=== PATIENT | male | born 1930 | race Caucasian/White ===

== ENCOUNTER 2016-11-03 19:56 | Inpatient (IN) | payer OTHER ==
[2016-11-03 20:11] VITALS: BMI 22.8
[2016-11-03 21:11] LABS: BASOPHIL 1.1 % (0-2.0); EOSINOPHIL 0.1 % (0-4.5); MCH 28.8 pg (25.7-33.7); MCHC 32.1 g/dl (32.0-35.9); MEAN CELL VOLUME 89.6 fl (80-96); MEAN PLT VOLUME 8.8 fl (7.5-11.1); NEUTROPHILS 90.8 % (42.8-82.8); PLATELET COUNT 119 K/MM3 (134-434); RDW 16.6 % (11.9-15.9); WHITE BLOOD COUNT 9.1 K/mm3 (4.0-10.0)
[2016-11-03 21:12] LABS: VENOUS BLOOD GAS HCO3 24.5 meq/L (19-25); VENOUS PH 7.38 (7.32-7.42)
--- NOTE | 2016-11-03 21:14 | PDOC ---
History of Present Illness - General History Source: Patient Exam Limitations: No Limitations - History of Present Illness Initial Comments: 11/03/16 21:18 The patient is a 86 year old male presenting with his , with a significant past medical history of CKD, CHF, AFIB s/p pacemaker, BPH, thoracic aneurysm, anemia, hypertension, high cholesterol, CAD with stent 2, status post CABG, who presents to the emergency department with generalized weakness and mild confusion for the last couple of days. The states that the patient had a otto placed for roughly a week, which was removed 3 days ago. He had urinary incontinence 2 days ago and his weakness and confusion began, prompting to come to the ED for further evaluation. The otto was placed due to his lazy bladder . The patient denies chest pain, shortness of breath, headache and dizziness. Denies fever, chills, nausea, vomit, diarrhea and constipation. Denies dysuria, frequency, urgency and hematuria. Allergies: mirtazapine Past surgical history: stents, CABG, Pacemaker, Watchman device placement, bilateral knee arthroscopy Social history: No alcohol, tobacco or drug use reported <Olu Lobato - Last Filed: 11/03/16 21:18> - General History Source: Patient, Spouse Exam Limitations: No Limitations <Tra Martinez - Last Filed: 11/03/16 23:26> - General Chief Complaint: Weakness Stated Complaint: PCP SENT/WEAKNESS Time Seen by Provider: 11/03/16 20:43 Past History <Olu Lobato - Last Filed: 11/03/16 21:18> - Past Medical History Anemia: Yes Cardiac Disorders: Yes (A FIB,ASCAD S/P CABG STENT/ DEFIBRILLATOR) CVA: No CHF: Yes Dementia: No Diabetes: No GI Disorders: Yes (Internal Hemorrhoids,) Disorders: Yes (BPH, renal disease) HTN: Yes Hypercholesterolemia: Yes Liver Disease: No Suicide Attempt (Hx): No Seizures: No Thyroid Disease: No - Surgical History Abdominal Surgery: Yes Appendectomy: No Cardiac Surgery: Yes (PACEMAKER,CABG/STENT- DEFIBULATOR) Cholecystectomy: No Lung Surgery: No Neurologic Surgery: No Orthopedic Surgery: Yes (BILAT KNEE ARTHROSCOPY) - Immunization History Immunization Up to Date: Yes - Psycho/Social/Smoking Cessation Hx Anxiety: No Suicidal Ideation: No Smoking History: Former smoker Have you smoked in the past 12 months: No If you are a former smoker, when did you quit?: 2001 Information on smoking cessation initiated: No Hx Alcohol Use: Yes Drug/Substance Use Hx: No Substance Use Type: Alcohol Hx Substance Use Treatment: No <Tra Martinez - Last Filed: 11/03/16 23:26> - Past Medical History Allergies/Adverse Reactions: Allergies Allergy/AdvReac Type Severity Reaction Status Date / Time mirtazapine [From Remeron] AdvReac Verified 11/03/16 20:04 Home Medications: Ambulatory Orders Cholecalciferol (Vitamin D3) [Vitamin D3] 2,000 unit PO DAILY 02/12/15 Rosuvastatin Calcium [Crestor] 10 mg PO HS 02/12/15 Aspirin [ASA -] 81 mg PO DAILY 08/26/15 Pantoprazole Sodium [Protonix] 40 mg PO ASDIR 08/26/15 Tamsulosin HCl [Flomax -] 0.4 mg PO DAILY 08/26/15 Furosemide [Lasix -] 40 mg PO DAILY 09/11/15 Carvedilol [Coreg -] 3.125 mg PO BID #60 tablet 09/24/15 Fluticasone Prop 0.05% Nasal [Flonase -] 2 spray NS DAILY #1 spray 09/24/15 Folic Acid/Mv,Fe,Other Min [Strovite Forte (Nf)] 1 tab PO DAILY 11/03/16 Review of Systems - Review of Systems Able to Perform ROS?: Yes Comments:: 11/03/16 21:19 GENERAL/CONSTITUTIONAL: (+) Generalized weakness. No fever or chills. HEAD, EYES, EARS, NOSE AND THROAT: No change in vision. No ear pain or discharge. No sore throat. CARDIOVASCULAR: No chest pain or shortness of breath RESPIRATORY: No cough, wheezing, or hemoptysis. GASTROINTESTINAL: No nausea, vomiting, diarrhea or constipation. GENITOURINARY: No dysuria, frequency, or change in urination. MUSCULOSKELETAL: No joint or muscle swelling or pain. No neck or back pain. SKIN: No rash NEUROLOGIC: No headache, vertigo, loss of consciousness, or change in strength/ sensation. ENDOCRINE: No increased thirst. No abnormal weight change HEMATOLOGIC/LYMPHATIC: No anemia, easy bleeding, or history of blood clots. ALLERGIC/IMMUNOLOGIC: No hives or skin allergy. <Olu Lobato Dian - Last Filed: 11/03/16 21:18> *Physical Exam - Vital Signs Last Vital Signs Temp Pulse Resp BP Pulse Ox 100 F H 70 20 107/60 95 11/03/16 21:11 11/03/16 20:08 11/03/16 20:08 11/03/16 20:08 11/03/16 20:08 - Physical Exam Comments: 11/03/16 21:19 GENERAL: Awake, alert, and fully oriented, in no acute distress HEAD: No signs of trauma, normocephalic, atraumatic EYES: PERRLA, EOMI, sclera anicteric, conjunctiva clear ENT: Auricles normal inspection, hearing grossly normal, nares patent, oropharynx clear without exudates. Moist mucosa NECK: Normal ROM, supple, no lymphadenopathy, JVD, or masses LUNGS: No distress, speaks full sentences, clear to auscultation bilaterally HEART: (+) Right sided pacemaker. Regular rate and rhythm, normal S1 and S2, no murmurs, rubs or gallops, peripheral pulses normal and equal bilaterally. ABDOMEN: Soft, nontender, normoactive bowel sounds. No guarding, no rebound. No masses EXTREMITIES: (+) 1+ pitting edema. Normal range of motion. No clubbing or cyanosis. NEUROLOGICAL: Cranial nerves II through XII grossly intact. Normal speech, no focal sensorimotor deficits SKIN: Warm, Dry, normal turgor, no rashes or lesions noted. <AggiereaOlu - Last Filed: 11/03/16 21:18> - Vital Signs Last Vital Signs Temp Pulse Resp BP Pulse Ox 97.9 F 70 20 107/60 95 11/03/16 20:08 11/03/16 20:08 11/03/16 20:08 11/03/16 20:08 11/03/16 20:08 <Tra Martinez - Last Filed: 11/03/16 23:26> Heart Score/ECG Review #1 11/03/16 23:26 Ventricular paced 70 <Tra Martinez - Last Filed: 11/03/16 23:26> ED Treatment Course - LABORATORY CBC & Chemistry Diagram: 11/03/16 21:00 11/03/16 21:00 - ADDITIONAL ORDERS Additional order review: Laboratory Results 11/03/16 21:10 VBG pH 7.38 POC VBG pCO2 42.9 POC VBG pO2 20.9 L Mixed VBG HCO3 24.5 <CheryleOlukimmie Biggs - Last Filed: 11/03/16 21:18> - LABORATORY CBC & Chemistry Diagram: 11/03/16 21:00 11/03/16 21:00 - RADIOLOGY Radiology Studies Ordered: Category Date Time Status CHEST X-RAY PORTABLE* [RAD] Stat Radiology 11/03/16 20:57 Ordered <Melanie Martinezel - Last Filed: 11/03/16 23:26> Medical Decision Making - Medical Decision Making 11/03/16 21:13 A portion of this note was documented by scribe services under my direction. I have reviewed the details of the note, within reason, and agree with the documentation with the following case summary and management plan written by me. Patient treated in the ED. Nursing notes are reviewed and incorporated into the medical decision-making. Vital signs reviewed. Peripheral IV access obtained by the nurse, laboratory studies are drawn and sent, reviewed and interpreted by myself. Vital Signs Temp Pulse Resp BP Pulse Ox 100 F H 70 20 107/60 95 11/03/16 21:11 11/03/16 20:08 11/03/16 20:08 11/03/16 20:08 11/03/16 20:08 86-year-old male with past medical history of atrial fibrillation, hypertension , BPH, urinary incontinence, congestive heart failure, coronary disease with stents and a 4 vessel CABG, pacemaker presents with rule out infection. The patient had an indwelling Otto catheter for several weeks for urinary incontinence that was removed 2 days ago. Yesterday, started developing tactile temperatures and intermittent confusions and some loose stools. Patient contacted her doctor who advised the patient to go to the ER. I suspect that the patient is likely having infection. We'll rule out urinary tract infection. Adult sepsis protocol initiated. Labs and antibiotics as needed. 11/03/16 22:56 CBC, BMP 11/03/16 21:00 11/03/16 21:00 CMP Sodium 131 mmol/L (136-145) L 11/03/16 21:00 Potassium 5.2 mmol/L (3.5-5.1) H D 11/03/16 21:00 Chloride 94 mmol/L (98-107) L 11/03/16 21:00 Carbon Dioxide 25 mmol/L (21-32) 11/03/16 21:00 Anion Gap 12 (8-16) 11/03/16 21:00 BUN 73 mg/dL (7-18) H D 11/03/16 21:00 Creatinine 3.1 mg/dL (0.7-1.3) H D 11/03/16 21:00 Creat Clearance w eGFR 19.25 (>60) 11/03/16 21:00 Random Glucose 108 mg/dL (74-106) H 11/03/16 21:00 Lactic Acid 2.3 mmol/L (0.4-2.0) H* 11/03/16 21:00 Calcium 8.8 mg/dL (8.5-10.1) 11/03/16 21:00 Total Bilirubin 1.3 mg/dL (0.2-1.0) H D 11/03/16 21:00 AST 40 U/L (15-37) H D 11/03/16 21:00 ALT 27 U/L (12-78) 11/03/16 21:00 Alkaline Phosphatase 124 U/L (45-117) H 11/03/16 21:00 Creatine Kinase 524 IU/L (39-308) H D 11/03/16 21:10 Creatine Kinase Index 0.6 % (0.0-5.0) 11/03/16 21:10 CK-MB (CK-2) 3.345 ng/ml (0.5-3.6) 11/03/16 21:10 CK-MB (CK-2) Rel Index Cancelled 11/03/16 21:10 Troponin I 0.18 ng/ml (0.00-0.05) H D 11/03/16 21:10 Total Protein 6.6 g/dl (6.4-8.2) 11/03/16 21:00 Albumin 3.2 g/dl (3.4-5.0) L 11/03/16 21:00 Urine Test Results Urine Color Yellow 11/03/16 21:10 Urine Appearance Turbid 11/03/16 21:10 Urine pH 5.0 (5.0-8.0) 11/03/16 21:10 Urine Protein 2+ (NEGATIVE) H 11/03/16 21:10 Urine Glucose (UA) Negative (NEGATIVE) 11/03/16 21:10 Urine Ketones Negative (NEGATIVE) 11/03/16 21:10 Urine Blood 2+ (NEGATIVE) H 11/03/16 21:10 Urine Nitrite Negative (NEGATIVE) 11/03/16 21:10 Urine Bilirubin Negative (NEGATIVE) 11/03/16 21:10 Ur Leukocyte Esterase 2+ (NEGATIVE) H 11/03/16 21:10 Blood work demonstrates an elevated lactic acid and acute on chronic renal insufficiency as well as an elevated troponin which is likely demand ischemia. Patient is urine is infected and likely source of patient's symptoms. Zosyn was ordered for coverage. Patient will be admitted to the hospital. Case discussed with Dr. Mercedes who accepts the patient and on telemetry for admission Case discussed in detail with admitting physician including history, physical exam and ancillary studies. Admitting physician has assumed care for the patient, will follow all pending diagnostics and will complete the evaluation and treatment. <Tra Martinez - Last Filed: 11/03/16 23:26> *DC/Admit/Observation/Transfer - Attestations Scribe Attestion: 11/03/16 21:20 Documentation prepared by Olu Lobato, acting as medical office professional instructor for Tra Martinez MD <Olu Lobato - Last Filed: 11/03/16 21:18> - Discharge Dispostion Admit: Yes <Tra Martinez - Last Filed: 11/03/16 23:26> Diagnosis at time of Disposition: UTI (urinary tract infection) Qualifiers: Urinary tract infection type: site unspecified Hematuria presence: without hematuria Qualified Code(s): N39.0 - Urinary tract infection, site not specified - Referrals Referrals: Ga Hoang MD [Primary Care Provider] -
[2016-11-03 21:36] LABS: INR 1.71 (0.82-1.09)
[2016-11-03 21:37] LABS: ALBUMIN 3.2 g/dl (3.4-5.0); ALK PHOS 124 U/L (45-117); ANION GAP 12 (8-16); BILIRUBIN,TOTAL 1.3 mg/dL (0.2-1.0); CALCIUM 8.8 mg/dL (8.5-10.1); CO2 25 mmol/L (21-32); CREATININE 3.1 mg/dL (0.7-1.3); GLUCOSE,RANDOM 108 mg/dL (74-106); SGOT/AST 40 U/L (15-37); SGPT/ALT 27 U/L (12-78); TOT PROT 6.6 g/dl (6.4-8.2)
[2016-11-03 21:38] LABS: ACTIVATED PTT 30.3 SECONDS (26.9-34.4)
[2016-11-03 21:38] LABS: TROPONIN I 0.18 ng/ml (0.00-0.05)
[2016-11-03 22:01] LABS: URINE APPEARANCE TURBID; URINE BILIRUBIN NEGATIVE (NEGATIVE); URINE COLOR YELLOW; URINE GLUCOSE (UA) NEGATIVE (NEGATIVE); URINE KETONE NEGATIVE (NEGATIVE); URINE NITRITE NEGATIVE (NEGATIVE); URINE UROBILINOGEN 2.0 E.U/dl E.U./dl (0.2-1.0)
[2016-11-03 22:10] LABS: URINE BLOOD 2+ (NEGATIVE); URINE LEUK ESTERASE 2+ (NEGATIVE); URINE PROTEIN 2+ (NEGATIVE)
[2016-11-03] MEDS ORDERED: PIPERACILLIN/TAZOB 3.375 GM/50 ML PRE-DOCKED IVPB ONE (22:15)
[2016-11-03] MEDS ORDERED: PIPERACILLIN/TAZOB 3.375 GM 50 ML IVPB ONE (22:21)
[2016-11-03] MEDS ORDERED: ACETAMINOPHEN 1000 MG/100 ML VIAL (NON FORMULARY) IVPB ONE (22:23)
[2016-11-03] MEDS ORDERED: ACETAMINOPHEN INJECTION 100 ML IVPB ONE (22:38)
[2016-11-03 22:46] LABS: URINE HYALINE CAST 67 /lpf; URINE RBC 17 /hpf (0-3); URINE WBC 2891 /hpf (3-5); YEAST FEW
[2016-11-04 06:49] LABS: BASOPHIL 0.1 % (0-2.0); EOSINOPHIL 0.6 % (0-4.5); MCH 29.3 pg (25.7-33.7); MCHC 32.5 g/dl (32.0-35.9); MEAN CELL VOLUME 90.2 fl (80-96); MEAN PLT VOLUME 8.5 fl (7.5-11.1); NEUTROPHILS 93.2 % (42.8-82.8); PLATELET COUNT 100 K/MM3 (134-434); RDW 16.9 % (11.9-15.9); WHITE BLOOD COUNT 7.4 K/mm3 (4.0-10.0)
[2016-11-04 07:42] LABS: ALBUMIN 2.7 g/dl (3.4-5.0); ANION GAP 10 (8-16); CALCIUM 8.2 mg/dL (8.5-10.1); CO2 27 mmol/L (21-32); GLUCOSE,RANDOM 93 mg/dL (74-106); SGOT/AST 32 U/L (15-37); SGPT/ALT 24 U/L (12-78)
[2016-11-04 07:47] LABS: ALK PHOS 107 U/L (45-117); BILIRUBIN,TOTAL 1.2 mg/dL (0.2-1.0); CREATININE 3.2 mg/dL (0.7-1.3); TOT PROT 5.7 g/dl (6.4-8.2); TROPONIN I 0.13 ng/ml (0.00-0.05)
[2016-11-04] MEDS ORDERED: TAMSULOSIN HCL 0.4 MG CAP.ER.24H (FP) PO SCH (08:30)
--- NOTE | 2016-11-04 09:55 | HP ---
Admitting History and Physical - Primary Care Physician PCP: Ga Hoang - Admission Chief Complaint: weakness History of Present Illness: ER HISTORY - History of Present Illness Initial Comments: 11/03/16 21:18 The patient is a 86 year old male presenting with his , with a significant past medical history of CKD, CHF, AFIB s/p pacemaker, BPH, thoracic aneurysm, anemia, hypertension, high cholesterol, CAD with stent 2, status post CABG, who presents to the emergency department with generalized weakness and mild confusion for the last couple of days. The states that the patient had a otto placed for roughly a week, which was removed 3 days ago. He had urinary incontinence 2 days ago and his weakness and confusion began, prompting to come to the ED for further evaluation. The otto was placed due to his lazy bladder . The patient denies chest pain, shortness of breath, headache and dizziness. Denies fever, chills, nausea, vomit, diarrhea and constipation. Denies dysuria, frequency, urgency and hematuria. Allergies: mirtazapine Past surgical history: stents, CABG, Pacemaker, Watchman device placement, bilateral knee arthroscopy Social history: No alcohol, tobacco or drug use reported Pt examined by me in ER Pt known by me from the office. Was sent by Dr Hoang for generalized weakness and worsening renal function. Pt does admit to difficulty urinating. Confused and forgetful-- unlike his usual self. Denies fever or chills. Has body aches and feels weak. No chest pain No dizziness Unable to give a meaningful history. not at bedside. History Source: Patient, Family Member, Medical Record Limitations to Obtaining History: Poor Historian - Past Medical History Cardiovascular: Yes: AFIB (s/p watchman device), CAD (status post CABG in 2003) , CHF (status post AICD), HTN, Hyperlipdemia Gastrointestinal: Yes: Diverticulosis, GI Bleed Renal/: Yes: Renal Inusuff Musculoskeletal: Yes: Chronic low back pain - Past Surgical History Past Surgical History: Yes: AICD, CABG - Smoking History Smoking history: Former smoker Have you smoked in the past 12 months: No If you are a former smoker, when did you quit?: 2001 - Alcohol/Substance Use Hx Alcohol Use: Yes - Social History ADL: Independent History of Recent Travel: No Home Medications - Allergies Allergies/Adverse Reactions: Allergies Allergy/AdvReac Type Severity Reaction Status Date / Time mirtazapine [From Remeron] AdvReac Verified 11/03/16 20:04 - Home Medications Home Medications: Ambulatory Orders Cholecalciferol (Vitamin D3) [Vitamin D3] 2,000 unit PO DAILY 02/12/15 Rosuvastatin Calcium [Crestor] 10 mg PO HS 02/12/15 Aspirin [ASA -] 81 mg PO DAILY 08/26/15 Pantoprazole Sodium [Protonix] 40 mg PO ASDIR 08/26/15 Tamsulosin HCl [Flomax -] 0.4 mg PO DAILY 08/26/15 Furosemide [Lasix -] 40 mg PO DAILY 09/11/15 Carvedilol [Coreg -] 3.125 mg PO BID #60 tablet 09/24/15 Fluticasone Prop 0.05% Nasal [Flonase -] 2 spray NS DAILY #1 spray 09/24/15 Folic Acid/Mv,Fe,Other Min [Strovite Forte (Nf)] 1 tab PO DAILY 11/03/16 Review of Systems - Review of Systems Constitutional: reports: Weakness. denies: Chills, Fever, Loss of Appetite Cardiovascular: reports: Edema. denies: Chest Pain, Shortness of Breath Gastrointestinal: denies: Abdominal Pain, Diarrhea Genitourinary: reports: Incontinence. denies: Burning, Discharge, Dysuria, Flank Pain, Frequency Physical Examination Vital Signs: Vital Signs Temperature 100 F H 11/03/16 21:11 Pulse Rate 78 11/04/16 07:50 Respiratory Rate 18 11/04/16 07:50 Blood Pressure 126/74 11/04/16 07:50 O2 Sat by Pulse Oximetry (%) 97 11/04/16 07:50 Constitutional: Yes: No Distress, Calm Cardiovascular: Yes: Pulse Irregular, Murmur Respiratory: Yes: CTA Bilaterally Gastrointestinal: Yes: Normal Bowel Sounds, Soft. No: Abdomen, Obese, Distention, Tenderness Edema: Yes Edema: LLE: 2+, RLE: 2+ Neurological: Yes: Alert, Confusion Labs: CBC, BMP 11/04/16 06:26 11/04/16 06:26 Imaging - Results Chest X-ray: Image Reviewed (no infiltrate) EKG: Image Reviewed (paced) Problem List - Problems (1) UTI (urinary tract infection) Code(s): N39.0 - URINARY TRACT INFECTION, SITE NOT SPECIFIED Qualifiers: Urinary tract infection type: site unspecified Hematuria presence: without hematuria Qualified Code(s): N39.0 - Urinary tract infection, site not specified (2) VALDEMAR (acute kidney injury) Code(s): N17.9 - ACUTE KIDNEY FAILURE, UNSPECIFIED (3) Atrial fibrillation Code(s): I48.91 - UNSPECIFIED ATRIAL FIBRILLATION (4) Gram-negative bacteremia Code(s): R78.81 - BACTEREMIA (5) Altered mental status Code(s): R41.82 - ALTERED MENTAL STATUS, UNSPECIFIED Assessment/Plan PLAN IV antibiotics Blood cultures prelim positive gram negative check kidneys and urinary bladder sono denies NSAID use cardiac enzymes slightly elevated but trending down-- likely due to sepsis check Echo ID eval for bacteremia Renal eval for acute on chronic kidney failure Cardiology eval for elevated cardiac enzymes DVT prophylaxis-- SCD Lasix on hold due to kidney injury Time spent evaluating pt, speaking with staff, documentation -- 35 min
[2016-11-04] MEDS ORDERED: FLUTICASONE PROP 0.05% 16 GM NASAL SPRAY NS SCH (10:00)
[2016-11-04] MEDS ORDERED: PANTOPRAZOLE 40 MG TABLET (FP) PO SCH (10:00)
[2016-11-04] MEDS ORDERED: ASPIRIN 81 MG CHEWABLE TABLETS PO SCH (10:00)
[2016-11-04] MEDS ORDERED: CEFTRIAXONE 50 ML IVPB SCH (10:00)
[2016-11-04] MEDS ORDERED: CARVEDILOL 3.125 MG TABLET (FP) PO SCH (10:00)
--- NOTE | 2016-11-04 11:54 | CON.CARD ---
Cardiology Consult (text) - Consultation Consultation Note: cc: weakness, lethargy hpi: 86 m hx CAD s/p CABG (09/2006: CHANDLER to LAD, SVG to HL, SVG to OM2, SVG to PDA) and pci (last cath/PCI 10/2012: patent CHANDLER to LAD, SVG to OM2, SVG to Ramus, occluded SVG to RPDA. Had ZENIA PCI to [place] Diag, unsuccessful attempt of [place] RCA PLATE WASHER), MV ring (28 mm Tyler) for severe MR, ischemic CMPathy s /p biv-ICD ([employer]), HTN, HPL, Aflutter ablation 06/2008 (caused inappropriate ICD shocks), afib s/p watchman device 06/2015 ([facility]), GIB (possible internal hemroids), ckd (cr 2.5-3), anemia here with weakness/lethargy. Had been doing well until recently when had urinary retention requiring outpt otto. Otto was removed few days ago and he started to become weak and lethargic over past few days. No cp, sob, palps, dizzy, loc, pnd, orthopnea. LE edema mild. Sees me for cardiology. pmh: per hpi psh: per hpi; neck fusion surgery, spine injections, rotator cuff repair, knee arthroscopy social: no tob fam: no premature cad ros: per hpi; no rash, cough, nasal congestion, JARRETT, vision changes, muscle pains , nvd meds: Home Medications Medication Instructions Recorded Cholecalciferol (Vitamin D3) 2,000 unit PO DAILY 02/12/15 [Vitamin D3] Rosuvastatin Calcium [Crestor] 10 mg PO HS 02/12/15 Aspirin [ASA -] 81 mg PO DAILY 08/26/15 Pantoprazole Sodium [Protonix] 40 mg PO ASDIR 08/26/15 Tamsulosin HCl [Flomax -] 0.4 mg PO DAILY 08/26/15 Furosemide [Lasix -] 40 mg PO DAILY 09/11/15 Carvedilol [Coreg -] 3.125 mg PO BID #60 tablet 09/24/15 Fluticasone Prop 0.05% Nasal 2 spray NS DAILY #1 spray 09/24/15 [Flonase -] Folic Acid/Mv,Fe,Other Min 1 tab PO DAILY 11/03/16 [Strovite Forte (Nf)] pe: Vital Signs Period Temp Pulse Resp BP Sys/Dennison Pulse Ox Last 24 Hr 97.9 F-100 F 70-78 16-20 90-126/40-74 95-100 nad, no jvd rrr s1s2 no mrg cta bl nl eff lethargic but arousable and appropriate no le e/c/c abd mild tender, nd pos bs no jaundice diaphoresis pos dp pt Laboratory Last Values WBC 7.4 K/mm3 (4.0-10.0) 11/04/16 06:26 RBC 3.85 M/mm3 (4.00-5.60) L 11/04/16 06:26 Hgb 11.3 GM/dL (11.7-16.9) L 11/04/16 06:26 Hct 34.8 % (35.4-49) L 11/04/16 06:26 MCV 90.2 fl (80-96) 11/04/16 06:26 MCHC 32.5 g/dl (32.0-35.9) 11/04/16 06:26 RDW 16.9 % (11.9-15.9) H 11/04/16 06:26 Plt Count 100 K/MM3 (134-434) L 11/04/16 06:26 MPV 8.5 fl (7.5-11.1) 11/04/16 06:26 Neutrophils % 93.2 % (42.8-82.8) H 11/04/16 06:26 Lymphocytes % 2.5 % (8-40) L 11/04/16 06:26 Monocytes % 3.6 % (3.8-10.2) L 11/04/16 06:26 Eosinophils % 0.6 % (0-4.5) D 11/04/16 06:26 Basophils % 0.1 % (0-2.0) 11/04/16 06:26 INR 1.71 (0.82-1.09) H 11/03/16 21:00 PTT (Actin FS) 30.3 SECONDS (26.9-34.4) 11/03/16 21:00 VBG pH 7.38 (7.32-7.42) 11/03/16 21:10 POC VBG pCO2 42.9 mmHg (38-52) 11/03/16 21:10 POC VBG pO2 20.9 mmHg (28-48) L 11/03/16 21:10 Mixed VBG HCO3 24.5 meq/L (19-25) 11/03/16 21:10 Sodium 133 mmol/L (136-145) L 11/04/16 06:26 Potassium 5.0 mmol/L (3.5-5.1) 11/04/16 06:26 Chloride 96 mmol/L (98-107) L 11/04/16 06:26 Carbon Dioxide 27 mmol/L (21-32) 11/04/16 06:26 Anion Gap 10 (8-16) 11/04/16 06:26 BUN 78 mg/dL (7-18) H 11/04/16 06:26 Creatinine 3.2 mg/dL (0.7-1.3) H 11/04/16 06:26 Creat Clearance w eGFR 18.55 (>60) 11/04/16 06:26 Random Glucose 93 mg/dL (74-106) 11/04/16 06:26 Lactic Acid 1.4 mmol/L (0.4-2.0) 11/04/16 06:20 Calcium 8.2 mg/dL (8.5-10.1) L 11/04/16 06:26 Total Bilirubin 1.2 mg/dL (0.2-1.0) H 11/04/16 06:26 AST 32 U/L (15-37) 11/04/16 06:26 ALT 24 U/L (12-78) 11/04/16 06:26 Alkaline Phosphatase 107 U/L (45-117) 11/04/16 06:26 Creatine Kinase 382 IU/L (39-308) H D 11/04/16 06:26 Creatine Kinase Index 0.8 % (0.0-5.0) 11/04/16 06:26 CK-MB (CK-2) 3.006 ng/ml (0.5-3.6) 11/04/16 06:26 CK-MB (CK-2) Rel Index Cancelled 11/03/16 21:10 Troponin I 0.13 ng/ml (0.00-0.05) H 11/04/16 06:26 Total Protein 5.7 g/dl (6.4-8.2) L 11/04/16 06:26 Albumin 2.7 g/dl (3.4-5.0) L 11/04/16 06:26 Urine Color Yellow 11/03/16 21:10 Urine Appearance Turbid 11/03/16 21:10 Urine pH 5.0 (5.0-8.0) 11/03/16 21:10 Ur Specific [place] 1.015 (1.005-1.025) 11/03/16 21:10 Urine Protein 2+ (NEGATIVE) H 11/03/16 21:10 Urine Glucose (UA) Negative (NEGATIVE) 11/03/16 21:10 Urine Ketones Negative (NEGATIVE) 11/03/16 21:10 Urine Blood 2+ (NEGATIVE) H 11/03/16 21:10 Urine Nitrite Negative (NEGATIVE) 11/03/16 21:10 Urine Bilirubin Negative (NEGATIVE) 11/03/16 21:10 Urine Urobilinogen 2.0 e.u/dl E.U./dl (0.2-1.0) 11/03/16 21:10 Ur Leukocyte Esterase 2+ (NEGATIVE) H 11/03/16 21:10 Urine RBC 17 /hpf (0-3) 11/03/16 21:10 Urine WBC 2891 /hpf (3-5) 11/03/16 21:10 Hyaline Casts 67 /lpf 11/03/16 21:10 Urine Yeast Few 11/03/16 21:10 Blood Type A POSITIVE 11/03/16 21:00 Antibody Screen Negative 11/03/16 21:00 cxr: no chf tele: vpaced Adeno stress MPI 06/2012 : moderate anterior and inferior ischemia, severely reduced LVF-->cath Carotid Doppler 07/2012: no sig stenosis PVR 05/2012: normal elana 04/2016: lve, mod-sev dec lvef, global hk, rve, mod dec rv fcn, mild ar, mv repair with mild mr, sev tr 2/2 icd lead, watchman device in place with nl fcn echo 08/2015: mod-sev dec lvef (global hk), mild lve, mild rve, nl rvf, mild aida , mv ring, sev tr, rvsp 30-40, mod ar echo 12/2014: mod lve, sev decreased lvef (global hypo), nl rv size, s/p MV ring with trace mr, sev tr, mod-sev ar, rvsp 30-40 Echo 05/2013: severely dil LV, severely reduced LVF, normal RVF, mod biatrial dilation, mod AI, s/p mitral annuloplasty ring, mild to mod TR, RVSP 50-60 Echo 05/2012: mod dil LV, severely reduced LVF, normal RVF, mod dil LA, mod AI, s/p mitral annuloplasty ring, mild TR, RVSP 35-40 ecg 11/04/16: afib, vpaced a/p: 86 m hx CAD s/p CABG (09/2006: CHANDLER to LAD, SVG to HL, SVG to OM2, SVG to PDA) and pci (last cath/PCI 10/2012: patent CHANDLER to LAD, SVG to OM2, SVG to Ramus, occluded SVG to RPDA. Had ZENIA PCI to [place] Diag, unsuccessful attempt of [place] RCA PLATE WASHER), MV ring (28 mm Tyler) for severe MR, ischemic CMPathy s /p biv-ICD ([employer]), HTN, HPL, Aflutter ablation 06/2008 (caused inappropriate ICD shocks), afib s/p watchman device 06/2015 ([facility]), GIB (possible internal hemroids), ckd (cr 2.5-3), anemia here with weakness/lethargy. weakness, lethargy: -likely 2/2 infection (?uti), valdemar -abx per pmd/ID -holding home lasix pos trops: -borderline trop elevation with flat trend and nl ckmb, not consistent with acs Cad s/p cabg, pci: -Stable, no angina. -no signs acs -cont asa, bb, statin Severe MR s/p ring: -Stable, no sig MR on recent ELANA ischemic CMPathy, severe systolic chf: -mild le edema, no pulm edema -VALDEMAR presently so would hold home lasix 40 qd for now and monitor cr trend -cont coreg. not on omar 2/2 ckd -Nitrates and hydral have been held in past due to low bp tendencies. s/p biv-ICD ([employer]): Stable. Has routine home monitoring and office checks at [facility] [place] with EP dr tabares. Had multiple episodes of NSVT therefore maintained on amiodarone. Outpt f/u with EP. htn: -cont coreg, can hold if develops low bp from sepsis hld: -cont statin Prior Aflutter: s/p successful ablation in 2008. AFib: -Rate controlled on bb, amio -Had Watchman device 06/2015 at [facility], nl fcn on recent ELANA -cont asa 81 valdemar, ckd: -cr above baseline, possibly from UTI, urinary retention -hold home lasix -renal consulted hx of anemia: -he had INOCENCIO closure device (watchman device) and then finished the requisite 6 weeks of coumadin w/o bleeding issues and stable hgb throughout -then he began the next phase post watchman device that involved 6 weeks of DAPT with asa and plavix. 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
--- NOTE | 2016-11-04 11:57 | EKG ---
Test Reason : Blood Pressure : / mmHG Vent. Rate : 070 BPM Atrial Rate : 079 BPM P-R Int : 000 ms QRS Dur : 184 ms QT Int : 482 ms P-R-T Axes : 000 246 076 degrees QTc Int : 520 ms POOR DATA QUALITY, INTERPRETATION MAY BE ADVERSELY AFFECTED Ventricular-paced rhythm Biventricular pacemaker detected ABNORMAL ECG WHEN COMPARED WITH ECG OF 11-SEP-2015 16:33, NO SIGNIFICANT CHANGE WAS FOUND Confirmed by ERNST DURANT MD ([id number]) on 11/04/2016 11:57:07 AM Referred By: Confirmed By:ERNST DURANT MD
[2016-11-04] MEDS ORDERED: MEROPENEM 500 MG VIAL (RESTRICTED TO ID) IVPB SCH (15:45)
--- NOTE | 2016-11-04 15:50 | PN ---
Progress Note (short form) - Note Progress Note: ID Consult dictated Gram Negative bacteremia/ sepsis secondary to UTI Possible early septic shock Lactic acidosis Neurogenic bladder Azotemia Thrombocytopenia secondary to sepsis Pending c/s, empiric meropenem, adjusted for azotemia Renal sonogram Urology evaluation
--- NOTE | 2016-11-04 16:36 | CONS ---
DATE OF CONSULTATION: DATE OF DICTATION: 11/04/2016 The patient is an 86-year-old male evaluated for gram-negative sepsis. History was obtained from the chart as well as from the patient, although he is somewhat confused. He reports experiencing generalized weakness for the past several days. He had recently had a Garcia catheter put in by a urologist for neurogenic bladder, and it was removed approximately 3 days ago. Over the past several days he has had worsening weakness with difficulty voiding and altered mentation. He was advised by his physician to come to the emergency room after he was noted to have worsening renal function. In the emergency room, the patient had a low-grade fever. Urinalysis showed many white cells. Blood cultures are now positive for gram-negative rods. The patient denies any difficulty voiding at the present time. He denies any urinary retention or incontinence. He denies any suprapubic or flank pain. The Garcia catheter is out. He has had some subjective fever. He has not been recently hospitalized. He denies recent antibiotic therapy. PAST MEDICAL HISTORY: Positive for atrial fibrillation, congestive heart failure, coronary artery disease status post coronary artery stent, chronic kidney disease, BPH, thoracic aortic aneurysm, hypertension, hyperlipidemia, history of perirectal abscess. PAST SURGICAL HISTORY: Status post permanent pacemaker, coronary artery bypass graft, history of Watchman device insertion, and bilateral total knee replacements. ALLERGIES: MIRTAZAPINE. MEDICATIONS: Vitamin D, Crestor, aspirin, Protonix, Flomax, Lasix, Coreg. SOCIAL HISTORY: Former smoker. Lives at home with his . SYSTEMS REVIEW: Neurologic: Positive for altered mental status. Cardiac: Negative chest pain or palpitations. Respiratory: Negative cough or sputum production. Gastrointestinal: Negative vomiting or diarrhea. Genitourinary: As per HPI. LABORATORY DATA: White count 7.4, neutrophils 93, lymphocytes 2, monocytes 3, hematocrit 34.8, platelet count 100. BUN 78, creatinine 3.2. Urine analysis: 2891 white cells. Blood cultures: Gram-negative rods. Chest x-ray shows increased markings at the bases bilaterally. PHYSICAL EXAMINATION: General: He is awake. He appeared mildly confused although he is able to answer questions appropriately. Vital Signs: Temperature 98.2. T-max 100. Blood pressure 100/54. Pulse 73, regular. Respirations 18 per minute. Eyes: Sclerae anicteric. Heart Sounds: Irregular, S1, S2. Lungs: Few crepitations at the bases bilaterally. Chest: There is a pacemaker present in the left chest. Abdomen: Soft. No tenderness elicited. No mass, rebound or rigidity. Extremities: 1+ edema. IMPRESSION: 1. Gram-negative bacteremia/sepsis secondary to urinary tract infection. 2. Possible early septic shock. 3. Neurogenic bladder. 4. Azotemia. 5. Thrombocytopenia secondary to sepsis. Pending identification of blood isolate, empiric antibiotic coverage with meropenem adjusted for renal insufficiency. Will give 250 mg IV piggyback every 8 hours, obtain renal sonogram. Urology evaluation. Further recommendations pending culture results. Will follow. Thank you for the kind referral. SANDRA FRIEDMAN M.D. RUPINDER/[id number]
[2016-11-04] MEDS: MEROPENEM 250 MG in DEXTROSE 5%-WATER - 100 ML IVPB SCH (18:34)
--- NOTE | 2016-11-04 21:30 | CONSULT ---
Consult Consult Specialty:: Nephrology Reason for Consultation:: VALDEMAR on CKD - History of Present Illness Chief Complaint: generalized weakness and confusion History of Present Illness: Pt is an 86 year old male with pmhx of CKD (baseline education rep about 2.3), CHF, a-fib , BPH, thoracic aneurysm, HTN, CAD, CABGand hyperlipidemia who presents to the ER with several days of weakness and altered mental status. He had an indwelling otto that removed about one week ago. He was found to have elevated creatinine and I was called to evaluate him. He denies shortness of breath, fever or chills. He is incontinent. He denies nsaid use. - History Source History Provided By: Patient, Medical Record - Past Medical History Cardio/Vascular: Yes: AFIB (s/p watchman device), CAD (status post CABG in 2003) , CHF (status post AICD), HTN, Hyperlipdemia Gastrointestinal: Yes: Diverticulosis, GI Bleed Renal/: Yes: Renal Inusuff Musculoskeletal: Yes: Chronic low back pain - Past Surgical History Past Surgical History: Yes: AICD, CABG - Alcohol/Substance Use Hx Alcohol Use: Yes - Smoking History Smoking history: Former smoker Have you smoked in the past 12 months: No If you are a former smoker, when did you quit?: 2001 - Social History Usual Living Arrangement: With Spouse ADL: Independent History of Recent Travel: No Home Medications - Allergies Allergies/Adverse Reactions: Allergies Allergy/AdvReac Type Severity Reaction Status Date / Time mirtazapine [From Remeron] AdvReac Verified 11/03/16 20:04 - Home Medications Home Medications: Ambulatory Orders Cholecalciferol (Vitamin D3) [Vitamin D3] 2,000 unit PO DAILY 02/12/15 Rosuvastatin Calcium [Crestor] 10 mg PO HS 02/12/15 Aspirin [ASA -] 81 mg PO DAILY 08/26/15 Pantoprazole Sodium [Protonix] 40 mg PO ASDIR 08/26/15 Tamsulosin HCl [Flomax -] 0.4 mg PO DAILY 08/26/15 Furosemide [Lasix -] 40 mg PO DAILY 09/11/15 Carvedilol [Coreg -] 3.125 mg PO BID #60 tablet 09/24/15 Fluticasone Prop 0.05% Nasal [Flonase -] 2 spray NS DAILY #1 spray 09/24/15 Folic Acid/Mv,Fe,Other Min [Strovite Forte (Nf)] 1 tab PO DAILY 11/03/16 Family Disease History - Family Disease History Family History: Denies Review of Systems - Review of Systems Constitutional: reports: Malaise, Weakness HENT: reports: No Symptoms Neck: reports: No Symptoms Cardiovascular: reports: No Symptoms Respiratory: reports: No Symptoms Gastrointestinal: reports: No Symptoms Genitourinary: reports: Incontinence. denies: Burning, Flank Pain Musculoskeletal: reports: No Symptoms Neurological: reports: Confusion Endocrine: reports: No Symptoms Hematology/Lymphatic: reports: No Symptoms Psychiatric: reports: No Symptoms Physical Exam Vital Signs: Vital Signs Temperature 97.7 F 11/04/16 18:05 Pulse Rate 72 11/04/16 18:05 Respiratory Rate 20 11/04/16 18:05 Blood Pressure 98/50 11/04/16 18:05 O2 Sat by Pulse Oximetry (%) 98 11/04/16 18:05 Constitutional: Yes: Calm Eyes: Yes: Conjunctiva Clear HENT: Yes: Atraumatic Neck: Yes: Supple Cardiovascular: Yes: Pulse Irregular, S1, S2 Respiratory: Yes: CTA Bilaterally Gastrointestinal: Yes: Normal Bowel Sounds, Soft Renal/: Yes: Incontinence Musculoskeletal: Yes: WNL Edema: No Neurological: Yes: Confusion Labs: CBC, BMP 11/04/16 06:26 11/04/16 06:26 Laboratory Tests 09/11/15 09/12/15 09/14/15 12:23 05:20 05:10 Creatinine 3.8 H D 3.3 H 2.5 H 09/15/15 09/16/15 09/17/15 05:35 05:40 05:40 Creatinine 2.4 H 2.3 H 2.2 H 09/18/15 09/19/15 09/21/15 05:40 05:35 06:00 Creatinine 1.9 H 1.7 H 1.9 H 09/24/15 09/21/16 11/03/16 05:35 12:13 21:00 Creatinine 2.0 H 2.3 H 3.1 H D 11/04/16 06:26 Creatinine 3.2 H Imaging - Results Chest X-ray: Report Reviewed Ultrasound: Report Reviewed Problem List - Problems (1) Altered mental status Code(s): R41.82 - ALTERED MENTAL STATUS, UNSPECIFIED (2) CAD (coronary artery disease) Code(s): I25.10 - ATHSCL HEART DISEASE OF [place] CORONARY ARTERY W/O ANG PCTRS Qualifiers: Coronary Disease-Associated Artery/Lesion type: coronary artery bypass graft (3) CHF (congestive heart failure) Code(s): I50.9 - HEART FAILURE, UNSPECIFIED Qualifiers: Congestive heart failure type: systolic Congestive heart failure chronicity: chronic Qualified Code(s): I50.22 - Chronic systolic (congestive ) heart failure (4) Gram-negative bacteremia Code(s): R78.81 - BACTEREMIA (5) Renal insufficiency Code(s): N28.9 - DISORDER OF KIDNEY AND URETER, UNSPECIFIED (6) UTI (urinary tract infection) Code(s): N39.0 - URINARY TRACT INFECTION, SITE NOT SPECIFIED Qualifiers: Urinary tract infection type: site unspecified Hematuria presence: without hematuria Qualified Code(s): N39.0 - Urinary tract infection, site not specified (7) VALDEMAR (acute kidney injury) Code(s): N17.9 - ACUTE KIDNEY FAILURE, UNSPECIFIED (8) Ascites Code(s): R18.8 - OTHER ASCITES Assessment/Plan Current Medications Generic Name Dose Route Start Last Admin Trade Name Freq PRN Reason Stop Dose Admin Amiodarone HCl 200 mg 11/05/16 10:00 Cordarone - PO DAILY JANENE Aspirin 81 mg 11/05/16 10:00 Asa - PO DAILY JANENE Carvedilol 3.125 mg 11/04/16 22:00 Coreg - PO BID JANENE Fluticasone Propionate 2 spray 11/05/16 10:00 Flonase - NS DAILY JANENE Meropenem 250 mg/ Dextrose 100 mls @ 200 mls/hr 11/04/16 16:15 11/04/16 18:34 IVPB 200 mls/hr Q8H-IV JANENE Administration Pantoprazole Sodium 40 mg 11/05/16 10:00 Protonix - PO DAILY JANENE Rosuvastatin Calcium 10 mg 11/04/16 22:00 Crestor - PO HS JANENE Tamsulosin HCl 0.4 mg 11/05/16 08:30 Flomax - PO DAILY@0830 JANENE Impression 1. VALDEMAR 2. hx of ckd with baseline education rep about 2.3 3. sepsis 4. UTI 5. CAD with hx CABG 6. anemia 7. hx of GI bleed 8. a-fib 9. hyperlipidemia 10. renal cyst Plan - blood cultures are positive for gram neg bacilli - hold diuretics for now - monitor urine output - agree with abx - check urine lytes and creatinine - follow urine cultures and blood cultures - will follow Dr Francois
[2016-11-04] MEDS: ROSUVASTATIN CA 10 MG TABLET (FP) PO SCH (21:46)
[2016-11-04] MEDS: CARVEDILOL 3.125 MG TABLET (FP) PO SCH (21:46)
[2016-11-04] MEDS ORDERED: ROSUVASTATIN CA 10 MG TABLET (FP) PO SCH (22:00)
[2016-11-05 00:07] LABS: URINE APPEARANCE TURBID; URINE BILIRUBIN NEGATIVE (NEGATIVE); URINE COLOR DKYELLOW; URINE GLUCOSE (UA) NEGATIVE (NEGATIVE); URINE KETONE NEGATIVE (NEGATIVE); URINE NITRITE NEGATIVE (NEGATIVE); URINE UROBILINOGEN NEGATIVE E.U./dl (0.2-1.0)
[2016-11-05 00:09] LABS: URINE BLOOD 3+ (NEGATIVE); URINE LEUK ESTERASE 3+ (NEGATIVE); URINE PROTEIN 2+ (NEGATIVE)
[2016-11-05 00:12] LABS: URINE BACTERIA MODERATE /hpf (NONE SEEN); URINE HYALINE CAST 6 /lpf; URINE MUCUS RARE; URINE RBC 27 /hpf (0-3); URINE WBC 1107 /hpf (3-5)
[2016-11-05 00:20] LABS: SODIUM,RANDOM URINE 12 MMOL/L
[2016-11-05 00:21] LABS: CHLORIDE,RANDOM URINE < 10 MMOL/L
[2016-11-05] MEDS: ACETAMINOPHEN 325 MG TABLET (FP) PO PRN (00:53)
[2016-11-05] MEDS: MEROPENEM 250 MG in DEXTROSE 5%-WATER - 100 ML IVPB SCH ×3 (01:32→17:34)
[2016-11-05] MEDS: TAMSULOSIN HCL 0.4 MG CAP.ER.24H (FP) PO SCH (08:52)
--- NOTE | 2016-11-05 08:58 | PN ---
Progress Note (short form) - Note Progress Note: SUBJECTIVE: Patient seen and examined. Chart reviewed. Looks weak but no distress. Patient reports he feels better since he came in. Denies chest pain or shortness of breath. Denies abdominal pain. Positive blood cultures. OBJECTIVE: Vital Signs 11/05/16 05:54 Temperature 98.5 F Pulse Rate 72 Respiratory 20 Rate Blood Pressure 95/44 Intake & Output 11/04/16 11/05/16 11/05/16 23:59 07:59 15:59 Intake Total 460 220 Output Total 100 180 Balance 360 40 Weight 68.492 kg Intake: IVPB 100 100 Oral 360 120 Output: Urine 100 180 Void 100 180 Other: Voiding Method Urinal Weight Measurement Method Standing Scale Active Medications Acetaminophen (Tylenol -) 650 mg PO Q6H PRN PRN Reason: FEVER OR PAIN Last Admin: 11/05/16 00:53 Dose: 650 mg Amiodarone HCl (Cordarone -) 200 mg PO DAILY [facility] Last Admin: 11/05/16 09:49 Dose: 200 mg Aspirin (Asa -) 81 mg PO DAILY [facility] Last Admin: 11/05/16 09:49 Dose: 81 mg Carvedilol (Coreg -) 3.125 mg PO BID [facility] Last Admin: 11/05/16 09:49 Dose: 3.125 mg Fluticasone Propionate (Flonase -) 2 spray NS DAILY [facility] Last Admin: 11/05/16 09:53 Dose: 2 spray Meropenem 250 mg/ Dextrose 100 mls @ 200 mls/hr IVPB Q8H-IV [facility] Last Admin: 11/05/16 01:32 Dose: 200 mls/hr Pantoprazole Sodium (Protonix -) 40 mg PO DAILY [facility] Last Admin: 11/05/16 09:49 Dose: 40 mg Rosuvastatin Calcium (Crestor -) 10 mg PO HS [facility] Last Admin: 11/04/16 21:46 Dose: 10 mg Tamsulosin HCl (Flomax -) 0.4 mg PO DAILY@0830 [facility] Last Admin: 11/05/16 08:52 Dose: 0.4 mg CBC, BMP 11/04/16 06:26 11/05/16 06:00 Laboratory Results - last 24 hr 11/04/16 11/04/16 11/04/16 23:55 23:55 23:55 Sodium Potassium Chloride Carbon Dioxide Anion Gap BUN Creatinine Creat Clearance w eGFR Random Glucose Calcium Total Bilirubin AST ALT Alkaline Phosphatase Total Protein Albumin Urine Color Dkyellow Urine Appearance Turbid Urine pH 5.0 Urine Protein 2+ H Urine Glucose (UA) Negative Urine Ketones Negative Urine Blood 3+ H Urine Nitrite Negative Urine Bilirubin Negative Urine Urobilinogen Negative Ur Leukocyte Esterase 3+ H Urine RBC 27 Urine WBC 1107 Urine Bacteria Moderate Hyaline Casts 6 Urine Mucus Rare Ur Random Sodium 12 Ur Random Potassium 30.3 Ur Random Chloride < 10 Urine Creatinine 65.2 11/05/16 06:00 Sodium 131 L Potassium 4.4 Chloride 95 L Carbon Dioxide 21 D Anion Gap 15 BUN 87 H Creatinine 3.3 H Creat Clearance w eGFR 17.91 Random Glucose 96 Calcium 7.9 L Total Bilirubin 0.8 D AST 28 ALT 24 Alkaline Phosphatase 113 Total Protein 5.6 L Albumin 2.7 L Urine Color Urine Appearance Urine pH Urine Protein Urine Glucose (UA) Urine Ketones Urine Blood Urine Nitrite Urine Bilirubin Urine Urobilinogen Ur Leukocyte Esterase Urine RBC Urine WBC Urine Bacteria Hyaline Casts Urine Mucus Ur Random Sodium Ur Random Potassium Ur Random Chloride Urine Creatinine Microbiology 11/03/16 21:04 Blood Culture - Preliminary Blood - Peripheral Venous Non Lactose Fermenting Gnb 11/03/16 21:00 Blood Culture - Preliminary Blood - Peripheral Venous Non Lactose Fermenting Gnb PHYSICAL EXAMINATION: Constitutional: Yes: No Distress, Calm Cardiovascular: Yes: Pulse Irregular, Murmur Respiratory: Yes: CTA Bilaterally Gastrointestinal: Yes: Normal Bowel Sounds, Soft. No: Abdomen, Obese, Distention, Tenderness Edema: Yes Edema: LLE: 2+, RLE: 2+ Neurological: Yes: Alert. Awake. Problem List - Problems (1) UTI (urinary tract infection) Code(s): N39.0 - URINARY TRACT INFECTION, SITE NOT SPECIFIED Qualifiers: Urinary tract infection type: site unspecified Hematuria presence: without hematuria Qualified Code(s): N39.0 - Urinary tract infection, site not specified (2) VALDEMAR (acute kidney injury) Code(s): N17.9 - ACUTE KIDNEY FAILURE, UNSPECIFIED (3) Atrial fibrillation Code(s): I48.91 - UNSPECIFIED ATRIAL FIBRILLATION (4) Gram-negative bacteremia Code(s): R78.81 - BACTEREMIA (5) Altered mental status Code(s): R41.82 - ALTERED MENTAL STATUS, UNSPECIFIED ASSESSMENT & PLAN: - Feels better. - Continue antibiotics. - Physical Therapy. - ID and Cardiology on case. - Medications reviewed. - Patient was off Amiodarone since September. ? Restarted - Discussed with Dr. Henok Oglesby. - Will discontinue Amiodarone and monitor. - Will follow. Documentation prepared by Patricia Matias, acting as a dental assistant medical assistant for Ga Hoang MD
[2016-11-05 09:05] LABS: ALBUMIN 2.7 g/dl (3.4-5.0); ALK PHOS 113 U/L (45-117); ANION GAP 15 (8-16); BILIRUBIN,TOTAL 0.8 mg/dL (0.2-1.0); CALCIUM 7.9 mg/dL (8.5-10.1); CO2 21 mmol/L (21-32); CREATININE 3.3 mg/dL (0.7-1.3); GLUCOSE,RANDOM 96 mg/dL (74-106); SGOT/AST 28 U/L (15-37); SGPT/ALT 24 U/L (12-78); TOT PROT 5.6 g/dl (6.4-8.2)
[2016-11-05] MEDS ORDERED: PT OWN MED DRAWER 7, Y5N ONE (09:38)
[2016-11-05] MEDS: ASPIRIN 81 MG CHEWABLE TABLETS PO SCH (09:49)
[2016-11-05] MEDS: CARVEDILOL 3.125 MG TABLET (FP) PO SCH ×2 (09:49→21:20)
[2016-11-05] MEDS: PANTOPRAZOLE 40 MG TABLET (FP) PO SCH (09:49)
[2016-11-05] MEDS: FLUTICASONE PROP 0.05% 16 GM NASAL SPRAY NS SCH (09:53)
[2016-11-05] MEDS ORDERED: AMIODARONE HCL 200 MG TABLET (FP) PO SCH ×2 (10:00)
--- NOTE | 2016-11-05 11:33 | PN ---
Progress Note (short form) - Note Progress Note: s: no cp sob palps dizzy o: Vital Signs Period Temp Pulse Resp BP Sys/Dennison Pulse Ox Last 24 Hr 97.7 F-98.5 F 72-73 18-20 95-114/44-57 98-100 nad, no jvd rrr s1s2 no mrg cta bl nl eff aaox3 no le e/c/c no jaundice diaphoresis Current Medications Generic Name Dose Route Start Last Admin Trade Name Freq PRN Reason Stop Dose Admin Acetaminophen 650 mg 11/04/16 23:55 11/05/16 00:53 Tylenol - PO 650 mg Q6H PRN Administration FEVER OR PAIN Aspirin 81 mg 11/05/16 10:00 11/05/16 09:49 Asa - PO 81 mg DAILY JANENE Administration Carvedilol 3.125 mg 11/04/16 22:00 11/05/16 09:49 Coreg - PO 3.125 mg BID JANENE Administration Fluticasone Propionate 2 spray 11/05/16 10:00 11/05/16 09:53 Flonase - NS 2 spray DAILY JANENE Administration Meropenem 250 mg/ Dextrose 100 mls @ 200 mls/hr 11/04/16 16:15 11/05/16 11:20 IVPB 200 mls/hr Q8H-IV JANENE Administration Pantoprazole Sodium 40 mg 11/05/16 10:00 11/05/16 09:49 Protonix - PO 40 mg DAILY JANENE Administration Rosuvastatin Calcium 10 mg 11/04/16 22:00 11/04/16 21:46 Crestor - PO 10 mg HS JANENE Administration Tamsulosin HCl 0.4 mg 11/05/16 08:30 11/05/16 08:52 Flomax - PO 0.4 mg DAILY@0830 JANENE Administration CBC, BMP 11/04/16 06:26 11/05/16 06:00 cxr: no chf Adeno stress MPI 06/2012 : moderate anterior and inferior ischemia, severely reduced LVF-->cath Carotid Doppler 07/2012: no sig stenosis PVR 05/2012: normal kermit 04/2016: lve, mod-sev dec lvef, global hk, rve, mod dec rv fcn, mild ar, mv repair with mild mr, sev tr 2/2 icd lead, watchman device in place with nl fcn echo 08/2015: mod-sev dec lvef (global hk), mild lve, mild rve, nl rvf, mild aida , mv ring, sev tr, rvsp 30-40, mod ar echo 12/2014: mod lve, sev decreased lvef (global hypo), nl rv size, s/p MV ring with trace mr, sev tr, mod-sev ar, rvsp 30-40 Echo 05/2013: severely dil LV, severely reduced LVF, normal RVF, mod biatrial dilation, mod AI, s/p mitral annuloplasty ring, mild to mod TR, RVSP 50-60 Echo 05/2012: mod dil LV, severely reduced LVF, normal RVF, mod dil LA, mod AI, s/p mitral annuloplasty ring, mild TR, RVSP 35-40 ecg 11/04/16: afib, vpaced a/p: 86 m hx CAD s/p CABG (09/2006: CHANDLER to LAD, SVG to HL, SVG to OM2, SVG to PDA) and pci (last cath/PCI 10/2012: patent CHANDLER to LAD, SVG to OM2, SVG to Ramus, occluded SVG to RPDA. 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 weakness, lethargy, uti/sepsis: -likely 2/2 uti, sepsis, +bld cxs -abx per ID -holding home lasix pos trops: -borderline trop elevation with flat trend and nl ckmb, not consistent with acs Cad s/p cabg, pci: -Stable, no angina. -no signs acs -cont asa, bb, statin Severe MR s/p ring: -Stable, no sig MR on recent KERMIT ischemic CMPathy, severe systolic chf: -mild le edema, no pulm edema -VALDEMAR presently so would hold home lasix 40 qd for now and monitor cr trend -cont coreg. not on omar 2/2 ckd -Nitrates and hydral have been held in past due to low bp tendencies. s/p biv-ICD ([employer]): Stable. Has routine home monitoring and office checks at [place] with EP dr tabares. Had multiple episodes of NSVT therefore maintained on amiodarone. Outpt f/u with EP. htn: -cont coreg, can hold if develops low bp from sepsis hld: -cont statin Prior Aflutter: s/p successful ablation in 2008. AFib: -Rate controlled on bb -was previously on amio but stopped recently by EP -Had Watchman device 06/2015 at [facility], nl fcn on recent KERMIT -cont asa 81 valdemar, ckd: -cr above baseline, likely from UTI, sepsis -hold home lasix -renal following hx of anemia: -he had INOCENCIO closure device (watchman device) and then finished the requisite 6 weeks of coumadin w/o bleeding issues and stable hgb throughout -then he began the next phase post watchman device that involved 6 weeks of DAPT with asa and plavix. -Shortly after starting this dapt he noticed bright red blood in bm's and came here 08/2015 with severe anemia in 6s -transferred to [facility] and had repeat egd/foc showing diverticulosis but no active bleeding, then eventually had capsule study w/o source -considered to be possible internal hemroids as cause -he was cleared to start asa 81 only, plavix stopped -currently no repeat gib and hgb stable, cont home asa 81 ascending aorta aneurysm (5.3 cm, 06/2014): -cont with Bp control, bb, statin -recently had ct chest showing stable size and followed up with CTS at [facility] recently who rec'd continued monitoring for now -He would be prohibitively high risk for open aorta surgery given his chf, cad, afib, ckd.
--- NOTE | 2016-11-05 12:19 | PN ---
Progress Note, Physician History of Present Illness: Pt seen and examined at bedside. He is awake and alert. He looks more comfortable than he was yesterday. - Current Medication List Current Medications: Active Medications Acetaminophen (Tylenol -) 650 mg PO Q6H PRN PRN Reason: FEVER OR PAIN Last Admin: 11/05/16 00:53 Dose: 650 mg Aspirin (Asa -) 81 mg PO DAILY [facility] Last Admin: 11/05/16 09:49 Dose: 81 mg Carvedilol (Coreg -) 3.125 mg PO BID [facility] Last Admin: 11/05/16 09:49 Dose: 3.125 mg Fluticasone Propionate (Flonase -) 2 spray NS DAILY [facility] Last Admin: 11/05/16 09:53 Dose: 2 spray Meropenem 250 mg/ Dextrose 100 mls @ 200 mls/hr IVPB Q8H-IV [facility] Last Admin: 11/05/16 11:20 Dose: 200 mls/hr Pantoprazole Sodium (Protonix -) 40 mg PO DAILY [facility] Last Admin: 11/05/16 09:49 Dose: 40 mg Rosuvastatin Calcium (Crestor -) 10 mg PO HS [facility] Last Admin: 11/04/16 21:46 Dose: 10 mg Tamsulosin HCl (Flomax -) 0.4 mg PO DAILY@0830 [facility] Last Admin: 11/05/16 08:52 Dose: 0.4 mg - Objective Vital Signs: Vital Signs Temperature 98.5 F 11/05/16 05:54 Pulse Rate 72 11/05/16 05:54 Respiratory Rate 20 11/05/16 05:54 Blood Pressure 95/44 11/05/16 05:54 O2 Sat by Pulse Oximetry (%) 98 11/04/16 21:00 Constitutional: Yes: Calm Eyes: Yes: Conjunctiva Clear HENT: Yes: Atraumatic Neck: Yes: Supple Cardiovascular: Yes: S1, S2 Respiratory: Yes: CTA Bilaterally Gastrointestinal: Yes: WNL Genitourinary: Yes: WNL Musculoskeletal: Yes: WNL Edema: No Neurological: Yes: Oriented Psychiatric: Yes: Oriented Labs: CBC, BMP 11/04/16 06:26 11/05/16 06:00 INR, PTT INR 1.71 (0.82-1.09) H 11/03/16 21:00 Problem List - Problems (1) Altered mental status Code(s): R41.82 - ALTERED MENTAL STATUS, UNSPECIFIED (2) CAD (coronary artery disease) Code(s): I25.10 - ATHSCL HEART DISEASE OF [place] CORONARY ARTERY W/O ANG PCTRS Qualifiers: Coronary Disease-Associated Artery/Lesion type: coronary artery bypass graft (3) CHF (congestive heart failure) Code(s): I50.9 - HEART FAILURE, UNSPECIFIED Qualifiers: Congestive heart failure type: systolic Congestive heart failure chronicity: chronic Qualified Code(s): I50.22 - Chronic systolic (congestive ) heart failure (4) Gram-negative bacteremia Code(s): R78.81 - BACTEREMIA (5) Renal insufficiency Code(s): N28.9 - DISORDER OF KIDNEY AND URETER, UNSPECIFIED (6) UTI (urinary tract infection) Code(s): N39.0 - URINARY TRACT INFECTION, SITE NOT SPECIFIED Qualifiers: Urinary tract infection type: site unspecified Hematuria presence: without hematuria Qualified Code(s): N39.0 - Urinary tract infection, site not specified (7) VALDEMAR (acute kidney injury) Code(s): N17.9 - ACUTE KIDNEY FAILURE, UNSPECIFIED (8) Ascites Code(s): R18.8 - OTHER ASCITES Assessment/Plan Current Medications Generic Name Dose Route Start Last Admin Trade Name Freq PRN Reason Stop Dose Admin Acetaminophen 650 mg 11/04/16 23:55 11/05/16 00:53 Tylenol - PO 650 mg Q6H PRN Administration FEVER OR PAIN Aspirin 81 mg 11/05/16 10:00 11/05/16 09:49 Asa - PO 81 mg DAILY JANENE Administration Carvedilol 3.125 mg 11/04/16 22:00 11/05/16 09:49 Coreg - PO 3.125 mg BID JANENE Administration Fluticasone Propionate 2 spray 11/05/16 10:00 11/05/16 09:53 Flonase - NS 2 spray DAILY JANENE Administration Meropenem 250 mg/ Dextrose 100 mls @ 200 mls/hr 11/04/16 16:15 11/05/16 11:20 IVPB 200 mls/hr Q8H-IV JANENE Administration Pantoprazole Sodium 40 mg 11/05/16 10:00 11/05/16 09:49 Protonix - PO 40 mg DAILY JANENE Administration Rosuvastatin Calcium 10 mg 11/04/16 22:00 11/04/16 21:46 Crestor - PO 10 mg HS JANENE Administration Tamsulosin HCl 0.4 mg 11/05/16 08:30 11/05/16 08:52 Flomax - PO 0.4 mg DAILY@0830 JANENE Administration Impression 1. VALDEMAR 2. 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 sepsis 4. UTI 5. CAD with hx CABG 6. anemia 7. hx of GI bleed 8. a-fib 9. hyperlipidemia 10. renal cyst Plan - cont with abx - renal function is worsening - diuretics on hold, will likely restart in am - will hold off fluids - check urine lytes and creatinine - follow urine cultures and blood cultures - will follow Dr Francois
--- NOTE | 2016-11-05 14:37 | PN ---
Progress Note, Physician History of Present Illness: Awake but lethargic Slightly confused Afebrile Remains hypotensive Blood, urine c/s NLF WBC WNL Platelets remain low - Current Medication List Current Medications: Active Medications Acetaminophen (Tylenol -) 650 mg PO Q6H PRN PRN Reason: FEVER OR PAIN Last Admin: 11/05/16 00:53 Dose: 650 mg Aspirin (Asa -) 81 mg PO DAILY [facility] Last Admin: 11/05/16 09:49 Dose: 81 mg Carvedilol (Coreg -) 3.125 mg PO BID [facility] Last Admin: 11/05/16 09:49 Dose: 3.125 mg Fluticasone Propionate (Flonase -) 2 spray NS DAILY [facility] Last Admin: 11/05/16 09:53 Dose: 2 spray Meropenem 250 mg/ Dextrose 100 mls @ 200 mls/hr IVPB Q8H-IV [facility] Last Admin: 11/05/16 11:20 Dose: 200 mls/hr Pantoprazole Sodium (Protonix -) 40 mg PO DAILY [facility] Last Admin: 11/05/16 09:49 Dose: 40 mg Rosuvastatin Calcium (Crestor -) 10 mg PO HS [facility] Last Admin: 11/04/16 21:46 Dose: 10 mg Tamsulosin HCl (Flomax -) 0.4 mg PO DAILY@0830 [facility] Last Admin: 11/05/16 08:52 Dose: 0.4 mg - Objective Vital Signs: Vital Signs Temperature 98.0 F 11/05/16 10:00 Pulse Rate 71 11/05/16 10:00 Respiratory Rate 18 11/05/16 10:00 Blood Pressure 88/54 11/05/16 10:00 O2 Sat by Pulse Oximetry (%) 94 L 11/05/16 09:00 Constitutional: Yes: No Distress Eyes: Yes: Conjunctiva Clear Cardiovascular: Yes: Regular Rate and Rhythm, Murmur, S1, S2 Respiratory: Yes: Diminished Gastrointestinal: Yes: Normal Bowel Sounds, Soft, Other (No suprapubic tenderness). No: Tenderness Edema: Yes Edema: LLE: 1+, RLE: 1+ Labs: CBC, BMP 11/04/16 06:26 11/05/16 06:00 INR, PTT INR 1.71 (0.82-1.09) H 11/03/16 21:00 Assessment/Plan UTI/Sepsis secondary to UTI Possible septic shock Gram Negative bacteremia Neurogenic bladder Azotemia Await blood and urine c/s result Continue empiric meropenem
[2016-11-05] MEDS: ROSUVASTATIN CA 10 MG TABLET (FP) PO SCH (21:19)
[2016-11-06] MEDS: MEROPENEM 250 MG in DEXTROSE 5%-WATER - 100 ML IVPB SCH ×2 (01:33→10:54)
[2016-11-06 08:40] LABS: ANION GAP 15 (8-16); CALCIUM 7.6 mg/dL (8.5-10.1); CO2 22 mmol/L (21-32); CREATININE 3.3 mg/dL (0.7-1.3); GLUCOSE,RANDOM 113 mg/dL (74-106)
[2016-11-06] MEDS: TAMSULOSIN HCL 0.4 MG CAP.ER.24H (FP) PO SCH (09:20)
[2016-11-06] MEDS: PANTOPRAZOLE 40 MG TABLET (FP) PO SCH (09:35)
[2016-11-06] MEDS: CARVEDILOL 3.125 MG TABLET (FP) PO SCH ×2 (09:35→21:58)
[2016-11-06] MEDS: ASPIRIN 81 MG CHEWABLE TABLETS PO SCH (09:36)
[2016-11-06] MEDS: FLUTICASONE PROP 0.05% 16 GM NASAL SPRAY NS SCH (09:47)
--- NOTE | 2016-11-06 12:27 | PN ---
Progress Note, Physician History of Present Illness: Renal f/u Pt in no distress C/O some itching - Current Medication List Current Medications: Active Medications Acetaminophen (Tylenol -) 650 mg PO Q6H PRN PRN Reason: FEVER OR PAIN Last Admin: 11/05/16 00:53 Dose: 650 mg Aspirin (Asa -) 81 mg PO DAILY [facility] Last Admin: 11/06/16 09:36 Dose: 81 mg Carvedilol (Coreg -) 3.125 mg PO BID [facility] Last Admin: 11/06/16 09:35 Dose: 3.125 mg Fluticasone Propionate (Flonase -) 2 spray NS DAILY [facility] Last Admin: 11/06/16 09:47 Dose: 2 spray Meropenem 250 mg/ Dextrose 100 mls @ 200 mls/hr IVPB Q8H-IV [facility] Last Admin: 11/06/16 10:54 Dose: 200 mls/hr Pantoprazole Sodium (Protonix -) 40 mg PO DAILY [facility] Last Admin: 11/06/16 09:35 Dose: 40 mg Rosuvastatin Calcium (Crestor -) 10 mg PO HS [facility] Last Admin: 11/05/16 21:19 Dose: 10 mg Tamsulosin HCl (Flomax -) 0.4 mg PO DAILY@0830 [facility] Last Admin: 11/06/16 09:20 Dose: 0.4 mg - Objective Vital Signs: Vital Signs Temperature 97.9 F 11/06/16 10:00 Pulse Rate 72 11/06/16 10:00 Respiratory Rate 18 11/06/16 10:00 Blood Pressure 109/60 11/06/16 10:00 O2 Sat by Pulse Oximetry (%) 96 11/05/16 21:00 Constitutional: Yes: No Distress Cardiovascular: Yes: S1, S2. No: JVD Respiratory: Yes: Other (Occasion rhonchi) Gastrointestinal: Yes: Soft. No: Tenderness, Rebound Edema: LLE: Trace, RLE: Trace Labs: CBC, BMP 11/04/16 06:26 11/06/16 06:00 INR, PTT INR 1.71 (0.82-1.09) H 11/03/16 21:00 Assessment/Plan Impression 1. VALDEMAR in pt with CKD and baseline Cr of 2.3 2. E Coli urosepsis 3. Hyponatremia 4. A Fib 5. CAD with hx CABG 6. Hx of GI bleed 7. hyperlipidemia 8. Anemia Plan - Fluid restrict - Re evaluate tomorrow regarding restarting a diuretic - Rpt labs in am - Abx as per ID - Rpt labs in am Dr Baptiste
--- NOTE | 2016-11-06 12:31 | PN ---
Progress Note (short form) - Note Progress Note: feels well no complaints Vital Signs Period Temp Pulse Resp BP Sys/Dennison Pulse Ox Last 24 Hr 97.6 F-98.8 F 70-72 18-18 91-111/47-60 96 cor-rrr lungs clear abd soft,nt ext no edema CBC, BMP 11/04/16 06:26 11/06/16 06:00 Microbiology 11/03/16 21:10 Urine - Urine Clean Catch Urine Culture - Preliminary Escherichia Coli Escherichia Coli#2 11/03/16 21:00 Blood - Peripheral Venous Blood Culture - Preliminary Escherichia Coli 11/03/16 21:04 Blood - Peripheral Venous Blood Culture - Preliminary Non Lactose Fermenting Gnb a/p ecoli bacteremia secondary to uti VALDEMAR/CKD sensitivities reviewed, switch to cefazolin adjusted for renal insufficiency repeat cbc suspect thrombocytopenia on the basis of sepsis d/w dr flores
--- NOTE | 2016-11-06 13:11 | PN ---
Progress Note (short form) - Note Progress Note: pt seen/ examined sitting in chair no complains feels better passing urine all f/u noted Vital Signs Temp 97.9 F 11/06/16 10:00 Pulse 72 11/06/16 10:00 Resp 18 11/06/16 10:00 BP 109/60 11/06/16 10:00 Pulse Ox 96 11/05/16 21:00 Intake & Output 11/05/16 11/06/16 11/06/16 23:59 11:59 23:59 Intake Total 920 600 Output Total 350 Balance 570 600 Weight 155 lb Intake: IVPB 100 Oral 920 500 Output: Urine 350 Void 350 Other: Voiding Method Toilet Toilet # Unmeasured Voids Void 1 1 Bowel Movement Yes # Bowel Movements 1 Weight Measurement Method Standing Scale Active Medications Acetaminophen (Tylenol -) 650 mg PO Q6H PRN PRN Reason: FEVER OR PAIN Last Admin: 11/05/16 00:53 Dose: 650 mg Aspirin (Asa -) 81 mg PO DAILY [facility] Last Admin: 11/06/16 09:36 Dose: 81 mg Carvedilol (Coreg -) 3.125 mg PO BID [facility] Last Admin: 11/06/16 09:35 Dose: 3.125 mg Fluticasone Propionate (Flonase -) 2 spray NS DAILY [facility] Last Admin: 11/06/16 09:47 Dose: 2 spray Cefazolin Sodium (Ancef 1gm Ivpb (Pre-Docked)) 50 mls @ 100 mls/hr IVPB BID [facility] Pantoprazole Sodium (Protonix -) 40 mg PO DAILY [facility] Last Admin: 11/06/16 09:35 Dose: 40 mg Rosuvastatin Calcium (Crestor -) 10 mg PO HS [facility] Last Admin: 11/05/16 21:19 Dose: 10 mg Tamsulosin HCl (Flomax -) 0.4 mg PO DAILY@0830 [facility] Last Admin: 11/06/16 09:20 Dose: 0.4 mg CBC, BMP 11/04/16 06:26 11/06/16 06:00 PHYSICAL EXAMINATION: Constitutional: Yes: No Distress, Calm Cardiovascular: Yes: Pulse Irregular, Murmur Respiratory: Yes: diminished at bases. Gastrointestinal: Yes: Normal Bowel Sounds, Soft. No: Abdomen, Obese, Distention, Tenderness Edema: Yes Edema: + 1 edema Neurological: Yes: Alert. Awake. Problem List - Problems (1) UTI (urinary tract infection) Code(s): N39.0 - URINARY TRACT INFECTION, SITE NOT SPECIFIED Qualifiers: Urinary tract infection type: site unspecified Hematuria presence: without hematuria Qualified Code(s): N39.0 - Urinary tract infection, site not specified (2) VALDEMAR (acute kidney injury) Code(s): N17.9 - ACUTE KIDNEY FAILURE, UNSPECIFIED (3) Atrial fibrillation Code(s): I48.91 - UNSPECIFIED ATRIAL FIBRILLATION (4) Gram-negative bacteremia Code(s): R78.81 - BACTEREMIA (5) Altered mental status Code(s): R41.82 - ALTERED MENTAL STATUS, UNSPECIFIED ASSESSMENT & PLAN: - overall better . continue abx - monitor lytes discussed with Dr. Hills and Dr. Rae today also. - will follow
[2016-11-06] MEDS: ROSUVASTATIN CA 10 MG TABLET (FP) PO SCH (21:58)
[2016-11-06] MEDS: CEFAZOLIN (PRE-DOCKED) 50 ML IVPB SCH (22:02)
[2016-11-06] MEDS: ACETAMINOPHEN 325 MG TABLET (FP) PO PRN (22:58)
[2016-11-07 08:16] LABS: BASOPHIL 0.2 % (0-2.0); EOSINOPHIL 3.1 % (0-4.5); MCH 29.4 pg (25.7-33.7); MCHC 33.1 g/dl (32.0-35.9); MEAN CELL VOLUME 88.7 fl (80-96); MEAN PLT VOLUME 8.6 fl (7.5-11.1); NEUTROPHILS 84.9 % (42.8-82.8); PLATELET COUNT 110 K/MM3 (134-434); RDW 16.6 % (11.9-15.9); WHITE BLOOD COUNT 6.8 K/mm3 (4.0-10.0)
[2016-11-07 08:33] LABS: ANION GAP 12 (8-16); CALCIUM 7.6 mg/dL (8.5-10.1); CO2 23 mmol/L (21-32); CREATININE 3.3 mg/dL (0.7-1.3); GLUCOSE,RANDOM 93 mg/dL (74-106)
[2016-11-07] MEDS: TAMSULOSIN HCL 0.4 MG CAP.ER.24H (FP) PO SCH (08:50)
[2016-11-07] MEDS: FLUTICASONE PROP 0.05% 16 GM NASAL SPRAY NS SCH (10:20)
[2016-11-07] MEDS: ASPIRIN 81 MG CHEWABLE TABLETS PO SCH (10:21)
[2016-11-07] MEDS: CARVEDILOL 3.125 MG TABLET (FP) PO SCH ×2 (10:21→21:28)
[2016-11-07] MEDS: PANTOPRAZOLE 40 MG TABLET (FP) PO SCH (10:21)
[2016-11-07] MEDS: CEFAZOLIN (PRE-DOCKED) 50 ML IVPB SCH ×2 (10:21→21:28)
--- NOTE | 2016-11-07 11:46 | PN ---
Progress Note, Physician History of Present Illness: Renal f/u Pt in no distress while OOB in chair He denies any complaints - Current Medication List Current Medications: Active Medications Acetaminophen (Tylenol -) 650 mg PO Q6H PRN PRN Reason: FEVER OR PAIN Last Admin: 11/06/16 22:58 Dose: 650 mg Aspirin (Asa -) 81 mg PO DAILY [facility] Last Admin: 11/07/16 10:21 Dose: 81 mg Carvedilol (Coreg -) 3.125 mg PO BID [facility] Last Admin: 11/07/16 10:21 Dose: 3.125 mg Fluticasone Propionate (Flonase -) 2 spray NS DAILY [facility] Last Admin: 11/07/16 10:20 Dose: 2 spray Cefazolin Sodium (Ancef 1gm Ivpb (Pre-Docked)) 50 mls @ 100 mls/hr IVPB BID [facility] Last Admin: 11/07/16 10:21 Dose: 100 mls/hr Pantoprazole Sodium (Protonix -) 40 mg PO DAILY [facility] Last Admin: 11/07/16 10:21 Dose: 40 mg Rosuvastatin Calcium (Crestor -) 10 mg PO HS [facility] Last Admin: 11/06/16 21:58 Dose: 10 mg Tamsulosin HCl (Flomax -) 0.4 mg PO DAILY@0830 [facility] Last Admin: 11/07/16 08:50 Dose: 0.4 mg - Objective Vital Signs: Vital Signs Temperature 97.5 F L 11/07/16 09:30 Pulse Rate 74 11/07/16 09:30 Respiratory Rate 18 11/07/16 09:30 Blood Pressure 105/66 11/07/16 09:30 O2 Sat by Pulse Oximetry (%) 95 11/06/16 21:00 Constitutional: Yes: No Distress Cardiovascular: Yes: JVD, Murmur, S1, S2 Respiratory: Yes: CTA Bilaterally Gastrointestinal: Yes: Soft. No: Tenderness, Rebound Edema: Yes (B/L ankle edema ) Labs: CBC, BMP 11/07/16 06:00 11/07/16 06:00 INR, PTT INR 1.71 (0.82-1.09) H 11/03/16 21:00 Assessment/Plan Impression 1. VALDEMAR in pt with CKD and baseline Cr of 2.3 in pt with Sepsis and H/O HFrEF and Severe TR and Moderate AR 2. E Coli urosepsis 3. Hyponatremia improved 4. A Fib 5. CAD with hx CABG 6. Hx of GI bleed 7. hyperlipidemia 8. Anemia Plan - Fluid and NaCl restriction - Restart lasix as 40 mgs PO Daily - Rpt labs in am - Abx as per ID - Rpt labs in am - Tried to call Tran at pt's request Tran [phone] but no response and could not leave a message since it wasn't possible Dr Baptiste
--- NOTE | 2016-11-07 12:39 | PN ---
Progress Note (short form) - Note Progress Note: feels well no complaints oob in chair eating lunch Vital Signs Period Temp Pulse Resp BP Sys/Dennison Pulse Ox Last 24 Hr 97.5 F-98.4 F 70-74 16-20 105-123/52-66 95 cor-rrr lungs clear abd firm, nt ext +edema CBC, BMP 11/07/16 06:00 11/07/16 06:00 Microbiology 11/03/16 21:04 Blood - Peripheral Venous Blood Culture - Final Escherichia Coli 11/03/16 21:00 Blood - Peripheral Venous Blood Culture - Final Escherichia Coli 11/03/16 21:10 Urine - Urine Clean Catch Urine Culture - Final Escherichia Coli Escherichia Coli#2 a/p ecoli bacteremia secondary to uti VALDEMAR/CKD cad/valvular heart disease day #4 antiibotics, continue cefazolin
--- NOTE | 2016-11-07 12:51 | PN ---
Progress Note (short form) - Note Progress Note: Pt seen/ examined comfortable no new issues afebrile passing urine denies pain. chronic ill appearance. Vital Signs Temp 97.5 F L 11/07/16 09:30 Pulse 74 11/07/16 09:30 Resp 18 11/07/16 09:30 BP 105/66 11/07/16 09:30 Pulse Ox 95 11/06/16 21:00 Intake & Output 11/06/16 11/07/16 11/07/16 23:59 11:59 23:59 Intake Total 710 0 Output Total 150 100 150 Balance 560 -100 -150 Weight 154 lb 4.8 oz Intake: IVPB 150 Oral 560 0 Output: Urine 150 100 150 Void 150 100 150 Other: Voiding Method Incontinent Bedside Commode Bowel Movement Yes # Bowel Movements 1 Weight Measurement Method Standing Scale Active Medications Acetaminophen (Tylenol -) 650 mg PO Q6H PRN PRN Reason: FEVER OR PAIN Last Admin: 11/06/16 22:58 Dose: 650 mg Aspirin (Asa -) 81 mg PO DAILY [facility] Last Admin: 11/07/16 10:21 Dose: 81 mg Carvedilol (Coreg -) 3.125 mg PO BID [facility] Last Admin: 11/07/16 10:21 Dose: 3.125 mg Fluticasone Propionate (Flonase -) 2 spray NS DAILY [facility] Last Admin: 11/07/16 10:20 Dose: 2 spray Furosemide (Lasix -) 40 mg PO DAILY [facility] Cefazolin Sodium (Ancef 1gm Ivpb (Pre-Docked)) 50 mls @ 100 mls/hr IVPB BID [facility] Last Admin: 11/07/16 10:21 Dose: 100 mls/hr Pantoprazole Sodium (Protonix -) 40 mg PO DAILY [facility] Last Admin: 11/07/16 10:21 Dose: 40 mg Rosuvastatin Calcium (Crestor -) 10 mg PO HS [facility] Last Admin: 11/06/16 21:58 Dose: 10 mg Tamsulosin HCl (Flomax -) 0.4 mg PO DAILY@0830 [facility] Last Admin: 11/07/16 08:50 Dose: 0.4 mg CBC, BMP 11/07/16 06:00 11/07/16 06:00 Microbiology 11/03/16 21:04 Blood Culture - Final Blood - Peripheral Venous Escherichia Coli 11/03/16 21:00 Blood Culture - Final Blood - Peripheral Venous Escherichia Coli 11/03/16 21:10 Urine Culture - Final Urine - Urine Clean Catch Escherichia Coli Escherichia Coli#2 PHYSICAL EXAMINATION: Constitutional: Yes: No Distress, Comfortable Cardiovascular: Yes: Pulse Irregular, Respiratory: Yes: diminished at bases. Gastrointestinal: Yes: Normal Bowel Sounds, Soft. No: Abdomen, Obese, Distention, Tenderness Edema: Yes Edema: + 1 edema Neurological: Yes: Alert. Awake. Problem List - Problems (1) UTI (urinary tract infection) Code(s): N39.0 - URINARY TRACT INFECTION, SITE NOT SPECIFIED Qualifiers: Urinary tract infection type: site unspecified Hematuria presence: without hematuria Qualified Code(s): N39.0 - Urinary tract infection, site not specified (2) VALDEMAR (acute kidney injury) Code(s): N17.9 - ACUTE KIDNEY FAILURE, UNSPECIFIED (3) Atrial fibrillation Code(s): I48.91 - UNSPECIFIED ATRIAL FIBRILLATION (4) Gram-negative bacteremia Code(s): R78.81 - BACTEREMIA (5) Altered mental status Code(s): R41.82 - ALTERED MENTAL STATUS, UNSPECIFIED ASSESSMENT & PLAN: - stable - cr same - continue present care -all f/u noted - agree with starting lasix - abx - f/u labs - will follow - discussed with pts also.
[2016-11-07] MEDS: FUROSEMIDE 40 MG TABLET (FP) PO SCH (13:13)
[2016-11-07] MEDS: ROSUVASTATIN CA 10 MG TABLET (FP) PO SCH (21:28)
[2016-11-08 08:21] LABS: BASOPHIL 0.2 % (0-2.0); EOSINOPHIL 3.5 % (0-4.5); MCH 29.4 pg (25.7-33.7); MCHC 32.8 g/dl (32.0-35.9); MEAN CELL VOLUME 89.6 fl (80-96); MEAN PLT VOLUME 8.2 fl (7.5-11.1); NEUTROPHILS 83.2 % (42.8-82.8); PLATELET COUNT 133 K/MM3 (134-434); RDW 16.9 % (11.9-15.9); WHITE BLOOD COUNT 6.5 K/mm3 (4.0-10.0)
[2016-11-08 08:36] LABS: ANION GAP 10 (8-16); CALCIUM 7.9 mg/dL (8.5-10.1); CO2 25 mmol/L (21-32); CREATININE 2.9 mg/dL (0.7-1.3); GLUCOSE,RANDOM 105 mg/dL (74-106)
--- NOTE | 2016-11-08 08:53 | PN ---
Progress Note (short form) - Note Progress Note: Subjective Patient seen and examined. Chart reviewed. Comfortable but anxious. No specific complaints. Afebrile. Objective Last Vital Signs Temp Pulse Resp BP Pulse Ox 97.9 F 71 18 118/62 94 L 11/08/16 09:55 11/08/16 09:55 11/08/16 09:55 11/08/16 09:55 11/07/16 21:00 CBC, BMP 11/08/16 06:55 11/08/16 06:55 Laboratory Results - last 24 hr 11/08/16 11/08/16 06:55 06:55 WBC 6.5 RBC 3.71 L Hgb 10.9 L Hct 33.3 L MCV 89.6 MCHC 32.8 RDW 16.9 H Plt Count 133 L D MPV 8.2 Neutrophils % 83.2 H Lymphocytes % 4.5 L Monocytes % 8.6 Eosinophils % 3.5 Basophils % 0.2 Sodium 139 Potassium 4.4 Chloride 104 Carbon Dioxide 25 Anion Gap 10 BUN 82 H Creatinine 2.9 H Random Glucose 105 Calcium 7.9 L Active Medications Generic Name Dose Route Start Last Admin Trade Name Freq PRN Reason Stop Dose Admin Acetaminophen 650 mg 11/04/16 23:55 11/06/16 22:58 Tylenol - PO 650 mg Q6H PRN Administration FEVER OR PAIN Aspirin 81 mg 11/05/16 10:00 11/08/16 09:46 Asa - PO 81 mg DAILY [facility] Administration Carvedilol 3.125 mg 11/04/16 22:00 11/08/16 09:50 Coreg - PO 3.125 mg BID [facility] Administration Fluticasone Propionate 2 spray 11/05/16 10:00 11/08/16 09:45 Flonase - NS 2 spray DAILY [facility] Administration Furosemide 40 mg 11/07/16 12:00 11/08/16 09:46 Lasix - PO 40 mg DAILY [facility] Administration Cefazolin Sodium 50 mls @ 100 mls/hr 11/06/16 22:00 11/08/16 09:45 Ancef 1gm Ivpb (Pre-Docked) IVPB 100 mls/hr BID [facility] Administration Pantoprazole Sodium 40 mg 11/05/16 10:00 11/08/16 09:46 Protonix - PO 40 mg DAILY [facility] Administration Rosuvastatin Calcium 10 mg 11/04/16 22:00 11/07/16 21:28 Crestor - PO 10 mg HS [facility] Administration Tamsulosin HCl 0.4 mg 11/05/16 08:30 11/08/16 09:46 Flomax - PO 0.4 mg DAILY@0830 [facility] Administration Physical Exam Constitutional: Yes: No Distress, Comfortable Cardiovascular: Yes: Pulse Irregular, Respiratory: Yes: diminished at bases. Gastrointestinal: Yes: Normal Bowel Sounds, Soft. No: Abdomen, Obese, Distention, Tenderness Edema: Yes Edema: + 1 edema Neurological: Yes: Alert. Awake. Problem List - Problems (1) UTI (urinary tract infection) Code(s): N39.0 - URINARY TRACT INFECTION, SITE NOT SPECIFIED Qualifiers: Urinary tract infection type: site unspecified Hematuria presence: without hematuria Qualified Code(s): N39.0 - Urinary tract infection, site not specified (2) VALDEMAR (acute kidney injury) Code(s): N17.9 - ACUTE KIDNEY FAILURE, UNSPECIFIED (3) Atrial fibrillation Code(s): I48.91 - UNSPECIFIED ATRIAL FIBRILLATION (4) Gram-negative bacteremia Code(s): R78.81 - BACTEREMIA (5) Altered mental status Code(s): R41.82 - ALTERED MENTAL STATUS, UNSPECIFIED ASSESSMENT & PLAN: Continue abx. Continue other meds. Will check bladder scan. Daily OOB to chair. Physical therapy. Monitor lytes. Creatinine is better. Documentation prepared by Shirley Knox, acting as a family practice medical doctor for Ga Hoang MD.
[2016-11-08] MEDS ORDERED: PT OWN MED DRAWER 7, Y5N ONE (09:41)
[2016-11-08] MEDS: FLUTICASONE PROP 0.05% 16 GM NASAL SPRAY NS SCH (09:45)
[2016-11-08] MEDS: CEFAZOLIN (PRE-DOCKED) 50 ML IVPB SCH ×2 (09:45→22:07)
[2016-11-08] MEDS: FUROSEMIDE 40 MG TABLET (FP) PO SCH (09:46)
[2016-11-08] MEDS: ASPIRIN 81 MG CHEWABLE TABLETS PO SCH (09:46)
[2016-11-08] MEDS: PANTOPRAZOLE 40 MG TABLET (FP) PO SCH (09:46)
[2016-11-08] MEDS: TAMSULOSIN HCL 0.4 MG CAP.ER.24H (FP) PO SCH (09:46)
[2016-11-08] MEDS: CARVEDILOL 3.125 MG TABLET (FP) PO SCH ×2 (09:50→22:08)
--- NOTE | 2016-11-08 10:03 | PN ---
Progress Note (short form) - Note Progress Note: feels well no complaints no complaints Vital Signs Period Temp Pulse Resp BP Sys/Dennison Pulse Ox Last 24 Hr 97.7 F-98.7 F 68-72 16-18 104-124/56-65 94 cor-rrr llungs decreased bs at bases abd soft,nt ext +edema CBC, BMP 11/08/16 06:55 11/08/16 06:55 Microbiology 11/06/16 12:50 Blood - Peripheral Venous Blood Culture - Preliminary NO GROWTH OBTAINED AFTER 24 HOURS, INCUBATION TO CONTINUE FOR 4 DAYS. 11/06/16 12:50 Blood - Peripheral Venous Blood Culture - Preliminary NO GROWTH OBTAINED AFTER 24 HOURS, INCUBATION TO CONTINUE FOR 4 DAYS. 11/03/16 21:04 Blood - Peripheral Venous Blood Culture - Final Escherichia Coli 11/03/16 21:00 Blood - Peripheral Venous Blood Culture - Final Escherichia Coli 11/03/16 21:10 Urine - Urine Clean Catch Urine Culture - Final Escherichia Coli Escherichia Coli#2 a/p ecoli bacteremia secondary to uti VALDEMAR/CKD-improving cad/valvular heart disease day #4 antiibotics, continue cefazolin renal f/u d/w Dr flores
--- NOTE | 2016-11-08 14:48 | PN ---
Progress Note, Physician History of Present Illness: Pt seen and examined at bedside. He is awake and alert. He is out of bed to chair. He denies dysuria. - Current Medication List Current Medications: Active Medications Acetaminophen (Tylenol -) 650 mg PO Q6H PRN PRN Reason: FEVER OR PAIN Last Admin: 11/06/16 22:58 Dose: 650 mg Aspirin (Asa -) 81 mg PO DAILY [facility] Last Admin: 11/08/16 09:46 Dose: 81 mg Carvedilol (Coreg -) 3.125 mg PO BID [facility] Last Admin: 11/08/16 09:50 Dose: 3.125 mg Fluticasone Propionate (Flonase -) 2 spray NS DAILY [facility] Last Admin: 11/08/16 09:45 Dose: 2 spray Furosemide (Lasix -) 40 mg PO DAILY [facility] Last Admin: 11/08/16 09:46 Dose: 40 mg Cefazolin Sodium (Ancef 1gm Ivpb (Pre-Docked)) 50 mls @ 100 mls/hr IVPB BID [facility] Last Admin: 11/08/16 09:45 Dose: 100 mls/hr Pantoprazole Sodium (Protonix -) 40 mg PO DAILY [facility] Last Admin: 11/08/16 09:46 Dose: 40 mg Rosuvastatin Calcium (Crestor -) 10 mg PO HS [facility] Last Admin: 11/07/16 21:28 Dose: 10 mg Tamsulosin HCl (Flomax -) 0.4 mg PO DAILY@0830 [facility] Last Admin: 11/08/16 09:46 Dose: 0.4 mg - Objective Vital Signs: Vital Signs Temperature 97.9 F 11/08/16 09:55 Pulse Rate 71 11/08/16 09:55 Respiratory Rate 18 11/08/16 09:55 Blood Pressure 118/62 11/08/16 09:55 O2 Sat by Pulse Oximetry (%) 94 L 11/07/16 21:00 Constitutional: Yes: Calm Eyes: Yes: Conjunctiva Clear HENT: Yes: Atraumatic Cardiovascular: Yes: S1, S2 Respiratory: Yes: CTA Bilaterally Gastrointestinal: Yes: Normal Bowel Sounds, Soft Genitourinary: Yes: WNL Musculoskeletal: Yes: WNL Edema: Yes Edema: LLE: 1+, RLE: 1+ Neurological: Yes: Oriented Psychiatric: Yes: Oriented Labs: CBC, BMP 11/08/16 06:55 11/08/16 06:55 INR, PTT INR 1.71 (0.82-1.09) H 11/03/16 21:00 Problem List - Problems (1) Altered mental status Code(s): R41.82 - ALTERED MENTAL STATUS, UNSPECIFIED (2) CAD (coronary artery disease) Code(s): I25.10 - ATHSCL HEART DISEASE OF [place]' CORONARY ARTERY W/O ANG PCTRS Qualifiers: Coronary Disease-Associated Artery/Lesion type: coronary artery bypass graft (3) CHF (congestive heart failure) Code(s): I50.9 - HEART FAILURE, UNSPECIFIED Qualifiers: Congestive heart failure type: systolic Congestive heart failure chronicity: chronic Qualified Code(s): I50.22 - Chronic systolic (congestive ) heart failure (4) Gram-negative bacteremia Code(s): R78.81 - BACTEREMIA (5) Renal insufficiency Code(s): N28.9 - DISORDER OF KIDNEY AND URETER, UNSPECIFIED (6) UTI (urinary tract infection) Code(s): N39.0 - URINARY TRACT INFECTION, SITE NOT SPECIFIED Qualifiers: Urinary tract infection type: site unspecified Hematuria presence: without hematuria Qualified Code(s): N39.0 - Urinary tract infection, site not specified (7) VALDEMAR (acute kidney injury) Code(s): N17.9 - ACUTE KIDNEY FAILURE, UNSPECIFIED (8) Ascites Code(s): R18.8 - OTHER ASCITES Assessment/Plan Current Medications Generic Name Dose Route Start Last Admin Trade Name Freq PRN Reason Stop Dose Admin Acetaminophen 650 mg 11/04/16 23:55 11/06/16 22:58 Tylenol - PO 650 mg Q6H PRN Administration FEVER OR PAIN Aspirin 81 mg 11/05/16 10:00 11/08/16 09:46 Asa - PO 81 mg DAILY [facility] Administration Carvedilol 3.125 mg 11/04/16 22:00 11/08/16 09:50 Coreg - PO 3.125 mg BID [facility] Administration Fluticasone Propionate 2 spray 11/05/16 10:00 11/08/16 09:45 Flonase - NS 2 spray DAILY [facility] Administration Furosemide 40 mg 11/07/16 12:00 11/08/16 09:46 Lasix - PO 40 mg DAILY [facility] Administration Cefazolin Sodium 50 mls @ 100 mls/hr 11/06/16 22:00 11/08/16 09:45 Ancef 1gm Ivpb (Pre-Docked) IVPB 100 mls/hr BID [facility] Administration Pantoprazole Sodium 40 mg 11/05/16 10:00 11/08/16 09:46 Protonix - PO 40 mg DAILY [facility] Administration Rosuvastatin Calcium 10 mg 11/04/16 22:00 11/07/16 21:28 Crestor - PO 10 mg HS [facility] Administration Tamsulosin HCl 0.4 mg 11/05/16 08:30 11/08/16 09:46 Flomax - PO 0.4 mg DAILY@0830 [facility] Administration Impression 1. VALDEMAR 2. 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 sepsis 4. UTI 5. CAD with hx CABG 6. anemia 7. hx of GI bleed 8. a-fib 9. hyperlipidemia 10. renal cyst Plan - renal function is improving - sodium improving - cont with PO lasix - repeat labs in am - cont abx - will follow Dr Francois
[2016-11-08] MEDS: ROSUVASTATIN CA 10 MG TABLET (FP) PO SCH (22:07)
[2016-11-08] MEDS: ACETAMINOPHEN 325 MG TABLET (FP) PO PRN (23:08)
[2016-11-09] MEDS: ACETAMINOPHEN 325 MG TABLET (FP) PO PRN ×2 (05:02→21:53)
[2016-11-09] MEDS: TAMSULOSIN HCL 0.4 MG CAP.ER.24H (FP) PO SCH (08:12)
[2016-11-09 08:30] LABS: BASOPHIL 0.5 % (0-2.0); EOSINOPHIL 4.7 % (0-4.5); MCH 29.4 pg (25.7-33.7); MCHC 32.7 g/dl (32.0-35.9); MEAN PLT VOLUME 7.8 fl (7.5-11.1); NEUTROPHILS 78.4 % (42.8-82.8); PLATELET COUNT 152 K/MM3 (134-434); RDW 17.2 % (11.9-15.9); WHITE BLOOD COUNT 6.4 K/mm3 (4.0-10.0)
[2016-11-09 08:59] LABS: ALBUMIN 2.5 g/dl (3.4-5.0); ANION GAP 9 (8-16); CALCIUM 8.1 mg/dL (8.5-10.1); CO2 28 mmol/L (21-32); CREATININE 2.6 mg/dL (0.7-1.3); GLUCOSE,RANDOM 95 mg/dL (74-106); SGOT/AST 16 U/L (15-37); SGPT/ALT 15 U/L (12-78)
[2016-11-09 09:01] LABS: ALK PHOS 159 U/L (45-117); BILIRUBIN,TOTAL 0.6 mg/dL (0.2-1.0); TOT PROT 5.8 g/dl (6.4-8.2)
--- NOTE | 2016-11-09 10:33 | PN ---
Progress Note, Physician Chief Complaint: has pain in left hip at night- relieved after taking Tylenol - Current Medication List Current Medications: Active Medications Acetaminophen (Tylenol -) 650 mg PO Q6H PRN PRN Reason: FEVER OR PAIN Last Admin: 11/09/16 05:02 Dose: 650 mg Aspirin (Asa -) 81 mg PO DAILY [facility] Last Admin: 11/08/16 09:46 Dose: 81 mg Carvedilol (Coreg -) 3.125 mg PO BID [facility] Last Admin: 11/08/16 22:08 Dose: 3.125 mg Fluticasone Propionate (Flonase -) 2 spray NS DAILY [facility] Last Admin: 11/08/16 09:45 Dose: 2 spray Furosemide (Lasix -) 40 mg PO DAILY [facility] Last Admin: 11/08/16 09:46 Dose: 40 mg Cefazolin Sodium (Ancef 1gm Ivpb (Pre-Docked)) 50 mls @ 100 mls/hr IVPB BID [facility] Last Admin: 11/08/16 22:07 Dose: 100 mls/hr Pantoprazole Sodium (Protonix -) 40 mg PO DAILY [facility] Last Admin: 11/08/16 09:46 Dose: 40 mg Rosuvastatin Calcium (Crestor -) 10 mg PO HS [facility] Last Admin: 11/08/16 22:07 Dose: 10 mg Tamsulosin HCl (Flomax -) 0.4 mg PO DAILY@0830 [facility] Last Admin: 11/09/16 08:12 Dose: 0.4 mg - Objective Vital Signs: Vital Signs Temperature 97.5 F L 11/09/16 10:00 Pulse Rate 70 11/09/16 10:00 Respiratory Rate 18 11/09/16 10:00 Blood Pressure 111/62 11/09/16 10:00 O2 Sat by Pulse Oximetry (%) 93 L 11/08/16 21:00 Constitutional: Yes: No Distress Cardiovascular: Yes: Regular Rate and Rhythm, Murmur Respiratory: Yes: Diminished Gastrointestinal: Yes: Normal Bowel Sounds, Soft. No: Distention, Tenderness Edema: Yes Edema: LLE: Trace, RLE: Trace Labs: CBC, BMP 11/09/16 08:00 11/09/16 08:00 INR, PTT INR 1.71 (0.82-1.09) H 11/03/16 21:00 Problem List - Problems (1) UTI (urinary tract infection) Code(s): N39.0 - URINARY TRACT INFECTION, SITE NOT SPECIFIED Qualifiers: Urinary tract infection type: site unspecified Hematuria presence: without hematuria Qualified Code(s): N39.0 - Urinary tract infection, site not specified (2) VALDEMAR (acute kidney injury) Code(s): N17.9 - ACUTE KIDNEY FAILURE, UNSPECIFIED (3) Atrial fibrillation Code(s): I48.91 - UNSPECIFIED ATRIAL FIBRILLATION (4) Gram-negative bacteremia Code(s): R78.81 - BACTEREMIA (5) Altered mental status Code(s): R41.82 - ALTERED MENTAL STATUS, UNSPECIFIED Qualifiers: Altered mental status type: transient alteration of awareness Qualified Code(s): R40.4 - Transient alteration of awareness (6) Metabolic encephalopathy Code(s): G93.41 - METABOLIC ENCEPHALOPATHY Assessment/Plan PLAN IV antibiotics blood cultures repeat negative renal function improving pt is at his baseline mentation Pt requires one person assist-- does not wish to go to rehab VNS , home PT upon discharge DVT prophylaxis-- SCD
[2016-11-09] MEDS: CEFAZOLIN (PRE-DOCKED) 50 ML IVPB SCH ×2 (10:36→21:50)
[2016-11-09] MEDS: FUROSEMIDE 40 MG TABLET (FP) PO SCH (10:37)
[2016-11-09] MEDS: FLUTICASONE PROP 0.05% 16 GM NASAL SPRAY NS SCH (10:37)
[2016-11-09] MEDS: PANTOPRAZOLE 40 MG TABLET (FP) PO SCH (10:37)
[2016-11-09] MEDS: ASPIRIN 81 MG CHEWABLE TABLETS PO SCH (10:37)
[2016-11-09] MEDS: CARVEDILOL 3.125 MG TABLET (FP) PO SCH ×2 (10:37→21:51)
--- NOTE | 2016-11-09 14:59 | PN ---
Progress Note, Physician History of Present Illness: More awake and alert Mildly confused No fever WBC WNL Plt WNL - Current Medication List Current Medications: Active Medications Acetaminophen (Tylenol -) 650 mg PO Q6H PRN PRN Reason: FEVER OR PAIN Last Admin: 11/09/16 05:02 Dose: 650 mg Aspirin (Asa -) 81 mg PO DAILY [facility] Last Admin: 11/09/16 10:37 Dose: 81 mg Carvedilol (Coreg -) 3.125 mg PO BID [facility] Last Admin: 11/09/16 10:37 Dose: 3.125 mg Fluticasone Propionate (Flonase -) 2 spray NS DAILY [facility] Last Admin: 11/09/16 10:37 Dose: 2 spray Furosemide (Lasix -) 40 mg PO DAILY [facility] Last Admin: 11/09/16 10:37 Dose: 40 mg Cefazolin Sodium (Ancef 1gm Ivpb (Pre-Docked)) 50 mls @ 100 mls/hr IVPB BID [facility] Last Admin: 11/09/16 10:36 Dose: 100 mls/hr Pantoprazole Sodium (Protonix -) 40 mg PO DAILY [facility] Last Admin: 11/09/16 10:37 Dose: 40 mg Rosuvastatin Calcium (Crestor -) 10 mg PO HS [facility] Last Admin: 11/08/16 22:07 Dose: 10 mg Tamsulosin HCl (Flomax -) 0.4 mg PO DAILY@0830 [facility] Last Admin: 11/09/16 08:12 Dose: 0.4 mg - Objective Vital Signs: Vital Signs Temperature 97.5 F L 11/09/16 10:00 Pulse Rate 70 11/09/16 10:00 Respiratory Rate 18 11/09/16 10:00 Blood Pressure 111/62 11/09/16 10:00 O2 Sat by Pulse Oximetry (%) 93 L 11/08/16 21:00 Constitutional: Yes: No Distress Eyes: Yes: Conjunctiva Clear Cardiovascular: Yes: Regular Rate and Rhythm, S1, S2 Respiratory: Yes: CTA Bilaterally Gastrointestinal: Yes: Normal Bowel Sounds, Soft. No: Tenderness Edema: No Labs: CBC, BMP 11/09/16 08:00 11/09/16 08:00 INR, PTT INR 1.71 (0.82-1.09) H 11/03/16 21:00 Assessment/Plan UTI/Sepsis secondary to UTI Possible septic shock resolved Gram Negative bacteremia Neurogenic bladder Azotemia Continue cefazolin Complete 7d course IV then po
--- NOTE | 2016-11-09 15:06 | PN ---
Progress Note, Physician History of Present Illness: Pt seen and examined at bedside. He is awake and alert. He denies shortness of breath. He denies dysuria. - Current Medication List Current Medications: Active Medications Acetaminophen (Tylenol -) 650 mg PO Q6H PRN PRN Reason: FEVER OR PAIN Last Admin: 11/09/16 05:02 Dose: 650 mg Aspirin (Asa -) 81 mg PO DAILY [facility] Last Admin: 11/09/16 10:37 Dose: 81 mg Carvedilol (Coreg -) 3.125 mg PO BID [facility] Last Admin: 11/09/16 10:37 Dose: 3.125 mg Fluticasone Propionate (Flonase -) 2 spray NS DAILY [facility] Last Admin: 11/09/16 10:37 Dose: 2 spray Furosemide (Lasix -) 40 mg PO DAILY [facility] Last Admin: 11/09/16 10:37 Dose: 40 mg Cefazolin Sodium (Ancef 1gm Ivpb (Pre-Docked)) 50 mls @ 100 mls/hr IVPB BID [facility] Last Admin: 11/09/16 10:36 Dose: 100 mls/hr Pantoprazole Sodium (Protonix -) 40 mg PO DAILY [facility] Last Admin: 11/09/16 10:37 Dose: 40 mg Rosuvastatin Calcium (Crestor -) 10 mg PO HS [facility] Last Admin: 11/08/16 22:07 Dose: 10 mg Tamsulosin HCl (Flomax -) 0.4 mg PO DAILY@0830 [facility] Last Admin: 11/09/16 08:12 Dose: 0.4 mg - Objective Vital Signs: Vital Signs Temperature 97.5 F L 11/09/16 10:00 Pulse Rate 70 11/09/16 10:00 Respiratory Rate 18 11/09/16 10:00 Blood Pressure 111/62 11/09/16 10:00 O2 Sat by Pulse Oximetry (%) 93 L 11/08/16 21:00 Constitutional: Yes: Calm Eyes: Yes: Conjunctiva Clear HENT: Yes: Atraumatic Cardiovascular: Yes: S1, S2 Respiratory: Yes: CTA Bilaterally Gastrointestinal: Yes: WNL Genitourinary: Yes: WNL Musculoskeletal: Yes: WNL Edema: No Neurological: Yes: Oriented Psychiatric: Yes: Oriented Labs: CBC, BMP 11/09/16 08:00 11/09/16 08:00 INR, PTT INR 1.71 (0.82-1.09) H 11/03/16 21:00 Problem List - Problems (1) Altered mental status Code(s): R41.82 - ALTERED MENTAL STATUS, UNSPECIFIED (2) CAD (coronary artery disease) Code(s): I25.10 - ATHSCL HEART DISEASE OF [place] CORONARY ARTERY W/O ANG PCTRS Qualifiers: Coronary Disease-Associated Artery/Lesion type: coronary artery bypass graft (3) CHF (congestive heart failure) Code(s): I50.9 - HEART FAILURE, UNSPECIFIED Qualifiers: Congestive heart failure type: systolic Congestive heart failure chronicity: chronic Qualified Code(s): I50.22 - Chronic systolic (congestive ) heart failure (4) Gram-negative bacteremia Code(s): R78.81 - BACTEREMIA (5) Renal insufficiency Code(s): N28.9 - DISORDER OF KIDNEY AND URETER, UNSPECIFIED (6) UTI (urinary tract infection) Code(s): N39.0 - URINARY TRACT INFECTION, SITE NOT SPECIFIED Qualifiers: Urinary tract infection type: site unspecified Hematuria presence: without hematuria Qualified Code(s): N39.0 - Urinary tract infection, site not specified (7) VALDEMAR (acute kidney injury) Code(s): N17.9 - ACUTE KIDNEY FAILURE, UNSPECIFIED (8) Ascites Code(s): R18.8 - OTHER ASCITES Assessment/Plan Current Medications Generic Name Dose Route Start Last Admin Trade Name Freq PRN Reason Stop Dose Admin Acetaminophen 650 mg 11/04/16 23:55 11/09/16 05:02 Tylenol - PO 650 mg Q6H PRN Administration FEVER OR PAIN Aspirin 81 mg 11/05/16 10:00 11/09/16 10:37 Asa - PO 81 mg DAILY [facility] Administration Carvedilol 3.125 mg 11/04/16 22:00 11/09/16 10:37 Coreg - PO 3.125 mg BID [facility] Administration Fluticasone Propionate 2 spray 11/05/16 10:00 11/09/16 10:37 Flonase - NS 2 spray DAILY [facility] Administration Furosemide 40 mg 11/07/16 12:00 11/09/16 10:37 Lasix - PO 40 mg DAILY [facility] Administration Cefazolin Sodium 50 mls @ 100 mls/hr 11/06/16 22:00 11/09/16 10:36 Ancef 1gm Ivpb (Pre-Docked) IVPB 100 mls/hr BID [facility] Administration Pantoprazole Sodium 40 mg 11/05/16 10:00 11/09/16 10:37 Protonix - PO 40 mg DAILY [facility] Administration Rosuvastatin Calcium 10 mg 11/04/16 22:00 11/08/16 22:07 Crestor - PO 10 mg HS [facility] Administration Tamsulosin HCl 0.4 mg 11/05/16 08:30 11/09/16 08:12 Flomax - PO 0.4 mg DAILY@0830 [facility] Administration Impression 1. VALDEMAR 2. 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 sepsis 4. UTI 5. CAD with hx CABG 6. anemia 7. hx of GI bleed 8. a-fib 9. hyperlipidemia 10. renal cyst Plan - pts renal function is stabilizing, he has a baseline creatinine of about 2.3 - cont with lasix at current dose - ID input appreciated, cont abx - repeat labs in am - cont abx - will follow Dr Francois
[2016-11-09] MEDS: ROSUVASTATIN CA 10 MG TABLET (FP) PO SCH (21:51)
[2016-11-10 07:49] LABS: ANION GAP 8 (8-16); CALCIUM 7.8 mg/dL (8.5-10.1); CO2 30 mmol/L (21-32); CREATININE 2.2 mg/dL (0.7-1.3); GLUCOSE,RANDOM 92 mg/dL (74-106)
[2016-11-10] MEDS: TAMSULOSIN HCL 0.4 MG CAP.ER.24H (FP) PO SCH (08:27)
[2016-11-10] MEDS ORDERED: PT OWN MED DRAWER 7, Y5N ONE (10:43)
[2016-11-10] MEDS: PANTOPRAZOLE 40 MG TABLET (FP) PO SCH (10:46)
[2016-11-10] MEDS: ASPIRIN 81 MG CHEWABLE TABLETS PO SCH (10:47)
[2016-11-10] MEDS: CEFAZOLIN (PRE-DOCKED) 50 ML IVPB SCH (10:47)
[2016-11-10] MEDS: FUROSEMIDE 40 MG TABLET (FP) PO SCH (10:47)
[2016-11-10] MEDS: CARVEDILOL 3.125 MG TABLET (FP) PO SCH (10:47)
--- NOTE | 2016-11-10 10:52 | PN ---
Progress Note, Physician Chief Complaint: see dc summary - Current Medication List Current Medications: Active Medications Acetaminophen (Tylenol -) 650 mg PO Q6H PRN PRN Reason: FEVER OR PAIN Last Admin: 11/09/16 21:53 Dose: 650 mg Aspirin (Asa -) 81 mg PO DAILY [facility] Last Admin: 11/10/16 10:47 Dose: 81 mg Carvedilol (Coreg -) 3.125 mg PO BID [facility] Last Admin: 11/10/16 10:47 Dose: 3.125 mg Fluticasone Propionate (Flonase -) 2 spray NS DAILY [facility] Last Admin: 11/09/16 10:37 Dose: 2 spray Furosemide (Lasix -) 40 mg PO DAILY [facility] Last Admin: 11/10/16 10:47 Dose: 40 mg Cefazolin Sodium (Ancef 1gm Ivpb (Pre-Docked)) 50 mls @ 100 mls/hr IVPB BID [facility] Last Admin: 11/10/16 10:47 Dose: 100 mls/hr Pantoprazole Sodium (Protonix -) 40 mg PO DAILY [facility] Last Admin: 11/10/16 10:46 Dose: 40 mg Rosuvastatin Calcium (Crestor -) 10 mg PO HS [facility] Last Admin: 11/09/16 21:51 Dose: 10 mg Tamsulosin HCl (Flomax -) 0.4 mg PO DAILY@0830 [facility] Last Admin: 11/10/16 08:27 Dose: 0.4 mg - Objective Vital Signs: Vital Signs Temperature 98.8 F 11/10/16 06:00 Pulse Rate 72 11/10/16 06:00 Respiratory Rate 18 11/10/16 06:00 Blood Pressure 129/64 11/10/16 06:00 O2 Sat by Pulse Oximetry (%) 94 L 11/09/16 21:00 Labs: CBC, BMP 11/09/16 08:00 11/10/16 06:20 INR, PTT INR 1.71 (0.82-1.09) H 11/03/16 21:00 Problem List - Problems (1) UTI (urinary tract infection) Code(s): N39.0 - URINARY TRACT INFECTION, SITE NOT SPECIFIED Qualifiers: Urinary tract infection type: site unspecified Hematuria presence: without hematuria Qualified Code(s): N39.0 - Urinary tract infection, site not specified (2) VALDEMAR (acute kidney injury) Code(s): N17.9 - ACUTE KIDNEY FAILURE, UNSPECIFIED (3) Atrial fibrillation Code(s): I48.91 - UNSPECIFIED ATRIAL FIBRILLATION (4) Gram-negative bacteremia Code(s): R78.81 - BACTEREMIA (5) Altered mental status Code(s): R41.82 - ALTERED MENTAL STATUS, UNSPECIFIED Qualifiers: Altered mental status type: transient alteration of awareness Qualified Code(s): R40.4 - Transient alteration of awareness (6) Metabolic encephalopathy Code(s): G93.41 - METABOLIC ENCEPHALOPATHY
[2016-11-10] MEDS: FLUTICASONE PROP 0.05% 16 GM NASAL SPRAY NS SCH (11:08)
--- NOTE | 2016-11-10 11:40 | DS ---
Physical Examination Vital Signs: Vital Signs Temperature 98.8 F 11/10/16 06:00 Pulse Rate 72 11/10/16 06:00 Respiratory Rate 18 11/10/16 06:00 Blood Pressure 129/64 11/10/16 06:00 O2 Sat by Pulse Oximetry (%) 94 L 11/09/16 21:00 Constitutional: Yes: No Distress, Calm Cardiovascular: Yes: Pulse Irregular, Murmur Respiratory: Yes: CTA Bilaterally Gastrointestinal: Yes: Normal Bowel Sounds, Soft. No: Distention, Tenderness Edema: No Psychiatric: Yes: Alert, Oriented Labs: CBC, BMP 11/09/16 08:00 11/10/16 06:20 Discharge Summary Reason For Visit: UTI (URINARY TRACT INFECTION)/RENAL INSUFFICIENCY Current Active Problems Altered mental status (Acute) CAD (coronary artery disease) (Acute) CHF (congestive heart failure) (Acute) Gram-negative bacteremia (Acute) Metabolic encephalopathy (Acute) Renal insufficiency (Acute) UTI (urinary tract infection) (Acute) Hospital Course: Admitted for UTI, sepsis and altered mentation . Received antibiotics in ER and the floors- Cardiac enzymes were elevated initially due to sepsis but trending down, seen by Cardiology, ID and Renal. Was on IV antibiotics for 8 days-- initial blood cultures positive for Ecoli-- repeat were negative Renal function now at baseline-- creatinine 2.2 Pt better , stable for dc home on PO Levaquin x 6 days, received Levaquin 500mg po x1 dose today. VNS and home PT set up spoke with Pt and does not want STR Pt clinically improved, will set up appointment with Urologist at [place] for BPH follow up with DR Hoang in 1 week - Instructions Referrals: Ga Hoang MD [Primary Care Provider] - - Home Medications Comprehensive Discharge Medication List: Ambulatory Orders Cholecalciferol (Vitamin D3) [Vitamin D3] 2,000 unit PO DAILY 02/12/15 Rosuvastatin Calcium [Crestor] 10 mg PO HS 02/12/15 Aspirin [ASA -] 81 mg PO DAILY 08/26/15 Pantoprazole Sodium [Protonix] 40 mg PO ASDIR 08/26/15 Tamsulosin HCl [Flomax -] 0.4 mg PO DAILY 08/26/15 Furosemide [Lasix -] 40 mg PO DAILY 09/11/15 Carvedilol [Coreg -] 3.125 mg PO BID #60 tablet 09/24/15 Fluticasone Prop 0.05% Nasal [Flonase -] 2 spray NS DAILY #1 spray 09/24/15 Folic Acid/Mv,Fe,Other Min [Strovite Forte (Nf)] 1 tab PO DAILY 11/03/16
--- NOTE | 2016-11-10 12:45 | PN ---
Progress Note (short form) - Note Progress Note: s: no cp sob palps dizzy; walking with pt now, doing well, ot sats 97 after exercise o: Vital Signs Period Temp Pulse Resp BP Sys/[place] Pulse Ox Last 24 Hr 97.4 F-98.8 F 72-72 18-22 112-129/52-64 94 nad, no jvd rrr s1s2 no mrg cta bl nl eff aaox3 no le e/c/c no jaundice diaphoresis Current Medications Generic Name Dose Route Start Last Admin Trade Name Freq PRN Reason Stop Dose Admin Acetaminophen 650 mg 11/04/16 23:55 11/09/16 21:53 Tylenol - PO 650 mg Q6H PRN Administration FEVER OR PAIN Aspirin 81 mg 11/05/16 10:00 11/10/16 10:47 Asa - PO 81 mg DAILY [facility] Administration Carvedilol 3.125 mg 11/04/16 22:00 11/10/16 10:47 Coreg - PO 3.125 mg BID [facility] Administration Fluticasone Propionate 2 spray 11/05/16 10:00 11/10/16 11:08 Flonase - NS 2 spray DAILY [facility] Administration Furosemide 40 mg 11/07/16 12:00 11/10/16 10:47 Lasix - PO 40 mg DAILY [facility] Administration Cefazolin Sodium 50 mls @ 100 mls/hr 11/06/16 22:00 11/10/16 10:47 Ancef 1gm Ivpb (Pre-Docked) IVPB 100 mls/hr BID [facility] Administration Levofloxacin 500 mg 11/10/16 14:00 Levaquin - PO 11/10/16 14:01 ONCE ONE Pantoprazole Sodium 40 mg 11/05/16 10:00 11/10/16 10:46 Protonix - PO 40 mg DAILY [facility] Administration Rosuvastatin Calcium 10 mg 11/04/16 22:00 11/09/16 21:51 Crestor - PO 10 mg HS [facility] Administration Tamsulosin HCl 0.4 mg 11/05/16 08:30 11/10/16 08:27 Flomax - PO 0.4 mg DAILY@0830 [facility] Administration CBC, BMP 11/09/16 08:00 11/10/16 06:20 cxr: no chf Adeno stress MPI 06/2012 : moderate anterior and inferior ischemia, severely reduced LVF-->cath Carotid Doppler 07/2012: no sig stenosis PVR 05/2012: normal kermit 04/2016: lve, mod-sev dec lvef, global hk, rve, mod dec rv fcn, mild ar, mv repair with mild mr, sev tr 2/2 icd lead, watchman device in place with nl fcn echo 08/2015: mod-sev dec lvef (global hk), mild lve, mild rve, nl rvf, mild aida , mv ring, sev tr, rvsp 30-40, mod ar echo 12/2014: mod lve, sev decreased lvef (global hypo), nl rv size, s/p MV ring with trace mr, sev tr, mod-sev ar, rvsp 30-40 Echo 05/2013: severely dil LV, severely reduced LVF, normal RVF, mod biatrial dilation, mod AI, s/p mitral annuloplasty ring, mild to mod TR, RVSP 50-60 Echo 05/2012: mod dil LV, severely reduced LVF, normal RVF, mod dil LA, mod AI, s/p mitral annuloplasty ring, mild TR, RVSP 35-40 ecg 11/04/16: afib, vpaced a/p: 86 m hx CAD s/p CABG (09/2006: CHANDLER to LAD, SVG to HL, SVG to OM2, SVG to PDA) and pci (last cath/PCI 10/2012: patent CHANDLER to LAD, SVG to OM2, SVG to Ramus, occluded SVG to RPDA. Had ZENIA PCI to [place] Di[facility], unsuccessful attempt of [place] RCA STATISTICIAN THEORETICAL), MV ring (28 mm Tyler) for severe MR, ischemic CMPathy s /p biv-ICD ([employer]), HTN, HPL, Aflutter ablation 06/2008 (caused inappropriate ICD shocks), afib s/p watchman device 06[place] [place] GIB (possible internal hemroids), ckd (cr 2.5-3), anemia here with weakness/lethargy. weakness, lethargy, uti/sepsis: -likely 2/2 uti, sepsis, +bld cxs -abx per ID -strength improving, doing well with PT today pos trops: -borderline trop elevation with flat trend and nl ckmb, not consistent with acs Cad s/p cabg, pci: -Stable, no angina. -no signs acs -cont asa, bb, statin Severe MR s/p ring: -Stable, no sig MR on recent KERMIT ischemic CMPathy, severe systolic chf: -mild le edema, no pulm edema -VALDEMAR on admit so held lasix initially but now cr improved and back on home lasix 40 qd -cont coreg. not on omar 2/2 ckd -Nitrates and hydral have been held in past due to low bp tendencies. s/p biv-ICD ([employer]): Stable. Has routine home monitoring and office checks at [place] with EP dr tabares. Had multiple episodes of NSVT therefore maintained on amiodarone. Outpt f/u with EP. htn: -cont coreg, can hold if develops low bp from sepsis hld: -cont statin Prior Aflutter: s/p successful ablation in 2008. AFib: -Rate controlled on bb -was previously on amio but stopped recently by EP -Had Watchman device 06/2015 at the [facility], nl fcn on recent KERMIT -cont asa 81 valdemar, ckd: -on admit cr above baseline, likely from UTI, sepsis -cr improved now hx of anemia: -he had INOCENCIO closure device (watchman device) and then finished the requisite 6 weeks of coumadin w/o bleeding issues and stable hgb throughout -then he began the next phase post watchman device that involved 6 weeks of DAPT with asa and plavix. 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 cardiac art remains stable
--- NOTE | 2016-11-10 13:07 | PN ---
Progress Note, Physician History of Present Illness: Pt seen and examined at bedside. He is awake and alert. He denies shortness of breath. He denies fevers or chills. - Current Medication List Current Medications: Active Medications Acetaminophen (Tylenol -) 650 mg PO Q6H PRN PRN Reason: FEVER OR PAIN Last Admin: 11/09/16 21:53 Dose: 650 mg Aspirin (Asa -) 81 mg PO DAILY [facility] Last Admin: 11/10/16 10:47 Dose: 81 mg Carvedilol (Coreg -) 3.125 mg PO BID [facility] Last Admin: 11/10/16 10:47 Dose: 3.125 mg Fluticasone Propionate (Flonase -) 2 spray NS DAILY [facility] Last Admin: 11/10/16 11:08 Dose: 2 spray Furosemide (Lasix -) 40 mg PO DAILY [facility] Last Admin: 11/10/16 10:47 Dose: 40 mg Cefazolin Sodium (Ancef 1gm Ivpb (Pre-Docked)) 50 mls @ 100 mls/hr IVPB BID [facility] Last Admin: 11/10/16 10:47 Dose: 100 mls/hr Levofloxacin (Levaquin -) 500 mg PO ONCE ONE Stop: 11/10/16 14:01 Pantoprazole Sodium (Protonix -) 40 mg PO DAILY [facility] Last Admin: 11/10/16 10:46 Dose: 40 mg Rosuvastatin Calcium (Crestor -) 10 mg PO HS [facility] Last Admin: 11/09/16 21:51 Dose: 10 mg Tamsulosin HCl (Flomax -) 0.4 mg PO DAILY@0830 [facility] Last Admin: 11/10/16 08:27 Dose: 0.4 mg - Objective Vital Signs: Vital Signs Temperature 97.6 F 11/10/16 10:00 Pulse Rate 71 11/10/16 10:00 Respiratory Rate 18 11/10/16 10:00 Blood Pressure 137/72 11/10/16 10:00 O2 Sat by Pulse Oximetry (%) 93 L 11/10/16 09:00 Constitutional: Yes: Calm Eyes: Yes: Conjunctiva Clear HENT: Yes: Atraumatic Cardiovascular: Yes: S1, S2 Respiratory: Yes: CTA Bilaterally Gastrointestinal: Yes: Soft Genitourinary: Yes: WNL Musculoskeletal: Yes: WNL Edema: No Neurological: Yes: Oriented Psychiatric: Yes: Oriented Labs: CBC, BMP 11/09/16 08:00 11/10/16 06:20 INR, PTT INR 1.71 (0.82-1.09) H 11/03/16 21:00 Problem List - Problems (1) Altered mental status Code(s): R41.82 - ALTERED MENTAL STATUS, UNSPECIFIED Qualifiers: Altered mental status type: transient alteration of awareness Qualified Code(s): R40.4 - Transient alteration of awareness (2) CAD (coronary artery disease) Code(s): I25.10 - ATHSCL HEART DISEASE OF [place] CORONARY ARTERY W/O ANG PCTRS Qualifiers: Coronary Disease-Associated Artery/Lesion type: coronary artery bypass graft (3) CHF (congestive heart failure) Code(s): I50.9 - HEART FAILURE, UNSPECIFIED Qualifiers: Congestive heart failure type: systolic Congestive heart failure chronicity: chronic Qualified Code(s): I50.22 - Chronic systolic (congestive ) heart failure (4) Gram-negative bacteremia Code(s): R78.81 - BACTEREMIA (5) Renal insufficiency Code(s): N28.9 - DISORDER OF KIDNEY AND URETER, UNSPECIFIED (6) UTI (urinary tract infection) Code(s): N39.0 - URINARY TRACT INFECTION, SITE NOT SPECIFIED Qualifiers: Urinary tract infection type: site unspecified Hematuria presence: without hematuria Qualified Code(s): N39.0 - Urinary tract infection, site not specified (7) VALDEMAR (acute kidney injury) Code(s): N17.9 - ACUTE KIDNEY FAILURE, UNSPECIFIED (8) Ascites Code(s): R18.8 - OTHER ASCITES Assessment/Plan Current Medications Generic Name Dose Route Start Last Admin Trade Name Freq PRN Reason Stop Dose Admin Acetaminophen 650 mg 11/04/16 23:55 11/09/16 21:53 Tylenol - PO 650 mg Q6H PRN Administration FEVER OR PAIN Aspirin 81 mg 11/05/16 10:00 11/10/16 10:47 Asa - PO 81 mg DAILY [facility] Administration Carvedilol 3.125 mg 11/04/16 22:00 11/10/16 10:47 Coreg - PO 3.125 mg BID [facility] Administration Fluticasone Propionate 2 spray 11/05/16 10:00 11/10/16 11:08 Flonase - NS 2 spray DAILY [facility] Administration Furosemide 40 mg 11/07/16 12:00 11/10/16 10:47 Lasix - PO 40 mg DAILY [facility] Administration Cefazolin Sodium 50 mls @ 100 mls/hr 11/06/16 22:00 11/10/16 10:47 Ancef 1gm Ivpb (Pre-Docked) IVPB 100 mls/hr BID [facility] Administration Levofloxacin 500 mg 11/10/16 14:00 Levaquin - PO 11/10/16 14:01 ONCE ONE Pantoprazole Sodium 40 mg 11/05/16 10:00 11/10/16 10:46 Protonix - PO 40 mg DAILY [facility] Administration Rosuvastatin Calcium 10 mg 11/04/16 22:00 11/09/16 21:51 Crestor - PO 10 mg HS [facility] Administration Tamsulosin HCl 0.4 mg 11/05/16 08:30 11/10/16 08:27 Flomax - PO 0.4 mg DAILY@0830 [facility] Administration Impression 1. VALDEMAR 2. 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 sepsis 4. UTI 5. CAD with hx CABG 6. anemia 7. hx of GI bleed 8. a-fib 9. hyperlipidemia 10. renal cyst Plan - renal function has returned to baseline - will see pt as outpt - cont with PO lasix - abx per ID - discussed plan with pt - will follow Dr Francois
[2016-11-10] MEDS ORDERED: LEVOFLOXACIN 500 MG TABLET (FP) PO ONE (14:00)
[2016-11-10 15:16] VITALS: BP 111/61; PULSE 70; TEMP 97.4
== END 2016-11-10 16:56 | disposition home or self-care (01) | DRG 871 ==
LOC: JER 19:56 → JERBED 22:58 → UNDOADMIN 23:08 → J5S 11-04 17:34
PROVIDERS: ADMIT Internal Medicine; ATTEND Internal Medicine
DX: A41.9 Sepsis, unspecified organism (principal); G93.41 Metabolic encephalopathy; E87.2 Acidosis; I13.0 Hypertensive heart and chronic kidney disease with heart failure and stage 1 through stage 4 chronic kidney disease, or unspecified chronic kidney disease; I50.22 Chronic systolic (congestive) heart failure; N17.9 Acute kidney failure, unspecified; N39.0 Urinary tract infection, site not specified; R18.8 Other ascites; E87.1 Hypo-osmolality and hyponatremia; I48.91 Unspecified atrial fibrillation; I71.2 Thoracic aortic aneurysm, without rupture; I25.10 Atherosclerotic heart disease of native coronary artery without angina pectoris; E78.00 Pure hypercholesterolemia, unspecified; N40.0 Benign prostatic hyperplasia without lower urinary tract symptoms; N28.1 Cyst of kidney, acquired; K57.90 Diverticulosis of intestine, part unspecified, without perforation or abscess without bleeding; M54.5 Low back pain; I25.5 Ischemic cardiomyopathy; I34.0 Nonrheumatic mitral (valve) insufficiency; D64.9 Anemia, unspecified; N31.9 Neuromuscular dysfunction of bladder, unspecified; D69.6 Thrombocytopenia, unspecified; N18.9 Chronic kidney disease, unspecified; B96.20 Unspecified Escherichia coli [E. coli] as the cause of diseases classified elsewhere; Z96.653 Presence of artificial knee joint, bilateral; Z87.891 Personal history of nicotine dependence; Z95.810 Presence of automatic (implantable) cardiac defibrillator; Z95.5 Presence of coronary angioplasty implant and graft; Z95.1 Presence of aortocoronary bypass graft
CPT/HCPCS: 36415; 71010-TC; 76775-TC; 76856-TC; 80048; 80053; 81003; 81015; 82436; 82550; 82553; 82570; 82803; 83605; 84133; 84300; 84484; 85025; 85610; 85730; 86850; 86900; 86901; 87040; 87086; 87186; 93005; 93010; 97116-GP; 97161-GP; 99285-25

== ENCOUNTER 2017-02-16 17:07 | Emergency (ER) | payer OTHER ==
[2017-02-16 17:19] VITALS: BMI 22.6
[2017-02-16] MEDS ORDERED: ACETAMINOPHEN 500 MG TABLET (FP) PO ONE (17:34)
[2017-02-16] MEDS ORDERED: DIPHTH,PERTUSS(ACELL),TET 0.5 ML DISP.SYRIN IM ONE (17:34)
[2017-02-16] MEDS ORDERED: ACETAMINOPHEN 500 MG TABLET (FP) ONE ×2 (17:38→17:40)
--- NOTE | 2017-02-16 18:10 | PDOC ---
History of Present Illness - General Chief Complaint: Syncope/Near Syncope Stated Complaint: SYNCOPE Time Seen by Provider: 02/16/17 17:12 - History of Present Illness Initial Comments: 02/16/17 18:05 "The patient is a 87 year old male with a significant past medical history of CKD, CHF, AFIB s/p pacemaker, BPH, thoracic aneurysm, anemia, hypertension, high cholesterol, CAD with stent 2, CABG, who presents to the ED accompanied with his s/p fall. Patient states he was getting out of his car when he felt his knees give out and subsequently fell on the driveway. Patient states he landed on his right side and hit his head. He denies LOC. Patient currently complains of right sided head pain and right arm pain. Pt denies having any CP/SOB/palpitations at any time. Denies feeling lightheaded prior to falling. He states that he typically uses a cane or walker but did not have it as he was getting out of the car. Pt's states that he has had multiple falls in the past, always in the context of not using his walker. She states that when he is not being supported , he has a tendency to lean forward, which is what happened to him. Patient denies chest pain, SOB, palpitations, fever, chills, nausea, vomiting, diarrhea. Patient takes baby-aspirin daily. Last tetanus shot: Does not remember. " Past History - Past Medical History Allergies/Adverse Reactions: Allergies Allergy/AdvReac Type Severity Reaction Status Date / Time mirtazapine [From Remeron] AdvReac Verified 02/16/17 17:08 Home Medications: Ambulatory Orders Cholecalciferol (Vitamin D3) [Vitamin D3] 2,000 unit PO DAILY 02/12/15 Rosuvastatin Calcium [Crestor] 10 mg PO HS 02/12/15 Aspirin [ASA -] 81 mg PO DAILY 08/26/15 Tamsulosin HCl [Flomax -] 0.4 mg PO DAILY 08/26/15 Furosemide [Lasix -] 40 mg PO DAILY 09/11/15 Carvedilol [Coreg -] 3.125 mg PO BID #60 tablet 09/24/15 Folic Acid/Mv,Fe,Other Min [Strovite Forte (Nf) -] 1 tab PO DAILY 11/03/16 Pantoprazole Sodium [Protonix] 40 mg PO DAILY #0 tab 11/10/16 Amiodarone HCl 200 mg PO DAILY 02/16/17 Anemia: Yes Cardiac Disorders: Yes (A FIB,ASCAD S/P CABG STENT/ DEFIBRILLATOR) CVA: No CHF: Yes Dementia: No Diabetes: No GI Disorders: Yes (Internal Hemorrhoids,) Disorders: Yes (BPH, renal disease) HTN: Yes Hypercholesterolemia: Yes Liver Disease: No Seizures: No Thyroid Disease: No - Surgical History Abdominal Surgery: Yes Appendectomy: No Cardiac Surgery: Yes (PACEMAKER,CABG/STENT- DEFIBULATOR) Cholecystectomy: No Lung Surgery: No Neurologic Surgery: No Orthopedic Surgery: Yes (BILAT KNEE ARTHROSCOPY) - Immunization History Immunization Up to Date: Yes - Suicide/Smoking/Psychosocial Hx Smoking History: Former smoker Have you smoked in the past 12 months: No If you are a former smoker, when did you quit?: 2001 Information on smoking cessation initiated: No Hx Alcohol Use: No Drug/Substance Use Hx: No Substance Use Type: None Hx Substance Use Treatment: No Review of Systems - Review of Systems Comments:: 02/16/17 18:08 "GENERAL/CONSTITUTIONAL: No fever or chills. No weakness. HEAD, EYES, EARS, NOSE AND THROAT: No change in vision. No ear pain or discharge. No sore throat. CARDIOVASCULAR: No chest pain or shortness of breath. RESPIRATORY: No cough, wheezing, or hemoptysis. GASTROINTESTINAL: No nausea, vomiting, diarrhea or constipation. GENITOURINARY: No dysuria, frequency, or change in urination. MUSCULOSKELETAL: + right forearm pain. + right sided head pain. + right knee pain. No joint or muscle swelling or pain. No neck or back pain. SKIN: + skin tears to the right forehead, right knee, right forearm. NEUROLOGIC: No headache, vertigo, loss of consciousness, or change in strength/ sensation. ENDOCRINE: No increased thirst. No abnormal weight change. HEMATOLOGIC/LYMPHATIC: No anemia, easy bleeding, or history of blood clots. ALLERGIC/IMMUNOLOGIC: No hives or skin allergy. " *Physical Exam - Vital Signs Last Vital Signs Temp Pulse Resp BP Pulse Ox 97.5 F L 71 20 124/60 99 02/16/17 17:08 02/16/17 17:08 02/16/17 17:08 02/16/17 17:08 02/16/17 17:08 - Physical Exam Comments: 02/16/17 18:11 "GENERAL: Awake, alert, and fully oriented, in no acute distress HEAD: Hematoma to R forehead with small <1cm superficial skin tear EYES: PERRLA, EOMI, sclera anicteric, conjunctiva clear ENT: Auricles normal inspection, no hemotympanum, hearing grossly normal, nares patent, oropharynx clear without exudates. Moist mucosa NECK: Nontender, no stepoffs, Normal ROM, supple, no lymphadenopathy, JVD, or masses LUNGS: Breath sounds equal, clear to auscultation bilaterally. No wheezes, and no crackles HEART: Regular rate and rhythm, normal S1 and S2, no murmurs, rubs or gallops ABDOMEN: Soft, nontender, normoactive bowel sounds. No guarding, no rebound. No masses EXTREMITIES: NO deformities, full range of motion of b/l shoulders, elbows, and wrists. No clubbing or cyanosis. No cords, erythema, or tenderness PELVIS: Stable NEUROLOGICAL: Cranial nerves II through XII intact. 5/5 strength and sensation in all extremities, Normal speech, normal gait SKIN: Abrasions and skin tears to the right upper extremity on elbow and forearm. small superficial skin Avulsion to the left thumb. Small abrasion to the right knee. " ED Treatment Course - LABORATORY CBC & Chemistry Diagram: 02/16/17 17:34 02/16/17 17:34 - RADIOLOGY Radiology Studies Ordered: Category Date Time Status CERVICAL SPINE CT W/O CONTR [CT] Stat CT Scan 02/16/17 17:[address] W/O CONTRAST [CT] Stat CT Scan 02/16/17 17:[address] WITHOUT CONTRAST [CT] Stat CT Scan 02/16/17 17:32 Ordered CHEST PA & LAT [RAD] Stat Radiology 02/16/17 17:32 Ordered ELBOW-RIGHT [RAD] Stat Radiology 02/16/17 17:33 Ordered FOREARM- RIGHT [RAD] Stat Radiology 02/16/17 17:33 Ordered HAND- LEFT [RAD] Stat Radiology 02/16/17 17:33 Ordered KNEE 2 POS-LEFT [RAD] Stat Radiology 02/16/17 17:33 Ordered PELVIS [RAD] Stat Radiology 02/16/17 17:32 Ordered WRIST W/HAND-RIGHT* [RAD] Stat Radiology 02/16/17 17:33 Ordered - Medications Given in the ED: ED Medications Discontinued Medications Generic Name Dose Route Start Last Admin Trade Name Carlos PRN Reason Stop Dose Admin Acetaminophen 1,000 mg 02/16/17 17:34 02/16/17 17:54 Tylenol - PO 02/16/17 17:35 1,000 mg ONCE ONE Administration Diphtheria/Tetanus/Acell Pertussis 0.5 ml 02/16/17 17:34 02/16/17 17:50 Boostrix - IM 02/16/17 17:35 0.5 ml .ONCE ONE Administration Medical Decision Making - Medical Decision Making 02/16/17 18:12 86 M with mechanical fall after getting out of car without assistance of cane or walker. Now with head injury and RUE injuries. Pt otherwise well appearing. No h/o CP/SOB/palpitations to suggest syncope. - Labs - CTH, C-spine - XR chest, pelvis, RUE, R knee, L hand - Tdap 02/16/17 20:58 Pt's wounds irrigated with saline and dressed with gauze bandage. All wounds are superficial, not requiring sutures or skin adhesive. CTs negative. Upon my review, XRs are negative for acute fx Labs reviewed, all values appear at pt's baseline, including Cr and H/H. Trop 0.06 also at patient's baseline. Pt reassessed - is able to ambulate with assistance of cane - this is pt's baseline per and pt. Pt to be accompanied home with , will f/u with PMD within 1 week. Stable for DC. 02/17/17 21:37 Review of X-rays shows fracture of L 5th digit, proximal phalanx. On my examination yesterday, pt had no tenderness or signs of trauma at that site. I called the patient today to check on him and inform him of a possible missed fracture. He reports he feels well and that he fractured his L pinky several years ago. He denies any pain at all in that hand today. I confirmed with pt that this was his left 5th digit. X-ray finding of L 5th digit fx is likely old. Pt states he is planning on seeing his PMD, Dr. Hoang next week. *DC/Admit/Observation/Transfer Diagnosis at time of Disposition: Fall - Discharge Dispostion Disposition: HOME Condition at time of disposition: Good - Patient Instructions Printed Discharge Instructions: How to Prevent Falls Additional Instructions: Apply xeroform and antibiotic ointment to your wounds twice daily. If you experience worsening pain, redness, swelling, or any other concerning symptoms, return to the ER immediately. Follow up with your primary doctor within 1 week for a re-evaluation. - Attestations Physician Attestion: 02/16/17 21:01 I, Dr. Benjy Bautista MD, attest that this document has been prepared under my direction and personally reviewed by me in its entirety. I further attest, that it accurately reflects all work, treatment, procedures and medical decision -making performed by me.
[2017-02-16 18:18] LABS: INR 1.31 (0.82-1.09); PROTHROMBIN TIME (PATIENT) 14.6 SEC (10.2-13.0)
[2017-02-16 19:14] LABS: BASOPHIL 0.7 % (0-2.0); EOSINOPHIL 2.6 % (0-4.5); MCH 30.1 pg (25.7-33.7); MCHC 32.8 g/dl (32.0-35.9); MEAN CELL VOLUME 91.8 fl (80-96); MEAN PLT VOLUME 8.8 fl (7.5-11.1); NEUTROPHILS 76.9 % (42.8-82.8); PLATELET COUNT 139 K/MM3 (134-434); WHITE BLOOD COUNT 5.3 K/mm3 (4.0-10.0)
[2017-02-16 19:42] LABS: ALBUMIN 3.6 g/dl (3.4-5.0); ANION GAP 7 (8-16); CALCIUM 8.4 mg/dL (8.5-10.1); CO2 30 mmol/L (21-32); CREATININE 2.2 mg/dL (0.7-1.3); GLUCOSE,RANDOM 98 mg/dL (74-106); SGOT/AST 17 U/L (15-37); SGPT/ALT 18 U/L (12-78)
[2017-02-16 19:46] LABS: ALK PHOS 99 U/L (45-117); BILIRUBIN,TOTAL 0.7 mg/dL (0.2-1.0); CPK 150 IU/L (39-308); TOT PROT 7.3 g/dl (6.4-8.2)
[2017-02-16 20:50] LABS: TROPONIN I (DFP) 0.06 ng/ml (0.03-0.50)
[2017-02-16 21:49] VITALS: BP 134/60; PULSE 76; TEMP 96.9
--- NOTE | 2017-02-18 16:43 | EKG ---
Test Reason : Blood Pressure : / mmHG Vent. Rate : 074 BPM Atrial Rate : 150 BPM P-R Int : 000 ms QRS Dur : 178 ms QT Int : 480 ms P-R-T Axes : 000 235 076 degrees QTc Int : 532 ms Biventricular pacemaker detected PREMATURE VENTRICULAR COMPLEXES WHEN COMPARED WITH ECG OF 03-NOV-2016 21:12, VENT. RATE HAS INCREASED BY 4 BPM PVC seen Confirmed by MD JADE, JOSE ([id number]) on 02/18/2017 4:43:18 PM Referred By: DR MALAVE Confirmed By:JOSE HANSEN MD
== END 2017-02-16 21:49 | disposition home or self-care (01) ==
LOC: FER 17:07
PROC: 3E0234Z Introduction of Serum, Toxoid and Vaccine into Muscle, Percutaneous Approach (ICD-10-PCS; principal; 2017-02-16)
DX: S09.90XA Unspecified injury of head, initial encounter (principal); W18.39XA Other fall on same level, initial encounter; Y93.89 Activity, other specified; Y92.9 Unspecified place or not applicable
CPT/HCPCS: 36415; 70450-TC; 70486-TC; 71020-TC; 72125-TC; 72170-TC; 73070-TC-RT; 73090-TC-RT; 73110-TC-RT; 73130-TC-LT; 73130-TC-RT; 73560-TC-RT; 80053; 82553; 84484; 85025; 85610; 85730; 86850; 86900; 86901; 90471; 90715; 93005; 99284-25

== ENCOUNTER 2017-07-06 18:30 | Inpatient (IN) | payer OTHER ==
--- NOTE | 2017-07-06 19:20 | PDOC ---
History of Present Illness - General History Source: Patient, Family Exam Limitations: No Limitations - History of Present Illness Initial Comments: 07/06/17 19:54 The patient is a 87 year old male, with a significant past medical history of CAD, CHF, atrial fibrillation, UTI, who presents to the emergency department via walk-in with, approx. one day of dry cough, congestion, sore throat, decreased appetite, subjective fever, diarrhea, vomiting, and for evaluation of a left lower extremity wound. As per the patients daughter, the patient was complaining of sore throat yesterday night and only ate half of his dinner. She reports the patient took 2 doses of the Z-Pack yesterday prescribed by PCP Dr. Ga Hoang with minimal relief. She reports that beginning today the patient was warm to touch and has had a dry cough and nasal congestion. She reports the patient had an episode of loose stool diarrhea (non bloody) around 3 pm earlier today and reports an episode of emesis (non bloody, non bilious). In regards to the patients left lower extremity wound, the patient's daughter reports they first noticed the left lower extremity wound on the patient approx. 2 weeks ago in the morning but are unsure of any injury or trauma. She reports there has been increased drainage, redness and swelling surrounding the wound on the left lower extremity up until arrival. He denies any recent chest pain or shortness of breath. He denies any recent dysuria, frequency, urgency or hematuria. Allergies: Mirtazapine Primary Care Physician: Dr. Ga Hoang <Rufino Arizmendi - Last Filed: 07/06/17 21:55> <Mehnaz Muhammad - Last Filed: 07/07/17 06:15> - General Chief Complaint: Cold Symptoms Stated Complaint: fever Time Seen by Provider: 07/06/17 18:39 Past History <Rufino Arizmendi - Last Filed: 07/06/17 21:55> - Past Medical History Anemia: Yes Cardiac Disorders: Yes (A FIB,ASCAD S/P CABG STENT/ DEFIBRILLATOR) CVA: No COPD: No CHF: Yes Dementia: No Diabetes: No GI Disorders: Yes (Internal Hemorrhoids,) Disorders: Yes (BPH, renal disease) HTN: Yes Hypercholesterolemia: Yes Liver Disease: No Seizures: No Thyroid Disease: No - Surgical History Abdominal Surgery: Yes Appendectomy: No Cardiac Surgery: Yes (PACEMAKER,CABG/STENT- DEFIBULATOR) Cholecystectomy: No Lung Surgery: No Neurologic Surgery: No Orthopedic Surgery: Yes (BILAT KNEE ARTHROSCOPY) - Immunization History Immunization Up to Date: Yes - Suicide/Smoking/Psychosocial Hx Smoking History: Former smoker Have you smoked in the past 12 months: No If you are a former smoker, when did you quit?: 2001 Information on smoking cessation initiated: No Hx Alcohol Use: No Drug/Substance Use Hx: No Substance Use Type: None Hx Substance Use Treatment: No <Mehnaz Muhammad - Last Filed: 07/07/17 06:15> - Past Medical History Allergies/Adverse Reactions: Allergies Allergy/AdvReac Type Severity Reaction Status Date / Time mirtazapine [From Remeron] AdvReac Verified 07/06/17 18:31 Home Medications: Ambulatory Orders Cholecalciferol (Vitamin D3) [Vitamin D3] 1,000 unit PO DAILY 02/12/15 Rosuvastatin Calcium [Crestor] 10 mg PO HS 02/12/15 Aspirin [ASA -] 81 mg PO DAILY 08/26/15 Tamsulosin HCl [Flomax -] 0.4 mg PO DAILY 08/26/15 Furosemide [Lasix -] 40 mg PO DAILY 09/11/15 Carvedilol [Coreg -] 3.125 mg PO BID #60 tablet 09/24/15 Iron Ps Complex/B12/Folic Acid [Ferrex 150 Forte Capsule] 1 each PO DAILY Review of Systems - Review of Systems Comments:: 07/06/17 19:55 GENERAL/CONSTITUTIONAL: +Subjective fever. No chills. No weakness. HEAD, EYES, EARS, NOSE AND THROAT: +Sore throat. No change in vision. No ear pain or discharge. CARDIOVASCULAR: No chest pain or shortness of breath. RESPIRATORY: +Dry cough. No wheezing, or hemoptysis. GASTROINTESTINAL: +Nausea. +Vomiting. +Diarrhea. No constipation. GENITOURINARY: No dysuria, frequency, or change in urination. MUSCULOSKELETAL: No joint or muscle swelling or pain. No neck or back pain. SKIN: +Left lower extremity redness and swelling. NEUROLOGIC: No headache, vertigo, loss of consciousness, or change in strength/ sensation. ENDOCRINE: No increased thirst. No abnormal weight change. HEMATOLOGIC/LYMPHATIC: No anemia, easy bleeding, or history of blood clots. ALLERGIC/IMMUNOLOGIC: No hives or skin allergy. <Rufino Arizmendi - Last Filed: 07/06/17 21:55> *Physical Exam - Vital Signs Last Vital Signs Temp Pulse Resp BP Pulse Ox 100.9 F H 71 28 H 96/52 90 L 07/06/17 18:31 18 18:31 07/06/17 18:31 07/06/17 18:31 07/06/17 18:31 - Physical Exam Comments: 07/06/17 19:58 GENERAL: Awake, alert, and fully oriented, in no acute distress HEAD: No signs of trauma EYES: PERRLA, EOMI, sclera anicteric, conjunctiva clear ENT: +Dry mucus membranes. +Mild erythema oropharynx without exudates or edema. Auricles normal inspection, hearing grossly normal, nares patent. NECK: Normal ROM, supple, no lymphadenopathy, JVD, or masses LUNGS: +Decreased breath sounds bilaterally at bases with scattered crackles at the lower third of each lung field. No other abnormal breath sounds. HEART: +3/6 systolic murmur of the precordium heard throughout. Regular rate and rhythm. ABDOMEN: +Epigastric and right upper quadrant tenderness. No masses. Moderate hepatomegaly. No rebound or guarding. Soft. EXTREMITIES: +Left lower extremity 1.5 cm x .5 cm open wound of the mid anterior tibial surface with mild erythema and edema extending 4 cm proximally and distally to the open wound. NEUROLOGICAL: Cranial nerves II through XII grossly intact. Normal speech. SKIN: +Petechial changes of the proximal border of the erythematous area. Warm, Dry, normal turgor. <Rufino Arizmendi - Last Filed: 07/06/17 21:55> - Vital Signs Last Vital Signs Temp Pulse Resp BP Pulse Ox 100.9 F H 71 28 H 96/52 90 L 07/06/17 18:31 07/06/17 18:31 07/06/17 18:31 07/06/17 18:31 07/06/17 18:31 <Mehnaz Muhammad - Last Filed: 07/07/17 06:15> ED Treatment Course - LABORATORY CBC & Chemistry Diagram: 07/06/17 19:02 07/06/17 19:02 - ADDITIONAL ORDERS Additional order review: Laboratory Results 07/06/17 19:02 Sodium 134 L Potassium 4.4 Chloride 102 Carbon Dioxide 19 L Anion Gap 13 BUN 77 H Creatinine 2.7 H Creat Clearance w eGFR 22.52 Random Glucose 98 Calcium 8.5 Total Bilirubin 1.5 H AST 28 ALT 13 Alkaline Phosphatase 83 Total Protein 6.4 Albumin 3.3 L 07/06/17 19:02 RBC 4.03 MCV 89.8 MCHC 32.3 RDW 16.3 H MPV 9.6 Neutrophils % No Result Required. Lymphocytes % No Result Required. <Rufino Arizmendi - Last Filed: 07/06/17 21:55> - LABORATORY CBC & Chemistry Diagram: 07/06/17 19:02 07/06/17 19:02 - RADIOLOGY Radiology Studies Ordered: Category Date Time Status CHEST X-RAY PORTABLE* [RAD] Stat Radiology 07/06/17 19:01 Ordered <Mehnaz Muhammad - Last Filed: 07/07/17 06:15> Medical Decision Making - Medical Decision Making 07/06/17 22:36 Documentation has been prepared under my direction and personally reviewed by me in its entirety. I attest that this documented accurately reflects all work, treatment, procedures and medical decision making performed by me. As noted above, this 87-year-old man with multiple medical problems presents with a 2 day history of subjective fever/progressive weakness/nausea and diarrhea. Also, the has noted development of faint erythema and petechia around a poorly healing wound of the anterior left lower leg. Exam as noted. Portable chest x-ray reveals bilateral pleural effusions (which have been noted in the past) with increased vascular markings on the right. No clear infiltrate noted 12-lead electrocardiogram shows paced rhythm without evidence of acute ST/T- wave changes Laboratory evaluation shows no elevation of white blood cell count; platelets are mildly decreased at 98,000. There is evidence of acute on chronic renal insufficiency with BUN of 77 and creatinine of 2.7. Lactate is 3. Troponin is elevated at 0.07 Urinalysis shows evidence of UTI with RBCs/WBCs and moderate bacteria ( cathetered specimen) Patient has received 2 500 mL boluses of normal saline. Vancomycin 1 g IV has been given Zosyn 2.25 g IV ordered [facility] will be admitted to the service. The patient will be evaluated by SHRUTI Porter 07/07/17 03:01 Repeat lactic acid normal at 1.5 Second troponin 0.21; repeat 12-lead electrocardiogram is unchanged from previous tracing: Ventricular paced rhythm at 69 bpm; no acute ST or T-wave abnormalities seen. [facility] here at [facility] <Mehnaz Muhammad - Last Filed: 07/07/17 06:15> *DC/Admit/Observation/Transfer - Attestations Scribe Attestion: 07/06/17 20:03 Documentation prepared by Rufino Arizmendi, acting as program medical director for Mehnaz Muhammad MD. <Rufino Arizmendi - Last Filed: 07/06/17 21:55> - Discharge Dispostion Admit: Yes <Mehnaz Muhammad - Last Filed: 07/07/17 06:15> Diagnosis at time of Disposition: Cellulitis Qualifiers: Site of cellulitis: extremity Site of cellulitis of extremity: lower extremity Laterality: left Qualified Code(s): L03.116 - Cellulitis of left lower limb UTI (urinary tract infection) Qualifiers: Urinary tract infection type: site unspecified Hematuria presence: without hematuria Qualified Code(s): N39.0 - Urinary tract infection, site not specified
[2017-07-06 19:30] LABS: HEMATOCRIT 36.2 % (35.4-49); HEMOGLOBIN 11.7 GM/dl (11.7-16.9); MCHC 32.3 g/dl (32.0-35.9); MEAN CELL VOLUME 89.8 fl (80-96); MEAN PLT VOLUME 9.6 fl (7.5-11.1); PLATELET COUNT 98 K/MM3 (134-434); RBC 4.03 M/mm3 (4.00-5.60); RDW 16.3 % (11.9-15.9); WHITE BLOOD COUNT 7.9 K/mm3 (4.0-10.8)
[2017-07-06 19:33] LABS: ALBUMIN 3.3 g/dl (3.5-5.0); ALK PHOS 83 U/L (32-92); ANION GAP 13 (8-16); BILIRUBIN,TOTAL 1.5 mg/dl (0.2-1.0); BLOOD UREA NITROGEN 77 mg/dl (7-18); CALCIUM 8.5 mg/dl (8.4-10.2); CHLORIDE 102 mmol/L (98-107); CO2 19 mmol/L (22-28); CREATININE 2.7 mg/dl (0.6-1.3); GLUCOSE,RANDOM 98 mg/dl (74-106); POTASSIUM 4.4 mmol/L (3.5-5.1); SGOT/AST 28 U/L (10-42); SGPT/ALT 13 U/L (10-40); SODIUM 134 mmol/L (136-145); TOT PROT 6.4 g/dl (6.4-8.3)
[2017-07-06] MEDS ORDERED: ACETAMINOPHEN 325 MG TABLET (FP) PO ONE (20:10)
[2017-07-06] MEDS ORDERED: ACETAMINOPHEN 325 MG TABLET (FP) ONE (20:10)
[2017-07-06 20:28] LABS: PLATELET ESTIMATE DECREASED
[2017-07-06] MEDS ORDERED: VANCOMYCIN 1,000 MG in DEXTROSE 5%-WATER - 250 ML IVPB ONE (21:01)
[2017-07-06] MEDS ORDERED: VANCOMYCIN 1,000 MG VIAL (RESTRICTED TO ID ONLY) ONE (21:08)
[2017-07-06] MEDS ORDERED: SODIUM CHLORIDE 500 ML IV STA ×2 (21:24→22:32)
[2017-07-06 21:41] LABS: URINE BILIRUBIN 1+ (NEGATIVE); URINE BLOOD 3+ (NEGATIVE); URINE COLOR YELLOW; URINE GLUCOSE (UA) Negative (NEGATIVE); URINE KETONE Trace (NEGATIVE); URINE LEUK ESTERASE Negative (NEGATIVE); URINE NITRITE Negative (NEGATIVE); URINE PROTEIN 1+ (NEGATIVE)
[2017-07-06 21:42] LABS: URINE APPEARANCE CLOUDY
[2017-07-06 21:43] LABS: URINE BACTERIA MODERATE /hpf (NEGATIVE); URINE RBC >100 /hpf (0-3)
[2017-07-06] MEDS ORDERED: PIPERACILLIN/TAZOB 2.25 GM/50 ML PREMIX BAG IVPB ONE (22:35)
[2017-07-06] MEDS ORDERED: PIPERACILLIN/TAZOB 2.25 GM 2.25 GM in DEXTROSE 5%-WATER - 50 ML IVPB ONE (22:45)
[2017-07-06] MEDS ORDERED: PIPERACILLIN/TAZOBACTAM 4.5 GM VIAL IVPB ONE (23:00)
--- NOTE | 2017-07-06 23:12 | HP ---
Admitting History and Physical - Primary Care Physician PCP: Ga Hoang - Admission Chief Complaint: Fever, Cough, Bodyaches, LLE Redness/swelling History of Present Illness: This is a 87 y/o man from home who presents to the ED with his for fever, cough, generalized body aches, left lower leg redness, swelling and discharge x several days. Per the , she gave the patient a Z-aisha for 2 days without relief. She reports his condition became worse. The spouse reports the patient had 2 episodes of loose stool with vomiting. History Source: Family Member Limitations to Obtaining History: Clinical Condition - Past Medical History Cardiovascular: Yes: AFIB (s/p watchman device), CAD (status post CABG in 2003) , CHF (status post AICD), HTN, Hyperlipdemia Gastrointestinal: Yes: Diverticulosis, GI Bleed Renal/: Yes: Renal Inusuff, BPH Musculoskeletal: Yes: Chronic low back pain - Past Surgical History Past Surgical History: Yes: AICD, CABG - Smoking History Smoking history: Former smoker Have you smoked in the past 12 months: No If you are a former smoker, when did you quit?: 2002 - Alcohol/Substance Use Hx Alcohol Use: No - Social History ADL: Independent History of Recent Travel: No Home Medications - Allergies Allergies/Adverse Reactions: Allergies Allergy/AdvReac Type Severity Reaction Status Date / Time mirtazapine [From Remeron] AdvReac Verified 07/06/17 18:31 - Home Medications Home Medications: Ambulatory Orders Cholecalciferol (Vitamin D3) [Vitamin D3] 1,000 unit PO DAILY 02/12/15 Rosuvastatin Calcium [Crestor] 10 mg PO HS 02/12/15 Aspirin [ASA -] 81 mg PO DAILY 08/26/15 Tamsulosin HCl [Flomax -] 0.4 mg PO DAILY 08/26/15 Furosemide [Lasix -] 40 mg PO DAILY 09/11/15 Carvedilol [Coreg -] 3.125 mg PO BID #60 tablet 09/24/15 Iron Ps Complex/B12/Folic Acid [Ferrex 150 Forte Capsule] 1 each PO DAILY Family Disease History - Family Disease History Family History: Unable to Obtain Review of Systems - Review of Systems Constitutional: reports: Chills, Fever, Lethargy, Loss of Appetite, Weakness Eyes: reports: No Symptoms HENT: reports: Ear Pain (left) Neck: reports: No Symptoms Cardiovascular: reports: No Symptoms Respiratory: reports: Cough Gastrointestinal: reports: Diarrhea, Vomiting Genitourinary: reports: No Symptoms Breasts: reports: No Symptoms Reported Musculoskeletal: reports: Other (generalized bodyaches) Integumentary: reports: Erythema (LLE), Wound (LLE with yellow discharge) Neurological: reports: No Symptoms Endocrine: reports: No Symptoms Hematology/Lymphatic: reports: No Symptoms Psychiatric: reports: No Symptoms Physical Examination Vital Signs: Vital Signs Temperature 100.9 F H 07/06/17 18:31 Pulse Rate 74 07/06/17 22:12 Respiratory Rate 14 07/06/17 22:12 Blood Pressure 93/52 07/06/17 22:12 O2 Sat by Pulse Oximetry (%) 93 L 07/06/17 22:12 Constitutional: Yes: No Distress, Calm Eyes: Yes: Conjunctiva Clear, PERRL HENT: Yes: WNL Neck: Yes: WNL, Supple, Trachea Midline Cardiovascular: Yes: Pulse Irregular, S1, S2 Respiratory: Yes: Diminished (RML), On Nasal O2 Gastrointestinal: Yes: WNL, Normal Bowel Sounds, Soft ...Rectal Exam: Yes: Deferred Renal/: Yes: Incontinence Breast(s): Yes: WNL Musculoskeletal: Yes: WNL Extremities: Yes: Erythema (LLE) Edema: Yes Edema: LLE: 1+ Peripheral Pulses WNL: Yes Integumentary: Yes: Erythema (LLE), Petechiae (LLE) Wound/Incision: Yes: Reddened, Other (dressing wet with yellow discharge) Neurological: Yes: Lethargy ...Motor Strength: WNL Labs: CBC, BMP 07/06/17 19:02 07/06/17 19:02 Laboratory Results - last 24 hr 07/06/17 07/06/17 07/06/17 19:02 19:02 19:02 WBC 7.9 RBC 4.03 Hgb 11.7 Hct 36.2 MCV 89.8 MCH 29.0 MCHC 32.3 RDW 16.3 H Plt Count 98 L MPV 9.6 Neutrophils % No Result Required. Neutrophils % (Manual) 90.0 H Band Neutrophils % 5.0 Lymphocytes % No Result Required. Lymphocytes % (Manual) 5.0 L Platelet Estimate Decreased Sodium 134 L Potassium 4.4 Chloride 102 Carbon Dioxide 19 L Anion Gap 13 BUN 77 H Creatinine 2.7 H Creat Clearance w eGFR 22.52 Random Glucose 98 Lactic Acid 3.0 H* Calcium 8.5 Total Bilirubin 1.5 H AST 28 ALT 13 Alkaline Phosphatase 83 Creatine Kinase Creatine Kinase Index CK-MB (CK-2) Troponin I Total Protein 6.4 Albumin 3.3 L Urine Color Urine Appearance Urine pH Ur Specific [place] Urine Protein Urine Glucose (UA) Urine Ketones Urine Blood Urine Nitrite Urine Bilirubin Urine Urobilinogen Ur Leukocyte Esterase Urine RBC Urine WBC Urine Bacteria 07/06/17 07/06/17 07/06/17 19:18 19:50 19:50 WBC RBC Hgb Hct MCV MCH MCHC RDW Plt Count MPV Neutrophils % Neutrophils % (Manual) Band Neutrophils % Lymphocytes % Lymphocytes % (Manual) Platelet Estimate Sodium Potassium Chloride Carbon Dioxide Anion Gap BUN Creatinine Creat Clearance w eGFR Random Glucose Lactic Acid Calcium Total Bilirubin AST ALT Alkaline Phosphatase Creatine Kinase 185 Creatine Kinase Index 1.6 CK-MB (CK-2) 3.0 Troponin I 0.07 H Total Protein Albumin Urine Color Yellow Urine Appearance Cloudy Urine pH 5.0 Ur Specific [place] 1.020 Urine Protein 1+ H Urine Glucose (UA) Negative Urine Ketones Trace Urine Blood 3+ H Urine Nitrite Negative Urine Bilirubin 1+ H Urine Urobilinogen 1.0 Ur Leukocyte Esterase Negative Urine RBC >100 Urine WBC 2-5 Urine Bacteria Moderate 07/07/17 07/07/17 00:45 00:45 WBC RBC Hgb Hct MCV MCH MCHC RDW Plt Count MPV Neutrophils % Neutrophils % (Manual) Band Neutrophils % Lymphocytes % Lymphocytes % (Manual) Platelet Estimate Sodium Potassium Chloride Carbon Dioxide Anion Gap BUN Creatinine Creat Clearance w eGFR Random Glucose Lactic Acid 1.5 Calcium Total Bilirubin AST ALT Alkaline Phosphatase Creatine Kinase Creatine Kinase Index CK-MB (CK-2) Troponin I 0.21 H D Total Protein Albumin Urine Color Urine Appearance Urine pH Ur Specific [place] Urine Protein Urine Glucose (UA) Urine Ketones Urine Blood Urine Nitrite Urine Bilirubin Urine Urobilinogen Ur Leukocyte Esterase Urine RBC Urine WBC Urine Bacteria Intake & Output 07/04/17 07/05/17 07/06/17 07/07/17 23:59 23:59 23:59 23:59 Weight 61.689 kg 144 kg Imaging - Results Chest X-ray: Image Reviewed EKG: Image Reviewed Problem List - Problems (1) Sepsis Code(s): A41.9 - SEPSIS, UNSPECIFIED ORGANISM (2) Cellulitis Code(s): L03.90 - CELLULITIS, UNSPECIFIED Qualifiers: Site of cellulitis: extremity Site of cellulitis of extremity: lower extremity Laterality: left Qualified Code(s): L03.116 - Cellulitis of left lower limb (3) UTI (urinary tract infection) Code(s): N39.0 - URINARY TRACT INFECTION, SITE NOT SPECIFIED Qualifiers: Urinary tract infection type: site unspecified Hematuria presence: without hematuria Qualified Code(s): N39.0 - Urinary tract infection, site not specified (4) VALDEMAR (acute kidney injury) Code(s): N17.9 - ACUTE KIDNEY FAILURE, UNSPECIFIED (5) Shortness of breath Code(s): R06.02 - SHORTNESS OF BREATH (6) CAD (coronary artery disease) Code(s): I25.10 - ATHSCL HEART DISEASE OF [place] CORONARY ARTERY W/O ANG PCTRS Qualifiers: Coronary Disease-Associated Artery/Lesion type: coronary artery bypass graft (7) CHF (congestive heart failure) Code(s): I50.9 - HEART FAILURE, UNSPECIFIED Assessment/Plan This is a 87 y/o man with a PMHx of: Afib, CAD, HTN, Asthma, Pneumonia (06/2017) . Admitted Telemetry Sepsis, Cellulitis L- Leg, Pleural Effusion. Plan: 1. ID: Sepsis, Cellulitis L- Leg, ?Pneumonia - Blood Cultures-pending - Urine Culture-pending - Influenza Swab-pending - LA 3.0~1.5 post NS bolus in ED - qSOFA 2 - SIRS Criteria Met IV - CURB65- 3 - Empirically treated Vancomycin, Zosyn, will continue renal dosing - Appreciate ID Consult - Monitor vitals, maintain MAP > 60 - Repeat CBC, BMP in am - Doppler of LLE r/o DVT - Wells Score 2 - Consider transfer to [facility] if condition worsens 2. Cardiology: Afib, CAD, HTN, Elevated Troponin - Continue tele monitoring - EKG- reviewed - CXR- image pleural effusion, ?RLL Infiltrate - Trop elevated likely cause Sepsis, Renal Insufficiency vs ACS - Appreciate Cardiology Consult - Hold BP meds secondary to hypotension 3. Pulm: Asthma - Duonebs - Continue home meds - O2 - Monitor Spo2 4. Heme: Thrombocytopenia - Likely secondary to infection vs Idiopathic Thrombocytopenic purpura - Monitor CBC - Avoid NSAIDs - Consider Heme Consult 5. F/E/N - 1L Fluid Restriction - Replete lytes prn - Low Na Diet 6. DVT Prophylaxis - SCD r-leg - Hold AC secondary to thrombocytopenia Code Status: Full Code Dispo: Requires Inpatient Care Visit type - Emergency Visit Emergency Visit: Yes ED Registration Date: 07/06/17 Care time: The patient presented to the Emergency Department on the above date and was hospitalized for further evaluation of their emergent condition. - New Patient This patient is new to me today: Yes Date on this admission: 07/06/17 - Critical Care Critical Care patient: No Hospitalist Screening - Colonoscopy Questionnaire Colonoscopy Questionnaire: Colonoscopy Questionnaire - Patient: 50 - 75 years old and never had a screening colonoscopy: Unknown History of colon or rectal polyps, or CA: Unknown History of IBD, Crohn's disease or UC: Unknown History of abdominal radiation therapy as a child: Unknown - Relative: 1 with colon or rectal CA, or polyps at age 60 or younger: Unknown Colon or rectal CA diagnosed at age 45 or younger: Unknown Multiple relatives with colon or rectal CA: Unknown - Outcome: Screening Result: Negative Screen
[2017-07-07] MEDS ORDERED: SODIUM CHLORIDE 1,000 ML IV STA ×2 (04:17→08:24)
[2017-07-07 05:41] VITALS: BMI 23.2
[2017-07-07] MEDS ORDERED: SODIUM CHLORIDE 250 ML IV STA (07:42)
[2017-07-07 08:13] LABS: MAGNESIUM 2.2 mg/dL (1.8-2.4); PHOSPHOROUS 5.4 mg/dl (2.5-4.6)
[2017-07-07 08:13] LABS: EOS % 0.1 % (0-4.5); HEMATOCRIT 32.8 % (35.4-49); LYMPH % 3.8 % (8-40); MCH 29.9 pg (25.7-33.7); MCHC 33.4 g/dl (32.0-35.9); MEAN CELL VOLUME 89.4 fl (80-96); MEAN PLT VOLUME 9.1 fl (7.5-11.1); MONO % 6.9 % (3.8-10.2); NEUT % 89.2 % (42.8-82.8); PLATELET COUNT 84 K/MM3 (134-434); RBC 3.67 M/mm3 (4.00-5.60); RDW 16.2 % (11.9-15.9); WHITE BLOOD COUNT 8.8 K/mm3 (4.0-10.8)
[2017-07-07 08:15] LABS: ANION GAP 7 (8-16); BLOOD UREA NITROGEN 79 mg/dl (7-18); CALCIUM 7.8 mg/dl (8.4-10.2); CHLORIDE 106 mmol/L (98-107); CO2 22 mmol/L (22-28); CREATININE 2.6 mg/dl (0.6-1.3); GLUCOSE,RANDOM 86 mg/dl (74-106); POTASSIUM 4.2 mmol/L (3.5-5.1); SODIUM 135 mmol/L (136-145)
--- NOTE | 2017-07-07 08:49 | PN ---
Progress Note, Physician - Current Medication List Current Medications: Active Medications Albuterol/Ipratropium (Duoneb -) 1 amp NEB Q6H PRN PRN Reason: SHORTNESS OF BREATH Aspirin (Asa -) 81 mg PO DAILY JANENE Vancomycin HCl 1,000 mg/ (Dextrose) 250 mls @ 200 mls/hr IVPB Q24H JANENE Sodium Chloride (Normal Saline -) 1,000 mls @ 75 mls/hr IV ASDIR STA Stop: 07/07/17 17:36 Piperacillin Sod/Tazobactam Sod (Zosyn 2.25gm Ivpb (Pre-Docked)) 2.25 gm IVPB Q8H-IV JANENE Stop: 07/08/17 09:59 Piperacillin/Tazobactam/Dextrose (Zosyn 2.25gm Ivpb (Premix)) 2.25 gm IVPB Q8H- IV JANENE Rosuvastatin Calcium (Crestor -) 10 mg PO HS JANENE Tamsulosin HCl (Flomax -) 0.4 mg PO DAILY@0830 JANENE Vancomycin HCl (Vancomycin (Pre-Docked)) 1,000 mg IVPB ONCE ONE Stop: 07/07/17 21:01 - Objective Vital Signs: Vital Signs Temperature 97.7 F 07/07/17 07:48 Pulse Rate 70 07/07/17 07:48 Respiratory Rate 18 07/07/17 07:48 Blood Pressure 88/49 07/07/17 07:48 O2 Sat by Pulse Oximetry (%) 96 07/07/17 03:30 Labs: CBC, BMP 07/07/17 07:05 07/07/17 07:05
--- NOTE | 2017-07-07 09:52 | PN ---
Physical Exam: SUBJECTIVE: Patient seen and examined, patient reports feeling well, reports persistent pain to the left lower extremity, patient denies any parasthesia to the extremity. OBJECTIVE: Patient is a 87 y/o male with a past medical history of afib ( Watchman's procedure), CAD (S/p Cabg), CKD, CHF (AICD), bph, and hypertension. Patient was admitted from the emergency department for celluliitis of the left lower extremity. Vital Signs Period Temp Pulse Resp BP Sys/Dennison Pulse Ox Last 24 Hr 97.4 F-100.9 F 70-88 14-28 83-138/41-86 2-97 GENERAL: The patient is awake, alert, and fully oriented, in no acute distress. HEAD: Normal with no signs of trauma. EYES: PERRL, extraocular movements intact, sclera anicteric, conjunctiva clear. No ptosis. ENT: Ears normal, nares patent, oropharynx clear without exudates, moist mucous membranes. NECK: Trachea midline, full range of motion, supple. LUNGS: Breath sounds equal, clear to auscultation bilaterally to apexes, crackles to bilateral bases, no wheezes, no accessory muscle use. HEART: irregular rate and rhythm, S1, S2, 2/6 systolic murmur, rub or gallop. ABDOMEN: Soft, nontender, nondistended, normoactive bowel sounds, no guarding, no rebound, no hepatosplenomegaly, no masses. EXTREMITIES: 2+ pulses, warm, well-perfused, no edema. left lower extremity: +1 edema, superficial laceration to distal extremity, circumferential erythema extending to pretibia NEUROLOGICAL: Cranial nerves II through XII grossly intact. Normal speech, gait not observed. PSYCH: Normal mood, normal affect. SKIN: Warm, dry, normal turgor, no rashes or lesions noted Laboratory Results - last 24 hr CBC WBC 8.8 K/mm3 (4.0-10.8) 07/07/17 07:05 RBC 3.67 M/mm3 (4.00-5.60) L 07/07/17 07:05 Hgb 11.0 GM/dl (11.7-16.9) L 07/07/17 07:05 Hct 32.8 % (35.4-49) L 07/07/17 07:05 MCV 89.4 fl (80-96) 07/07/17 07:05 MCH 29.9 pg (25.7-33.7) 07/07/17 07:05 MCHC 33.4 g/dl (32.0-35.9) 07/07/17 07:05 RDW 16.2 % (11.9-15.9) H 07/07/17 07:05 Plt Count 84 K/MM3 (134-434) L 07/07/17 07:05 MPV 9.1 fl (7.5-11.1) 07/07/17 07:05 Neutrophils % 89.2 % (42.8-82.8) H 07/07/17 07:05 Neutrophils % (Manual) 90.0 % (42.8-82.8) H 07/06/17 19:02 Band Neutrophils % 5.0 % (0-10) 07/06/17 19:02 Lymphocytes % 3.8 % (8-40) L 07/07/17 07:05 Lymphocytes % (Manual) 5.0 % (8-40) L 07/06/17 19:02 Monocytes % 6.9 % (3.8-10.2) 07/07/17 07:05 Eosinophils % 0.1 % (0-4.5) 07/07/17 07:05 Basophils % 0.0 % (0-2.0) 07/07/17 07:05 Platelet Estimate Decreased 07/06/17 19:02 CMP Sodium 135 mmol/L (136-145) L 07/07/17 07:05 Potassium 4.2 mmol/L (3.5-5.1) 07/07/17 07:05 Chloride 106 mmol/L (98-107) 07/07/17 07:05 Carbon Dioxide 22 mmol/L (22-28) 07/07/17 07:05 Anion Gap 7 (8-16) L 07/07/17 07:05 BUN 79 mg/dl (7-18) H 07/07/17 07:05 Creatinine 2.6 mg/dl (0.6-1.3) H 07/07/17 07:05 Creat Clearance w eGFR 22.52 (>60) 07/06/17 19:02 Random Glucose 86 mg/dl (74-106) 07/07/17 07:05 Lactic Acid 1.5 mmol/L (0.0-2.0) 07/07/17 00:45 Calcium 7.8 mg/dl (8.4-10.2) L 07/07/17 07:05 Phosphorus 5.4 mg/dl (2.5-4.6) H 07/07/17 07:15 Magnesium 2.2 mg/dL (1.8-2.4) 07/07/17 07:15 Total Bilirubin 1.5 mg/dl (0.2-1.0) H 07/06/17 19:02 AST 28 U/L (10-42) 07/06/17 19:02 ALT 13 U/L (10-40) 07/06/17 19:02 Alkaline Phosphatase 83 U/L (32-92) 07/06/17 19:02 Creatine Kinase 414 IU/L (39-308) H 07/07/17 07:15 Creatine Kinase Index 0.7 % (0.0-5.0) 07/07/17 07:15 CK-MB (CK-2) 3.1 ng/mL (0.3-4.0) 07/07/17 07:15 Troponin I 0.14 ng/ml (0.00-0.06) H D 07/07/17 07:15 Total Protein 6.4 g/dl (6.4-8.3) 07/06/17 19:02 Albumin 3.3 g/dl (3.5-5.0) L 07/06/17 19:02 Laboratory Tests 07/06/17 07/07/17 07/07/17 19:50 00:45 07:15 Troponin I 0.07 H 0.21 H D 0.14 H D Active Medications Generic Name Dose Route Start Last Admin Trade Name Freq PRN Reason Stop Dose Admin Albuterol/Ipratropium 1 amp 07/07/17 06:25 Duoneb - NEB Q6H PRN SHORTNESS OF BREATH Aspirin 81 mg 07/07/17 10:00 Asa - PO DAILY JANENE Vancomycin HCl 1,000 mg/ 250 mls @ 200 mls/hr 07/07/17 21:00 Dextrose IVPB Q24H JANENE Sodium Chloride 1,000 mls @ 75 mls/hr 07/07/17 08:24 Normal Saline - IV 07/07/17 17:36 ASDIR STA Piperacillin Sod/Tazobactam Sod 2.25 gm 07/07/17 10:00 Zosyn 2.25gm Ivpb (Pre-Docked) IVPB 07/08/17 09:59 Q8H-IV JANENE Piperacillin/Tazobactam/Dextrose 2.25 gm 07/07/17 10:00 Zosyn 2.25gm Ivpb (Premix) IVPB Q8H-IV JANENE Rosuvastatin Calcium 10 mg 07/07/17 22:00 Crestor - PO HS JANENE Tamsulosin HCl 0.4 mg 07/07/17 10:00 Flomax - PO DAILY@0830 JANENE Vancomycin HCl 1,000 mg 07/07/17 21:00 Vancomycin (Pre-Docked) IVPB 07/07/17 21:01 ONCE ONE Microbiology 07/06/17 19:02 Blood - Peripheral Venous Blood Culture - Preliminary Pending Organism 07/06/17 19:02 Blood - Peripheral Venous Blood Culture - Preliminary Pending Organism IMAGING chest xray: cardiomegly, bilateral pleural effusions ASSESSMENT/PLAN: 1. ID: Sepsis bacteremia - likely secondary from cellulitis of left lower extremity - preliminary blood cultures are +, pending echo, continue rocephin and vancomycin, as per the recommendation of ID (Kurtis), pending urine cultures - lactic acid downtrended after NS bolus, continue ivf, no leukocytosis patient is afebrile - ID, Dr Hull consulted and following cellulitis - continue rocephin and vancomycin, pending wound culture 2. cardiovascular afib (s/p watchman's) - continuous cardiac monitoring, rate controlled elevated troponin, - down trending, third troponin 0.21, likely secondary to ischemic demand, ekg remains stable, biventricular paced rhythmn \ - appreciate cardiology input, Dr Oglesby (pt's private hand endband cutter), case discussed and will evaluate patient today. hypertension - hold coreg due to hypotension, patient is asymptomatic at this time, patient' s b/p at baseline is 100's systolic as per patient. strict monitoring, b/p q2h. systolic congestive heart failure - hold lasix due to hypotension and sepsis - strict i/o and daily weight - pending echo 3) pulm pleural effusion - cxr reviewed, pending ct of chest - keep spo2 above 92% with supplemental O2 - prn combivent nebulizers 4) Heme: Thrombocytopenia - Likely secondary to sepsis - monitor platelets F/E/N - Replete lytes prn - Low Na Diet 6. DVT Prophylaxis - SCD r-leg - physical therapy - Hold AC secondary to thrombocytopenia Code Status: Full Code Dispo: Requires Inpatient Care Visit type - Emergency Visit Emergency Visit: Yes ED Registration Date: 07/07/17 Care time: The patient presented to the Emergency Department on the above date and was hospitalized for further evaluation of their emergent condition. - New Patient This patient is new to me today: No - Critical Care Critical Care patient: No - Discharge Referral Referred to [facility] Med [facility].C.: No
[2017-07-07] MEDS ORDERED: PIPERACILLIN/TAZOB 2.25 GM/50 ML PRE-DOCKED BAG IVPB SCH (10:00)
[2017-07-07] MEDS: ASPIRIN 81 MG CHEWABLE TABLETS PO SCH (10:04)
[2017-07-07] MEDS: TAMSULOSIN HCL 0.4 MG CAP.ER.24H (FP) PO SCH (10:05)
--- NOTE | 2017-07-07 10:33 | PN ---
Progress Note (short form) - Note Progress Note: ID Consult dictated Streptococcal bacteremia/ sepsis skin v. lung source Cellulitis L LE Lactic acidosis Thrombocytopenia Azotemia Await c/s Empiric vancomycin/ ceftriaxone pending c/s Cardiology evaluation Local wound care
--- NOTE | 2017-07-07 11:55 | CONS ---
DATE OF CONSULTATION: 07/07/2017 HISTORY OF PRESENT ILLNESS: The patient is an 87-year-old male who was evaluated for positive blood cultures. History was obtained from the chart as he cannot give a reliable history. He was admitted to the hospital on July 07, 2017, with a 2-3-day history of sore throat, dry cough, congestion, anorexia, subjective fever, nausea, vomiting, and diarrhea. He was seen by his primary provider and prescribed a Z-Rajat. Patient took 2 doses. He was admitted to the hospital where he was noted to have fever to 100.9 and a lactic acidosis. Blood cultures are now positive for Gram-positive cocci in chains in 4 out of 4 bottles. He was empirically treated with vancomycin and Zosyn. At the present time, he is awake, but lethargic. He offers to vocal complaint. No reports of shaking chills, labored breathing, grossly purulent urine, or diarrhea. He was noted to have a left lower extremity wound with surrounding erythema and swelling which has become more prominent over the past 2 weeks. According to the notes, there was also noted drainage from the wound. PAST MEDICAL HISTORY: Positive for coronary artery disease, BPH, congestive heart failure, atrial fibrillation, urinary tract infection. PAST SURGICAL HISTORY: Status post coronary artery bypass graft, Watchman procedure, implanted defibrillator. ALLERGIES: To MIRTAZAPINE. MEDICATIONS: Crestor, aspirin, Flomax, Lasix, Coreg. SOCIAL HISTORY: He resides at home, a former smoker. Last hospitalization was in September of 2015 for a GI bleed. SYSTEMS REVIEW: Neurologic: Positive for lethargy. No loss of consciousness, seizure activity, or focal weakness. Cardiac: Negative for chest pain or palpitations. Respiratory: As per HPI. Gastrointestinal: Positive for nausea, vomiting, and diarrhea. Genitourinary: Negative for urinary tract infection. LABORATORY DATA: White count 8.8 with a left shift, hematocrit 32.8, platelet count 84. BUN 79, creatinine 2.6. Urinalysis 2-5 white cells, lactic acid 3.0. Chest x-ray shows a left-sided pacemaker, bilateral pleural effusions, valve replacement as per chest x-ray reading. 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 PHYSICAL EXAMINATION: General: He is lethargic. Vital signs: Temperature 97.7, maximum temperature 100.9, blood pressure 88/49, pulse 70 and regular, respirations 18 per minute. HEENT: Sclerae anicteric. Heart: Heart sounds S1, S2 with a 3/6 pansystolic murmur. Lungs: Diminished breath sounds at the bases bilaterally. Abdomen: Soft. No tenderness elicited. No mass, rebound, or rigidity. Extremities: 1+ lower extremity edema bilaterally. There is a superficial ulceration present over the left pretibial area. There is surrounding erythema and warmth present of the left pretibial area. No purulent drainage is noted. IMPRESSION: 1. Streptococcal bacteremia/sepsis, likely secondary to skin versus lung source. 2. Cellulitis of the left lower extremity. 3. Lactic acidosis. 4. Thrombocytopenia. 5. Azotemia. Await identification of blood isolates, empiric antibiotic coverage with vancomycin and ceftriaxone adjusted for azotemia, cardiology evaluation, local wound care. Will follow. Thank you for the kind referral. SANDRA FRIEDMAN M.D. [id number]
[2017-07-07] MEDS ORDERED: VANCOMYCIN 1 GRAM (PRE-DOCKED) 1,000 MG/250 ML BAG IVPB ONE ×2 (12:00→21:00)
[2017-07-07] MEDS: LACTOBACILLUS ACIDOPHILUS 1 EACH TAB (FP) PO SCH (12:48)
[2017-07-07] MEDS: FAMOTIDINE 20 MG TABLET PO SCH ×2 (12:48→21:26)
[2017-07-07] MEDS: CEFTRIAXONE 2 GM/100 ML BAG IVPB SCH (12:48)
[2017-07-07] MEDS: MUPIROCIN 2% TOPICAL OINTMENT 22 GM TUBE TP SCH ×2 (12:48→21:26)
--- NOTE | 2017-07-07 14:59 | EKG ---
Test Reason : Blood Pressure : / mmHG Vent. Rate : 072 BPM Atrial Rate : 061 BPM P-R Int : 000 ms QRS Dur : 178 ms QT Int : 452 ms P-R-T Axes : 000 235 086 degrees QTc Int : 494 ms Ventricular-paced rhythm Biventricular pacemaker detected PREMATURE VENTRICULAR COMPLEXES ABNORMAL ECG WHEN COMPARED WITH ECG OF 16-FEB-2017 17:35, NO SIGNIFICANT CHANGE WAS FOUND Confirmed by POPPY SNOWDEN MD ([id number]) on 07/07/2017 2:59:19 PM Referred By: MD WHITE Confirmed By:POPPY SNOWDEN MD
--- NOTE | 2017-07-07 15:00 | EKG ---
Test Reason : Blood Pressure : / mmHG Vent. Rate : 069 BPM Atrial Rate : 091 BPM P-R Int : 000 ms QRS Dur : 182 ms QT Int : 514 ms P-R-T Axes : 000 229 060 degrees QTc Int : 550 ms Ventricular-paced rhythm Biventricular pacemaker detected PREMATURE VENTRICULAR COMPLEXES ABNORMAL ECG WHEN COMPARED WITH ECG OF 06-JUL-2017 18:41, NO SIGNIFICANT CHANGE WAS FOUND Confirmed by POPPY SNOWDEN MD ([id number]) on 07/07/2017 2:59:52 PM Referred By: MD LUQUE Confirmed By:POPPY SNOWDEN MD
--- NOTE | 2017-07-07 19:42 | CON.CARD ---
Cardiology Consult (text) - Consultation Consultation Note: CC: fever/sepsis 87 yo with h/o CAD s/p CABG (09/2006: CHANDLER to LAD, SVG to HL, SVG to OM2, SVG to PDA) and pci (last cath/PCI 10/2012: patent CHANDLER to LAD, SVG to OM2, SVG to Ramus, occluded SVG to RPDA. Had ZENIA PCI to upper mattaponi Diag, unsuccessful attempt of upper mattaponi RCA [employer]), MV ring (28 mm Tyler) for severe MR, ischemic CMPathy s /p biv-ICD (BOSSci) with chronic residual bilateral pleural effusions, HTN, HPL , Aflutter ablation 06/2008 (caused inappropriate ICD shocks), [place]man [place] [place] darío [place], , GIB (?internal hemroids), ckd (bline cr 2.1-2.3), anemia who p/w fever. several days of + fever, cough, generalized body aches, left lower leg redness, swelling and discharge at site of wound. + diarrhea with vomiting. Pt currently endorsing weakness. Improving with ongoing IVF. no worsening of sob or edema. no shocks from icd. no cp, sob, orthopnea, pnd, le edema, palps, dizziness, no visual disturbances, h/a. Past Medical History Cardiovascular: Yes: AFIB (s/p watchman device), CAD (status post CABG in 2003) , CHF (status post AICD), HTN, Hyperlipdemia Gastrointestinal: Yes: Diverticulosis, GI Bleed Renal/: Yes: Renal Inusuff, BPH Musculoskeletal: Yes: Chronic low back pain - Past Surgical History Past Surgical History: Yes: AICD, CABG - Smoking History/social hx: Smoking history: Former smoker family hx :no premature cad ros: per hpi Ambulatory Orders Cholecalciferol (Vitamin D3) [Vitamin D3] 1,000 unit PO DAILY 02/12/15 Rosuvastatin Calcium [Crestor] 10 mg PO HS 02/12/15 Aspirin [ASA -] 81 mg PO DAILY 08/26/15 Tamsulosin HCl [Flomax -] 0.4 mg PO DAILY 08/26/15 Furosemide [Lasix -] 40 mg PO DAILY 09/11/15 Carvedilol [Coreg -] 3.125 mg PO BID #60 tablet 09/24/15 Iron Ps Complex/B12/Folic Acid [Ferrex 150 Forte Capsule] 1 each PO DAILY Current Medications Albuterol/Ipratropium (Duoneb -) 1 amp NEB Q6H PRN PRN Reason: SHORTNESS OF BREATH Aspirin (Asa -) 81 mg PO DAILY [facility] Last Admin: 07/07/17 10:04 Dose: 81 mg Famotidine (Pepcid -) 20 mg PO BID [facility] Last Admin: 07/07/17 12:48 Dose: 20 mg Ceftriaxone Sodium (Rocephin 2gm Ivpb (Pre-Docked)) 2 gm in 100 mls @ 200 mls/ hr IVPB DAILY [facility] Last Admin: 07/07/17 12:48 Dose: 200 mls/hr Lactobacillus Acidophilus (Bacid -) 1 tab PO DAILY [facility] Last Admin: 07/07/17 12:48 Dose: 1 tab Mupirocin (Bactroban 2% Ointment -) 1 applic TP BID [facility] Last Admin: 07/07/17 12:48 Dose: 1 applic Rosuvastatin Calcium (Crestor -) 10 mg PO [facility] Tamsulosin HCl (Flomax -) 0.4 mg PO DAILY@0830 [facility] Last Admin: 07/07/17 10:05 Dose: 0.4 mg Vital Signs - 24 hr 07/06/17 07/06/17 07/06/17 20:31 21:27 22:12 Temperature Pulse Rate Pulse Rate [ 75 72 74 Apical] Respiratory 28 H 26 H 14 Rate Blood Pressure Blood Pressure 100/72 83/41 93/52 [Right Arm] O2 Sat by Pulse 2 L 95 93 L Oximetry (%) 07/07/17 07/07/17 07/07/17 00:46 01:03 03:06 Temperature Pulse Rate Pulse Rate [ 71 88 70 Apical] Respiratory 14 14 14 Rate Blood Pressure Blood Pressure 94/54 138/86 91/55 [Right Arm] O2 Sat by Pulse 97 97 95 Oximetry (%) 07/07/17 07/07/17 07/07/17 03:30 06:14 07:48 Temperature 97.4 F L 97.4 F L 97.7 F Pulse Rate 71 70 70 Pulse Rate [ Apical] Respiratory 18 17 18 Rate Blood Pressure 86/45 94/51 88/49 Blood Pressure [Right Arm] O2 Sat by Pulse 96 Oximetry (%) 07/07/17 07/07/17 07/07/17 09:00 09:46 12:00 Temperature 97.9 F Pulse Rate 71 70 Pulse Rate [ Apical] Respiratory 19 18 Rate Blood Pressure 86/44 90/46 Blood Pressure [Right Arm] O2 Sat by Pulse 94 L 94 L Oximetry (%) 07/07/17 07/07/17 07/07/17 14:00 16:00 18:00 Temperature 97.6 F 97.8 F 97.6 F Pulse Rate 69 66 68 Pulse Rate [ Apical] Respiratory 19 18 18 Rate Blood Pressure 87/41 94/45 97/48 Blood Pressure [Right Arm] O2 Sat by Pulse 95 Oximetry (%) Intake & Output 07/05/17 07/06/17 07/07/17 07/08/17 07:59 07:59 07:59 07:59 Intake Total 125 1630 Output Total 200 375 Balance -75 1255 Weight 144 lb nad, calm conversational dyspnea dullness at right base, nl effort rrr nl s1, s2 2/6 sys murmur at apex + bs soft nt nd 1+ edema at LE in area of wound diminished dp/pt aaox3 no jaundice, diaphoresis CBC, BMP 07/07/17 07:05 07/07/17 07:05 Microbiology 07/06/17 19:02 Blood - Peripheral Venous Blood Culture - Preliminary Pending Organism 07/06/17 19:02 Blood - Peripheral Venous Blood Culture - Preliminary Pending Organism Laboratory Tests 09/20/15 09/21/15 09/23/15 05:10 06:00 05:40 Band Neutrophils % INR 1.61 H Sodium Creatinine 1.9 H 1.9 H Magnesium Creatine Kinase Creatine Kinase Index CK-MB (CK-2) Albumin 1.8 L Troponin I 07/06/17 07/06/17 07/07/17 19:02 19:02 07:15 Band Neutrophils % 5.0 INR Sodium 134 L Creatinine 2.7 H Magnesium 2.2 Creatine Kinase Creatine Kinase Index CK-MB (CK-2) Albumin Troponin I 07/07/17 07/07/17 14:00 14:00 Band Neutrophils % INR Sodium Creatinine Magnesium Creatine Kinase 667 H Creatine Kinase Index 0.8 CK-MB (CK-2) 5.4 H Albumin Troponin I 0.12 H ekg: biv-paced, underlying afib tele: v-paced intermittent 4 beat nsvt. echo 06/2017: 1 + lve. severe dec lvef, EF 15-20%. mild mod-rve. mild dec rv fn. severe aida. mod ar. mv ring, no sig mr. severe tr. 1+ phtn kermit 04/2016: lve, mod-sev dec lvef, global hk, rve, mod dec rv fcn, mild ar, mv repair with mild mr, sev tr 2/2 icd lead, watchman device functioning normally. chronic bilateral effusions R>L as far back as [address] 06/2017: large rt pleural effusion, smaller lt pleural effusion. thoracic arota up to 5.3 cm dilation. small ascites. 87 yo with h/o CAD s/p CABG (09/2006: CHANDLER to LAD, SVG to HL, SVG to OM2, SVG to PDA) and pci (last cath/PCI 10/2012: patent CHANDLER to LAD, SVG to OM2, SVG to Ramus, occluded SVG to RPDA. Had ZENIA PCI to upper mattaponi Diag, unsuccessful attempt of upper mattaponi [employer]), MV ring (28 mm Tyler) for severe MR, ischemic CMPathy s /p biv-ICD (BOSSci) with chronic residual bilateral pleural effusions, HTN, HPL , Aflutter ablation 06/2008 (caused inappropriate ICD shocks), [place] s/p watchman device [place] [place] AV darío ablation, asc ao aneurysm, GIB (?internal hemroids), ckd (bline cr 2.1-2.3), anemia who p/w fever. sepsis - ok for IVF, close monitoring of volume status, O2 sat. - mgm't per id/pmd troponin elevation - flat trend likely demand in setting of sepsis/steven/ckd. CK elevation out of propotion and likely 2/2 LE wound --> eval/mgm't per pmd/id. - ekg v-paced. no concern for acs. has Contraindication to AC ischemic CHF - per office notes, Dry wt is around 145-147 lbs. Does not appear volume overloaded at this time, would priortize tx of sepsis. Effusions slightly progressed here, but patient overall asx from respiratory perspective. hyponatremia and creatinine improving with IVF. CK slightly worse. Baseline creatinine 2.1-2.3. Consider trial off of IVF tomorrow if clinically stable. - daily standing weights, bmp i/o's. - resume low dose coreg when bp allows. No omar given ckd. Nitrates and hydral have been held due to low bp tendencies. - lyte repletion prn. afib/flutter s/p ablation, av darío ablation and watchman - contraindication to AC (gib). s/p watchman. con't asa. monitor hgb. - rate controlled. resume coreg when bp allows. Cad s/p cabg, pci: - Stable, no angina while coreg being held. Continue current , asa, statin. steven/CKD: - hyponatremia, cr currently improving with ivf. con't to monitor. s/p biv-ICD (BOSSci): - routine home monitoring and office checks at [place] with EP dr tabares. ascending aorta aneurysm (5.3 cm, 06/2014): - resume coreg when able. - per office notes, stable size. Followed by CTS at [facility] --> rec'd continued monitoring with periodic ct. He would likley be prohibitively high risk for open aorta surgery given his chf, cad, afib, ckd. Severe MR s/p ring: - no sig mr on repeat echo here.
[2017-07-07] MEDS: ROSUVASTATIN CA 5 MG TABLET (FP) PO SCH (21:25)
[2017-07-08] MEDS ORDERED: PIPERACILLIN/TAZOB 2.25 GM/50 ML PREMIX BAG IVPB SCH (02:00)
[2017-07-08] MEDS: TAMSULOSIN HCL 0.4 MG CAP.ER.24H (FP) PO SCH (08:30)
[2017-07-08] MEDS: FAMOTIDINE 20 MG TABLET PO SCH ×2 (09:32→21:50)
[2017-07-08] MEDS: ASPIRIN 81 MG CHEWABLE TABLETS PO SCH (09:32)
[2017-07-08] MEDS: LACTOBACILLUS ACIDOPHILUS 1 EACH TAB (FP) PO SCH (09:32)
[2017-07-08] MEDS: MUPIROCIN 2% TOPICAL OINTMENT 22 GM TUBE TP SCH ×2 (09:34→21:50)
[2017-07-08] MEDS: CEFTRIAXONE 2 GM/100 ML BAG IVPB SCH (09:38)
[2017-07-08 10:26] LABS: BASO % 0.3 % (0-2.0); EOS % 2.4 % (0-4.5); HEMATOCRIT 34.5 % (35.4-49); HEMOGLOBIN 11.3 GM/dl (11.7-16.9); LYMPH % 4.6 % (8-40); MCH 29.4 pg (25.7-33.7); MCHC 32.7 g/dl (32.0-35.9); MEAN PLT VOLUME 9.2 fl (7.5-11.1); MONO % 9.8 % (3.8-10.2); NEUT % 82.9 % (42.8-82.8); PLATELET COUNT 84 K/MM3 (134-434); RBC 3.84 M/mm3 (4.00-5.60); RDW 16.5 % (11.9-15.9); WHITE BLOOD COUNT 5.8 K/mm3 (4.0-10.8)
[2017-07-08 10:38] LABS: ALBUMIN 2.9 g/dl (3.5-5.0); ALK PHOS 71 U/L (32-92); ANION GAP 8 (8-16); BLOOD UREA NITROGEN 81 mg/dl (7-18); CALCIUM 7.8 mg/dl (8.4-10.2); CHLORIDE 104 mmol/L (98-107); CO2 20 mmol/L (22-28); CREATININE 2.5 mg/dl (0.6-1.3); GLUCOSE,RANDOM 102 mg/dl (74-106); MAGNESIUM 2.2 mg/dL (1.8-2.4); PHOSPHOROUS 4.3 mg/dl (2.5-4.6); POTASSIUM 3.8 mmol/L (3.5-5.1); SGOT/AST 51 U/L (10-42); SGPT/ALT 37 U/L (10-40); SODIUM 132 mmol/L (136-145); TOT PROT 5.9 g/dl (6.4-8.3)
--- NOTE | 2017-07-08 10:45 | PN ---
Progress Note, Physician History of Present Illness: Much more awake and alert OOB in chair C/O generalized body pain No c/o fever/ chills BC possible enterococcal sp - Current Medication List Current Medications: Active Medications Albuterol/Ipratropium (Duoneb -) 1 amp NEB Q6H PRN PRN Reason: SHORTNESS OF BREATH Aspirin (Asa -) 81 mg PO DAILY [facility] Last Admin: 07/08/17 09:32 Dose: 81 mg Famotidine (Pepcid -) 20 mg PO BID [facility] Last Admin: 07/08/17 09:32 Dose: 20 mg Ceftriaxone Sodium (Rocephin 2gm Ivpb (Pre-Docked)) 2 gm in 100 mls @ 200 mls/ hr IVPB DAILY [facility] Last Admin: 07/08/17 09:38 Dose: 200 mls/hr Lactobacillus Acidophilus (Bacid -) 1 tab PO DAILY [facility] Last Admin: 07/08/17 09:32 Dose: 1 tab Mupirocin (Bactroban 2% Ointment -) 1 applic TP BID [facility] Last Admin: 07/08/17 09:34 Dose: 1 applic Rosuvastatin Calcium (Crestor -) 10 mg PO HS [facility] Last Admin: 07/07/17 21:25 Dose: 10 mg Tamsulosin HCl (Flomax -) 0.4 mg PO DAILY@0830 [facility] Last Admin: 07/08/17 08:30 Dose: 0.4 mg - Objective Vital Signs: Vital Signs Temperature 97.5 F L 07/08/17 06:00 Pulse Rate 70 07/08/17 06:00 Respiratory Rate 18 07/08/17 08:56 Blood Pressure 95/48 07/08/17 06:00 O2 Sat by Pulse Oximetry (%) 99 07/08/17 08:56 Constitutional: Yes: No Distress Eyes: Yes: Conjunctiva Clear Cardiovascular: Yes: Regular Rate and Rhythm, S1, S2 Respiratory: Yes: CTA Bilaterally Gastrointestinal: Yes: Normal Bowel Sounds, Soft. No: Tenderness Extremities: Yes: Other (+ erythema, warmth L LE. Healing laceration) Edema: Yes Edema: LLE: 1+, RLE: 1+ Labs: CBC, BMP 07/08/17 09:30 Assessment/Plan Streptococcal bacteremia/ sepsis ? Source S/P MV repair Cellulitis L LE Lactic acidosis resolved Thrombocytopenia Azotemia Await BC result Repeat BC x 2 Redose vancomycin, chexk trough am
[2017-07-08] MEDS ORDERED: VANCOMYCIN 1 GRAM (PRE-DOCKED) 1,000 MG/250 ML BAG IVPB ONE (12:00)
--- NOTE | 2017-07-08 14:15 | PN ---
Physical Exam: SUBJECTIVE: Patient seen and examined, reports feeling much improved, denies any chest pain or shortness of breath. OBJECTIVE: Patient is a 87 y/o male with a past medical history of afib ( Watchman's procedure), CAD (S/p Cabg), CKD, CHF (AICD), bph, and hypertension. Patient was admitted from the emergency department for sepsis, bacteremia, and cellulites of the left lower extremity. Vital Signs Period Temp Pulse Resp BP Sys/Dennison Pulse Ox Last 24 Hr 97.3 F-97.8 F 66-74 18-20 93-98/45-53 99-99 GENERAL: The patient is awake, alert, and fully oriented, in no acute distress. HEAD: Normal with no signs of trauma. EYES: PERRL, extraocular movements intact, sclera anicteric, conjunctiva clear. No ptosis. ENT: Ears normal, nares patent, oropharynx clear without exudates, moist mucous membranes. NECK: Trachea midline, full range of motion, supple. LUNGS: Breath sounds equal, clear to auscultation bilaterally to apexes, crackles to bilateral bases, no wheezes, no accessory muscle use. HEART: irregular rate and rhythm, S1, S2, 2/6 systolic murmur, rub or gallop. ABDOMEN: Soft, nontender, nondistended, normoactive bowel sounds, no guarding, no rebound, no hepatosplenomegaly, no masses. EXTREMITIES: 2+ pulses, warm, well-perfused, no edema. left lower extremity: +1 edema, superficial laceration to distal lateral extremity, circumferential erythema extending to pretibia aspect. NEUROLOGICAL: Cranial nerves II through XII grossly intact. Normal speech, gait not observed. PSYCH: Normal mood, normal affect. SKIN: Warm, dry, normal turgor, no rashes or lesions noted Laboratory Results - last 24 hr 07/07/17 07/07/17 07/08/17 14:00 14:00 09:30 WBC 5.8 D RBC 3.84 L Hgb 11.3 L Hct 34.5 L MCV 90.0 MCH 29.4 MCHC 32.7 RDW 16.5 H Plt Count 84 L MPV 9.2 Neutrophils % 82.9 H Lymphocytes % 4.6 L D Monocytes % 9.8 Eosinophils % 2.4 D Basophils % 0.3 D Sodium Potassium Chloride Carbon Dioxide Anion Gap BUN Creatinine Creat Clearance w eGFR Random Glucose Calcium Phosphorus Magnesium Total Bilirubin AST ALT Alkaline Phosphatase Creatine Kinase 667 H Creatine Kinase Index 0.8 CK-MB (CK-2) 5.4 H Troponin I 0.12 H Total Protein Albumin 07/08/17 07/08/17 09:30 09:30 WBC RBC Hgb Hct MCV MCH MCHC RDW Plt Count MPV Neutrophils % Lymphocytes % Monocytes % Eosinophils % Basophils % Sodium 132 L Potassium 3.8 Chloride 104 Carbon Dioxide 20 L Anion Gap 8 BUN 81 H Creatinine 2.5 H Creat Clearance w eGFR 24.61 Random Glucose 102 Calcium 7.8 L Phosphorus 4.3 D Magnesium 2.2 Total Bilirubin 1.0 D AST 51 H D ALT 37 D Alkaline Phosphatase 71 Creatine Kinase 458 H Creatine Kinase Index 1.1 CK-MB (CK-2) 5.3 H Troponin I 0.08 H D Total Protein 5.9 L Albumin 2.9 L Active Medications Generic Name Dose Route Start Last Admin Trade Name Freq PRN Reason Stop Dose Admin Albuterol/Ipratropium 1 amp 07/07/17 06:25 Duoneb - NEB Q6H PRN SHORTNESS OF BREATH Aspirin 81 mg 07/07/17 10:00 07/08/17 09:32 Asa - PO 81 mg DAILY JANENE Administration Famotidine 20 mg 07/07/17 12:15 07/08/17 09:32 Pepcid - PO 20 mg BID JANENE Administration Ceftriaxone Sodium 2 gm in 100 mls @ 200 mls/hr 07/07/17 12:00 07/08/17 09:38 Rocephin 2gm Ivpb (Pre-Docked) IVPB 200 mls/hr DAILY JANENE Administration Lactobacillus Acidophilus 1 tab 07/07/17 12:15 07/08/17 09:32 Bacid - PO 1 tab DAILY JANENE Administration Mupirocin 1 applic 07/07/17 13:00 07/08/17 09:34 Bactroban 2% Ointment - TP 1 applic BID JANENE Administration Rosuvastatin Calcium 10 mg 07/07/17 22:00 07/07/17 21:25 Crestor - PO 10 mg HS JANENE Administration Tamsulosin HCl 0.4 mg 07/07/17 10:00 07/08/17 08:30 Flomax - PO 0.4 mg DAILY@0830 JANENE Administration Microbiology 07/06/17 20:04 Leg - Left Lower Wound Culture - Preliminary Group D Strep Or Entero Coccus 07/07/17 00:35 Urine - Urine - Catheterized Urine Culture - Final NO GROWTH OBTAINED 07/06/17 19:02 Blood - Peripheral Venous Blood Culture - Preliminary Group D Strep Or Entero Coccus 07/06/17 19:02 Blood - Peripheral Venous Blood Culture - Preliminary Group D Strep Or Entero Coccus 07/07/17 00:45 Nasopharyngeal Swab Influenza Types A,B Antigen (COLLEEN) - Preliminary 07/07/17 00:45 Nasopharyngeal Swab - Preliminary IMAGING chest xray: cardiomegly, bilateral pleural effusions ct of chest: cardiomegly bilateral pleural effusions, right greater than left, thoracic aortic aneurysm echo: lvef 15-20%, severe global hypokinesis, severe TR ASSESSMENT/PLAN: 1. ID: Sepsis bacteremia - likely secondary from cellulitis of left lower extremity - preliminary blood cultures are +, group d strep, continue rocephin (07/07 -), as per the recommendation of ID (Kurtis) - lactic acidosis resolved, no leukocytosis patient is afebrile - ID, Dr Hull consulted and following cellulitis - continue rocephin (06/17), extremity is still erythematous, no evidence of DVT on doppler 2. cardiovascular afib (s/p watchman's) - continuous cardiac monitoring, rate controlled elevated troponin, - down trending, fouth 0.08, likely secondary to ischemic demand, ekg remains stable, biventricular paced rhythm -cardiology consulted and followed, Dr Oglesby (pt's private nutrition consultant) hypertension - hold coreg due to labile b/p, patient's b/p at baseline is 100's systolic as per patient. - strict monitoring, b/p qh. systolic congestive heart failure - hold lasix due to labile blood pressure and sepsis - strict i/o and daily weight 3) pulm pleural effusion - ct scan of chest reviewed - keep spo2 above 92% with supplemental O2 - prn combivent nebulizers 4) Heme: Thrombocytopenia - Likely secondary to sepsis - monitor platelets F/E/N - Replete lytes prn - Low Na Diet DVT Prophylaxis - SCD r-leg - physical therapy - Hold AC secondary to thrombocytopenia Code Status: Full Code Dispo: Requires Inpatient Care Visit type - Emergency Visit Emergency Visit: Yes ED Registration Date: 07/07/17 Care time: The patient presented to the Emergency Department on the above date and was hospitalized for further evaluation of their emergent condition. - New Patient This patient is new to me today: No - Critical Care Critical Care patient: No - Discharge Referral Referred to [facility] Med P.C.: No
[2017-07-08] MEDS ORDERED: VANCOMYCIN 1,000 MG in DEXTROSE 5%-WATER - 250 ML IVPB SCH (21:00)
[2017-07-08] MEDS: ROSUVASTATIN CA 5 MG TABLET (FP) PO SCH (21:50)
[2017-07-09 08:22] LABS: HEMATOCRIT 35.1 % (35.4-49); HEMOGLOBIN 11.3 GM/dl (11.7-16.9); MCH 28.9 pg (25.7-33.7); MCHC 32.1 g/dl (32.0-35.9); MEAN PLT VOLUME 9.1 fl (7.5-11.1); PLATELET COUNT 92 K/MM3 (134-434); RBC 3.89 M/mm3 (4.00-5.60); RDW 16.4 % (11.9-15.9); WHITE BLOOD COUNT 4.9 K/mm3 (4.0-10.8)
[2017-07-09 08:34] LABS: ALBUMIN 2.8 g/dl (3.5-5.0); ALK PHOS 74 U/L (32-92); ANION GAP 7 (8-16); BILIRUBIN,TOTAL 0.8 mg/dl (0.2-1.0); BLOOD UREA NITROGEN 73 mg/dl (7-18); CHLORIDE 106 mmol/L (98-107); CO2 22 mmol/L (22-28); CREATININE 2.3 mg/dl (0.6-1.3); GLUCOSE,RANDOM 91 mg/dl (74-106); SGOT/AST 53 U/L (10-42); SGPT/ALT 49 U/L (10-40); SODIUM 135 mmol/L (136-145); TOT PROT 5.8 g/dl (6.4-8.3)
--- NOTE | 2017-07-09 08:34 | PN ---
Progress Note, Physician History of Present Illness: Awake and alert Supine in bed No focal complaint No c/o fever/ chills BC, L LE wound c/s pending possible enterococcal sp. Afebrile WBC WNL - Current Medication List Current Medications: Active Medications Albuterol/Ipratropium (Duoneb -) 1 amp NEB Q6H PRN PRN Reason: SHORTNESS OF BREATH Aspirin (Asa -) 81 mg PO DAILY [facility] Last Admin: 07/08/17 09:32 Dose: 81 mg Famotidine (Pepcid -) 20 mg PO BID [facility] Last Admin: 07/08/17 21:50 Dose: 20 mg Ceftriaxone Sodium (Rocephin 2gm Ivpb (Pre-Docked)) 2 gm in 100 mls @ 200 mls/ hr IVPB DAILY [facility] Last Admin: 07/08/17 09:38 Dose: 200 mls/hr Lactobacillus Acidophilus (Bacid -) 1 tab PO DAILY [facility] Last Admin: 07/08/17 09:32 Dose: 1 tab Mupirocin (Bactroban 2% Ointment -) 1 applic TP BID [facility] Last Admin: 07/08/17 21:50 Dose: 1 applic Rosuvastatin Calcium (Crestor -) 10 mg PO HS [facility] Last Admin: 07/08/17 21:50 Dose: 10 mg Tamsulosin HCl (Flomax -) 0.4 mg PO DAILY@0830 [facility] Last Admin: 07/08/17 08:30 Dose: 0.4 mg - Objective Vital Signs: Vital Signs Temperature 97.5 F L 07/09/17 06:00 Pulse Rate 70 07/09/17 06:00 Respiratory Rate 18 07/09/17 06:00 Blood Pressure 115/62 07/09/17 06:00 O2 Sat by Pulse Oximetry (%) 100 07/08/17 22:00 Constitutional: Yes: No Distress Eyes: Yes: Conjunctiva Clear Cardiovascular: Yes: Regular Rate and Rhythm, S1, S2 Respiratory: Yes: Diminished Gastrointestinal: Yes: Normal Bowel Sounds, Soft. No: Tenderness Extremities: Yes: Other (L LE swelling; decreased erythema/warmth; healing 2cm laceration no drainage) Assessment/Plan Streptococcal bacteremia/ sepsis leg source Laceration/ Cellulitis L LE improved S/P MV repair 2006 Lactic acidosis resolved Thrombocytopenia Azotemia Await final BC result Repeat BC x 2 prelim negative Vancomycin redosed Continue ceftriaxone
[2017-07-09] MEDS: TAMSULOSIN HCL 0.4 MG CAP.ER.24H (FP) PO SCH (08:35)
[2017-07-09] MEDS: FAMOTIDINE 20 MG TABLET PO SCH ×2 (09:23→21:35)
[2017-07-09] MEDS: ASPIRIN 81 MG CHEWABLE TABLETS PO SCH (09:23)
[2017-07-09] MEDS: LACTOBACILLUS ACIDOPHILUS 1 EACH TAB (FP) PO SCH (09:23)
[2017-07-09] MEDS: CEFTRIAXONE 2 GM/100 ML BAG IVPB SCH (09:24)
[2017-07-09] MEDS: MUPIROCIN 2% TOPICAL OINTMENT 22 GM TUBE TP SCH ×2 (09:24→22:40)
--- NOTE | 2017-07-09 11:48 | PN ---
Progress Note, Physician History of Present Illness: Feels overall weak No dyspnea but on O2 Tele:V-paced with NSVT - Current Medication List Current Medications: Active Medications Albuterol/Ipratropium (Duoneb -) 1 amp NEB Q6H PRN PRN Reason: SHORTNESS OF BREATH Aspirin (Asa -) 81 mg PO DAILY [facility] Last Admin: 07/09/17 09:23 Dose: 81 mg Famotidine (Pepcid -) 20 mg PO BID [facility] Last Admin: 07/09/17 09:23 Dose: 20 mg Ceftriaxone Sodium (Rocephin 2gm Ivpb (Pre-Docked)) 2 gm in 100 mls @ 200 mls/ hr IVPB DAILY [facility] Last Admin: 07/09/17 09:24 Dose: 200 mls/hr Lactobacillus Acidophilus (Bacid -) 1 tab PO DAILY [facility] Last Admin: 07/09/17 09:23 Dose: 1 tab Mupirocin (Bactroban 2% Ointment -) 1 applic TP BID [facility] Last Admin: 07/09/17 09:24 Dose: 1 applic Rosuvastatin Calcium (Crestor -) 10 mg PO HS [facility] Last Admin: 07/08/17 21:50 Dose: 10 mg Tamsulosin HCl (Flomax -) 0.4 mg PO DAILY@0830 [facility] Last Admin: 07/09/17 08:35 Dose: 0.4 mg - Objective Vital Signs: Vital Signs Temperature 97.5 F L 07/09/17 06:00 Pulse Rate 70 07/09/17 06:00 Respiratory Rate 18 07/09/17 08:53 Blood Pressure 115/62 07/09/17 06:00 O2 Sat by Pulse Oximetry (%) 100 07/09/17 08:53 Constitutional: Yes: No Distress, Calm Eyes: Yes: WNL HENT: Yes: WNL Cardiovascular: Yes: Regular Rate and Rhythm, Murmur Respiratory: Yes: Diminished (Faint crackles in bilat bases) Gastrointestinal: Yes: Normal Bowel Sounds Musculoskeletal: Yes: WNL Extremities: Yes: WNL Edema: Yes Labs: CBC, BMP 07/09/17 07:40 07/09/17 07:40 Assessment/Plan 87 yo with h/o CAD s/p CABG (09/2006: CHANDLER to LAD, SVG to HL, SVG to OM2, SVG to PDA) and pci (last cath/PCI 10/2012), MV ring (28 mm Tyler) for severe MR, ischemic CMPathy s/p biv-ICD ([employer]OS[employer]i) with chronic residual bilateral pleural effusions, HTN, HPL, Aflutter ablation 06/2008 (caused inappropriate ICD shocks), [place] [place] AV darío ablation, asc ao aneurysm, GIB (?internal hemroids), ckd (bline cr 2.1-2.3), anemia who p/w fever. sepsis - Hold IVF today, close monitoring of volume status, O2 sat. - mgm't per id/pmd troponin elevation - flat trend likely demand in setting of sepsis/steven/ckd. CK elevation out of propotion and likely 2/2 LE wound --> eval/mgm't per pmd/id. - ekg v-paced. no concern for acs. has Contraindication to AC ischemic CHF - per office notes, Dry wt is around 145-147 lbs. Does not appear volume overloaded at this time, would priortize tx of sepsis. Hyponatremia and creatinine improving with IVF. CK slightly worse. Baseline creatinine 2.1-2.3. -Will hold IVF today given faint crackles. - daily standing weights, bmp i/o's. - resume low dose coreg when bp allows. No omar given ckd. Nitrates and hydral have been held due to low bp tendencies. - lyte repletion prn. afib/flutter s/p ablation, av darío ablation and watchman - contraindication to AC (gib). s/p watchman. con't asa. monitor hgb. - rate controlled. resume coreg when bp allows. Cad s/p cabg, pci: - Stable, no angina while coreg being held. Continue current , asa, statin. steven/CKD: - hyponatremia improving (now 135), -cr currently improving with ivf now 2.3 (2.5). - con't to monitor. s/p biv-ICD (BOS[employer]i): - routine home monitoring and office checks at [place] with EP dr tabares. ascending aorta aneurysm (5.3 cm, 06/2014): - resume coreg when able. - per office notes, stable size. Followed by CTS at [facility] --> rec'd continued monitoring with periodic ct. He would likley be prohibitively high risk for open aorta surgery given his chf, cad, afib, ckd. Severe MR s/p ring: - no sig mr on repeat echo here.
--- NOTE | 2017-07-09 14:14 | PN ---
Physical Exam: SUBJECTIVE: Patient seen and examined at bedside. OBJECTIVE: Vital Signs Period Temp Pulse Resp BP Sys/Dennison Pulse Ox Last 24 Hr 67.4 F-97.7 F 69-70 18-20 99-115/52-62 100-100 GENERAL: The patient is awake, alert in no acute distress. LUNGS: Bibasilar crackles HEART: Regular rate and rhythm, S1, S2 + murmur ABDOMEN: Soft, nontender, nondistended, normoactive bowel sounds UPPER EXTREMITIES: 2+ pulses, warm, well-perfused, no edema. Areas of purpura bilateral hands and forearms LOWER EXTREMITIES:2+ pulses; 1+ edema left, trace edema right; 1 cm laceration left vidal, mild oozing blood, no exudate; no surrounding erythema, edema, or warmth NEUROLOGICAL: Cranial nerves II through XII grossly intact. Normal speech Laboratory Results - last 24 hr 07/09/17 07/09/17 07/09/17 07:40 07:40 07:40 WBC 4.9 RBC 3.89 L Hgb 11.3 L Hct 35.1 L MCV 90.0 MCH 28.9 MCHC 32.1 RDW 16.4 H Plt Count 92 L MPV 9.1 Sodium 135 L Potassium 4.0 Chloride 106 Carbon Dioxide 22 Anion Gap 7 L BUN 73 H Creatinine 2.3 H Creat Clearance w eGFR 27.10 Random Glucose 91 Calcium 8.0 L Total Bilirubin 0.8 AST 53 H ALT 49 H D Alkaline Phosphatase 74 Total Protein 5.8 L Albumin 2.8 L Random Vancomycin 17.345 Active Medications Generic Name Dose Route Start Last Admin Trade Name Freq PRN Reason Stop Dose Admin Albuterol/Ipratropium 1 amp 07/07/17 06:25 Duoneb - NEB Q6H PRN SHORTNESS OF BREATH Aspirin 81 mg 07/07/17 10:00 07/09/17 09:23 Asa - PO 81 mg DAILY JANENE Administration Famotidine 20 mg 07/07/17 12:15 07/09/17 09:23 Pepcid - PO 20 mg BID JANENE Administration Ceftriaxone Sodium 2 gm in 100 mls @ 200 mls/hr 07/07/17 12:00 07/09/17 09:24 Rocephin 2gm Ivpb (Pre-Docked) IVPB 200 mls/hr DAILY JANENE Administration Lactobacillus Acidophilus 1 tab 07/07/17 12:15 07/09/17 09:23 Bacid - PO 1 tab DAILY JANENE Administration Mupirocin 1 applic 07/07/17 13:00 07/09/17 09:24 Bactroban 2% Ointment - TP 1 applic BID JANENE Administration Rosuvastatin Calcium 10 mg 07/07/17 22:00 07/08/17 21:50 Crestor - PO 10 mg HS JANENE Administration Tamsulosin HCl 0.4 mg 07/07/17 10:00 07/09/17 08:35 Flomax - PO 0.4 mg DAILY@0830 JANENE Administration IMAGING 07/06 CXR: bilateral pleural effusions 07/07 CT chest: bilateral pleural effusions R>L; 5.3cm ascending aorta, arch 4.2cm, descending 4.0cm 07/08 CXR: bilateral pleural effusions 07/07 Echo: LV severely reduced, severe global hypokinesis; RV mildly reduced; severe BLAE; trace MR; severe TR; mild pHTN; moderate AI; mild PI 07/07 US LLE: negative DVT ASSESSMENT/PLAN 87 year-old male with a PMH significant for HTN, HLD, afib s/p Watchman's procedure, CAD s/p CABG 2003 s/p MV repair 2006, 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 Admitted for sepsis secondary to LLE cellulitis. Sepsis secondary to LLE cellulitis Enterococcus bacteremia --cellulitis resolving --afebrile, no leukocytosis --continue Vanc and ceftriaxone --ID following Thrombocytopenia --likely secondary to sepsis, monitor platelets Atrial fibrillation s/p Watchman's procedure --biventricular paced --not on anticoagulation Elevated troponins --likely demand ischemia, trending down --seen and evaluated by cardiology, low suspicion for ACS Hypertension --has been mildly hypotensive --hold home carvedilol for now Hyperlipidemia --continue Crestor CAD --continue ASA, Crestor --holding carvedilol for low BP Severe systolic heart failure; diastolic heart failure Chronic bilateral pleural effusions --appears euvolemic; 143lbs, dry weight 145lbs --hold home lasix PO 40mg another day due to sepsis/VALDEMAR --daily weights --strict I&Os h/o GI bleed Diverticulosis --h/h stable --continue pepcid Acute on chronic kidney disease --Cr 2.7 on admission, today 2.3 which is baseline --continue to hold lasix Ascending aorta aneurysm (5.3 cm, 06/2014) --resume coreg when able --followed by CTS at [facility], recommend monitoring with periodic CTs; priscilla prohibitively high risk for open aorta surgery given HF, CAD, Afib, CKD FEN Fluids: PO intake adequate Electrolytes: replete as indicated Nutrition: low sodium DVT prophylaxis: subq heparin Physical therapy evaluation Dispo: continues to require inpatient care. Full code. Visit type - Emergency Visit Emergency Visit: Yes ED Registration Date: 07/07/17 Care time: The patient presented to the Emergency Department on the above date and was hospitalized for further evaluation of their emergent condition. - New Patient This patient is new to me today: Yes Date on this admission: 07/09/17 - Critical Care Critical Care patient: No
[2017-07-09] MEDS: ROSUVASTATIN CA 5 MG TABLET (FP) PO SCH (21:34)
[2017-07-09] MEDS: HEPARIN NA (PORCINE) 5,000 UNITS/ML 1ML VIAL SQ SCH (21:36)
[2017-07-10] MEDS: HEPARIN NA (PORCINE) 5,000 UNITS/ML 1ML VIAL SQ SCH ×3 (05:13→21:37)
[2017-07-10 08:26] LABS: HEMATOCRIT 35.9 % (35.4-49); HEMOGLOBIN 11.4 GM/dl (11.7-16.9); MCH 28.7 pg (25.7-33.7); MCHC 31.9 g/dl (32.0-35.9); MEAN CELL VOLUME 90.2 fl (80-96); MEAN PLT VOLUME 8.8 fl (7.5-11.1); PLATELET COUNT 92 K/MM3 (134-434); RBC 3.98 M/mm3 (4.00-5.60); RDW 16.8 % (11.9-15.9); WHITE BLOOD COUNT 4.8 K/mm3 (4.0-10.8)
[2017-07-10] MEDS: AMPICILLIN - 2 GM in SODIUM CHLORIDE 100 ML IVPB SCH ×4 (08:40→20:40)
[2017-07-10 08:50] LABS: ALBUMIN 2.9 g/dl (3.5-5.0); ALK PHOS 78 U/L (32-92); ANION GAP 7 (8-16); BILIRUBIN,TOTAL 0.8 mg/dl (0.2-1.0); BLOOD UREA NITROGEN 63 mg/dl (7-18); CALCIUM 8.4 mg/dl (8.4-10.2); CHLORIDE 109 mmol/L (98-107); CO2 23 mmol/L (22-28); GLUCOSE,RANDOM 94 mg/dl (74-106); MAGNESIUM 2.3 mg/dL (1.8-2.4); POTASSIUM 4.3 mmol/L (3.5-5.1); SGOT/AST 46 U/L (10-42); SGPT/ALT 54 U/L (10-40); SODIUM 139 mmol/L (136-145); TOT PROT 6.1 g/dl (6.4-8.3)
[2017-07-10] MEDS: ASPIRIN 81 MG CHEWABLE TABLETS PO SCH (10:46)
[2017-07-10] MEDS: LACTOBACILLUS ACIDOPHILUS 1 EACH TAB (FP) PO SCH (10:46)
[2017-07-10] MEDS: TAMSULOSIN HCL 0.4 MG CAP.ER.24H (FP) PO SCH (10:46)
[2017-07-10] MEDS: MUPIROCIN 2% TOPICAL OINTMENT 22 GM TUBE TP SCH ×2 (10:47→21:38)
[2017-07-10] MEDS: FAMOTIDINE 20 MG TABLET PO SCH ×2 (10:47→21:38)
--- NOTE | 2017-07-10 10:48 | PN ---
Physical Exam: SUBJECTIVE: Patient seen and examined. Complaining of right-sided sore throat. "Very bothersome." OBJECTIVE: Vital Signs Period Temp Pulse Resp BP Sys/Dennison Pulse Ox Last 24 Hr 97.6 F-97.9 F 70-85 17-19 109-135/52-72 95-100 GENERAL: The patient is awake, alert in no acute distress. LUNGS: Diminished right base HEART: Regular rate and rhythm, S1, S2 + murmur ABDOMEN: Soft, nontender, nondistended, normoactive bowel sounds UPPER EXTREMITIES: 2+ pulses, warm, well-perfused, no edema. Areas of purpura bilateral hands and forearms LOWER EXTREMITIES:2+ pulses; 1+ edema left, trace edema right NEUROLOGICAL: Cranial nerves II through XII grossly intact. Normal speech Laboratory Results - last 24 hr 07/09/17 07/09/17 07/10/17 07:40 07:40 06:30 WBC RBC Hgb Hct MCV MCH MCHC RDW Plt Count MPV Sodium 139 Potassium 4.3 Chloride 109 H Carbon Dioxide 23 Anion Gap 7 L BUN 63 H Creatinine 2.0 H Creat Clearance w eGFR 31.84 Random Glucose 94 Calcium 8.4 Magnesium 2.3 Total Bilirubin 0.8 AST 46 H ALT 54 H Alkaline Phosphatase 78 Troponin I 0.05 Total Protein 6.1 L Albumin 2.9 L Random Vancomycin 17.345 07/10/17 07:25 WBC 4.8 RBC 3.98 L Hgb 11.4 L Hct 35.9 MCV 90.2 MCH 28.7 MCHC 31.9 L RDW 16.8 H Plt Count 92 L MPV 8.8 Sodium Potassium Chloride Carbon Dioxide Anion Gap BUN Creatinine Creat Clearance w eGFR Random Glucose Calcium Magnesium Total Bilirubin AST ALT Alkaline Phosphatase Troponin I Total Protein Albumin Random Vancomycin Active Medications Generic Name Dose Route Start Last Admin Trade Name Freq PRN Reason Stop Dose Admin Albuterol/Ipratropium 1 amp 07/07/17 06:25 Duoneb - NEB Q6H PRN SHORTNESS OF BREATH Aspirin 81 mg 07/07/17 10:00 07/09/17 09:23 Asa - PO 81 mg DAILY JANENE Administration Famotidine 20 mg 07/07/17 12:15 07/09/17 21:35 Pepcid - PO 20 mg BID JANENE Administration Heparin Sodium (Porcine) 5,000 unit 07/09/17 22:00 02/25/18 05:13 Heparin - SQ 5,000 unit TID JANENE Administration Ampicillin Sodium 2 gm/ Sodium 100 mls @ 200 mls/hr 07/10/17 08:15 Chloride IVPB Q4H JANENE Lactobacillus Acidophilus 1 tab 07/07/17 12:15 07/09/17 09:23 Bacid - PO 1 tab DAILY JANENE Administration Mupirocin 1 applic 07/07/17 13:00 07/09/17 22:40 Bactroban 2% Ointment - TP 1 applic BID JANENE Administration Rosuvastatin Calcium 10 mg 07/07/17 22:00 07/09/17 21:34 Crestor - PO 10 mg HS JANENE Administration Tamsulosin HCl 0.4 mg 07/07/17 10:00 07/09/17 08:35 Flomax - PO 0.4 mg DAILY@0830 JANENE Administration IMAGING 07/06 CXR: bilateral pleural effusions 07/07 CT chest: bilateral pleural effusions R>L; 5.3cm ascending aorta, arch 4.2cm, descending 4.0cm 07/08 CXR: bilateral pleural effusions 07/07 Echo: LV severely reduced, severe global hypokinesis; RV mildly reduced; severe BLAE; trace MR; severe TR; mild pHTN; moderate AI; mild PI 07/07 US LLE: negative DVT ASSESSMENT/PLAN 87 year-old male with a PMH significant for HTN, HLD, afib s/p Watchman's procedure, CAD s/p CABG 2003 s/p MV repair 2006, 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 Admitted for sepsis secondary to LLE cellulitis. Sepsis secondary to LLE cellulitis Enterococcus bacteremia r/o Endocarditis --2D echo no signs of vegetation; will order ELANA and discuss with cardiology --switch to ampicillin (dahy #1) and continue ceftriaxone (day #4) --esr, crp pending --ID following Acute on chronic kidney disease --Cr 2.7 on admission, 2.0 today which is baseline --resume home dose lasix PO 40mg daily Hematuria, resolved --07/06 UA >100 RBCs --repeat UA today 2-5 RBCs Thrombocytopenia --likely secondary to sepsis, monitor platelets Atrial fibrillation s/p Watchman's procedure --biventricular paced --not on anticoagulation Elevated troponins --likely demand ischemia, trending down --seen and evaluated by cardiology, low suspicion for ACS Hypertension --BP stable --resume home carvedilol Hyperlipidemia --continue Crestor CAD --continue ASA, Crestor --resume home dose carvedilol Severe systolic heart failure; diastolic heart failure Chronic bilateral pleural effusions --daily PO lasix --daily weights --strict I&Os h/o GI bleed Diverticulosis --h/h stable --continue pepcid Ascending aorta aneurysm (5.3 cm, 06/2014) --resume carvedilol --followed by CTS at [facility], recommend monitoring with periodic CTs; priscilla prohibitively high risk for open aorta surgery given HF, CAD, Afib, CKD FEN Fluids: PO intake adequate Electrolytes: replete as indicated Nutrition: low sodium DVT prophylaxis: subq heparin Physical therapy evaluation Dispo: continues to require inpatient care. Full code. Visit type - Emergency Visit Emergency Visit: Yes ED Registration Date: 07/07/17 Care time: The patient presented to the Emergency Department on the above date and was hospitalized for further evaluation of their emergent condition. - New Patient This patient is new to me today: No - Critical Care Critical Care patient: No
[2017-07-10] MEDS ORDERED: BENZOCAINE/MENTH/CETYLPYRD CL 1 EACH LOZENGE MM PRN (11:04)
[2017-07-10] MEDS ORDERED: FUROSEMIDE 40 MG TABLET (FP) PO SCH (11:15)
--- NOTE | 2017-07-10 11:21 | PN ---
Progress Note, Physician Chief Complaint: ID Lengthy discussion with his PCP regarding management today Currently on Ampicillin - Current Medication List Current Medications: Active Medications Acetaminophen (Tylenol -) 650 mg PO Q6H PRN PRN Reason: MILD PAIN Albuterol/Ipratropium (Duoneb -) 1 amp NEB Q6H PRN PRN Reason: SHORTNESS OF BREATH Aspirin (Asa -) 81 mg PO DAILY [facility] Last Admin: 07/10/17 10:46 Dose: 81 mg Benzocaine/Menthol (Cepacol Lozenge -) 1 each MM PRN PRN PRN Reason: SORE THROAT Carvedilol (Coreg -) 3.125 mg PO BID [facility] Famotidine (Pepcid -) 20 mg PO BID [facility] Last Admin: 07/10/17 10:47 Dose: 20 mg Furosemide (Lasix -) 40 mg PO DAILY [facility] Heparin Sodium (Porcine) (Heparin -) 5,000 unit SQ TID [facility] Last Admin: 07/10/17 05:13 Dose: 5,000 unit Ampicillin Sodium 2 gm/ Sodium (Chloride) 100 mls @ 200 mls/hr IVPB Q4H [facility] Lactobacillus Acidophilus (Bacid -) 1 tab PO DAILY [facility] Last Admin: 07/10/17 10:46 Dose: 1 tab Mupirocin (Bactroban 2% Ointment -) 1 applic TP BID [facility] Last Admin: 07/10/17 10:47 Dose: 1 applic Rosuvastatin Calcium (Crestor -) 10 mg PO HS [facility] Last Admin: 07/09/17 21:34 Dose: 10 mg Tamsulosin HCl (Flomax -) 0.4 mg PO DAILY@0830 [facility] Last Admin: 07/10/17 10:46 Dose: 0.4 mg - Objective Vital Signs: Vital Signs Temperature 97.6 F 07/10/17 06:02 Pulse Rate 85 07/10/17 06:02 Respiratory Rate 18 07/10/17 08:39 Blood Pressure 135/72 07/10/17 06:02 O2 Sat by Pulse Oximetry (%) 100 07/10/17 08:39 Constitutional: Yes: Well Nourished, No Distress HENT: Yes: WNL, Atraumatic Neck: Yes: WNL, Supple Cardiovascular: Yes: Murmur (Grade 4-5/6 systolic murmur diffusely), S1, S2 Labs: CBC, BMP 02/25/18 07:25 07/10/17 06:30 Assessment/Plan Microbiology 07/06/17 20:04 Leg - Left Lower Gram Stain - Final 07/06/17 20:04 Leg - Left Lower Wound Culture - Final Enterococcus Faecalis Staphylococcus Coagulase Neg 07/06/17 19:02 Blood - Peripheral Venous Blood Culture - Final Enterococcus Faecalis 07/08/17 12:04 Blood - Peripheral Venous Blood Culture - Preliminary NO GROWTH OBTAINED AFTER 24 HOURS, INCUBATION TO CONTINUE FOR 4 DAYS. 07/08/17 11:50 Blood - Peripheral Venous Blood Culture - Preliminary NO GROWTH OBTAINED AFTER 24 HOURS, INCUBATION TO CONTINUE FOR 4 DAYS. 07/06/17 19:02 Blood - Peripheral Venous Blood Culture - Preliminary Enterococcus Faecalis Laboratory Tests 07/06/17 07/10/17 07/10/17 19:18 06:30 07:25 WBC 4.8 Hgb 11.4 L Plt Count 92 L BUN 63 H Creatinine 2.0 H Creat Clearance w eGFR 31.84 AST 46 H ALT 54 H Alkaline Phosphatase 78 Ur Leukocyte Esterase Negative Urine RBC >100 Urine WBC 2-5 Assessment Patient has an "endocarditis" organism with an Mitral valve ring and a pacemaker severe valvular heart disease and microscopic hematuria all of which could suggest the possibility of endocarditis. I feels he needs a ELANA . Will need 6 weeks of IV antibiotics Ampicillin and Ceftriaxone via a PICC line. Discuss with cardiology. Also obtain a CRP and sed rate Repeat the U/A ? hematuria Jose Rai MD
[2017-07-10] MEDS: CARVEDILOL 3.125 MG TABLET (FP) PO SCH ×2 (11:30→21:37)
[2017-07-10 12:01] LABS: PH,URINE 5.5 (4.5-8); URINE APPEARANCE Clear; URINE BILIRUBIN Negative (NEGATIVE); URINE GLUCOSE (UA) Negative (NEGATIVE); URINE KETONE Negative (NEGATIVE); URINE LEUK ESTERASE Negative (NEGATIVE); URINE NITRITE Negative (NEGATIVE); URINE UROBILINOGEN 0.2 (0.2-1.0)
[2017-07-10 12:08] LABS: URINE BLOOD 1+ (NEGATIVE); URINE COLOR YELLOW; URINE PROTEIN 1+ (NEGATIVE)
--- NOTE | 2017-07-10 12:13 | PN ---
Progress Note, Physician History of Present Illness: Seen and examined Tele with V-paced and NSVT this AM (10 beats) ID input noted No complaints - Current Medication List Current Medications: Active Medications Acetaminophen (Tylenol -) 650 mg PO Q6H PRN PRN Reason: MILD PAIN Albuterol/Ipratropium (Duoneb -) 1 amp NEB Q6H PRN PRN Reason: SHORTNESS OF BREATH Aspirin (Asa -) 81 mg PO DAILY [facility] Last Admin: 07/10/17 10:46 Dose: 81 mg Benzocaine/Menthol (Cepacol Lozenge -) 1 each MM PRN PRN PRN Reason: SORE THROAT Carvedilol (Coreg -) 3.125 mg PO BID [facility] Famotidine (Pepcid -) 20 mg PO BID [facility] Last Admin: 07/10/17 10:47 Dose: 20 mg Furosemide (Lasix -) 40 mg PO DAILY [facility] Heparin Sodium (Porcine) (Heparin -) 5,000 unit SQ TID [facility] Last Admin: 07/10/17 05:13 Dose: 5,000 unit Ampicillin Sodium 2 gm/ Sodium (Chloride) 100 mls @ 200 mls/hr IVPB Q4H [facility] CEFTRIAXONE IN IS-OSM DEXTROSE (Ceftriaxone 2 Gm-D5w Bag) 2 gm in 50 mls @ 100 mls/hr IVPB BID [facility] Lactobacillus Acidophilus (Bacid -) 1 tab PO DAILY [facility] Last Admin: 07/10/17 10:46 Dose: 1 tab Mupirocin (Bactroban 2% Ointment -) 1 applic TP BID [facility] Last Admin: 07/10/17 10:47 Dose: 1 applic Rosuvastatin Calcium (Crestor -) 10 mg PO HS [facility] Last Admin: 07/09/17 21:34 Dose: 10 mg Tamsulosin HCl (Flomax -) 0.4 mg PO DAILY@0830 [facility] Last Admin: 07/10/17 10:46 Dose: 0.4 mg - Objective Vital Signs: Vital Signs Temperature 97.6 F 07/10/17 06:02 Pulse Rate 85 07/10/17 06:02 Respiratory Rate 18 07/10/17 08:39 Blood Pressure 135/72 07/10/17 06:02 O2 Sat by Pulse Oximetry (%) 100 07/10/17 08:39 Constitutional: Yes: No Distress, Calm Eyes: Yes: WNL HENT: Yes: WNL Neck: Yes: WNL Cardiovascular: Yes: Regular Rate and Rhythm Respiratory: Yes: CTA Bilaterally Gastrointestinal: Yes: Normal Bowel Sounds Musculoskeletal: Yes: WNL Extremities: Yes: WNL Edema: No Labs: CBC, BMP 07/10/17 07:25 07/10/17 06:30 Assessment/Plan 87 yo with h/o CAD s/p CABG (09/2006: CHANDLER to LAD, SVG to HL, SVG to OM2, SVG to PDA) and pci (last cath/PCI 10/2012), MV ring (28 mm Tyler) for severe MR, ischemic CMPathy s/p biv-ICD (BOSSci) with chronic residual bilateral pleural effusions, HTN, HPL, Aflutter ablation 06/2008 (caused inappropriate ICD shocks), [place] [place] AV darío ablation, asc ao aneurysm, GIB (?internal hemroids), ckd (bline cr 2.1-2.3), anemia who p/w fever. sepsis - Hold IVF today, close monitoring of volume status, O2 sat. 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 -ID concerned for SBE, while suspicion is low given that he has cleared Cx, not unreasonable to do a ELANA as it would dictate length of Abx therapy. troponin elevation - flat trend likely demand in setting of sepsis/steven/ckd. CK elevation out of propotion and likely 2/2 LE wound --> eval/mgm't per pmd/id. - ekg v-paced. no concern for acs. has Contraindication to AC ischemic CHF - per office notes, Dry wt is around 145-147 lbs. Does not appear volume overloaded at this time, would priortize tx of sepsis. Hyponatremia and creatinine improving with IVF. CK slightly worse. Baseline creatinine 2.1-2.3. -Will hold IVF today given faint crackles. - daily standing weights, bmp i/o's. - -NSVT this AM, keep K>4 and Mg >2 and will resume low dose coreg 3.125mg BID. - lyte repletion prn. afib/flutter s/p ablation, av darío ablation and watchman - contraindication to AC (gib). s/p watchman. con't asa. monitor hgb. - rate controlled. -Now back on Coreg Cad s/p cabg, pci: - Stable, no angina while coreg being held. Continue current , asa, statin. steven/CKD: - hyponatremia improving (now 139), -cr currently improving with ivf now 2.0 (2.5). - con't to monitor. s/p biv-ICD (BOSSci): - routine home monitoring and office checks at [place] with EP dr tabares.
[2017-07-10 12:25] LABS: URINE BACTERIA FEW /hpf (NEGATIVE); URINE WBC 0-1 (0-2)
[2017-07-10] MEDS: ROSUVASTATIN CA 5 MG TABLET (FP) PO SCH (21:38)
[2017-07-10] MEDS ORDERED: CEFTRIAXONE IN IS-OSM DEXTROSE 2 GM/50 ML BAG IVPB SCH (22:00)
[2017-07-11] MEDS: AMPICILLIN - 2 GM in SODIUM CHLORIDE 100 ML IVPB SCH ×6 (00:23→22:15)
[2017-07-11] MEDS: HEPARIN NA (PORCINE) 5,000 UNITS/ML 1ML VIAL SQ SCH (06:40)
[2017-07-11] MEDS ORDERED: PT OWN MED DRAWER 7, Y5N ONE ×3 (08:11→19:04)
[2017-07-11 08:25] LABS: HEMATOCRIT 36.2 % (35.4-49); MCH 29.9 pg (25.7-33.7); MCHC 33.1 g/dl (32.0-35.9); MEAN CELL VOLUME 90.2 fl (80-96); MEAN PLT VOLUME 8.8 fl (7.5-11.1); PLATELET COUNT 92 K/MM3 (134-434); RBC 4.01 M/mm3 (4.00-5.60); RDW 16.7 % (11.9-15.9); WHITE BLOOD COUNT 5.4 K/mm3 (4.0-10.8)
[2017-07-11] MEDS: TAMSULOSIN HCL 0.4 MG CAP.ER.24H (FP) PO SCH (08:36)
--- NOTE | 2017-07-11 08:38 | PN ---
Progress Note, Physician Chief Complaint: sepsis, chf History of Present Illness: feels sob speaking sentences today, and when got oob to chair no leg swelling no cp, palpitations ex cigs - Current Medication List Current Medications: Active Medications Acetaminophen (Tylenol -) 650 mg PO Q6H PRN PRN Reason: MILD PAIN Albuterol/Ipratropium (Duoneb -) 1 amp NEB Q6H PRN PRN Reason: SHORTNESS OF BREATH Aspirin (Asa -) 81 mg PO DAILY [facility] Last Admin: 07/10/17 10:46 Dose: 81 mg Benzocaine/Menthol (Cepacol Lozenge -) 1 each MM PRN PRN PRN Reason: SORE THROAT Carvedilol (Coreg -) 3.125 mg PO BID [facility] Last Admin: 07/10/17 21:37 Dose: 3.125 mg Famotidine (Pepcid -) 20 mg PO BID [facility] Last Admin: 07/10/17 21:38 Dose: 20 mg Furosemide (Lasix -) 40 mg PO DAILY [facility] Last Admin: 07/10/17 11:30 Dose: 40 mg Heparin Sodium (Porcine) (Heparin -) 5,000 unit SQ TID [facility] Last Admin: 07/11/17 06:40 Dose: 5,000 unit Ampicillin Sodium 2 gm/ Sodium (Chloride) 100 mls @ 200 mls/hr IVPB Q4H [facility] Last Admin: 07/11/17 08:36 Dose: 200 mls/hr Ceftriaxone Sodium (Rocephin 2gm Ivpb (Pre-Docked)) 2 gm in 100 mls @ 200 mls/ hr IVPB BID [facility] Lactobacillus Acidophilus (Bacid -) 1 tab PO DAILY [facility] Last Admin: 07/10/17 10:46 Dose: 1 tab Mupirocin (Bactroban 2% Ointment -) 1 applic TP BID [facility] Last Admin: 07/10/17 21:38 Dose: 1 applic Rosuvastatin Calcium (Crestor -) 10 mg PO HS [facility] Last Admin: 07/10/17 21:38 Dose: 10 mg Tamsulosin HCl (Flomax -) 0.4 mg PO DAILY@0830 [facility] Last Admin: 07/11/17 08:36 Dose: 0.4 mg - Objective Vital Signs: Vital Signs Temperature 97.5 F L 07/11/17 06:00 Pulse Rate 69 07/11/17 06:00 Respiratory Rate 18 07/11/17 06:00 Blood Pressure 117/60 07/11/17 06:00 O2 Sat by Pulse Oximetry (%) 98 07/10/17 22:00 Constitutional: Yes: No Distress, Calm Eyes: No: Sclera Icterus HENT: No: Nasal Congestion Cardiovascular: Yes: Regular Rate and Rhythm, Murmur (HSM apex to axilla ? M.R. murmur (not loud)), S1, S2, Other (PMI non diplaced). No: JVD (seated in chair) , Gallop, S3 Respiratory: Yes: CTA Bilaterally, Diminished (lower 1/3 bilaterally). No: Accessory Muscle Use, Rales, Wheezes Gastrointestinal: Yes: Normal Bowel Sounds, Soft. No: Tenderness Musculoskeletal: Yes: Other (No kyphosis) Extremities: No: Cold Edema: No Integumentary: No: Jaundice Neurological: Yes: Alert, Oriented (x3) Psychiatric: No: Agitated - ....Imaging EKG: Other (tele: afib, V-paced. run of WCT ? conducted afib with aberrancy > VT ) Assessment/Plan echo 06/2017: 1 + lve. severe dec lvef, EF 15-20%. mild mod-rve. mild dec rv fn. severe aida. mod ar. mv ring, no sig mr. severe tr. 1+ phtn kermit 04/2016: lve, mod-sev dec lvef, global hk, rve, mod dec rv fcn, mild ar, mv repair with mild mr, sev tr 2/2 icd lead, watchman device functioning normally. chronic bilateral effusions R>L as far back as [address] 06/2017: large rt pleural effusion, smaller lt pleural effusion. thoracic aorta up to 5.3 cm dilation. small ascites. 87 yo with h/o CAD s/p CABG (09/2006: CHANDLER to LAD, SVG to HL, SVG to OM2, SVG to PDA) and pci (last cath/PCI 10/2012: patent CHANDLER to LAD, SVG to OM2, SVG to Ramus, occluded SVG to RPDA. 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 sepsis - IVF held 07/10, close monitoring of volume status, O2 sat. 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 present and guide duration of abx, assuming pt consents (he wants 's blessing)--will be deferred while he is in active chf with breathlessness at rest. starting diuresis--would like improved respiratory sx status prior to doing KERMIT troponin elevation - flat trend likely demand in setting of sepsis/steven/ckd. CK elevation out of propotion and likely 2/2 LE wound --> eval/mgm't per pmd/id. - ekg v-paced. no concern for acs. ischemic CHF - per office notes, Dry wt is around 145-147 lbs. Does not appear volume overloaded at this time, would priortize tx of sepsis. Effusions slightly progressed here, but patient overall asx from respiratory perspective. hyponatremia and creatinine improving with IVF. CK slightly worse. Baseline creatinine 2.1-2.3. Consider trial off of IVF tomorrow if clinically stable. - 07/11: wt up 7 lbs in 2d (to 151). CXR 07/08 bilat pleural effusions. sob speaking sentences. significant effusions on CXR 07/08 and on exam today. lasix 40 iv qd to start (on 40 po qd at home). trend wt, labs. - resume low dose coreg when bp allows. No omar given ckd. Nitrates and hydral have been held due to low bp tendencies. - lyte repletion per usual aggressive K/Mag targets VTach: - suspect AF with aberrancy (conducted mildly rapidly) > VT - lytes as above - pt has ICD - cont home BB dose--defer future dose titration to dr oropeza outpt f/u afib/flutter s/p ablation, av darío ablation and watchman - contraindication to AC (gib). s/p watchman. con't asa. monitor hgb. - rate controlled. resume coreg when bp allows. Cad s/p cabg, pci: - Stable, no angina while coreg being held. Continue current , asa, statin. steven/CKD: - baseline creat 2.1-2.3 range - stable here s/p biv-ICD ([employer]OS[employer]i): - routine home monitoring and office checks at [place] with EP dr tabares. ascending aorta aneurysm (5.3 cm, 06/2014): - resume coreg when able. - per office notes, stable size. Followed by CTS at [facility] --> rec'd continued monitoring with periodic ct. He would likley be prohibitively high risk for open aorta surgery given his chf and ckd status. Severe MR s/p ring: - no sig mr on repeat echo here.
[2017-07-11 08:58] LABS: ALBUMIN 2.9 g/dl (3.5-5.0); ALK PHOS 77 U/L (32-92); ANION GAP 7 (8-16); BILIRUBIN,TOTAL 0.6 mg/dl (0.2-1.0); BLOOD UREA NITROGEN 54 mg/dl (7-18); CALCIUM 8.3 mg/dl (8.4-10.2); CHLORIDE 110 mmol/L (98-107); CO2 22 mmol/L (22-28); CREATININE 1.9 mg/dl (0.6-1.3); GLUCOSE,RANDOM 87 mg/dl (74-106); MAGNESIUM 2.4 mg/dL (1.8-2.4); POTASSIUM 4.4 mmol/L (3.5-5.1); SGOT/AST 31 U/L (10-42); SGPT/ALT 45 U/L (10-40); SODIUM 139 mmol/L (136-145)
[2017-07-11] MEDS: ASPIRIN 81 MG CHEWABLE TABLETS PO SCH (10:07)
[2017-07-11] MEDS: CARVEDILOL 3.125 MG TABLET (FP) PO SCH ×2 (10:07→22:15)
[2017-07-11] MEDS: LACTOBACILLUS ACIDOPHILUS 1 EACH TAB (FP) PO SCH (10:07)
[2017-07-11] MEDS: MUPIROCIN 2% TOPICAL OINTMENT 22 GM TUBE TP SCH ×2 (10:07→23:24)
[2017-07-11] MEDS: FAMOTIDINE 20 MG TABLET PO SCH (10:08)
[2017-07-11] MEDS: FUROSEMIDE 40 MG/4 ML INJECTABLE VIAL IVPUSH SCH (10:08)
[2017-07-11] MEDS: CEFTRIAXONE 2 GM/100 ML BAG IVPB SCH (10:11)
--- NOTE | 2017-07-11 10:14 | PN ---
Physical Exam: SUBJECTIVE: Patient seen and examined, sitting in bedside chair, reports shortness of breath upon exertion, on cardiac monitoring several runs of vtach noted on the overnight. 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 Admitted for sepsis secondary to LLE cellulites. Vital Signs Period Temp Pulse Resp BP Sys/Dennison Pulse Ox Last 24 Hr 97.5 F-97.7 F 69-72 18-20 117-145/45-60 97-99 Selected Entries 07/07/17 07/08/17 07/10/17 06:00 06:00 06:00 Weight 65.317 kg 65.317 kg 68.583 kg GENERAL: The patient is awake, alert, and fully oriented, in no acute distress. HEAD: Normal with no signs of trauma. EYES: PERRL, extraocular movements intact, sclera anicteric, conjunctiva clear. No ptosis. ENT: Ears normal, nares patent, oropharynx clear without exudates, moist mucous membranes. NECK: Trachea midline, full range of motion, supple. LUNGS: Breath sounds equal, crackles noted to right base, diminished to left base , clear to apexes bilaterally, no wheezes, no accessory muscle use. HEART: irregular, rate and rhythm, S1, S2, 3/6 systolic murmur, rub or gallop. ABDOMEN: Soft, nontender, nondistended, normoactive bowel sounds, no guarding, no rebound, no hepatosplenomegaly, no masses. EXTREMITIES: 2+ pulses, warm, well-perfused, left lower extremity, erythema much improved, abrasion to anterior distal extremity, + 1 pitting edema. . NEUROLOGICAL: Cranial nerves II through XII grossly intact. Normal speech, gait not observed. PSYCH: Normal mood, normal affect. SKIN: Warm, dry, normal turgor, no rashes or lesions noted Laboratory Results - last 24 hr 07/10/17 07/10/17 07/11/17 06:30 11:30 07:20 WBC 5.4 RBC 4.01 Hgb 12.0 Hct 36.2 MCV 90.2 MCH 29.9 MCHC 33.1 RDW 16.7 H Plt Count 92 L MPV 8.8 Sodium 139 Potassium 4.3 Chloride 109 H Carbon Dioxide 23 Anion Gap 7 L BUN 63 H Creatinine 2.0 H Creat Clearance w eGFR 31.84 Random Glucose 94 Calcium 8.4 Magnesium 2.3 Total Bilirubin 0.8 AST 46 H ALT 54 H Alkaline Phosphatase 78 C-Reactive Protein 2.4 H Total Protein 6.1 L Albumin 2.9 L Urine Color Yellow Urine Appearance Clear Urine pH 5.5 Ur Specific [place] 1.010 Urine Protein 1+ H Urine Glucose (UA) Negative Urine Ketones Negative Urine Blood 1+ H Urine Nitrite Negative Urine Bilirubin Negative Urine Urobilinogen 0.2 Ur Leukocyte Esterase Negative Urine RBC 2-5 Urine WBC 0-1 Urine Bacteria Few 07/11/17 07:20 WBC RBC Hgb Hct MCV MCH MCHC RDW Plt Count MPV Sodium 139 Potassium 4.4 Chloride 110 H Carbon Dioxide 22 Anion Gap 7 L BUN 54 H Creatinine 1.9 H Creat Clearance w eGFR 33.78 Random Glucose 87 Calcium 8.3 L Magnesium 2.4 Total Bilirubin 0.6 D AST 31 D ALT 45 H Alkaline Phosphatase 77 C-Reactive Protein Total Protein 6.0 L Albumin 2.9 L Urine Color Urine Appearance Urine pH Ur Specific [place] Urine Protein Urine Glucose (UA) Urine Ketones Urine Blood Urine Nitrite Urine Bilirubin Urine Urobilinogen Ur Leukocyte Esterase Urine RBC Urine WBC Urine Bacteria Active Medications Generic Name Dose Route Start Last Admin Trade Name Freq PRN Reason Stop Dose Admin Acetaminophen 650 mg 07/10/17 11:04 Tylenol - PO Q6H PRN MILD PAIN Albuterol/Ipratropium 1 amp 07/07/17 06:25 Duoneb - NEB Q6H PRN SHORTNESS OF BREATH Aspirin 81 mg 07/07/17 10:00 07/11/17 10:07 Asa - PO 81 mg DAILY JANENE Administration Benzocaine/Menthol 1 each 07/10/17 11:04 Cepacol Lozenge - MM PRN PRN SORE THROAT Carvedilol 3.125 mg 07/10/17 11:15 07/11/17 10:07 Coreg - PO 3.125 mg BID JANENE Administration Famotidine 20 mg 07/07/17 12:15 07/11/17 10:08 Pepcid - PO 20 mg BID JANENE Administration Furosemide 40 mg 07/11/17 10:00 07/11/17 10:08 Lasix Injection - IVPUSH 40 mg DAILY JANENE Administration Heparin Sodium (Porcine) 5,000 unit 07/09/17 22:00 07/11/17 06:40 Heparin - SQ 5,000 unit TID JANENE Administration Ampicillin Sodium 2 gm/ Sodium 100 mls @ 200 mls/hr 07/10/17 08:15 07/11/17 08:36 Chloride IVPB 200 mls/hr Q4H JANENE Administration Ceftriaxone Sodium 2 gm in 100 mls @ 200 mls/hr 07/11/17 10:00 07/11/17 10:11 Rocephin 2gm Ivpb (Pre-Docked) IVPB 200 mls/hr BID JANENE Administration Lactobacillus Acidophilus 1 tab 07/07/17 12:15 07/11/17 10:07 Bacid - PO 1 tab DAILY JANENE Administration Mupirocin 1 applic 07/07/17 13:00 07/11/17 10:07 Bactroban 2% Ointment - TP 1 applic BID JANENE Administration Rosuvastatin Calcium 10 mg 07/07/17 22:00 07/10/17 21:38 Crestor - PO 10 mg HS JANENE Administration Tamsulosin HCl 0.4 mg 07/07/17 10:00 07/11/17 08:36 Flomax - PO 0.4 mg DAILY@0830 JANENE Administration Microbiology 07/07/17 00:45 Nasopharyngeal Swab Influenza Types A,B Antigen (COLLEEN) - Preliminary 07/07/17 00:45 Nasopharyngeal Swab - Preliminary 07/08/17 11:50 Blood - Peripheral Venous Blood Culture - Preliminary NO GROWTH OBTAINED AFTER 48 HOURS, INCUBATION TO CONTINUE FOR 3 DAYS. 07/08/17 12:04 Blood - Peripheral Venous Blood Culture - Preliminary NO GROWTH OBTAINED AFTER 48 HOURS, INCUBATION TO CONTINUE FOR 3 DAYS. 07/06/17 19:02 Blood - Peripheral Venous Blood Culture - Final Enterococcus Faecalis 07/06/17 19:02 Blood - Peripheral Venous Blood Culture - Preliminary Enterococcus Faecalis 07/06/17 20:04 Leg - Left Lower Gram Stain - Final 07/06/17 20:04 Leg - Left Lower Wound Culture - Final Enterococcus Faecalis Staphylococcus Coagulase Neg 07/07/17 00:35 Urine - Urine - Catheterized Urine Culture - Final NO GROWTH OBTAINED IMAGING 07/06 CXR: bilateral pleural effusions 07/07 CT chest: bilateral pleural effusions R>L; 5.3cm ascending aorta, arch 4.2cm, descending 4.0cm 07/08 CXR: bilateral pleural effusions 07/07 Echo: LV severely reduced, severe global hypokinesis; RV mildly reduced; severe BLAE; trace MR; severe TR; mild pHTN; moderate AI; mild PI 07/07 US LLE: negative DVT ASSESSMENT/PLAN 1) Sepsis secondary to LLE cellulitis enterococcus bacteremia -resolving, pt afebrile, no leukocytosis noted, repeat blood cultures negative, echo negative for vegetation, ID recommends ELANA - vanc (07/07-07/08) rocephin (07/07- ), and ampicillin (07/10 -), as per ID recommendations - ID Dr Hull, consulted and following 2) cardiovascular Atrial fibrillation s/p Watchman's procedure - ventricular paced on cardiac monitoring ventricular ectopy - mag wnl, continue coreg, strict monitoring elevated troponins, secondary to demand ischemia, trended downward hypertension - b/p at goal, continue coreg acute on chronic congestive heart failure - 3 kg weight gain noted,repeat chest xray today unchanged, bibasilar pleural effusions, dyspnea noted on exam, continue lasix 40mg iv - strict i/o and daily weight - cardiology, Dr Samaniego consulted and followed Hyperlipidemia - continue Crestor CAD -continue ASA, Crestor -resume home dose carvedilol Ascending aorta aneurysm (5.3 cm, 06/2014) -continue carvedilol and strict b/p control -followed by CTS at [facility], recommend monitoring with periodic CTs; priscilla prohibitively high risk for open aorta surgery given HF, CAD, Afib, CKD 3) nephrology acute on chronic kidney disease - creatine 1.9 at baseline, strict monitoring with diuresis FEN Fluids: PO intake adequate Electrolytes: replete as indicated Nutrition: low sodium DVT prophylaxis: mechanical AC due to thrombocytopenia Dispo: continues to require inpatient care. Full code. Visit type - Emergency Visit Emergency Visit: Yes ED Registration Date: 07/07/17 Care time: The patient presented to the Emergency Department on the above date and was hospitalized for further evaluation of their emergent condition. - New Patient This patient is new to me today: No - Critical Care Critical Care patient: No - Discharge Referral Referred to [facility] No
[2017-07-11] MEDS: ALBUTEROL SO4 2.5/IPRATROPIUM 0.5 INH SOL 3 ML VIAL.NEB. NEB PRN (14:17)
[2017-07-11] MEDS: ACETAMINOPHEN 325 MG TABLET (FP) PO PRN (14:34)
[2017-07-11] MEDS: ROSUVASTATIN CA 10 MG TABLET (FP) PO SCH (23:24)
[2017-07-11] MEDS: CEFTRIAXONE IN IS-OSM DEXTROSE 2 GM/50 ML BAG IVPB SCH (23:24)
[2017-07-11] MEDS: RANITIDINE HCL 150 MG TABLET (FP) PO SCH (23:26)
[2017-07-12] MEDS: ROSUVASTATIN CA 5 MG TABLET (FP) PO SCH (00:08)
[2017-07-12] MEDS: FAMOTIDINE 20 MG TABLET PO SCH (00:09)
[2017-07-12] MEDS: CEFTRIAXONE 2 GM/100 ML BAG IVPB SCH (00:09)
[2017-07-12] MEDS: AMPICILLIN - 2 GM in SODIUM CHLORIDE 100 ML IVPB SCH ×6 (01:45→22:06)
[2017-07-12] MEDS: ACETAMINOPHEN 325 MG TABLET (FP) PO PRN (05:51)
[2017-07-12] MEDS: ALBUTEROL SO4 2.5/IPRATROPIUM 0.5 INH SOL 3 ML VIAL.NEB. NEB PRN (06:00)
[2017-07-12 06:59] LABS: BASO % 1.1 % (0-2.0); EOS % 4.9 % (0-4.5); HEMATOCRIT 39.4 % (35.4-49); HEMOGLOBIN 12.2 GM/dL (11.7-16.9); LYMPH % 8.6 % (8-40); MCH 28.5 pg (25.7-33.7); MCHC 30.9 g/dl (32.0-35.9); MEAN CELL VOLUME 92.4 fl (80-96); MEAN PLT VOLUME 8.7 fl (7.5-11.1); NEUT % 75.4 % (42.8-82.8); PLATELET COUNT 105 K/MM3 (134-434); RBC 4.26 M/mm3 (4.00-5.60); RDW 17.6 % (11.9-15.9); WHITE BLOOD COUNT 5.2 K/mm3 (4.0-10.0)
[2017-07-12 07:29] LABS: ALBUMIN 2.8 g/dl (3.4-5.0); ANION GAP 12 (8-16); BLOOD UREA NITROGEN 50 mg/dL (7-18); CALCIUM 8.1 mg/dL (8.5-10.1); CHLORIDE 107 mmol/L (98-107); CO2 25 mmol/L (21-32); PHOSPHOROUS 3.4 mg/dL (2.5-4.9); POTASSIUM 4.2 mmol/L (3.5-5.1); SGOT/AST 26 U/L (15-37); SGPT/ALT 46 U/L (12-78); SODIUM 144 mmol/L (136-145)
[2017-07-12 07:31] LABS: ALK PHOS 96 U/L (45-117); BILIRUBIN,TOTAL 0.6 mg/dL (0.2-1.0); GLUCOSE,RANDOM 78 mg/dL (74-106); MAGNESIUM 2.6 mg/dL (1.8-2.4); TOT PROT 6.4 g/dl (6.4-8.2)
[2017-07-12] MEDS ORDERED: PT OWN MED DRAWER 7, Y5N ONE ×5 (07:39→22:02)
[2017-07-12] MEDS: TAMSULOSIN HCL 0.4 MG CAP.ER.24H (FP) PO SCH (08:06)
[2017-07-12] MEDS: FUROSEMIDE 40 MG/4 ML INJECTABLE VIAL IVPUSH SCH (09:53)
[2017-07-12] MEDS: CEFTRIAXONE IN IS-OSM DEXTROSE 2 GM/50 ML BAG IVPB SCH ×2 (09:56→22:09)
[2017-07-12] MEDS: LACTOBACILLUS ACIDOPHILUS 1 EACH TAB (FP) PO SCH (09:57)
[2017-07-12] MEDS: RANITIDINE HCL 150 MG TABLET (FP) PO SCH ×2 (09:57→22:09)
[2017-07-12] MEDS: ASPIRIN 81 MG CHEWABLE TABLETS PO SCH (09:57)
[2017-07-12] MEDS: CARVEDILOL 3.125 MG TABLET (FP) PO SCH ×2 (09:58→22:09)
--- NOTE | 2017-07-12 10:07 | PN ---
Progress Note (short form) - Note Progress Note: Chief Complaint: sepsis, chf History of Present Illness: feels sob still no leg swelling no cp, palpitations ex cigs - Current Medication List Current Medications Generic Name Dose Route Start Last Admin Trade Name Freq PRN Reason Stop Dose Admin Acetaminophen 650 mg 07/10/17 11:04 07/12/17 05:51 Tylenol - PO 650 mg Q6H PRN Administration MILD PAIN Aspirin 81 mg 07/07/17 10:00 07/12/17 09:57 Asa - PO 81 mg DAILY JANENE Administration Benzocaine/Menthol 1 each 07/10/17 11:04 Cepacol Lozenge - MM PRN PRN SORE THROAT Carvedilol 3.125 mg 07/10/17 11:15 07/12/17 09:58 Coreg - PO 3.125 mg BID JANENE Administration Furosemide 40 mg 07/11/17 10:00 07/12/17 09:53 Lasix Injection - IVPUSH 40 mg DAILY JANENE Administration Ampicillin Sodium 2 gm/ Sodium 100 mls @ 200 mls/hr 07/10/17 08:15 07/12/17 08:04 Chloride IVPB 200 mls/hr Q4H JANENE Administration CEFTRIAXONE IN IS-OSM DEXTROSE 2 gm in 50 mls @ 200 mls/hr 07/11/17 23:00 09:56 Ceftriaxone 2 Gm-D5w Bag IVPB 200 mls/hr BID JANENE Administration Lactobacillus Acidophilus 1 tab 07/07/17 12:15 07/12/17 09:57 Bacid - PO 1 tab DAILY JANENE Administration Mupirocin 1 applic 07/07/17 13:00 07/11/17 23:24 Bactroban 2% Ointment - TP 1 applic BID JANENE Administration Ranitidine HCl 150 mg 07/11/17 23:15 07/12/17 09:57 Zantac - PO 150 mg BID JANENE Administration Rosuvastatin Calcium 10 mg 07/11/17 23:00 07/11/17 23:24 Crestor - PO 10 mg HS JANENE Administration Tamsulosin HCl 0.4 mg 07/07/17 10:00 07/12/17 08:06 Flomax - PO 0.4 mg DAILY@0830 JANENE Administration - Objective Vital Signs: Vital Signs Period Temp Pulse Resp BP Sys/Dennison Pulse Ox Last 24 Hr 97.4 F-98.2 F 62-73 20-20 100-136/55-76 97-100 Constitutional: Yes: No Distress, Calm Eyes: No: Sclera Icterus HENT: No: Nasal Congestion Cardiovascular: Yes: Regular Rate and Rhythm, Murmur (HSM apex to axilla ? M.R. murmur (not loud)), S1, S2, Other (PMI non diplaced). No: JVD (seated in chair) , Gallop, S3 Respiratory: Yes: CTA Bilaterally, Diminished (lower 1/3 bilaterally). No: Accessory Muscle Use, Rales, Wheezes Gastrointestinal: Yes: Normal Bowel Sounds, Soft. No: Tenderness Musculoskeletal: Yes: Other (No kyphosis) Extremities: No: Cold Edema: No Integumentary: No: Jaundice Neurological: Yes: Alert, Oriented (x3) Psychiatric: No: Agitated - ....Imaging EKG: Other (tele: afib, V-paced) echo 06/2017: 1 + lve. severe dec lvef, EF 15-20%. mild mod-rve. mild dec rv fn. severe aida. mod ar. mv ring, no sig mr. severe tr. 1+ phtn kermit 04/2016: lve, mod-sev dec lvef, global hk, rve, mod dec rv fcn, mild ar, mv repair with mild mr, sev tr 2/2 icd lead, watchman device functioning normally. chronic bilateral effusions R>L as far back as [address] 06/2017: large rt pleural effusion, smaller lt pleural effusion. thoracic aorta up to 5.3 cm dilation. small ascites. a/p: 87 yo with h/o CAD s/p CABG (09/2006: CHANDLER to LAD, SVG to HL, SVG to OM2, SVG to PDA) and pci (last cath/PCI 10/2012: patent CHANDLER to LAD, SVG to OM2, SVG to Ramus, occluded SVG to RPDA. Had ZENIA PCI to [place] Di[facility], unsuccessful attempt of [place] RCA HR MANAGER), MV ring (28 mm [place]) for severe MR, ischemic CMPathy s /p biv-ICD (BOSSci) with chronic residual bilateral pleural effusions, HTN, HPL , Aflutter ablation 06/2008 (caused inappropriate ICD shocks), afib s/p watchman device [place] [place] and subsequent AV darío ablation, asc ao aneurysm, GIB (?internal hemroids), ckd (bline cr 2.1-2.3), anemia who p/w fever. sepsis - IVF held 07/10, close monitoring of volume status, O2 sat. -Enterococcus Faecalis and [employer] from [facility] on 07/06--BCX's cleared -for KERMIT per ID to confirm no I.E. present and guide duration of abx, assuming pt consents (he wants 's blessing)--will be deferred while he is in active chf with breathlessness at rest. continue diuresis--would like improved respiratory sx status prior to doing KERMIT troponin elevation - flat trend likely demand in setting of sepsis/steven/ckd. CK elevation out of propotion and likely 2/2 LE wound --> eval/mgm't per pmd/id. - ekg v-paced. no concern for acs. ischemic CHF - per office notes, Dry wt is around 145-147 lbs. Does not appear volume overloaded at this time, would priortize tx of sepsis. Effusions slightly progressed here, but patient overall asx from respiratory perspective. hyponatremia and creatinine improving with IVF. CK slightly worse. Baseline creatinine 2.1-2.3. Consider trial off of IVF tomorrow if clinically stable. - 07/11: wt up 7 lbs in 2d (to 151). CXR 07/08 bilat pleural effusions. sob speaking sentences. significant effusions on CXR 07/08 and on exam today. lasix 40 iv qd to start (on 40 po qd at home). trend wt, labs. -07/12: cont iv lasix - resume low dose coreg when bp allows. No omar given ckd. Nitrates and hydral have been held due to low bp tendencies. - lyte repletion per usual aggressive K/Mag targets VTach: - suspect AF with aberrancy (conducted mildly rapidly) > VT - lytes as above - pt has ICD - cont home BB dose--defer future dose titration to dr oropeza outpt f/u afib/flutter s/p ablation, av darío ablation and watchman - contraindication to AC (gib). s/p watchman. con't asa. monitor hgb. - rate controlled. resume coreg when bp allows. Cad s/p cabg, pci: - Stable, no angina while coreg being held. Continue current , asa, statin. steven/CKD: - baseline creat 2.1-2.3 range - stable here s/p biv-ICD (BOSSci): - routine home monitoring and office checks at [place] with EP dr tabares. ascending aorta aneurysm (5.3 cm, 06/2014): - resume coreg when able. - per office notes, stable size. Followed by CTS at [facility] --> rec'd continued monitoring with periodic ct. He would likely be prohibitively high risk for open aorta surgery given his chf and ckd status. Severe MR s/p ring: - no sig mr on repeat echo here.
--- NOTE | 2017-07-12 11:01 | PN ---
Progress Note, Physician Chief Complaint: Events noted pt transferred from [facility] here to telemetry lying in bed--c/o SOB no chest pain fatigue+ weak appearing - Current Medication List Current Medications: Active Medications Acetaminophen (Tylenol -) 650 mg PO Q6H PRN PRN Reason: MILD PAIN Last Admin: 07/12/17 05:51 Dose: 650 mg Aspirin (Asa -) 81 mg PO DAILY [facility] Last Admin: 07/12/17 09:57 Dose: 81 mg Benzocaine/Menthol (Cepacol Lozenge -) 1 each MM PRN PRN PRN Reason: SORE THROAT Carvedilol (Coreg -) 3.125 mg PO BID [facility] Last Admin: 07/12/17 09:58 Dose: 3.125 mg Furosemide (Lasix Injection -) 40 mg IVPUSH DAILY [facility] Last Admin: 07/12/17 09:53 Dose: 40 mg Ampicillin Sodium 2 gm/ Sodium (Chloride) 100 mls @ 200 mls/hr IVPB Q4H [facility] Last Admin: 07/12/17 08:04 Dose: 200 mls/hr CEFTRIAXONE IN IS-OSM DEXTROSE (Ceftriaxone 2 Gm-D5w Bag) 2 gm in 50 mls @ 200 mls/hr IVPB BID [facility] Last Admin: 07/12/17 09:56 Dose: 200 mls/hr Lactobacillus Acidophilus (Bacid -) 1 tab PO DAILY [facility] Last Admin: 07/12/17 09:57 Dose: 1 tab Mupirocin (Bactroban 2% Ointment -) 1 applic TP BID [facility] Last Admin: 07/11/17 23:24 Dose: 1 applic Ranitidine HCl (Zantac -) 150 mg PO BID [facility] Last Admin: 07/12/17 09:57 Dose: 150 mg Rosuvastatin Calcium (Crestor -) 10 mg PO HS [facility] Last Admin: 07/11/17 23:24 Dose: 10 mg Tamsulosin HCl (Flomax -) 0.4 mg PO DAILY@0830 [facility] Last Admin: 07/12/17 08:06 Dose: 0.4 mg - Objective Vital Signs: Vital Signs Temperature 97.4 F L 07/12/17 05:00 Pulse Rate 70 07/12/17 05:00 Respiratory Rate 20 07/12/17 05:00 Blood Pressure 100/74 07/12/17 05:00 O2 Sat by Pulse Oximetry (%) 100 07/11/17 21:00 Constitutional: Yes: No Distress Cardiovascular: Yes: Pulse Irregular, Murmur Respiratory: Yes: Diminished Gastrointestinal: Yes: Normal Bowel Sounds, Soft. No: Tenderness Extremities: Yes: Other (left leg wound- anterior+, surrounding erythema, warm and tender+) Edema: No Labs: CBC, BMP 07/12/17 06:25 07/12/17 06:25 Problem List - Problems (1) Cellulitis Code(s): L03.90 - CELLULITIS, UNSPECIFIED Qualifiers: Site of cellulitis: extremity Site of cellulitis of extremity: lower extremity Laterality: left Qualified Code(s): L03.116 - Cellulitis of left lower limb (2) VALDEMAR (acute kidney injury) Code(s): N17.9 - ACUTE KIDNEY FAILURE, UNSPECIFIED (3) Altered mental status Code(s): R41.82 - ALTERED MENTAL STATUS, UNSPECIFIED Qualifiers: Altered mental status type: transient alteration of awareness Qualified Code(s): R40.4 - Transient alteration of awareness (4) Atrial fibrillation Code(s): I48.91 - UNSPECIFIED ATRIAL FIBRILLATION (5) Sepsis Code(s): A41.9 - SEPSIS, UNSPECIFIED ORGANISM (6) CAD (coronary artery disease) Code(s): I25.10 - ATHSCL HEART DISEASE OF [place] CORONARY ARTERY W/O ANG PCTRS Qualifiers: Coronary Disease-Associated Artery/Lesion type: coronary artery bypass graft (7) CHF (congestive heart failure) Code(s): I50.9 - HEART FAILURE, UNSPECIFIED Assessment/Plan PLAN Sepsis -- Enterooccus fecalis bacteremia -- repeat blood cultures negative -- iv antibiotics ID follow up noted-- pt needs ELANA needs to be stable clinically in order for him to go for ELANA- he is still SOB at rest CHF- on Lasix has dyspnea on rest monitor renal function CKD -- baseline creatinine is 1.9-2 monitor renal function as he being diuresed
--- NOTE | 2017-07-12 11:40 | PN ---
Progress Note, Physician History of Present Illness: Awake and alert Supine in bed No focal complaint. Denies chest pain / dyspnea No c/o fever/ chills Afebrile WBC WNL Platelets improved ESR 8 CRP 2.4 Cr 2.0 BC (07/10) no growth - Current Medication List Current Medications: Active Medications Acetaminophen (Tylenol -) 650 mg PO Q6H PRN PRN Reason: MILD PAIN Last Admin: 07/12/17 05:51 Dose: 650 mg Aspirin (Asa -) 81 mg PO DAILY [facility] Last Admin: 07/12/17 09:57 Dose: 81 mg Benzocaine/Menthol (Cepacol Lozenge -) 1 each MM PRN PRN PRN Reason: SORE THROAT Carvedilol (Coreg -) 3.125 mg PO BID [facility] Last Admin: 07/12/17 09:58 Dose: 3.125 mg Furosemide (Lasix Injection -) 40 mg IVPUSH DAILY [facility] Last Admin: 07/12/17 09:53 Dose: 40 mg Ampicillin Sodium 2 gm/ Sodium (Chloride) 100 mls @ 200 mls/hr IVPB Q4H [facility] Last Admin: 07/12/17 08:04 Dose: 200 mls/hr CEFTRIAXONE IN IS-OSM DEXTROSE (Ceftriaxone 2 Gm-D5w Bag) 2 gm in 50 mls @ 200 mls/hr IVPB BID [facility] Last Admin: 07/12/17 09:56 Dose: 200 mls/hr Lactobacillus Acidophilus (Bacid -) 1 tab PO DAILY [facility] Last Admin: 07/12/17 09:57 Dose: 1 tab Mupirocin (Bactroban 2% Ointment -) 1 applic TP BID [facility] Last Admin: 07/11/17 23:24 Dose: 1 applic Ranitidine HCl (Zantac -) 150 mg PO BID [facility] Last Admin: 07/12/17 09:57 Dose: 150 mg Rosuvastatin Calcium (Crestor -) 10 mg PO HS [facility] Last Admin: 07/11/17 23:24 Dose: 10 mg Tamsulosin HCl (Flomax -) 0.4 mg PO DAILY@0830 [facility] Last Admin: 07/12/17 08:06 Dose: 0.4 mg - Objective Vital Signs: Vital Signs Temperature 98 F 07/12/17 09:00 Pulse Rate 70 07/12/17 09:00 Respiratory Rate 20 07/12/17 09:00 Blood Pressure 109/64 07/12/17 09:00 O2 Sat by Pulse Oximetry (%) 100 07/11/17 21:00 Constitutional: Yes: No Distress Eyes: Yes: Conjunctiva Clear Cardiovascular: Yes: Regular Rate and Rhythm, Murmur, S1, S2 Respiratory: Yes: CTA Bilaterally Gastrointestinal: Yes: Normal Bowel Sounds, Soft. No: Tenderness Edema: No Labs: CBC, BMP 07/12/17 06:25 07/12/17 06:25 Assessment/Plan Enterococcal bacteremia/ sepsis leg source Laceration/ Cellulitis L LE improved S/P MV repair 2006 Lactic acidosis resolved Thrombocytopenia- improved Azotemia Repeat BC x 2 no growth Continue ampicillin /ceftriaxone For ELANA
[2017-07-12] MEDS: MUPIROCIN 2% TOPICAL OINTMENT 22 GM TUBE TP SCH ×2 (16:36→22:08)
[2017-07-12] MEDS: ROSUVASTATIN CA 10 MG TABLET (FP) PO SCH (22:09)
[2017-07-13] MEDS ORDERED: PT OWN MED DRAWER 7, Y5N ONE ×4 (01:12→22:33)
[2017-07-13] MEDS: AMPICILLIN - 2 GM in SODIUM CHLORIDE 100 ML IVPB SCH ×6 (01:54→22:34)
--- NOTE | 2017-07-13 03:13 | HOSP ---
Subjective - Review of Symptoms Events since last encounter: called by nurse who reports nose bleed. As per nurse had nose bleed earlier that stopped spontaneously with minimal pressure. Now again with "profuse" nose bleed. clots noted on sheet. Physical Examination Vital Signs: Vital Signs Temperature 97.6 F 07/13/17 02:26 Pulse Rate 71 07/13/17 02:26 Respiratory Rate 20 07/13/17 02:26 Blood Pressure 101/55 07/13/17 02:26 O2 Sat by Pulse Oximetry (%) 98 07/12/17 22:00 Findings/Remarks: oozing noted from left nare. No blood noted in posterior pharynx. 2x2 gauze rolled and inserted into left nare. advised pt to leave in place. Labs: CBC, BMP 07/12/17 06:25 07/12/17 06:25 Hospitalist Encounter Assessment: nosebleed - gently packed with 2x2, will leave in place til am - Pt was receiving O2 via NC. advised to humidify same. - if nosebleed recurs, ENT consult - hold ASA in am.
[2017-07-13 07:00] LABS: BASO % 1.1 % (0-2.0); EOS % 4.7 % (0-4.5); HEMATOCRIT 38.4 % (35.4-49); HEMOGLOBIN 11.9 GM/dL (11.7-16.9); LYMPH % 7.1 % (8-40); MCH 28.6 pg (25.7-33.7); MCHC 30.9 g/dl (32.0-35.9); MEAN CELL VOLUME 92.6 fl (80-96); MEAN PLT VOLUME 8.7 fl (7.5-11.1); MONO % 9.3 % (3.8-10.2); NEUT % 77.8 % (42.8-82.8); PLATELET COUNT 97 K/MM3 (134-434); RBC 4.15 M/mm3 (4.00-5.60); RDW 17.7 % (11.9-15.9); WHITE BLOOD COUNT 5.3 K/mm3 (4.0-10.0)
[2017-07-13 07:31] LABS: ALBUMIN 2.7 g/dl (3.4-5.0); ANION GAP 12 (8-16); BILIRUBIN,TOTAL 0.5 mg/dL (0.2-1.0); BLOOD UREA NITROGEN 49 mg/dL (7-18); CALCIUM 8.2 mg/dL (8.5-10.1); CHLORIDE 107 mmol/L (98-107); CO2 25 mmol/L (21-32); CREATININE 2.2 mg/dL (0.7-1.3); GLUCOSE,RANDOM 85 mg/dL (74-106); POTASSIUM 3.9 mmol/L (3.5-5.1); SGOT/AST 21 U/L (15-37); SGPT/ALT 36 U/L (12-78); SODIUM 144 mmol/L (136-145)
[2017-07-13 07:32] LABS: ALK PHOS 91 U/L (45-117); TOT PROT 6.3 g/dl (6.4-8.2)
[2017-07-13] MEDS: RANITIDINE HCL 150 MG TABLET (FP) PO SCH ×2 (09:31→22:35)
[2017-07-13] MEDS: CEFTRIAXONE IN IS-OSM DEXTROSE 2 GM/50 ML BAG IVPB SCH ×2 (09:31→22:35)
[2017-07-13] MEDS: LACTOBACILLUS ACIDOPHILUS 1 EACH TAB (FP) PO SCH (09:31)
[2017-07-13] MEDS: CARVEDILOL 3.125 MG TABLET (FP) PO SCH ×2 (09:31→22:35)
[2017-07-13] MEDS: TAMSULOSIN HCL 0.4 MG CAP.ER.24H (FP) PO SCH (09:31)
[2017-07-13] MEDS: MUPIROCIN 2% TOPICAL OINTMENT 22 GM TUBE TP SCH ×2 (09:32→22:34)
--- NOTE | 2017-07-13 11:11 | PN ---
Progress Note (short form) - Note Progress Note: Chief Complaint: sepsis, chf History of Present Illness: feels sob still no leg swelling no cp, palpitations ex cigs - Current Medication List Current Medications Generic Name Dose Route Start Last Admin Trade Name Freq PRN Reason Stop Dose Admin Acetaminophen 650 mg 07/10/17 11:04 07/12/17 05:51 Tylenol - PO 650 mg Q6H PRN Administration MILD PAIN Aspirin 81 mg 07/07/17 10:00 07/12/17 09:57 Asa - PO 81 mg DAILY JANENE Administration Benzocaine/Menthol 1 each 07/10/17 11:04 Cepacol Lozenge - MM PRN PRN SORE THROAT Carvedilol 3.125 mg 07/10/17 11:15 07/13/17 09:31 Coreg - PO 3.125 mg BID JANNEE Administration Furosemide 40 mg 07/13/17 14:00 Lasix Injection - IVPUSH BIDLASIX JANENE Ampicillin Sodium 2 gm/ Sodium 100 mls @ 200 mls/hr 07/10/17 08:15 07/13/17 11:06 Chloride IVPB 200 mls/hr Q4H JANENE Administration CEFTRIAXONE IN IS-OSM DEXTROSE 2 gm in 50 mls @ 200 mls/hr 07/11/17 23:00 09:31 Ceftriaxone 2 Gm-D5w Bag IVPB 200 mls/hr BID JANENE Administration Lactobacillus Acidophilus 1 tab 07/07/17 12:15 07/13/17 09:31 Bacid - PO 1 tab DAILY JANENE Administration Mupirocin 1 applic 07/07/17 13:00 07/13/17 09:32 Bactroban 2% Ointment - TP 1 applic BID JANENE Administration Ranitidine HCl 150 mg 07/11/17 23:15 07/13/17 09:31 Zantac - PO 150 mg BID JANENE Administration Rosuvastatin Calcium 10 mg 07/11/17 23:00 07/12/17 22:09 Crestor - PO 10 mg HS JANENE Administration Tamsulosin HCl 0.4 mg 07/07/17 10:00 07/13/17 09:31 Flomax - PO 0.4 mg DAILY@0830 JANENE Administration - Objective Vital Signs: Vital Signs Period Temp Pulse Resp BP Sys/Dennison Pulse Ox Last 24 Hr 97.4 F-98.2 F 70-74 18-20 100-126/55-73 98-98 Constitutional: Yes: No Distress, Calm Eyes: No: Sclera Icterus HENT: No: Nasal Congestion Cardiovascular: Yes: Regular Rate and Rhythm, Murmur (HSM apex to axilla ? M.R. murmur (not loud)), S1, S2, Other (PMI non diplaced). No: JVD (seated in chair) , Gallop, S3 Respiratory: Yes: CTA Bilaterally, Diminished (lower 1/3 bilaterally). No: Accessory Muscle Use, Rales, Wheezes Gastrointestinal: Yes: Normal Bowel Sounds, Soft. No: Tenderness Musculoskeletal: Yes: Other (No kyphosis) Extremities: No: Cold Edema: No Integumentary: No: Jaundice Neurological: Yes: Alert, Oriented (x3) Psychiatric: No: Agitated - ....Imaging EKG: Other (tele: afib, V-paced) echo 06/2017: 1 + lve. severe dec lvef, EF 15-20%. mild mod-rve. mild dec rv fn. severe aida. mod ar. mv ring, no sig mr. severe tr. 1+ phtn kermit 04/2016: lve, mod-sev dec lvef, global hk, rve, mod dec rv fcn, mild ar, mv repair with mild mr, sev tr 2/2 icd lead, watchman device functioning normally. chronic bilateral effusions R>L as far back as [address] 06/2017: large rt pleural effusion, smaller lt pleural effusion. thoracic aorta up to 5.3 cm dilation. small ascites. a/p: 87 yo with h/o CAD s/p CABG (09/2006: CHANDLER to LAD, SVG to HL, SVG to OM2, SVG to PDA) and pci (last cath/PCI 10/2012: patent CHANDLER to LAD, SVG to OM2, SVG to Ramus, occluded SVG to RPDA. Had ZENIA PCI to [place] [facility], unsuccessful attempt of [place] [employer]), MV ring (28 mm Tyler) for severe MR, ischemic CMPathy s /p biv-ICD (BOSSci) with chronic residual bilateral pleural effusions, HTN, HPL , Aflutter ablation 06/2008 (caused inappropriate ICD shocks), afib s/p watchman device 06/2015 ([facility] [place] and subsequent AV darío ablation, asc ao aneurysm, GIB (?internal hemroids), ckd (bline cr 2.1-2.3), anemia who p/w fever. sepsis - IVF held 07/10, close monitoring of volume status, O2 sat. 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 present and guide duration of abx, assuming pt consents (he wants 's blessing)--will be deferred while he is in active chf with breathlessness at rest. continue diuresis--would like improved respiratory sx status prior to doing KERMIT troponin elevation - flat trend likely demand in setting of sepsis/steven/ckd. CK elevation out of propotion and likely 2/2 LE wound --> eval/mgm't per pmd/id. - ekg v-paced. no concern for acs. ischemic CHF - per office notes, Dry wt is around 145-147 lbs. Does not appear volume overloaded at this time, would priortize tx of sepsis. Effusions slightly progressed here, but patient overall asx from respiratory perspective. hyponatremia and creatinine improving with IVF. CK slightly worse. Baseline creatinine 2.1-2.3. Consider trial off of IVF tomorrow if clinically stable. - 07/11: wt up 7 lbs in 2d (to 151). CXR 07/08 bilat pleural effusions. sob speaking sentences. significant effusions on CXR 07/08 and on exam today. lasix 40 iv qd to start (on 40 po qd at home). trend wt, labs. -07/12: cont iv lasix -07/13: no sig change in wt, cr stable, will increase lasix to 40 iv bid - resume low dose coreg when bp allows. No omar given ckd. Nitrates and hydral have been held due to low bp tendencies. - lyte repletion per usual aggressive K/Mag targets afib/flutter s/p ablation, av darío ablation and watchman - contraindication to AC (gib). s/p watchman. con't asa. monitor hgb. - rate controlled. resume coreg when bp allows. Cad s/p cabg, pci: - Stable, no angina while coreg being held. Continue current , asa, statin. steven/CKD: - baseline creat 2.1-2.3 range - stable here s/p biv-ICD (BOSSci): - routine home monitoring and office checks at [place] with EP dr tabares. ascending aorta aneurysm (5.3 cm, 06/2014): - resume coreg when able. - per office notes, stable size. Followed by CTS at [facility] --> rec'd continued monitoring with periodic ct. He would likely be prohibitively high risk for open aorta surgery given his chf and ckd status. Severe MR s/p ring: - no sig mr on repeat echo here.
--- NOTE | 2017-07-13 11:20 | PN ---
Progress Note, Physician Chief Complaint: Sleepy today had epistaxis this AM - Current Medication List Current Medications: Active Medications Acetaminophen (Tylenol -) 650 mg PO Q6H PRN PRN Reason: MILD PAIN Last Admin: 07/12/17 05:51 Dose: 650 mg Aspirin (Asa -) 81 mg PO DAILY [facility] Last Admin: 07/12/17 09:57 Dose: 81 mg Benzocaine/Menthol (Cepacol Lozenge -) 1 each MM PRN PRN PRN Reason: SORE THROAT Carvedilol (Coreg -) 3.125 mg PO BID [facility] Last Admin: 07/13/17 09:31 Dose: 3.125 mg Furosemide (Lasix Injection -) 40 mg IVPUSH BIDLASIX [facility] Ampicillin Sodium 2 gm/ Sodium (Chloride) 100 mls @ 200 mls/hr IVPB Q4H [facility] Last Admin: 07/13/17 11:06 Dose: 200 mls/hr CEFTRIAXONE IN IS-OSM DEXTROSE (Ceftriaxone 2 Gm-D5w Bag) 2 gm in 50 mls @ 200 mls/hr IVPB BID [facility] Last Admin: 07/13/17 09:31 Dose: 200 mls/hr Lactobacillus Acidophilus (Bacid -) 1 tab PO DAILY [facility] Last Admin: 07/13/17 09:31 Dose: 1 tab Mupirocin (Bactroban 2% Ointment -) 1 applic TP BID [facility] Last Admin: 07/13/17 09:32 Dose: 1 applic Ranitidine HCl (Zantac -) 150 mg PO BID [facility] Last Admin: 07/13/17 09:31 Dose: 150 mg Rosuvastatin Calcium (Crestor -) 10 mg PO HS [facility] Last Admin: 07/12/17 22:09 Dose: 10 mg Tamsulosin HCl (Flomax -) 0.4 mg PO DAILY@0830 [facility] Last Admin: 07/13/17 09:31 Dose: 0.4 mg - Objective Vital Signs: Vital Signs Temperature 98.2 F 07/13/17 05:57 Pulse Rate 74 07/13/17 05:57 Respiratory Rate 18 07/13/17 05:57 Blood Pressure 100/58 07/13/17 05:57 O2 Sat by Pulse Oximetry (%) 98 07/12/17 22:00 Constitutional: Yes: Mild Distress Cardiovascular: Yes: Pulse Irregular, Murmur Respiratory: Yes: Diminished, Rales Gastrointestinal: Yes: Normal Bowel Sounds, Soft. No: Tenderness Edema: Yes Edema: LLE: Trace, RLE: Trace Labs: CBC, BMP 07/13/17 06:35 07/13/17 06:35 Problem List - Problems (1) Cellulitis Code(s): L03.90 - CELLULITIS, UNSPECIFIED Qualifiers: Site of cellulitis: extremity Site of cellulitis of extremity: lower extremity Laterality: left Qualified Code(s): L03.116 - Cellulitis of left lower limb (2) VALDEMAR (acute kidney injury) Code(s): N17.9 - ACUTE KIDNEY FAILURE, UNSPECIFIED (3) Altered mental status Code(s): R41.82 - ALTERED MENTAL STATUS, UNSPECIFIED Qualifiers: Altered mental status type: transient alteration of awareness Qualified Code(s): R40.4 - Transient alteration of awareness (4) Atrial fibrillation Code(s): I48.91 - UNSPECIFIED ATRIAL FIBRILLATION (5) Sepsis Code(s): A41.9 - SEPSIS, UNSPECIFIED ORGANISM (6) CAD (coronary artery disease) Code(s): I25.10 - ATHSCL HEART DISEASE OF [place] CORONARY ARTERY W/O ANG PCTRS Qualifiers: Coronary Disease-Associated Artery/Lesion type: coronary artery bypass graft (7) CHF (congestive heart failure) Code(s): I50.9 - HEART FAILURE, UNSPECIFIED Assessment/Plan PLAN Sepsis -- Enterooccus fecalis bacteremia -- repeat blood cultures negative -- iv antibiotics ID follow up noted-- pt needs ELANA needs to be stable clinically in order for him to go for ELANA- he is still SOB at rest CHF- on Lasix has dyspnea on rest monitor renal function check ABG today check CXR CKD -- baseline creatinine is 1.9-2 monitor renal function as he being diuresed -- increased Creatinine-- will consult Renal Thrombocytopenia -- monitor platelets trend -- ASA on hold -- spoke with today
[2017-07-13] MEDS ORDERED: SODIUM CHLORIDE NASAL SPRAY 44 ML BOTTLE NS PRN (13:00)
--- NOTE | 2017-07-13 13:20 | CONSULT ---
Consult Consult Specialty:: Nephrology Reason for Consultation:: ckd - History of Present Illness Chief Complaint: initially presented with sore throat History of Present Illness: Pt is an 87 year old male with pmhx of CAD, CHF, a-fib, and UTI who presented to the ER with sore throat, diarrhea, fever and vomiting. He took a z-pack as outpt but it did not help much. He had several episodes of vomiting and diarrhea. He has a left lower ext wound that appears to be infected. I was called to evaluate him for CKD and to help with volume status. He denies shortness of breath. He was confused overnight. He denies chest pain. He does have a cough. - History Source History Provided By: Patient, Medical Record - Past Medical History Cardio/Vascular: Yes: AFIB (s/p watchman device), CAD (status post CABG in 2003) , CHF (status post AICD), HTN, Hyperlipdemia Gastrointestinal: Yes: Diverticulosis, GI Bleed Renal/: Yes: Renal Inusuff, BPH Musculoskeletal: Yes: Chronic low back pain - Past Surgical History Past Surgical History: Yes: AICD, CABG - Alcohol/Substance Use Hx Alcohol Use: No - Smoking History Smoking history: Former smoker Have you smoked in the past 12 months: No If you are a former smoker, when did you quit?: 2001 - Social History Usual Living Arrangement: With Spouse ADL: Independent History of Recent Travel: No Home Medications - Allergies Allergies/Adverse Reactions: Allergies Allergy/AdvReac Type Severity Reaction Status Date / Time mirtazapine [From Remeron] AdvReac Verified 07/06/17 18:31 - Home Medications Home Medications: Ambulatory Orders Cholecalciferol (Vitamin D3) [Vitamin D3] 1,000 unit PO DAILY 02/12/15 Rosuvastatin Calcium [Crestor] 10 mg PO HS 02/12/15 Aspirin [ASA -] 81 mg PO DAILY 08/26/15 Tamsulosin HCl [Flomax -] 0.4 mg PO DAILY 08/26/15 Furosemide [Lasix -] 40 mg PO DAILY 09/11/15 Carvedilol [Coreg -] 3.125 mg PO BID #60 tablet 09/24/15 Iron Ps Complex/B12/Folic Acid [Ferrex 150 Forte Capsule] 1 each PO DAILY Family Disease History - Family Disease History Family History: Denies Review of Systems - Review of Systems Constitutional: reports: Chills, Malaise Eyes: reports: No Symptoms HENT: reports: No Symptoms Neck: reports: No Symptoms Cardiovascular: reports: No Symptoms Respiratory: reports: Cough, Wheezing Gastrointestinal: reports: No Symptoms Genitourinary: reports: No Symptoms Musculoskeletal: reports: No Symptoms Integumentary: reports: Wound Psychiatric: reports: No Symptoms Physical Exam Vital Signs: Vital Signs Temperature 98.2 F 07/13/17 05:57 Pulse Rate 74 07/13/17 05:57 Respiratory Rate 18 07/13/17 05:57 Blood Pressure 100/58 07/13/17 05:57 O2 Sat by Pulse Oximetry (%) 98 07/12/17 22:00 Constitutional: Yes: Calm Eyes: Yes: Conjunctiva Clear HENT: Yes: Atraumatic Neck: Yes: Supple Cardiovascular: Yes: S1, S2 Respiratory: Yes: On Nasal O2, Wheezes Gastrointestinal: Yes: Soft Renal/: Yes: WNL Musculoskeletal: Yes: WNL Edema: No Wound/Incision: Yes: Dressing Dry and Intact Neurological: Yes: Oriented Labs: CBC, BMP 07/13/17 06:35 07/13/17 06:35 Laboratory Tests 11/04/16 11/06/16 11/10/16 06:26 06:00 06:20 Creatinine 3.2 H 3.3 H 2.2 H 07/07/17 07/10/17 07/12/17 07:05 06:30 06:25 Creatinine 2.6 H 2.0 H 2.0 H 07/13/17 06:35 Creatinine 2.2 H Imaging - Results X-ray: Report Reviewed Problem List - Problems (1) CKD (chronic kidney disease) Code(s): N18.9 - CHRONIC KIDNEY DISEASE, UNSPECIFIED (2) Cellulitis Code(s): L03.90 - CELLULITIS, UNSPECIFIED Qualifiers: Site of cellulitis: extremity Site of cellulitis of extremity: lower extremity Laterality: left Qualified Code(s): L03.116 - Cellulitis of left lower limb (3) Atrial fibrillation Code(s): I48.91 - UNSPECIFIED ATRIAL FIBRILLATION (4) CAD (coronary artery disease) Code(s): I25.10 - ATHSCL HEART DISEASE OF [place] CORONARY ARTERY W/O ANG PCTRS Qualifiers: Coronary Disease-Associated Artery/Lesion type: coronary artery bypass graft (5) CHF (congestive heart failure) Code(s): I50.9 - HEART FAILURE, UNSPECIFIED Assessment/Plan Current Medications Generic Name Dose Route Start Last Admin Trade Name Freq PRN Reason Stop Dose Admin Acetaminophen 650 mg 07/10/17 11:04 07/12/17 05:51 Tylenol - PO 650 mg Q6H PRN Administration MILD PAIN Benzocaine/Menthol 1 each 07/10/17 11:04 Cepacol Lozenge - MM PRN PRN SORE THROAT Carvedilol 3.125 mg 07/10/17 11:15 07/13/17 09:31 Coreg - PO 3.125 mg BID JANENE Administration Furosemide 40 mg 07/13/17 14:00 07/13/17 13:47 Lasix Injection - IVPUSH 40 mg BIDLASIX JANENE Administration Ampicillin Sodium 2 gm/ Sodium 100 mls @ 200 mls/hr 07/10/17 08:15 07/13/17 13:47 Chloride IVPB 200 mls/hr Q4H JANENE Administration CEFTRIAXONE IN IS-OSM DEXTROSE 2 gm in 50 mls @ 200 mls/hr 07/11/17 23:00 09:31 Ceftriaxone 2 Gm-D5w Bag IVPB 200 mls/hr BID JANENE Administration Lactobacillus Acidophilus 1 tab 07/07/17 12:15 07/13/17 09:31 Bacid - PO 1 tab DAILY JANENE Administration Mupirocin 1 applic 07/07/17 13:00 07/13/17 09:32 Bactroban 2% Ointment - TP 1 applic BID JANENE Administration Ranitidine HCl 150 mg 07/11/17 23:15 07/13/17 09:31 Zantac - PO 150 mg BID JANENE Administration Rosuvastatin Calcium 10 mg 07/11/17 23:00 07/12/17 22:09 Crestor - PO 10 mg HS JANENE Administration Sodium Chloride 2 spray 07/13/17 13:00 [place] Nasal [place] - NS BID PRN NASAL CONGESTION Tamsulosin HCl 0.4 mg 07/07/17 10:00 07/13/17 09:31 Flomax - PO 0.4 mg DAILY@0830 JANENE Administration Impression 1. CKD 2. cellulitis 3. sepsis 4. pleural effusions 5. CAD with hx CABG 6. anemia 7. hx of GI bleed 8. a-fib 9. hyperlipidemia 10. renal cyst 11. CHF Plan - cont with lasix - repeat labs in am - will need repeat cxr in next 24 to 48 hrs - one to one feeds - cont oxygen and monitor pulse ox - cont abx - follow cultures - will follow Dr Francois
[2017-07-13] MEDS: FUROSEMIDE 40 MG/4 ML INJECTABLE VIAL IVPUSH SCH (13:47)
[2017-07-13 15:08] LABS: ARTERIAL BLD GAS O2 SATURATION 97.4 % (90-98.9); ARTERIAL BLOOD GAS BASE EXCESS -3.1 meq/l (-2-2); ARTERIAL BLOOD GAS PCO2 55.9 mmHg (35-45); ARTERIAL BLOOD GAS pH 7.26 (7.35-7.45)
[2017-07-13 15:09] LABS: ALLENS TEST POSITIVE
[2017-07-13] MEDS: ROSUVASTATIN CA 10 MG TABLET (FP) PO SCH (22:35)
[2017-07-14] MEDS: AMPICILLIN - 2 GM in SODIUM CHLORIDE 100 ML IVPB SCH ×6 (01:42→19:58)
[2017-07-14] MEDS: ACETAMINOPHEN 325 MG TABLET (FP) PO PRN (06:30)
[2017-07-14] MEDS: FUROSEMIDE 40 MG/4 ML INJECTABLE VIAL IVPUSH SCH ×2 (06:30→13:32)
[2017-07-14 06:34] LABS: BASO % 1.1 % (0-2.0); EOS % 4.4 % (0-4.5); HEMATOCRIT 35.6 % (35.4-49); HEMOGLOBIN 11.4 GM/dL (11.7-16.9); LYMPH % 7.9 % (8-40); MCH 29.6 pg (25.7-33.7); MCHC 31.9 g/dl (32.0-35.9); MEAN CELL VOLUME 92.8 fl (80-96); MEAN PLT VOLUME 8.5 fl (7.5-11.1); NEUT % 76.6 % (42.8-82.8); PLATELET COUNT 91 K/MM3 (134-434); RBC 3.83 M/mm3 (4.00-5.60); RDW 17.7 % (11.9-15.9); WHITE BLOOD COUNT 4.6 K/mm3 (4.0-10.0)
[2017-07-14 06:55] LABS: ALBUMIN 2.7 g/dl (3.4-5.0); ANION GAP 8 (8-16); BLOOD UREA NITROGEN 52 mg/dL (7-18); CALCIUM 7.8 mg/dL (8.5-10.1); CHLORIDE 108 mmol/L (98-107); CO2 27 mmol/L (21-32); CREATININE 2.4 mg/dL (0.7-1.3); GLUCOSE,RANDOM 85 mg/dL (74-106); POTASSIUM 4.4 mmol/L (3.5-5.1); SGOT/AST 12 U/L (15-37); SODIUM 143 mmol/L (136-145)
[2017-07-14 06:57] LABS: ALK PHOS 85 U/L (45-117); BILIRUBIN,TOTAL 0.5 mg/dL (0.2-1.0); SGPT/ALT 26 U/L (12-78)
[2017-07-14] MEDS ORDERED: PT OWN MED DRAWER 7, Y5N ONE ×5 (07:57→19:45)
[2017-07-14] MEDS: TAMSULOSIN HCL 0.4 MG CAP.ER.24H (FP) PO SCH (09:43)
[2017-07-14] MEDS: CARVEDILOL 3.125 MG TABLET (FP) PO SCH ×2 (09:43→21:11)
[2017-07-14] MEDS: CEFTRIAXONE IN IS-OSM DEXTROSE 2 GM/50 ML BAG IVPB SCH ×2 (09:43→21:11)
[2017-07-14] MEDS: RANITIDINE HCL 150 MG TABLET (FP) PO SCH ×2 (09:43→21:11)
[2017-07-14] MEDS: LACTOBACILLUS ACIDOPHILUS 1 EACH TAB (FP) PO SCH (09:43)
[2017-07-14] MEDS: MUPIROCIN 2% TOPICAL OINTMENT 22 GM TUBE TP SCH ×2 (09:43→21:11)
--- NOTE | 2017-07-14 11:11 | PN ---
Progress Note (short form) - Note Progress Note: Chief Complaint: sepsis, chf History of Present Illness: feels sob still no leg swelling no cp, palpitations ex cigs - Current Medication List Current Medications Generic Name Dose Route Start Last Admin Trade Name Freq PRN Reason Stop Dose Admin Acetaminophen 650 mg 07/10/17 11:04 07/14/17 06:30 Tylenol - PO 650 mg Q6H PRN Administration MILD PAIN Benzocaine/Menthol 1 each 07/10/17 11:04 Cepacol Lozenge - MM PRN PRN SORE THROAT Carvedilol 3.125 mg 07/10/17 11:15 07/14/17 09:43 Coreg - PO 3.125 mg BID JANENE Administration Furosemide 40 mg 07/13/17 14:00 07/14/17 06:30 Lasix Injection - IVPUSH 40 mg BIDLASIX JANENE Administration Ampicillin Sodium 2 gm/ Sodium 100 mls @ 200 mls/hr 07/10/17 08:15 07/14/17 08:02 Chloride IVPB 200 mls/hr Q4H JANENE Administration CEFTRIAXONE IN IS-OSM DEXTROSE 2 gm in 50 mls @ 200 mls/hr 07/11/17 23:00 06/02 09:43 Ceftriaxone 2 Gm-D5w Bag IVPB 200 mls/hr BID JANENE Administration Lactobacillus Acidophilus 1 tab 07/07/17 12:15 07/14/17 09:43 Bacid - PO 1 tab DAILY JANENE Administration Mupirocin 1 applic 07/07/17 13:00 07/14/17 09:43 Bactroban 2% Ointment - TP 1 applic BID JANENE Administration Ranitidine HCl 150 mg 07/11/17 23:15 07/14/17 09:43 Zantac - PO 150 mg BID AJNENE Administration Rosuvastatin Calcium 10 mg 07/11/17 23:00 07/13/17 22:35 Crestor - PO 10 mg HS JANENE Administration Sodium Chloride 2 spray 07/13/17 13:00 07/13/17 18:08 [place] Nasal [place] - NS 2 spray BID PRN Administration NASAL CONGESTION Tamsulosin HCl 0.4 mg 07/07/17 10:00 07/14/17 09:43 Flomax - PO 0.4 mg DAILY@0830 JANENE Administration - Objective Vital Signs: Vital Signs Period Temp Pulse Resp BP Sys/Dennison Pulse Ox Last 24 Hr 97.4 F-98.9 F 70-76 20-22 98-142/51-75 100 Constitutional: Yes: No Distress, Calm Eyes: No: Sclera Icterus HENT: No: Nasal Congestion Cardiovascular: Yes: Regular Rate and Rhythm, Murmur (HSM apex to axilla ? M.R. murmur (not loud)), S1, S2, Other (PMI non diplaced). No: JVD (seated in chair) , Gallop, S3 Respiratory: Yes: CTA Bilaterally, Diminished (lower 1/3 bilaterally). No: Accessory Muscle Use, Rales, Wheezes Gastrointestinal: Yes: Normal Bowel Sounds, Soft. No: Tenderness Musculoskeletal: Yes: Other (No kyphosis) Extremities: No: Cold Edema: No Integumentary: No: Jaundice Neurological: Yes: Alert, Oriented (x3) Psychiatric: No: Agitated - ....Imaging EKG: Other (tele: afib, V-paced) echo 06/2017: 1 + lve. severe dec lvef, EF 15-20%. mild mod-rve. mild dec rv fn. severe aida. mod ar. mv ring, no sig mr. severe tr. 1+ phtn kermit 04/2016: lve, mod-sev dec lvef, global hk, rve, mod dec rv fcn, mild ar, mv repair with mild mr, sev tr 2/2 icd lead, watchman device functioning normally. chronic bilateral effusions R>L as far back as [address] 06/2017: large rt pleural effusion, smaller lt pleural effusion. thoracic aorta up to 5.3 cm dilation. small ascites. a/p: 87 yo with h/o CAD s/p CABG (09/2006: CHANDLER to LAD, SVG to HL, SVG to OM2, SVG to PDA) and pci (last cath/PCI 10/2012: patent CHANDLER to LAD, SVG to OM2, SVG to Ramus, occluded SVG to RPDA. 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 sepsis - IVF held 07/10, close monitoring of volume status, O2 sat. 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 present and guide duration of abx, assuming pt consents (he wants 's blessing)--will be deferred while he is in active chf with breathlessness at rest. continue diuresis--would like improved respiratory sx status prior to doing KERMIT troponin elevation - flat trend likely demand in setting of sepsis/steven/ckd. CK elevation out of propotion and likely 2/2 LE wound --> eval/mgm't per pmd/id. - ekg v-paced. no concern for acs. ischemic CHF - per office notes, Dry wt is around 145-147 lbs. Does not appear volume overloaded at this time, would priortize tx of sepsis. Effusions slightly progressed here, but patient overall asx from respiratory perspective. hyponatremia and creatinine improving with IVF. CK slightly worse. Baseline creatinine 2.1-2.3. Consider trial off of IVF tomorrow if clinically stable. - 07/11: wt up 7 lbs in 2d (to 151). CXR 07/08 bilat pleural effusions. sob speaking sentences. significant effusions on CXR 07/08 and on exam today. lasix 40 iv qd to start (on 40 po qd at home). trend wt, labs. -07/12: cont iv lasix -07/13: no sig change in wt, cr stable, will increase lasix to 40 iv bid -: cont lasix 40 iv bid - resume low dose coreg when bp allows. No omar given ckd. Nitrates and hydral have been held due to low bp tendencies. - lyte repletion per usual aggressive K/Mag targets afib/flutter s/p ablation, av darío ablation and watchman - contraindication to AC (gib). s/p watchman. con't asa. monitor hgb. - rate controlled. resume coreg when bp allows. Cad s/p cabg, pci: - Stable, no angina while coreg being held. Continue current , asa, statin. steven/CKD: - baseline creat 2.1-2.3 range - stable here s/p biv-ICD ([employer]i): - routine home monitoring and office checks at [place] with EP dr tabares. ascending aorta aneurysm (5.3 cm, 06/2014): - resume coreg when able. - per office notes, stable size. Followed by CTS at [facility] --> rec'd continued monitoring with periodic ct. He would likely be prohibitively high risk for open aorta surgery given his chf and ckd status. Severe MR s/p ring: - no sig mr on repeat echo here.
--- NOTE | 2017-07-14 12:39 | PN ---
Progress Note, Physician Chief Complaint: Sleepy no epistaxis SOB in bed As per nurse, he is very SOB when ambulating - Current Medication List Current Medications: Active Medications Acetaminophen (Tylenol -) 650 mg PO Q6H PRN PRN Reason: MILD PAIN Last Admin: 07/14/17 06:30 Dose: 650 mg Benzocaine/Menthol (Cepacol Lozenge -) 1 each MM PRN PRN PRN Reason: SORE THROAT Carvedilol (Coreg -) 3.125 mg PO BID [facility] Last Admin: 07/14/17 09:43 Dose: 3.125 mg Furosemide (Lasix Injection -) 40 mg IVPUSH BIDLASIX [facility] Last Admin: 07/14/17 06:30 Dose: 40 mg Ampicillin Sodium 2 gm/ Sodium (Chloride) 100 mls @ 200 mls/hr IVPB Q4H [facility] Last Admin: 07/14/17 08:02 Dose: 200 mls/hr CEFTRIAXONE IN IS-OSM DEXTROSE (Ceftriaxone 2 Gm-D5w Bag) 2 gm in 50 mls @ 200 mls/hr IVPB BID [facility] Last Admin: 07/14/17 09:43 Dose: 200 mls/hr Lactobacillus Acidophilus (Bacid -) 1 tab PO DAILY [facility] Last Admin: 07/14/17 09:43 Dose: 1 tab Mupirocin (Bactroban 2% Ointment -) 1 applic TP BID [facility] Last Admin: 07/14/17 09:43 Dose: 1 applic Ranitidine HCl (Zantac -) 150 mg PO BID [facility] Last Admin: 07/14/17 09:43 Dose: 150 mg Rosuvastatin Calcium (Crestor -) 10 mg PO HS [facility] Last Admin: 07/13/17 22:35 Dose: 10 mg Sodium Chloride ([place] Nasal [place] -) 2 spray NS BID PRN PRN Reason: NASAL CONGESTION Last Admin: 07/13/17 18:08 Dose: 2 spray Tamsulosin HCl (Flomax -) 0.4 mg PO DAILY@0830 [facility] Last Admin: 07/14/17 09:43 Dose: 0.4 mg - Objective Vital Signs: Vital Signs Temperature 98 F 07/14/17 09:00 Pulse Rate 70 07/14/17 09:00 Respiratory Rate 20 07/14/17 09:00 Blood Pressure 104/56 07/14/17 09:00 O2 Sat by Pulse Oximetry (%) 100 07/13/17 21:00 Constitutional: Yes: Mild Distress Cardiovascular: Yes: Regular Rate and Rhythm Respiratory: Yes: Diminished Gastrointestinal: Yes: Normal Bowel Sounds, Soft, Abdomen, Obese. No: Tenderness Edema: Yes Labs: CBC, BMP 07/14/17 06:05 07/14/17 06:05 Problem List - Problems (1) Cellulitis Code(s): L03.90 - CELLULITIS, UNSPECIFIED Qualifiers: Site of cellulitis: extremity Site of cellulitis of extremity: lower extremity Laterality: left Qualified Code(s): L03.116 - Cellulitis of left lower limb (2) VALDEMAR (acute kidney injury) Code(s): N17.9 - ACUTE KIDNEY FAILURE, UNSPECIFIED (3) Altered mental status Code(s): R41.82 - ALTERED MENTAL STATUS, UNSPECIFIED Qualifiers: Altered mental status type: transient alteration of awareness Qualified Code(s): R40.4 - Transient alteration of awareness (4) Atrial fibrillation Code(s): I48.91 - UNSPECIFIED ATRIAL FIBRILLATION (5) Sepsis Code(s): A41.9 - SEPSIS, UNSPECIFIED ORGANISM (6) CAD (coronary artery disease) Code(s): I25.10 - ATHSCL HEART DISEASE OF [place] CORONARY ARTERY W/O ANG PCTRS Qualifiers: Coronary Disease-Associated Artery/Lesion type: coronary artery bypass graft (7) CHF (congestive heart failure) Code(s): I50.9 - HEART FAILURE, UNSPECIFIED Assessment/Plan PLAN Sepsis -- Enterooccus fecalis bacteremia -- repeat blood cultures negative -- iv antibiotics ID follow up noted-- pt needs ELANA needs to be stable clinically in order for him to go for ELANA- he is still SOB at rest CHF- on Lasix has dyspnea on rest monitor renal function check ABG today check CXR CKD --renal function worse -- increased Creatinine-- Renal follow up Thrombocytopenia -- monitor platelets trend -- ASA on hold
--- NOTE | 2017-07-14 14:21 | PN ---
Progress Note, Physician History of Present Illness: Pt seen and examined at bedside. He feels that his breathing is improved. - Current Medication List Current Medications: Active Medications Acetaminophen (Tylenol -) 650 mg PO Q6H PRN PRN Reason: MILD PAIN Last Admin: 07/14/17 06:30 Dose: 650 mg Benzocaine/Menthol (Cepacol Lozenge -) 1 each MM PRN PRN PRN Reason: SORE THROAT Carvedilol (Coreg -) 3.125 mg PO BID [facility] Last Admin: 07/14/17 09:43 Dose: 3.125 mg Furosemide (Lasix Injection -) 40 mg IVPUSH BIDLASIX [facility] Last Admin: 07/14/17 13:32 Dose: Not Given Ampicillin Sodium 2 gm/ Sodium (Chloride) 100 mls @ 200 mls/hr IVPB Q4H [facility] Last Admin: 07/14/17 11:40 Dose: 200 mls/hr CEFTRIAXONE IN IS-OSM DEXTROSE (Ceftriaxone 2 Gm-D5w Bag) 2 gm in 50 mls @ 200 mls/hr IVPB BID [facility] Last Admin: 07/14/17 09:43 Dose: 200 mls/hr Lactobacillus Acidophilus (Bacid -) 1 tab PO DAILY [facility] Last Admin: 07/14/17 09:43 Dose: 1 tab Mupirocin (Bactroban 2% Ointment -) 1 applic TP BID [facility] Last Admin: 07/14/17 09:43 Dose: 1 applic Ranitidine HCl (Zantac -) 150 mg PO BID [facility] Last Admin: 07/14/17 09:43 Dose: 150 mg Rosuvastatin Calcium (Crestor -) 10 mg PO HS [facility] Last Admin: 07/13/17 22:35 Dose: 10 mg Sodium Chloride ([place] Nasal [place] -) 2 spray NS BID PRN PRN Reason: NASAL CONGESTION Last Admin: 07/13/17 18:08 Dose: 2 spray Tamsulosin HCl (Flomax -) 0.4 mg PO DAILY@0830 [facility] Last Admin: 07/14/17 09:43 Dose: 0.4 mg - Objective Vital Signs: Vital Signs Temperature 98 F 07/14/17 09:00 Pulse Rate 70 07/14/17 09:00 Respiratory Rate 20 07/14/17 09:00 Blood Pressure 104/56 07/14/17 09:00 O2 Sat by Pulse Oximetry (%) 100 03/01/18 09:00 Constitutional: Yes: Calm Eyes: Yes: Conjunctiva Clear HENT: Yes: Atraumatic Cardiovascular: Yes: S1, S2 Respiratory: Yes: On Nasal O2 Gastrointestinal: Yes: Soft Genitourinary: Yes: WNL Musculoskeletal: Yes: Muscle Weakness Edema: LLE: Trace, RLE: Trace Neurological: Yes: Oriented Psychiatric: Yes: Oriented Labs: CBC, BMP 07/14/17 06:05 07/14/17 06:05 Problem List - Problems (1) CKD (chronic kidney disease) Code(s): N18.9 - CHRONIC KIDNEY DISEASE, UNSPECIFIED (2) Cellulitis Code(s): L03.90 - CELLULITIS, UNSPECIFIED Qualifiers: Site of cellulitis: extremity Site of cellulitis of extremity: lower extremity Laterality: left Qualified Code(s): L03.116 - Cellulitis of left lower limb (3) Atrial fibrillation Code(s): I48.91 - UNSPECIFIED ATRIAL FIBRILLATION (4) CAD (coronary artery disease) Code(s): I25.10 - ATHSCL HEART DISEASE OF [place] CORONARY ARTERY W/O ANG PCTRS Qualifiers: Coronary Disease-Associated Artery/Lesion type: coronary artery bypass graft (5) CHF (congestive heart failure) Code(s): I50.9 - HEART FAILURE, UNSPECIFIED Assessment/Plan Current Medications Generic Name Dose Route Start Last Admin Trade Name Freq PRN Reason Stop Dose Admin Acetaminophen 650 mg 07/10/17 11:04 07/14/17 06:30 Tylenol - PO 650 mg Q6H PRN Administration MILD PAIN Benzocaine/Menthol 1 each 07/10/17 11:04 Cepacol Lozenge - MM PRN PRN SORE THROAT Carvedilol 3.125 mg 07/10/17 11:15 07/14/17 09:43 Coreg - PO 3.125 mg BID JANENE Administration Furosemide 40 mg 07/13/17 14:00 07/14/17 13:32 Lasix Injection - IVPUSH Not Given BIDLASIX JANENE Ampicillin Sodium 2 gm/ Sodium 100 mls @ 200 mls/hr 07/10/17 08:15 07/14/17 11:40 Chloride IVPB 200 mls/hr Q4H JANENE Administration CEFTRIAXONE IN IS-OSM DEXTROSE 2 gm in 50 mls @ 200 mls/hr 07/11/17 23:00 06/02 09:43 Ceftriaxone 2 Gm-D5w Bag IVPB 200 mls/hr BID JANENE Administration Lactobacillus Acidophilus 1 tab 07/07/17 12:15 07/14/17 09:43 Bacid - PO 1 tab DAILY JANENE Administration Mupirocin 1 applic 07/07/17 13:00 07/14/17 09:43 Bactroban 2% Ointment - TP 1 applic BID JANENE Administration Ranitidine HCl 150 mg 07/11/17 23:15 07/14/17 09:43 Zantac - PO 150 mg BID JANENE Administration Rosuvastatin Calcium 10 mg 07/11/17 23:00 07/13/17 22:35 Crestor - PO 10 mg HS JANENE Administration Sodium Chloride 2 spray 07/13/17 13:00 07/13/17 18:08 [place] Nasal [place] - NS 2 spray BID PRN Administration NASAL CONGESTION Tamsulosin HCl 0.4 mg 07/07/17 10:00 07/14/17 09:43 Flomax - PO 0.4 mg DAILY@0830 JANENE Administration Impression 1. CKD 2. cellulitis 3. sepsis 4. pleural effusions 5. CAD with hx CABG 6. anemia 7. hx of GI bleed 8. a-fib 9. hyperlipidemia 10. renal cyst 11. CHF Plan - hold second dose of lasix today - repeat cxr in am - renal function worsening - repeat labs in am - cont oxygen and monitor pulse ox - cont abx - follow cultures - will follow Dr Francois
[2017-07-14] MEDS: ROSUVASTATIN CA 10 MG TABLET (FP) PO SCH (21:11)
--- NOTE | 2017-07-14 21:59 | PN ---
Progress Note, Physician History of Present Illness: Awake and alert Supine in bed No focal complaint. Denies chest pain / dyspnea No c/o fever/ chills Afebrile WBC WNL Platelets improved BC (07/10) no growth - Current Medication List Current Medications: Active Medications Acetaminophen (Tylenol -) 650 mg PO Q6H PRN PRN Reason: MILD PAIN Last Admin: 07/14/17 06:30 Dose: 650 mg Benzocaine/Menthol (Cepacol Lozenge -) 1 each MM PRN PRN PRN Reason: SORE THROAT Carvedilol (Coreg -) 3.125 mg PO BID [facility] Last Admin: 07/14/17 21:11 Dose: 3.125 mg Furosemide (Lasix Injection -) 40 mg IVPUSH DAILY [facility] Ampicillin Sodium 2 gm/ Sodium (Chloride) 100 mls @ 200 mls/hr IVPB Q4H [facility] Last Admin: 07/14/17 19:58 Dose: 200 mls/hr CEFTRIAXONE IN IS-OSM DEXTROSE (Ceftriaxone 2 Gm-D5w Bag) 2 gm in 50 mls @ 200 mls/hr IVPB BID [facility] Last Admin: 07/14/17 21:11 Dose: 200 mls/hr Lactobacillus Acidophilus (Bacid -) 1 tab PO DAILY [facility] Last Admin: 07/14/17 09:43 Dose: 1 tab Mupirocin (Bactroban 2% Ointment -) 1 applic TP BID [facility] Last Admin: 07/14/17 21:11 Dose: 1 applic Ranitidine HCl (Zantac -) 150 mg PO BID [facility] Last Admin: 07/14/17 21:11 Dose: 150 mg Rosuvastatin Calcium (Crestor -) 10 mg PO HS [facility] Last Admin: 07/14/17 21:11 Dose: 10 mg Sodium Chloride ([place] Nasal [place] -) 2 spray NS BID PRN PRN Reason: NASAL CONGESTION Last Admin: 07/13/17 18:08 Dose: 2 spray Tamsulosin HCl (Flomax -) 0.4 mg PO DAILY@0830 [facility] Last Admin: 07/14/17 09:43 Dose: 0.4 mg - Objective Vital Signs: Vital Signs Temperature 97.5 F L 07/14/17 17:00 Pulse Rate 71 07/14/17 17:00 Respiratory Rate 20 07/14/17 17:00 Blood Pressure 115/67 07/14/17 17:00 O2 Sat by Pulse Oximetry (%) 100 07/14/17 09:00 Constitutional: Yes: No Distress Cardiovascular: Yes: Regular Rate and Rhythm, Murmur, S1, S2 Respiratory: Yes: Diminished Gastrointestinal: Yes: Normal Bowel Sounds, Soft Extremities: Yes: Other (healing laceration L LE Decreased erythema/ warmth) Edema: Yes Labs: CBC, BMP 07/14/17 06:05 07/14/17 06:05 Assessment/Plan Enterococcal bacteremia/ sepsis leg source Probable endocarditis Laceration/ Cellulitis L LE improved S/P MV repair 2006 Lactic acidosis resolved Thrombocytopenia- improved Azotemia Repeat BC x 2 no growth Continue ampicillin /ceftriaxone For ELANA
[2017-07-15] MEDS ORDERED: PT OWN MED DRAWER 7, Y5N ONE ×3 (00:29→19:51)
[2017-07-15] MEDS: AMPICILLIN - 2 GM in SODIUM CHLORIDE 100 ML IVPB SCH ×6 (00:34→19:52)
[2017-07-15] MEDS: PHENYLEPHRINE HCL 20,000 MCG in SODIUM CHLORIDE 248 ML IVPB SCH ×2 (04:00→19:47)
[2017-07-15 04:42] LABS: HEMATOCRIT 38.5 % (35.4-49); HEMOGLOBIN 12.3 GM/dL (11.7-16.9); MCH 29.6 pg (25.7-33.7); MCHC 31.9 g/dl (32.0-35.9); MEAN CELL VOLUME 92.7 fl (80-96); MEAN PLT VOLUME 9.1 fl (7.5-11.1); PLATELET COUNT 100 K/MM3 (134-434); RBC 4.15 M/mm3 (4.00-5.60); RDW 17.8 % (11.9-15.9)
[2017-07-15 04:44] LABS: ARTERIAL BLD GAS O2 SATURATION 95.2 % (90-98.9); ARTERIAL BLOOD GAS BASE EXCESS -0.5 meq/l (-2-2); ARTERIAL BLOOD GAS PCO2 55.7 mmHg (35-45); ARTERIAL BLOOD GAS PO2 79.5 mmHg (68-100)
[2017-07-15] MEDS ORDERED: PHENYLEPHRINE HCL 10 MG/1 ML SINGLE DOSE VIAL ONE ×7 (04:44→22:49)
--- NOTE | 2017-07-15 04:53 | RAPID ---
Physical Examination Vital Signs: Vital Signs Temperature 98.5 F 07/15/17 02:08 Pulse Rate 71 07/15/17 02:08 Respiratory Rate 14 07/15/17 04:23 Blood Pressure 107/63 07/15/17 02:08 O2 Sat by Pulse Oximetry (%) 100 07/14/17 21:00 Findings/Remarks: Code 99 was called. Patient was found to be in PEA. ACLS protocol was initiated and followed. Patient was coded for approx. 1 hour. ROSC was achieved and patient was transferred to the ICU CXR, CBC, CMP, Mag, Phos, ABG, lactate, coags were drawn. See code sheet for official record Critical Care Total Critical Care Time (in minutes): 60 Critical Care Statement: The care of this patient involved high complexity decision making to prevent further life threatening deterioration of the patient 's condition and/or to evaluate & treat vital organ system(s) failure or risk of failure.
[2017-07-15 05:08] LABS: INR 1.52 (0.82-1.09); PROTHROMBIN TIME (PATIENT) 17.2 SEC (9.98-11.88)
--- NOTE | 2017-07-15 05:10 | CONSULT ---
Consult Consult Specialty:: Pulm/CCM Reason for Consultation:: S/p V-fib arrest - History of Present Illness History of Present Illness: 87yom with PMHx CAD, CHF Ef 15%, AICD, A-fib,CKD who was admitted with sepsis in the setting of LE cellulitis and UTI found to have enteroccoccus bacteremia being treated with Ceftriaxone and ampicillin. Also with SOB in the setting of fluid overload and pleural effusions refractory to Lasix. Renal was consulted for acute on chronic VALDEMAR and fluid management. Plan for ELANA when pt less SOB and stable. This evening pt went into PEA arrest. ROSC after ~30mins, Epi x4 and bicarb x4. He was transferred to ICU. In ICU VS 70's paced and BP 150/70. Discussed DNR with Tran. stated that she believed that pt has fought this long and wants everything done. Consented for central lines and also was agreeable to dialysis. Started on Danielito drip. Pt again in PEA arrest. ROSC after ~30mins Epi x3. Rt fem crash TLC placed. Levophed, Dobutamine, Fent and Danielito drip infusing. - Past Medical History Cardio/Vascular: Yes: AFIB (s/p watchman device), CAD (status post CABG in 2003) , CHF (status post AICD), HTN, Hyperlipdemia Gastrointestinal: Yes: Diverticulosis, GI Bleed Renal/: Yes: Renal Inusuff, BPH Musculoskeletal: Yes: Chronic low back pain - Past Surgical History Past Surgical History: Yes: AICD, CABG - Alcohol/Substance Use Hx Alcohol Use: No - Smoking History Smoking history: Former smoker Have you smoked in the past 12 months: No If you are a former smoker, when did you quit?: 2001 - Social History Usual Living Arrangement: With Spouse ADL: Independent History of Recent Travel: No Home Medications - Allergies Allergies/Adverse Reactions: Allergies Allergy/AdvReac Type Severity Reaction Status Date / Time mirtazapine [From Remeron] AdvReac Verified 07/06/17 18:31 - Home Medications Home Medications: Ambulatory Orders Cholecalciferol (Vitamin D3) [Vitamin D3] 1,000 unit PO DAILY 02/12/15 Rosuvastatin Calcium [Crestor] 10 mg PO HS 02/12/15 Aspirin [ASA -] 81 mg PO DAILY 04/12/16 Tamsulosin HCl [Flomax -] 0.4 mg PO DAILY 08/26/15 Furosemide [Lasix -] 40 mg PO DAILY 09/11/15 Carvedilol [Coreg -] 3.125 mg PO BID #60 tablet 09/24/15 Iron Ps Complex/B12/Folic Acid [Ferrex 150 Forte Capsule] 1 each PO DAILY Physical Exam Vital Signs: Vital Signs Temperature 97.5 F L 07/15/17 04:50 Pulse Rate 72 07/15/17 04:50 Respiratory Rate 22 07/15/17 04:50 Blood Pressure 75/60 07/15/17 04:50 O2 Sat by Pulse Oximetry (%) 100 07/14/17 21:00 Constitutional: Yes: Well Nourished Eyes: Yes: PERRL HENT: Yes: Normocephalic Neck: Yes: Other (Stiff) Cardiovascular: Yes: Pulse Irregular, Other (Paced) Respiratory: Yes: Rales, Rhonchi Gastrointestinal: Yes: Soft Extremities: Yes: Cool Edema: No Peripheral Pulses WNL: No (doppler) Neurological: Yes: Other (Sedated) Labs: CBC,CMP WBC 7.0 K/mm3 (4.0-10.0) D 07/15/17 04:30 RBC 4.15 M/mm3 (4.00-5.60) 07/15/17 04:30 Hgb 12.3 GM/dL (11.7-16.9) 07/15/17 04:30 Hct 38.5 % (35.4-49) 07/15/17 04:30 MCV 92.7 fl (80-96) 07/15/17 04:30 MCH 29.6 pg (25.7-33.7) 07/15/17 04:30 MCHC 31.9 g/dl (32.0-35.9) L 07/15/17 04:30 RDW 17.8 % (11.9-15.9) H 07/15/17 04:30 Plt Count 100 K/MM3 (134-434) L 07/15/17 04:30 MPV 9.1 fl (7.5-11.1) 07/15/17 04:30 Neutrophils % 76.6 % (42.8-82.8) 07/14/17 06:05 Neutrophils % (Manual) 90.0 % (42.8-82.8) H 07/06/17 19:02 Band Neutrophils % 5.0 % (0-10) 07/06/17 19:02 Lymphocytes % 7.9 % (8-40) L 07/14/17 06:05 Lymphocytes % (Manual) 5.0 % (8-40) L 07/06/17 19:02 Monocytes % 10.0 % (3.8-10.2) 07/14/17 06:05 Eosinophils % 4.4 % (0-4.5) 07/14/17 06:05 Basophils % 1.1 % (0-2.0) 07/14/17 06:05 Platelet Estimate Decreased 07/06/17 19:02 ESR 8 mm/hr (0-20) 07/12/17 06:23 Sodium 148 mmol/L (136-145) H 07/15/17 04:30 Potassium 3.4 mmol/L (3.5-5.1) L D 07/15/17 04:30 Chloride 108 mmol/L (98-107) H 07/15/17 04:30 Carbon Dioxide 26 mmol/L (21-32) 07/15/17 04:30 Anion Gap 14 (8-16) 07/15/17 04:30 BUN 55 mg/dL (7-18) H 07/15/17 04:30 Creatinine 2.8 mg/dL (0.7-1.3) H 07/15/17 04:30 Creat Clearance w eGFR 21.59 (>60) 07/15/17 04:30 POC Glucometer 124 UNITS (80-120) 07/15/17 03:42 Random Glucose 130 mg/dL (74-106) H D 07/15/17 04:30 Lactic Acid 4.4 mmol/L (0.0-2.0) H* 07/15/17 04:30 Calcium 7.1 mg/dL (8.5-10.1) L 07/15/17 04:30 Phosphorus 5.5 mg/dL (2.5-4.9) H D 07/15/17 04:30 Magnesium 2.3 mg/dL (1.8-2.4) 07/15/17 04:30 Total Bilirubin 0.4 mg/dL (0.2-1.0) 07/15/17 04:30 AST 25 U/L (15-37) D 07/15/17 04:30 ALT 27 U/L (12-78) 07/15/17 04:30 Alkaline Phosphatase 93 U/L (45-117) 07/15/17 04:30 Creatine Kinase 458 IU/L (39-308) H 07/08/17 09:30 Creatine Kinase Index 1.1 % (0.0-5.0) 07/08/17 09:30 CK-MB (CK-2) 5.3 ng/mL (0.3-4.0) H 07/08/17 09:30 Troponin I 0.05 ng/ml (0.00-0.05) 07/09/17 07:40 C-Reactive Protein 2.4 MG/DL (0.00-0.3) H 07/10/17 06:30 Total Protein 5.6 g/dl (6.4-8.2) L 07/15/17 04:30 Albumin 2.3 g/dl (3.4-5.0) L 07/15/17 04:30 Current Medications Acetaminophen (Tylenol -) 650 mg PO Q6H PRN PRN Reason: MILD PAIN Last Admin: 07/14/17 06:30 Dose: 650 mg Benzocaine/Menthol (Cepacol Lozenge -) 1 each MM PRN PRN PRN Reason: SORE THROAT Carvedilol (Coreg -) 3.125 mg PO BID [facility] Last Admin: 07/14/17 21:11 Dose: 3.125 mg Furosemide (Lasix Injection -) 40 mg IVPUSH DAILY [facility] Ampicillin Sodium 2 gm/ Sodium (Chloride) 100 mls @ 200 mls/hr IVPB Q4H [facility] Last Admin: 07/15/17 00:34 Dose: 200 mls/hr CEFTRIAXONE IN IS-OSM DEXTROSE (Ceftriaxone 2 Gm-D5w Bag) 2 gm in 50 mls @ 200 mls/hr IVPB BID [facility] Last Admin: 07/14/17 21:11 Dose: 200 mls/hr Propofol (Diprivan -) 1,000,000 mcg in 100 mls @ 2.136 mls/hr IVPB TITR JANENE; 5 MCG/KG/MIN PRN Reason: Protocol Last Titration: 07/15/17 05:35 Dose: 0 mcg/kg/min, 0 mls/hr Fentanyl 500 mcg/ Dextrose 100 mls @ 10 mls/hr IVPB TITR JANENE; 50 MCG/HR PRN Reason: Protocol Norepinephrine Bitartrate 8, (000 mcg/ Dextrose) 500 mls @ 18.75 mls/hr IV TITR JANENE; 5 MCG/MIN PRN Reason: Protocol Last Admin: 07/15/17 06:15 Dose: 20 mcg/min, 75 mls/hr Dobutamine HCl/Dextrose (Dobutamine 250 Mg/D5w -) 250,000 mcg in 250 mls @ 10.682 mls/hr IV TITR JANENE; 2.5 MCG/KG/MIN PRN Reason: Protocol Last Admin: 07/15/17 06:20 Dose: 2.5 mcg/kg/min, 10.682 mls/hr Lactobacillus Acidophilus (Bacid -) 1 tab PO DAILY [facility] Last Admin: 07/14/17 09:43 Dose: 1 tab Mupirocin (Bactroban 2% Ointment -) 1 applic TP BID [facility] Last Admin: 07/14/17 21:11 Dose: 1 applic Ranitidine HCl (Zantac -) 150 mg PO BID [facility] Last Admin: 07/14/17 21:11 Dose: 150 mg Rosuvastatin Calcium (Crestor -) 10 mg PO HS [facility] Last Admin: 07/14/17 21:11 Dose: 10 mg Sodium Chloride ([place] Nasal [place] -) 2 spray NS BID PRN PRN Reason: NASAL CONGESTION Last Admin: 07/13/17 18:08 Dose: 2 spray Tamsulosin HCl (Flomax -) 0.4 mg PO DAILY@0830 [facility] Last Admin: 07/14/17 09:43 Dose: 0.4 mg Vital Signs Period Temp Pulse Resp BP Sys/[place] Pulse Ox Last 24 Hr 97.3 F-98.5 F 70-81 14-22 68-122/48-74 98-100 Imaging - Results Chest X-ray: Report Reviewed (ETT in place, no pneumo, bilat pleural effusions) Problem List - Problems (1) Bacteremia due to Enterococcus Code(s): R78.81 - BACTEREMIA; B95.2 - ENTEROCOCCUS THE CAUSE OF DISEASES CLASSIFIED ELSEWHERE (2) PEA (Pulseless electrical activity) Code(s): I46.9 - CARDIAC ARREST, CAUSE UNSPECIFIED (3) Pulmonary edema Code(s): J81.1 - CHRONIC PULMONARY EDEMA (4) CKD (chronic kidney disease) Code(s): N18.9 - CHRONIC KIDNEY DISEASE, UNSPECIFIED (5) Cellulitis Code(s): L03.90 - CELLULITIS, UNSPECIFIED Qualifiers: Site of cellulitis: extremity Site of cellulitis of extremity: lower extremity Laterality: left Qualified Code(s): L03.116 - Cellulitis of left lower limb (6) UTI (urinary tract infection) Code(s): N39.0 - URINARY TRACT INFECTION, SITE NOT SPECIFIED Qualifiers: Urinary tract infection type: site unspecified Hematuria presence: without hematuria Qualified Code(s): N39.0 - Urinary tract infection, site not specified (7) VALDEMAR (acute kidney injury) Code(s): N17.9 - ACUTE KIDNEY FAILURE, UNSPECIFIED (8) Abdominal pain Code(s): R10.9 - UNSPECIFIED ABDOMINAL PAIN (9) CAD (coronary artery disease) Code(s): I25.10 - ATHSCL HEART DISEASE OF [place] CORONARY ARTERY W/O ANG PCTRS Qualifiers: Coronary Disease-Associated Artery/Lesion type: coronary artery bypass graft (10) CHF (congestive heart failure) Code(s): I50.9 - HEART FAILURE, UNSPECIFIED Assessment/Plan 87yom with PMHx CAD, CHF Ef 15%, AICD, A-fib,CKD who was admitted with sepsis in the setting of LE cellulitis and UTI found to have enteroccoccus bacteremia. Admitted to ICU, intubated, post PEA arrest m/l 2/2 cardiogenic +/- septic shock. PEA arrest x2 while in ICU. GOC discussed with . She is unable to agree to DNR at this time. Plan: -LTVV for plat<30 and O2 sat>92% -Maintain vasopressors and inotropes for MAP> 60 -TTE -BNP -Trend trop and lactate -Send mckay culture -Continue antibiotics -ID consult -Renal consult for fluid management -Monitor BMP and UOP -Replete electrlytes -Wound care to sternal abrasions -SCDs, GI prophylaxis SISSY Alcazar CC time 50mins
[2017-07-15] MEDS: PROPOFOL 1,000,000 MCG/100 ML VIAL IVPB SCH (05:15)
[2017-07-15 05:21] LABS: ALBUMIN 2.3 g/dl (3.4-5.0); ANION GAP 14 (8-16); BILIRUBIN,TOTAL 0.4 mg/dL (0.2-1.0); BLOOD UREA NITROGEN 55 mg/dL (7-18); CALCIUM 7.1 mg/dL (8.5-10.1); CHLORIDE 108 mmol/L (98-107); CO2 26 mmol/L (21-32); CREATININE 2.8 mg/dL (0.7-1.3); GLUCOSE,RANDOM 130 mg/dL (74-106); MAGNESIUM 2.3 mg/dL (1.8-2.4); PHOSPHOROUS 5.5 mg/dL (2.5-4.9); POTASSIUM 3.4 mmol/L (3.5-5.1); SGOT/AST 25 U/L (15-37); SGPT/ALT 27 U/L (12-78); SODIUM 148 mmol/L (136-145); TOT PROT 5.6 g/dl (6.4-8.2)
[2017-07-15] MEDS ORDERED: PROPOFOL 1,000,000 MCG/100 ML VIAL ONE (05:21)
[2017-07-15 05:22] LABS: ALK PHOS 93 U/L (45-117)
[2017-07-15] MEDS ORDERED: fentaNYL CITRATE 250 MCG/5 ML VIAL ONE ×2 (05:59→16:27)
[2017-07-15] MEDS ORDERED: NOREPINEPHRINE BITARTRATE 4 MG/4 ML ML IV ONE ×5 (06:00→23:54)
[2017-07-15] MEDS ORDERED: DOPAMINE 400 MG/D5W - 400,000 MCG/250 ML INFUS.BAG IVPB SCH (06:00)
[2017-07-15] MEDS ORDERED: DOBUTAMINE 250 MG/D5W - 250,000 MCG/250 ML INFUS.BAG ONE (06:13)
--- NOTE | 2017-07-15 06:13 | RAPID ---
Physical Examination Vital Signs: Vital Signs Temperature 97.5 F L 07/15/17 04:50 Pulse Rate 72 07/15/17 04:50 Respiratory Rate 22 07/15/17 04:50 Blood Pressure 75/60 07/15/17 04:50 O2 Sat by Pulse Oximetry (%) 98 07/15/17 04:30 Labs: CBC, BMP 07/15/17 04:30 07/15/17 04:30 Rapid Response - Rapid Response Assessment: Code 99 was called again after the patient was transferred to ICU. A diagnosis of PEA was made again. ACLS protocol was initiated and followed. Patient was coded for approx. 15mins. ROSC was achieved. A central line was placed and pt was started on levophed and dobutamine. See code sheet for official record Outcome: ROSC was achieved
[2017-07-15] MEDS: NOREPINEPHRINE BITARTRATE 8,000 MCG in DEXTROSE 5%-WATER - 492 ML IV SCH ×2 (06:15→16:10)
[2017-07-15] MEDS: DOBUTAMINE 250 MG/D5W - 250,000 MCG/250 ML INFUS.BAG IV SCH ×2 (06:20→13:49)
[2017-07-15] MEDS ORDERED: CALCIUM GLUCONATE 10% - 1,000 MG/10 ML VIAL IVPB ONE (06:40)
--- NOTE | 2017-07-15 07:05 | PROC ---
Central Line Insertion Indication: Vasopressor Risks and Benefits Explained: No (emergency central line ) Consent on Chart: No (emergency central line ) Central Line: Triple Lumen Catheter Sterile Technique: Yes (chlorhexidine applied to skin ) Ultrasound Guided Assistance: No Position: Right Femoral Sterile Dressing Applied: Yes (dressing applied )
[2017-07-15] MEDS: FENTANYL INJECTION 500 MCG in DEXTROSE 5%-WATER - 90 ML IVPB SCH ×3 (07:26→13:05)
--- NOTE | 2017-07-15 08:27 | PN ---
Progress Note, Physician History of Present Illness: Last Night: s/p 2 PEA arrests with ROSC. Intubated. Was on dobutamine/ phenylephrine/norepi Today: Intubated. Sedating is being weaned off. Responding to voice. at bedside. Still not willing to discuss code status. During morning rounds patient's BP dropped to 50s/10s. 1L NS bolus was administered and dopamine drip was started - Objective Vital Signs: Vital Signs Period Temp Pulse Resp BP Sys/Dennison Pulse Ox Last 24 Hr 97.3 F-98.5 F 70-81 14-22 68-122/48-74 98-100 Additional Findings/Remarks: GEN: Intubated, opens eyes to name, not in distress HEENT: PERRLA, eyes are moving symmetrically CV: S1, S2, paced rhythm LUNG: Anterior lung crackles ABD: Nontender, nondistended MSK: 2+ pitting edema bialterally. Cool extremities Assessment/Plan 87yo M with PMHx of Afib, CAD, CHF, ICD placement, CKD who originally presented to the ER with sepsis 2/2 possible cellulitis. Now in ICU s/p 2 PEA arrests from shock. CV: * # Shock - Likely more of a cardiogenic component than septic. Cannot obtain CVP since patient only has femoral. Echo shows EF 15-25%. No severe sudden valvular disease. , Low BP on three pressures so Dopamine was added. 1L NS bolus was infused. Hold lasix as BP likely will not tolerate. Will also hold Coreg dosing due to low BP. Poor prognosis. still not willing to discuss code status at the moment. * # Afib - Paced rhythm, rate controlled. Not on AC due to prior GI bleed. Patient is s/p Watchman's procedure. * # Aortic Aneurysm - Ascending (5.3cm in 2015). Resume coreg when stable. ID: * # Sepsis - Pt has cleared E. faecalis bacteremia. 2/2 cellulitis vs another source (?endocarditis). Sepsis resolved. RLE cellulitis has improved. Will need ELANA eventually when stable. Continue Ampicillin+Ceftriaxone (Day 8 of abx). FEN/PPX: no IVF, NPO, SCDs, was not on heparin due to thrombocytopenia Dispo: Keep in ICU. Poor prognosis Oli Gimenez MD PGY1 ICU
[2017-07-15 08:32] LABS: HEMATOCRIT 35.7 % (35.4-49); HEMOGLOBIN 11.2 GM/dL (11.7-16.9); MCH 29.4 pg (25.7-33.7); MCHC 31.5 g/dl (32.0-35.9); MEAN CELL VOLUME 93.5 fl (80-96); MEAN PLT VOLUME 8.9 fl (7.5-11.1); PLATELET COUNT 91 K/MM3 (134-434); RBC 3.81 M/mm3 (4.00-5.60); RDW 17.6 % (11.9-15.9); WHITE BLOOD COUNT 7.5 K/mm3 (4.0-10.0)
[2017-07-15 08:51] LABS: INR 1.78 (0.82-1.09); PROTHROMBIN TIME (PATIENT) 20.1 SEC (9.98-11.88)
[2017-07-15 08:58] LABS: ALBUMIN 2.2 g/dl (3.4-5.0); ALK PHOS 85 U/L (45-117); ANION GAP 12 (8-16); BILIRUBIN,TOTAL 0.6 mg/dL (0.2-1.0); BLOOD UREA NITROGEN 58 mg/dL (7-18); CALCIUM 7.4 mg/dL (8.5-10.1); CHLORIDE 106 mmol/L (98-107); CO2 27 mmol/L (21-32); CREATININE 2.8 mg/dL (0.7-1.3); GLUCOSE,RANDOM 160 mg/dL (74-106); MAGNESIUM 2.4 mg/dL (1.8-2.4); PHOSPHOROUS 4.9 mg/dL (2.5-4.9); POTASSIUM 3.9 mmol/L (3.5-5.1); SGOT/AST 26 U/L (15-37); SGPT/ALT 26 U/L (12-78); SODIUM 145 mmol/L (136-145); TOT PROT 5.1 g/dl (6.4-8.2)
[2017-07-15] MEDS: CEFTRIAXONE IN IS-OSM DEXTROSE 2 GM/50 ML BAG IVPB SCH ×2 (09:28→21:03)
[2017-07-15] MEDS: MUPIROCIN 2% TOPICAL OINTMENT 22 GM TUBE TP SCH ×2 (09:28→21:04)
--- NOTE | 2017-07-15 09:41 | PN ---
Progress Note, Physician History of Present Illness: pt seen/ examined in icu-- at bedside s/p rapid response x 2 last night Intubated on pressors - Current Medication List Current Medications: Active Medications Acetaminophen (Tylenol -) 650 mg PO Q6H PRN PRN Reason: MILD PAIN Last Admin: 07/14/17 06:30 Dose: 650 mg Benzocaine/Menthol (Cepacol Lozenge -) 1 each MM PRN PRN PRN Reason: SORE THROAT Carvedilol (Coreg -) 3.125 mg PO BID JANENE Last Admin: 07/14/17 21:11 Dose: 3.125 mg Furosemide (Lasix Injection -) 40 mg IVPUSH DAILY [facility] Ampicillin Sodium 2 gm/ Sodium (Chloride) 100 mls @ 200 mls/hr IVPB Q4H JANENE Last Admin: 07/15/17 00:34 Dose: 200 mls/hr CEFTRIAXONE IN IS-OSM DEXTROSE (Ceftriaxone 2 Gm-D5w Bag) 2 gm in 50 mls @ 200 mls/hr IVPB BID JANENE Last Admin: 07/15/17 09:28 Dose: 200 mls/hr Propofol (Diprivan -) 1,000,000 mcg in 100 mls @ 2.136 mls/hr IVPB TITR JANENE; 5 MCG/KG/MIN PRN Reason: Protocol Last Titration: 07/15/17 05:35 Dose: 0 mcg/kg/min, 0 mls/hr Fentanyl 500 mcg/ Dextrose 100 mls @ 10 mls/hr IVPB TITR JANENE; 50 MCG/HR PRN Reason: Protocol Last Admin: 07/15/17 07:26 Dose: 10 mls/hr Norepinephrine Bitartrate 8, (000 mcg/ Dextrose) 500 mls @ 18.75 mls/hr IV TITR JANENE; 5 MCG/MIN PRN Reason: Protocol Last Admin: 07/15/17 06:15 Dose: 20 mcg/min, 75 mls/hr Dobutamine HCl/Dextrose (Dobutamine 250 Mg/D5w -) 250,000 mcg in 250 mls @ 10.682 mls/hr IV TITR JANENE; 2.5 MCG/KG/MIN PRN Reason: Protocol Last Titration: 07/15/17 08:20 Dose: 5 mcg/kg/min, 21.364 mls/hr Phenylephrine HCl 20,000 mcg/ (Sodium Chloride) 250 mls @ 75 mls/hr IVPB ASDIR JANENE; 100 MCG/MIN PRN Reason: Protocol Last Admin: 07/15/17 04:00 Dose: 100 mcg/min, 75 mls/hr Lactobacillus Acidophilus (Bacid -) 1 tab PO DAILY [facility] Last Admin: 07/14/17 09:43 Dose: 1 tab Mupirocin (Bactroban 2% Ointment -) 1 applic TP BID [facility] Last Admin: 07/15/17 09:28 Dose: 1 applic Ranitidine HCl (Zantac -) 150 mg PO BID [facility] Last Admin: 07/14/17 21:11 Dose: 150 mg Rosuvastatin Calcium (Crestor -) 10 mg PO HS [facility] Last Admin: 07/14/17 21:11 Dose: 10 mg Sodium Chloride ([place] Nasal [place] -) 2 spray NS BID PRN PRN Reason: NASAL CONGESTION Last Admin: 07/13/17 18:08 Dose: 2 spray Tamsulosin HCl (Flomax -) 0.4 mg PO DAILY@0830 [facility] Last Admin: 07/14/17 09:43 Dose: 0.4 mg - Objective Vital Signs: Vital Signs Temperature 97.5 F L 07/15/17 04:50 Pulse Rate 78 07/15/17 09:00 Respiratory Rate 18 07/15/17 09:00 Blood Pressure 110/63 07/15/17 09:00 O2 Sat by Pulse Oximetry (%) 92 L 07/15/17 08:05 Constitutional: Yes: Other (oally intubated) Eyes: Yes: Other (pupils reactive) Cardiovascular: Yes: Regular Rate and Rhythm Respiratory: Yes: Diminished Gastrointestinal: Yes: Soft Edema: LLE: 1+, RLE: 1+ Labs: CBC, BMP 07/15/17 08:30 07/15/17 07:15 INR, PTT INR 1.78 (0.82-1.09) H 07/15/17 07:15 Problem List - Problems (1) PEA (Pulseless electrical activity) Code(s): I46.9 - CARDIAC ARREST, CAUSE UNSPECIFIED (2) Bacteremia due to Enterococcus Code(s): R78.81 - BACTEREMIA; B95.2 - ENTEROCOCCUS THE CAUSE OF DISEASES CLASSIFIED ELSEWHERE (3) CKD (chronic kidney disease) Code(s): N18.9 - CHRONIC KIDNEY DISEASE, UNSPECIFIED (4) Atrial fibrillation Code(s): I48.91 - UNSPECIFIED ATRIAL FIBRILLATION (5) Azotemia Code(s): R79.89 - OTHER SPECIFIED ABNORMAL FINDINGS OF BLOOD CHEMISTRY (6) CAD (coronary artery disease) Code(s): I25.10 - ATHSCL HEART DISEASE OF [place] CORONARY ARTERY W/O ANG PCTRS Qualifiers: Coronary Disease-Associated Artery/Lesion type: coronary artery bypass graft (7) CHF (congestive heart failure) Code(s): I50.9 - HEART FAILURE, UNSPECIFIED Assessment/Plan S?p rapid response Multiple medical problems as listed Pressure support vent support Discussed with critical team. discussed with pts also in detail. Condition critical Discussed with nursing staff also. will follow cc time - 45 min
[2017-07-15] MEDS ORDERED: FUROSEMIDE 40 MG/4 ML INJECTABLE VIAL IVPUSH SCH ×2 (10:00)
[2017-07-15 10:08] LABS: ANISOCYTOSIS 1+; MACROCYTOSIS 1+; OVALOCYTE 1+; PLATELET ESTIMATE DECREASED
[2017-07-15] MEDS: TAMSULOSIN HCL 0.4 MG CAP.ER.24H (FP) PO SCH (10:11)
[2017-07-15] MEDS: RANITIDINE HCL 150 MG TABLET (FP) PO SCH (10:12)
[2017-07-15] MEDS ORDERED: DOPAMINE 400 MG/D5W - 400,000 MCG/250 ML INFUS.BAG IVPB ONE ×4 (10:12→23:55)
[2017-07-15] MEDS: LACTOBACILLUS ACIDOPHILUS 1 EACH TAB (FP) PO SCH (10:12)
[2017-07-15] MEDS: CARVEDILOL 3.125 MG TABLET (FP) PO SCH (10:12)
--- NOTE | 2017-07-15 11:31 | PN ---
Teaching Attending Note Name of Resident: Oli Gimenez ATTENDING PHYSICIAN STATEMENT I saw and evaluated the patient. I reviewed the resident's note and discussed the case with the resident. I agree with the resident's findings and plan as documented. SUBJECTIVE: Patient seen and examined in the ICU. Intubated and sedated. S/P cardiac arrest x2 with ROSC x 30 minutes each code. NE 30 meq, Dobutamine 5mcq, and Phenylephrine 160 mcq. He is somewhat responsive to voice command. AC Mode of vent. Hemodynamics remain marginal. His is at the bedside and an update was given. Wants us to continue all efforts despite grave prognosis. Intake & Output 07/12/17 07/13/17 07/14/17 07/15/17 23:59 23:59 23:59 23:59 Intake Total 7116 063 0642 300 Output Total 100 600 Balance 1150 590 740 300 Weight 153 lb 9.6 oz 156 lb 157 lb Last Vital Signs Temp Pulse Resp BP Pulse Ox 97.5 F L 71 18 39/14 93 L 07/15/17 04:50 07/15/17 10:15 07/15/17 10:56 07/15/17 10:15 07/15/17 09:00 Active Medications Acetaminophen (Tylenol -) 650 mg PO Q6H PRN PRN Reason: MILD PAIN Last Admin: 07/14/17 06:30 Dose: 650 mg Benzocaine/Menthol (Cepacol Lozenge -) 1 each MM PRN PRN PRN Reason: SORE THROAT Carvedilol (Coreg -) 3.125 mg PO BID [facility] Last Admin: 07/15/17 10:12 Dose: Not Given Ampicillin Sodium 2 gm/ Sodium (Chloride) 100 mls @ 200 mls/hr IVPB Q4H [facility] Last Admin: 07/15/17 00:34 Dose: 200 mls/hr CEFTRIAXONE IN IS-OSM DEXTROSE (Ceftriaxone 2 Gm-D5w Bag) 2 gm in 50 mls @ 200 mls/hr IVPB BID JANENE Last Admin: 07/15/17 09:28 Dose: 200 mls/hr Propofol (Diprivan -) 1,000,000 mcg in 100 mls @ 2.136 mls/hr IVPB TITR JANENE; 5 MCG/KG/MIN PRN Reason: Protocol Last Titration: 07/15/17 05:35 Dose: 0 mcg/kg/min, 0 mls/hr Fentanyl 500 mcg/ Dextrose 100 mls @ 10 mls/hr IVPB TITR JANENE; 50 MCG/HR PRN Reason: Protocol Last Admin: 07/15/17 07:26 Dose: 10 mls/hr Norepinephrine Bitartrate 8, (000 mcg/ Dextrose) 500 mls @ 18.75 mls/hr IV TITR JANENE; 5 MCG/MIN PRN Reason: Protocol Last Titration: 07/15/17 10:15 Dose: 30 mcg/min, 112.5 mls/hr Dobutamine HCl/Dextrose (Dobutamine 250 Mg/D5w -) 250,000 mcg in 250 mls @ 10.682 mls/hr IV TITR JANENE; 2.5 MCG/KG/MIN PRN Reason: Protocol Last Titration: 07/15/17 10:14 Dose: 7 mcg/kg/min, 29.91 mls/hr Phenylephrine HCl 20,000 mcg/ (Sodium Chloride) 250 mls @ 75 mls/hr IVPB ASDIR JANENE; 100 MCG/MIN PRN Reason: Protocol Last Titration: 07/15/17 10:15 Dose: 180 mcg/min, 135 mls/hr Lactobacillus Acidophilus (Bacid -) 1 tab PO DAILY [facility] Last Admin: 07/15/17 10:12 Dose: Not Given Mupirocin (Bactroban 2% Ointment -) 1 applic TP BID [facility] Last Admin: 07/15/17 09:28 Dose: 1 applic Ranitidine HCl (Zantac -) 150 mg PO BID [facility] Last Admin: 07/15/17 10:12 Dose: Not Given Rosuvastatin Calcium (Crestor -) 10 mg PO HS [facility] Last Admin: 07/14/17 21:11 Dose: 10 mg Sodium Chloride ([place] Nasal [place] -) 2 spray NS BID PRN PRN Reason: NASAL CONGESTION Last Admin: 07/13/17 18:08 Dose: 2 spray Tamsulosin HCl (Flomax -) 0.4 mg PO DAILY@0830 [facility] Last Admin: 07/15/17 10:11 Dose: Not Given Constitutional: Yes: Intubated and sedated Eyes: Yes: PERRL HENT: Yes: Normocephalic Neck: Yes: Other (Stiff) Cardiovascular: Yes: Pulse Irregular, Other (Paced) Respiratory: Yes: Bilateral Rales and Rhonchi Gastrointestinal: Yes: Soft Extremities: Yes: Cool Edema: No Peripheral Pulses WNL: No (doppler) Neurological: Yes: Other (Sedated) Labs: Intake & Output 07/12/17 07/13/17 07/14/17 07/15/17 23:59 23:59 23:59 23:59 Intake Total 2532 032 5109 300 Output Total 100 600 Balance 1150 590 740 300 Weight 153 lb 9.6 oz 156 lb 157 lb Last Vital Signs Temp Pulse Resp BP Pulse Ox 97.5 F L 71 18 39/14 93 L 07/15/17 04:50 07/15/17 10:15 07/15/17 10:56 07/15/17 10:15 07/15/17 09:00 Active Medications Acetaminophen (Tylenol -) 650 mg PO Q6H PRN PRN Reason: MILD PAIN Last Admin: 07/14/17 06:30 Dose: 650 mg Benzocaine/Menthol (Cepacol Lozenge -) 1 each MM PRN PRN PRN Reason: SORE THROAT Carvedilol (Coreg -) 3.125 mg PO BID [facility] Last Admin: 07/15/17 10:12 Dose: Not Given Ampicillin Sodium 2 gm/ Sodium (Chloride) 100 mls @ 200 mls/hr IVPB Q4H [facility] Last Admin: 07/15/17 00:34 Dose: 200 mls/hr CEFTRIAXONE IN IS-OSM DEXTROSE (Ceftriaxone 2 Gm-D5w Bag) 2 gm in 50 mls @ 200 mls/hr IVPB BID [facility] Last Admin: 07/15/17 09:28 Dose: 200 mls/hr Propofol (Diprivan -) 1,000,000 mcg in 100 mls @ 2.136 mls/hr IVPB TITR JANENE; 5 MCG/KG/MIN PRN Reason: Protocol Last Titration: 07/15/17 05:35 Dose: 0 mcg/kg/min, 0 mls/hr Fentanyl 500 mcg/ Dextrose 100 mls @ 10 mls/hr IVPB TITR JNAENE; 50 MCG/HR PRN Reason: Protocol Last Admin: 07/15/17 07:26 Dose: 10 mls/hr Norepinephrine Bitartrate 8, (000 mcg/ Dextrose) 500 mls @ 18.75 mls/hr IV TITR JANENE; 5 MCG/MIN PRN Reason: Protocol Last Titration: 07/15/17 10:15 Dose: 30 mcg/min, 112.5 mls/hr Dobutamine HCl/Dextrose (Dobutamine 250 Mg/D5w -) 250,000 mcg in 250 mls @ 10.682 mls/hr IV TITR JANENE; 2.5 MCG/KG/MIN PRN Reason: Protocol Last Titration: 07/15/17 10:14 Dose: 7 mcg/kg/min, 29.91 mls/hr Phenylephrine HCl 20,000 mcg/ (Sodium Chloride) 250 mls @ 75 mls/hr IVPB ASDIR JANENE; 100 MCG/MIN PRN Reason: Protocol Last Titration: 07/15/17 10:15 Dose: 180 mcg/min, 135 mls/hr Lactobacillus Acidophilus (Bacid -) 1 tab PO DAILY [facility] Last Admin: 07/15/17 10:12 Dose: Not Given Mupirocin (Bactroban 2% Ointment -) 1 applic TP BID [facility] Last Admin: 07/15/17 09:28 Dose: 1 applic Ranitidine HCl (Zantac -) 150 mg PO BID [facility] Last Admin: 07/15/17 10:12 Dose: Not Given Rosuvastatin Calcium (Crestor -) 10 mg PO HS [facility] Last Admin: 07/14/17 21:11 Dose: 10 mg Sodium Chloride ([place] Nasal [place] -) 2 spray NS BID PRN PRN Reason: NASAL CONGESTION Last Admin: 07/13/17 18:08 Dose: 2 spray Tamsulosin HCl (Flomax -) 0.4 mg PO DAILY@0830 [facility] Last Admin: 07/15/17 10:11 Dose: Not Given Problem List - Problems (1) Bacteremia due to Enterococcus Code(s): R78.81 - BACTEREMIA; B95.2 - ENTEROCOCCUS THE CAUSE OF DISEASES CLASSIFIED ELSEWHERE (2) PEA (Pulseless electrical activity) Code(s): I46.9 - CARDIAC ARREST, CAUSE UNSPECIFIED (3) Pulmonary edema Code(s): J81.1 - CHRONIC PULMONARY EDEMA (4) CKD (chronic kidney disease) Code(s): N18.9 - CHRONIC KIDNEY DISEASE, UNSPECIFIED (5) Cellulitis Code(s): L03.90 - CELLULITIS, UNSPECIFIED Qualifiers: Site of cellulitis: extremity Site of cellulitis of extremity: lower extremity Laterality: left Qualified Code(s): L03.116 - Cellulitis of left lower limb (6) UTI (urinary tract infection) Code(s): N39.0 - URINARY TRACT INFECTION, SITE NOT SPECIFIED Qualifiers: Urinary tract infection type: site unspecified Hematuria presence: without hematuria Qualified Code(s): N39.0 - Urinary tract infection, site not specified (7) VALDEMAR (acute kidney injury) Code(s): N17.9 - ACUTE KIDNEY FAILURE, UNSPECIFIED (8) Abdominal pain Code(s): R10.9 - UNSPECIFIED ABDOMINAL PAIN (9) CAD (coronary artery disease) Code(s): I25.10 - ATHSCL HEART DISEASE OF [place] CORONARY ARTERY W/O ANG PCTRS Qualifiers: Coronary Disease-Associated Artery/Lesion type: coronary artery bypass graft (10) CHF (congestive heart failure) Code(s): I50.9 - HEART FAILURE, UNSPECIFIED Assessment/Plan 87yom with PMHx CAD, CHF Ef 15%, AICD, A-fib,CKD who was admitted with sepsis in the setting of LE cellulitis and UTI found to have enteroccoccus bacteremia. Admitted to ICU, intubated, post PEA arrest m/l 2/2 cardiogenic +/- septic shock. PEA arrest x2 while in ICU. GOC discussed with . She is unable to agree to DNR at this time. Plan: -LTVV for plat<30 and O2 sat>92% -Maintain vasopressors and inotropes for MAP> 60 -TTE -Trend trop and lactate -Follow cultures -Continue antibiotics / ID consult -Renal follow up -Hold diuretics for now -Monitor BMP and UOP -Wound care to sternal abrasions -SCDs, GI prophylaxis Dr Gore Critical care time spent in reviewing chart, evaluating patient and formulating plan - 36 minutes.
--- NOTE | 2017-07-15 11:42 | PN ---
Progress Note (short form) - Note Progress Note: Chief Complaint: sepsis, chf History of Present Illness: overnight pt had pea arrest twice. now on pressors and intubated o: Vital Signs Temp 97.5 F L 07/15/17 04:50 Pulse 71 07/15/17 10:15 Resp 18 07/15/17 10:56 BP 39/14 07/15/17 10:15 Pulse Ox 93 L 07/15/17 09:00 Intake & Output 07/14/17 07/14/17 07/15/17 11:59 23:59 11:59 Intake Total 840 500 300 Output Total 450 150 Balance 390 350 300 Weight 157 lb Intake: IV 200 DIPRIVAN - 1,000,000 mcg 2 In 100 ml @ 5 MCG/KG/MIN 2.136 mls/hr IVPB TITR JANENE Rx#:[id number] DOBUTAMINE 250 MG/D5W - 48 250,000 mcg In 250 ml @ 2 .5 MCG/KG/MIN 10.682 mls/ hr IV TITR JANENE Rx#: [id number] Levophed - 8,000 Mcg In 150 D5w - 492 ml @ 5 MCG/MIN 18.75 mls/hr IV TITR JANENE Rx#:[id number] IVPB 500 250 100 Oral 340 250 Output: Urine 450 150 Void 450 150 Other: Voiding Method Urinal Urinal Indwelling Catheter Weight Measurement Method Standing Scale Constitutional: Yes: No Distress, sedated, intubated Eyes: No: Sclera Icterus Cardiovascular: Yes: Regular Rate and Rhythm, Murmur (HSM apex to axilla ? M.R. murmur (not loud)), S1, S2, Other (PMI non diplaced). No: JVD (seated in chair) , Gallop, S3 Respiratory: Yes: coarse bs ant, vented Gastrointestinal: Yes: Normal Bowel Sounds, Soft. Extremities: No: Cold Edema: No Integumentary: No: Jaundice diaphoresis Neurological: sedated Psychiatric: No: Agitated - ....Imaging EKG: Other (tele: afib, V-paced) echo 06/2017: 1 + lve. severe dec lvef, EF 15-20%. mild mod-rve. mild dec rv fn. severe aida. mod ar. mv ring, no sig mr. severe tr. 1+ phtn kermit 04/2016: lve, mod-sev dec lvef, global hk, rve, mod dec rv fcn, mild ar, mv repair with mild mr, sev tr 2/2 icd lead, watchman device functioning normally. chronic bilateral effusions R>L as far back as [address] 06/2017: large rt pleural effusion, smaller lt pleural effusion. thoracic aorta up to 5.3 cm dilation. small ascites. cxr 07/15: effs, infiltrate, chf est cct 35 mins a/p: 87 yo with h/o CAD s/p CABG (09/2006: CHANDLER to LAD, SVG to HL, SVG to OM2, SVG to PDA) and pci (last cath/PCI 10/2012: patent CHANDLER to LAD, SVG to OM2, SVG to Ramus, occluded SVG to RPDA. Had ZENIA PCI to [facility] Di[facility], unsuccessful attempt of [facility] RCA FORMULATOR), MV ring (28 mm [place]) for severe MR, ischemic CMPathy s /p biv-ICD ([employer]) with chronic residual bilateral pleural effusions, HTN, HPL , Aflutter ablation 06/2008 (caused inappropriate ICD shocks), afib s/p watchman device 06/2015 ([facility] [place]) and subsequent AV darío ablation, asc ao aneurysm, GIB (?internal hemroids), ckd (bline cr 2.1-2.3), anemia who p/w fever. cardiogenic shock, septic shock: -overnight pt with pea arrest x2 -now intubated and on levo/dobut/phenyl for hypotension -bedside echo reviewed this AM and showed no severe valvular disease, no pericardial eff. It showed large pleural eff. 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 Does not appear volume overloaded at this time, would priortize tx of sepsis. Effusions slightly progressed here, but patient overall asx from respiratory perspective. hyponatremia and creatinine improving with IVF. CK slightly worse. Baseline creatinine 2.1-2.3. Consider trial off of IVF tomorrow if clinically stable. - 07/11: wt up 7 lbs in 2d (to 151). CXR 07/08 bilat pleural effusions. sob speaking sentences. significant effusions on CXR 07/08 and on exam today. lasix 40 iv qd to start (on 40 po qd at home). trend wt, labs. -07/12: cont iv lasix -07/13: no sig change in wt, cr stable, will increase lasix to 40 iv bid -07/14: cont lasix 40 iv bid -07/15: likely combo of septic and cardiogenic shock. bp very low on 3 pressors and needing ivfs for bp support so will have to hold off on diuresis for now - resume low dose coreg when bp allows. No omar given ckd. Nitrates and hydral have been held due to low bp tendencies. - lyte repletion per usual aggressive K/Mag targets afib/flutter s/p ablation, av darío ablation and watchman - contraindication to AC (gib). s/p watchman. con't asa. monitor hgb. - rate controlled. resume coreg when bp allows. Cad s/p cabg, pci: - Stable, no angina while coreg being held. Continue current , asa, statin. steven/CKD: - baseline creat 2.1-2.3 range - now with steven post pea arrest. cont bp support. s/p biv-ICD ([employer]): - routine home monitoring and office checks at [place] with EP dr tabares. ascending aorta aneurysm (5.3 cm, 06/2014): - resume coreg when able. - per office notes, stable size. Followed by CTS at [facility] --> rec'd continued monitoring with periodic ct. He would likely be prohibitively high risk for open aorta surgery given his chf and ckd status. Severe MR s/p ring: - no sig mr on repeat echo here.
[2017-07-15] MEDS ORDERED: SODIUM CHLORIDE 500 ML IV STA (14:00)
[2017-07-15] MEDS: FENTANYL INJECTION 500 MCG in SODIUM CHLORIDE 90 ML IVPB SCH (17:00)
--- NOTE | 2017-07-15 17:30 | PN ---
Progress Note, Physician History of Present Illness: Pt seen and examined at bedside. He had a cardiac arrest last night and is now in the ICU. Pt is sedated and non responsive. He is intubated. - Current Medication List Current Medications: Active Medications Acetaminophen (Tylenol -) 650 mg PO Q6H PRN PRN Reason: MILD PAIN Last Admin: 07/14/17 06:30 Dose: 650 mg Benzocaine/Menthol (Cepacol Lozenge -) 1 each MM PRN PRN PRN Reason: SORE THROAT Carvedilol (Coreg -) 3.125 mg PO BID JANENE Last Admin: 07/15/17 10:12 Dose: Not Given IV Flush (Triple Lumen Flush) 4 ml IVPUSH BID [facility]AN[facility] Ampicillin Sodium 2 gm/ Sodium (Chloride) 100 mls @ 200 mls/hr IVPB Q4H [facility]AN[facility] Last Admin: 07/15/17 16:31 Dose: 200 mls/hr CEFTRIAXONE IN IS-OSM DEXTROSE (Ceftriaxone 2 Gm-D5w Bag) 2 gm in 50 mls @ 200 mls/hr IVPB BID JANENE Last Admin: 07/15/17 09:28 Dose: 200 mls/hr Propofol (Diprivan -) 1,000,000 mcg in 100 mls @ 2.136 mls/hr IVPB TITR JANENE; 5 MCG/KG/MIN PRN Reason: Protocol Last Titration: 07/15/17 05:35 Dose: 0 mcg/kg/min, 0 mls/hr Norepinephrine Bitartrate 8, (000 mcg/ Dextrose) 500 mls @ 18.75 mls/hr IV TITR JANENE; 5 MCG/MIN PRN Reason: Protocol Last Admin: 07/15/17 16:10 Dose: 30 mcg/min, 112.5 mls/hr Dobutamine HCl/Dextrose (Dobutamine 250 Mg/D5w -) 250,000 mcg in 250 mls @ 10.682 mls/hr IV TITR JANENE; 2.5 MCG/KG/MIN PRN Reason: Protocol Last Admin: 07/15/17 13:49 Dose: 7 mcg/kg/min, 29.91 mls/hr Phenylephrine HCl 20,000 mcg/ (Sodium Chloride) 250 mls @ 75 mls/hr IVPB ASDIR JANENE; 100 MCG/MIN PRN Reason: Protocol Last Titration: 07/15/17 16:04 Dose: 100 mcg/min, 75 mls/hr Fentanyl 500 mcg/ Sodium (Chloride) 100 mls @ 10 mls/hr IVPB TITR JANENE; 50 MCG/ HR PRN Reason: Protocol Last Admin: 07/15/17 17:00 Dose: 10 mls/hr Lactobacillus Acidophilus (Bacid -) 1 tab PO DAILY [facility] Last Admin: 07/15/17 10:12 Dose: Not Given Mupirocin (Bactroban 2% Ointment -) 1 applic TP BID [facility] Last Admin: 07/15/17 09:28 Dose: 1 applic Ranitidine HCl (Zantac -) 150 mg PO BID [facility] Last Admin: 07/15/17 10:12 Dose: Not Given Rosuvastatin Calcium (Crestor -) 10 mg PO HS [facility] Last Admin: 07/14/17 21:11 Dose: 10 mg Sodium Chloride ([place] Nasal [place] -) 2 spray NS BID PRN PRN Reason: NASAL CONGESTION Last Admin: 07/13/17 18:08 Dose: 2 spray Tamsulosin HCl (Flomax -) 0.4 mg PO DAILY@0830 [facility] Last Admin: 07/15/17 10:11 Dose: Not Given - Objective Vital Signs: Vital Signs Temperature 97.3 F L 07/15/17 14:30 Pulse Rate 74 07/15/17 16:04 Respiratory Rate 18 07/15/17 17:05 Blood Pressure 126/65 07/15/17 17:00 O2 Sat by Pulse Oximetry (%) 94 L 07/15/17 10:00 Constitutional: Yes: Calm Eyes: Yes: Conjunctiva Clear HENT: Yes: Atraumatic Cardiovascular: Yes: S1, S2 Respiratory: Yes: Mechanically Ventilated Gastrointestinal: Yes: Soft Genitourinary: Yes: Garcia Present Musculoskeletal: Yes: Muscle Weakness Edema: Yes Edema: LLE: Trace, RLE: Trace Wound/Incision: Yes: Dressing Dry and Intact Neurological: Yes: Lethargy Labs: CBC, BMP 07/15/17 08:30 07/15/17 07:15 INR, PTT INR 1.78 (0.82-1.09) H 07/15/17 07:15 - ....Imaging Chest X-ray: Report Reviewed Problem List - Problems (1) CKD (chronic kidney disease) Code(s): N18.9 - CHRONIC KIDNEY DISEASE, UNSPECIFIED (2) Cellulitis Code(s): L03.90 - CELLULITIS, UNSPECIFIED Qualifiers: Site of cellulitis: extremity Site of cellulitis of extremity: lower extremity Laterality: left Qualified Code(s): L03.116 - Cellulitis of left lower limb (3) Atrial fibrillation Code(s): I48.91 - UNSPECIFIED ATRIAL FIBRILLATION (4) CAD (coronary artery disease) Code(s): I25.10 - ATHSCL HEART DISEASE OF [place] CORONARY ARTERY W/O ANG PCTRS Qualifiers: Coronary Disease-Associated Artery/Lesion type: coronary artery bypass graft (5) CHF (congestive heart failure) Code(s): I50.9 - HEART FAILURE, UNSPECIFIED Assessment/Plan Current Medications Generic Name Dose Route Start Last Admin Trade Name Freq PRN Reason Stop Dose Admin Acetaminophen 650 mg 07/10/17 11:04 07/14/17 06:30 Tylenol - PO 650 mg Q6H PRN Administration MILD PAIN Benzocaine/Menthol 1 each 07/10/17 11:04 Cepacol Lozenge - MM PRN PRN SORE THROAT Carvedilol 3.125 mg 07/10/17 11:15 07/15/17 10:12 Coreg - PO Not Given BID JANENE IV Flush 4 ml 07/15/17 22:00 Triple Lumen Flush IVPUSH BID JANENE Ampicillin Sodium 2 gm/ Sodium 100 mls @ 200 mls/hr 07/10/17 08:15 07/15/17 16:31 Chloride IVPB 200 mls/hr Q4H JANENE Administration CEFTRIAXONE IN IS-OSM DEXTROSE 2 gm in 50 mls @ 200 mls/hr 07/11/17 23:00 07/03 09:28 Ceftriaxone 2 Gm-D5w Bag IVPB 200 mls/hr BID JANENE Administration Propofol 1,000,000 mcg in 100 mls @ 2.136 mls/hr 07/15/17 05:15 07/15/17 05: 35 Diprivan - IVPB 0 mcg/kg/min TITR JANENE 0 mls/hr Protocol Titration 5 MCG/KG/MIN Norepinephrine Bitartrate 8, 500 mls @ 18.75 mls/hr 07/15/17 06:15 07/15/17 16:10 000 mcg/ Dextrose IV 30 mcg/min TITR JANENE 112.5 mls/hr Protocol Administration 5 MCG/MIN Dobutamine HCl/Dextrose 250,000 mcg in 250 mls @ 10.682 mls/hr 07/15/17 06:15 07/15/17 13:49 Dobutamine 250 Mg/D5w - IV 7 mcg/kg/min TITR JANENE 29.91 mls/hr Protocol Administration 2.5 MCG/KG/MIN Phenylephrine HCl 20,000 mcg/ 250 mls @ 75 mls/hr 07/15/17 07:30 07/15/17 16: 04 Sodium Chloride IVPB 100 mcg/min ASDIR JANENE 75 mls/hr Protocol Titration 100 MCG/MIN Fentanyl 500 mcg/ Sodium 100 mls @ 10 mls/hr 07/15/17 16:15 07/15/17 17:00 Chloride IVPB 10 mls/hr TITR JANENE Administration Protocol 50 MCG/HR Lactobacillus Acidophilus 1 tab 07/07/17 12:15 07/15/17 10:12 Bacid - PO Not Given DAILY [facility] Mupirocin 1 applic 07/07/17 13:00 07/15/17 09:28 Bactroban 2% Ointment - TP 1 applic BID JANENE Administration Ranitidine HCl 150 mg 07/11/17 23:15 07/15/17 10:12 Zantac - PO Not Given BID JANENE Rosuvastatin Calcium 10 mg 07/11/17 23:00 07/14/17 21:11 Crestor - PO 10 mg HS JANENE Administration Sodium Chloride 2 spray 07/13/17 13:00 07/13/17 18:08 [place] Nasal [place] - NS 2 spray BID PRN Administration NASAL CONGESTION Tamsulosin HCl 0.4 mg 07/07/17 10:00 07/15/17 10:11 Flomax - PO Not Given DAILY@0830 [facility] Impression 1. CKD 2. cellulitis 3. sepsis 4. pleural effusions 5. CAD with hx CABG 6. anemia 7. hx of GI bleed 8. a-fib 9. hyperlipidemia 10. renal cyst 11. CHF 12. s/p cardiac arrest 13. resp failure Plan - pressor support to a map of 65 - vent support - monitor renal function and urine output - may develope ATN from prolonged hypotension - monitor lactic acid - case discussed with - repeat labs in am - follow cultures - will follow Dr Francois
[2017-07-15] MEDS: ROSUVASTATIN CA 10 MG TABLET (FP) PO SCH (21:14)
[2017-07-16] MEDS: DOBUTAMINE 250 MG/D5W - 250,000 MCG/250 ML INFUS.BAG IV SCH
[2017-07-16] MEDS: AMPICILLIN - 2 GM in SODIUM CHLORIDE 100 ML IVPB SCH ×8 (00:03→20:49)
[2017-07-16] MEDS ORDERED: fentaNYL CITRATE 250 MCG/5 ML VIAL ONE ×3 (00:07→17:35)
[2017-07-16] MEDS: PROPOFOL 1,000,000 MCG/100 ML VIAL IVPB SCH ×2 (05:39→18:36)
[2017-07-16] MEDS: TRIPLE LUMEN FLUSH 4 ML ML IVPUSH SCH ×2 (05:40→10:00)
[2017-07-16] MEDS ORDERED: DOPAMINE 400 MG/D5W - 400,000 MCG/250 ML INFUS.BAG IVPB ONE ×3 (05:47→16:27)
[2017-07-16] MEDS ORDERED: PHENYLEPHRINE HCL 10 MG/1 ML SINGLE DOSE VIAL ONE (05:51)
[2017-07-16] MEDS ORDERED: NOREPINEPHRINE BITARTRATE 4 MG/4 ML ML IV ONE ×5 (05:51→20:07)
[2017-07-16 06:35] LABS: HEMATOCRIT 33.5 % (35.4-49); HEMOGLOBIN 10.9 GM/dL (11.7-16.9); MCH 30.1 pg (25.7-33.7); MCHC 32.6 g/dl (32.0-35.9); MEAN CELL VOLUME 92.1 fl (80-96); MEAN PLT VOLUME 9.2 fl (7.5-11.1); PLATELET COUNT 94 K/MM3 (134-434); RBC 3.64 M/mm3 (4.00-5.60); RDW 18.3 % (11.9-15.9); WHITE BLOOD COUNT 10.8 K/mm3 (4.0-10.0)
[2017-07-16] MEDS: NOREPINEPHRINE BITARTRATE 8,000 MCG in DEXTROSE 5%-WATER - 492 ML IV SCH (06:54)
[2017-07-16] MEDS: PHENYLEPHRINE HCL 20,000 MCG in SODIUM CHLORIDE 248 ML IVPB SCH (06:56)
[2017-07-16 07:10] LABS: ALK PHOS 78 U/L (45-117); ANION GAP 12 (8-16); BILIRUBIN,TOTAL 0.7 mg/dL (0.2-1.0); BLOOD UREA NITROGEN 55 mg/dL (7-18); CHLORIDE 98 mmol/L (98-107); CO2 24 mmol/L (21-32); CREATININE 3.2 mg/dL (0.7-1.3); GLUCOSE,RANDOM 155 mg/dL (74-106); MAGNESIUM 2.1 mg/dL (1.8-2.4); PHOSPHOROUS 4.3 mg/dL (2.5-4.9); SGOT/AST 21 U/L (15-37); SGPT/ALT 22 U/L (12-78); SODIUM 134 mmol/L (136-145)
[2017-07-16 07:29] LABS: CALCIUM 6.6 mg/dL (8.5-10.1)
[2017-07-16] MEDS: MUPIROCIN 2% TOPICAL OINTMENT 22 GM TUBE TP SCH (09:48)
[2017-07-16] MEDS: LACTOBACILLUS ACIDOPHILUS 1 EACH TAB (FP) PO SCH (09:48)
[2017-07-16] MEDS ORDERED: PT OWN MED DRAWER 7, Y5N ONE ×2 (09:50→20:04)
[2017-07-16] MEDS: CEFTRIAXONE IN IS-OSM DEXTROSE 2 GM/50 ML BAG IVPB SCH (09:52)
[2017-07-16] MEDS ORDERED: PANTOPRAZOLE SODIUM 40 MG VIAL IVPUSH SCH (10:00)
--- NOTE | 2017-07-16 10:07 | PN ---
Progress Note, Physician Chief Complaint: PEA arrest History of Present Illness: intubated, not communicative opens eyes when bed is moved - Current Medication List Current Medications: Active Medications Acetaminophen (Tylenol -) 650 mg PO Q6H PRN PRN Reason: MILD PAIN Last Admin: 07/14/17 06:30 Dose: 650 mg Benzocaine/Menthol (Cepacol Lozenge -) 1 each MM PRN PRN PRN Reason: SORE THROAT Carvedilol (Coreg -) 3.125 mg PO BID [facility] Last Admin: 07/15/17 10:12 Dose: Not Given IV Flush (Triple Lumen Flush) 4 ml IVPUSH BID [facility] Last Admin: 07/16/17 05:40 Dose: Not Given Ampicillin Sodium 2 gm/ Sodium (Chloride) 100 mls @ 200 mls/hr IVPB Q4H [facility] Last Admin: 07/16/17 09:47 Dose: 200 mls/hr CEFTRIAXONE IN IS-OSM DEXTROSE (Ceftriaxone 2 Gm-D5w Bag) 2 gm in 50 mls @ 200 mls/hr IVPB BID [facility] Last Admin: 07/16/17 09:52 Dose: 200 mls/hr Propofol (Diprivan -) 1,000,000 mcg in 100 mls @ 2.136 mls/hr IVPB TITR JANENE; 5 MCG/KG/MIN PRN Reason: Protocol Last Admin: 07/16/17 05:39 Dose: Not Given Norepinephrine Bitartrate 8, (000 mcg/ Dextrose) 500 mls @ 18.75 mls/hr IV TITR JANENE; 5 MCG/MIN PRN Reason: Protocol Last Admin: 07/16/17 06:54 Dose: 30 mcg/min, 112.5 mls/hr Dobutamine HCl/Dextrose (Dobutamine 250 Mg/D5w -) 250,000 mcg in 250 mls @ 10.682 mls/hr IV TITR JANENE; 2.5 MCG/KG/MIN PRN Reason: Protocol Last Admin: 07/16/17 00:00 Dose: 7 mcg/kg/min, 29.91 mls/hr Phenylephrine HCl 20,000 mcg/ (Sodium Chloride) 250 mls @ 75 mls/hr IVPB ASDIR JANENE; 100 MCG/MIN PRN Reason: Protocol Last Admin: 07/16/17 06:56 Dose: 100 mcg/min, 75 mls/hr Fentanyl 500 mcg/ Sodium (Chloride) 100 mls @ 10 mls/hr IVPB TITR JANENE; 50 MCG/ HR PRN Reason: Protocol Last Admin: 07/15/17 17:00 Dose: 10 mls/hr Lactobacillus Acidophilus (Bacid -) 1 tab PO DAILY [facility] Last Admin: 07/16/17 09:48 Dose: 1 tab Mupirocin (Bactroban 2% Ointment -) 1 applic TP BID [facility] Last Admin: 07/16/17 09:48 Dose: 1 applic Pantoprazole Sodium (Protonix Iv) 40 mg IVPUSH DAILY [facility] Last Admin: 07/16/17 09:52 Dose: 40 mg Rosuvastatin Calcium (Crestor -) 10 mg PO HS [facility] Last Admin: 07/15/17 21:14 Dose: 10 mg Sodium Chloride ([place] Nasal [place] -) 2 spray NS BID PRN PRN Reason: NASAL CONGESTION Last Admin: 07/13/17 18:08 Dose: 2 spray Tamsulosin HCl (Flomax -) 0.4 mg PO DAILY@0830 [facility] Last Admin: 07/15/17 10:11 Dose: Not Given - Objective Vital Signs: Vital Signs Temperature 98.0 F 07/16/17 06:00 Pulse Rate 76 07/16/17 06:00 Respiratory Rate 18 07/16/17 09:05 Blood Pressure 115/48 07/16/17 06:00 O2 Sat by Pulse Oximetry (%) 94 L 07/16/17 05:00 Constitutional: Yes: Well Nourished, No Distress, Calm Cardiovascular: Yes: Regular Rate and Rhythm, JVD ((EJ distended, TDS exam ETT)) , S1, S2. No: Gallop, Murmur Respiratory: Yes: Regular, Rales (RLL anteriorly). No: Accessory Muscle Use, Wheezes Extremities: Yes: Cool Edema: Yes (UEs (LE scd's on)) Neurological: No: Alert, Seizure Psychiatric: No: Agitated Labs: CBC, BMP 07/16/17 05:45 07/16/17 05:45 INR, PTT INR 1.78 (0.82-1.09) H 07/15/17 07:15 - ....Imaging EKG: Other (tele: afib, v-paced. freq NSVT max 10 beats) Assessment/Plan Echo 06/2017: 1 + lve. severe dec lvef, EF 15-20%. mild mod-rve. mild dec rv fn. severe aida. mod ar. mv ring, no sig mr. severe tr. 1+ phtn ELANA 04/2016: lve, mod-sev dec lvef, global hk, rve, mod dec rv fcn, mild ar, mv repair with mild mr, sev tr 2/2 icd lead, watchman device functioning normally. chronic bilateral effusions R>L as far back as [address] 06/2017: large rt pleural effusion, smaller lt pleural effusion. thoracic aorta up to 5.3 cm dilation. small ascites. cxr 07/15: effs, infiltrate, chf a/p: 87 yo with h/o CAD s/p CABG (09/2006: CHANDLER to LAD, SVG to HL, SVG to OM2, SVG to PDA) and pci (last cath/PCI 10/2012: patent CHANDLER to LAD, SVG to OM2, SVG to Ramus, occluded SVG to RPDA. 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 cardiogenic shock, septic shock: -overnight pt with pea arrest x2 -now intubated and on levo/dobut/phenyl for hypotension -bedside echo reviewed this AM and showed no severe valvular disease, no pericardial eff. It showed large pleural eff. -likely combo of septic and cardiogenic shock -bp currently much improved (mean BP 90s), with phenylephrine off. -cont dobutamine (7 mcg), levophed (30 mcg). 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 - developed acute chf here sec to IVF and ? triggered by sepsis - wt progressively carrie on lasix 40 iv qd then bid. - 07/15 had PEA arrest x 2 overnight, likely combo of septic and cardiogenic shock. bp very low on 3 pressors and needing ivfs (unfortunately requiring potent systemic vasoconstrictors as part of pressor regimen) - 3: hemodynamics much improved. off phenylephrine. remains cold and wet with diffuse pulm edema on CXR. cont dobutamine, wean levophed as bp tolerates. lasix 80mg IVP x 1 today, monitor UOP and rpt cxr in am - holding prior low dose coreg while on dobutamine. - No omar given ckd. Nitrates and hydral have been held due to low bp tendencies. VTach: - freq runs NSVT sec to inotropes plus low EF - aggressive k/mag repletion as doing - has ICD in place - cont tele monitoring afib/flutter s/p ablation, av darío ablation and watchman - contraindication to AC (gib). s/p watchman. con't asa. monitor hgb. - rate controlled. resume coreg when bp allows. Cad s/p cabg, pci: - Stable, no angina while coreg being held. Continue current , asa, statin. steven/CKD: - baseline creat 2.1-2.3 range - developed steven post pea arrest (hypoperfusion, ? ATN) - renal following - HF optimization as doing s/p biv-ICD ([employer]i): - routine home monitoring and office checks at [place] with EP dr tabares. ascending aorta aneurysm (5.3 cm, 06/2014): - resume coreg when able. - per office notes, stable size. Followed by CTS at [facility] --> rec'd continued monitoring with periodic ct. He would likely be prohibitively high risk for open aorta surgery given his chf and ckd status. Severe MR s/p ring: - no sig mr on repeat echo here. est time in pt exam, review of data, and formulation of mgmt plan of potentially life-threatening problems = 38 min
--- NOTE | 2017-07-16 10:37 | PN ---
Progress Note (short form) - Note Progress Note: PULMONARY/CCM Pt seen and examined in the ICU. Remains intubated, sedated on levophed, phenylephrine, dopamine and dobutamine gtts. Vented on volume assist control with 100% FiO2 and PEEP 8. Last Vital Signs Temp Pulse Resp BP Pulse Ox 98.8 F 78 18 150/69 94 L 07/16/17 10:00 07/16/17 10:00 07/16/17 10:00 07/16/17 10:00 07/16/17 05:00 Intake & Output 07/13/17 07/14/17 07/15/17 07/16/17 23:59 23:59 23:59 23:59 Intake Total 690 1340 4215 3740.8 Output Total 100 600 0 25 Balance 374 193 7852 3715.8 Weight 70.76 kg 71.214 kg 79.832 kg Gen: intubated, sedated Heart: RRR Lung: scattered rhonchi Abd: soft, nontender Ext: + edema CBC, BMP 07/16/17 05:45 07/16/17 05:45 Active Medications Acetaminophen (Tylenol -) 650 mg PO Q6H PRN PRN Reason: MILD PAIN Last Admin: 07/14/17 06:30 Dose: 650 mg Benzocaine/Menthol (Cepacol Lozenge -) 1 each MM PRN PRN PRN Reason: SORE THROAT Carvedilol (Coreg -) 3.125 mg PO BID [facility] Last Admin: 07/15/17 10:12 Dose: Not Given IV Flush (Triple Lumen Flush) 4 ml IVPUSH BID [facility] Last Admin: 07/16/17 05:40 Dose: Not Given Ampicillin Sodium 2 gm/ Sodium (Chloride) 100 mls @ 200 mls/hr IVPB Q4H [facility] Last Admin: 07/16/17 09:47 Dose: 200 mls/hr CEFTRIAXONE IN IS-OSM DEXTROSE (Ceftriaxone 2 Gm-D5w Bag) 2 gm in 50 mls @ 200 mls/hr IVPB BID [facility] Last Admin: 07/16/17 09:52 Dose: 200 mls/hr Propofol (Diprivan -) 1,000,000 mcg in 100 mls @ 2.136 mls/hr IVPB TITR JANENE; 5 MCG/KG/MIN PRN Reason: Protocol Last Admin: 07/16/17 05:39 Dose: Not Given Norepinephrine Bitartrate 8, (000 mcg/ Dextrose) 500 mls @ 18.75 mls/hr IV TITR JANENE; 5 MCG/MIN PRN Reason: Protocol Last Admin: 07/16/17 06:54 Dose: 30 mcg/min, 112.5 mls/hr Dobutamine HCl/Dextrose (Dobutamine 250 Mg/D5w -) 250,000 mcg in 250 mls @ 10.682 mls/hr IV TITR JANENE; 2.5 MCG/KG/MIN PRN Reason: Protocol Last Admin: 07/16/17 00:00 Dose: 7 mcg/kg/min, 29.91 mls/hr Phenylephrine HCl 20,000 mcg/ (Sodium Chloride) 250 mls @ 75 mls/hr IVPB ASDIR JANENE; 100 MCG/MIN PRN Reason: Protocol Last Admin: 07/16/17 06:56 Dose: 100 mcg/min, 75 mls/hr Fentanyl 500 mcg/ Sodium (Chloride) 100 mls @ 10 mls/hr IVPB TITR JANENE; 50 MCG/ HR PRN Reason: Protocol Last Admin: 07/15/17 17:00 Dose: 10 mls/hr Lactobacillus Acidophilus (Bacid -) 1 tab PO DAILY [facility] Last Admin: 07/16/17 09:48 Dose: 1 tab Mupirocin (Bactroban 2% Ointment -) 1 applic TP BID [facility] Last Admin: 07/16/17 09:48 Dose: 1 applic Pantoprazole Sodium (Protonix Iv) 40 mg IVPUSH DAILY [facility] Last Admin: 07/16/17 09:52 Dose: 40 mg Rosuvastatin Calcium (Crestor -) 10 mg PO HS [facility] Last Admin: 07/15/17 21:14 Dose: 10 mg Sodium Chloride ([place] Nasal [place] -) 2 spray NS BID PRN PRN Reason: NASAL CONGESTION Last Admin: 07/13/17 18:08 Dose: 2 spray Tamsulosin HCl (Flomax -) 0.4 mg PO DAILY@0830 [facility] Last Admin: 07/15/17 10:11 Dose: Not Given A/P s/p Cardiopulmonary Arrest UTI Cellulitis Enterococcal Bacteremia Shock likely combined Septic/Cardiogenic Severe LV Systolic Dysfunction Atrial Fibrillation s/p Watchman Device CAD s/p CABG Acute on CKD Lactic Acidosis - continue antibiotics - titrate pressors to maintain MAP >65 - continue dobutamine gtt - monitor urine output, creatinine - taper FiO2, PEEP to keep Spo2 >90% - sedate for vent synchrony - low tidal volume ventilation, keep Pplat <30 - not a candidate for weaning at this time - DVT/GI prophylaxis - continue discussions regarding goals of care, advanced directives - continue ICU monitoring - poor overall prognosis critical care time spent in reviewing chart, evaluating patient and formulating plan 35 min
[2017-07-16] MEDS ORDERED: FUROSEMIDE 40 MG/4 ML INJECTABLE VIAL IVPUSH ONE (12:00)
--- NOTE | 2017-07-16 12:09 | PN ---
Progress Note, Physician History of Present Illness: pt seen/ examined in icu. Intubated/ sedated. poorly responsive. chart reviewed. all f/u noted/ discussed with cc team. family at bedside. - Current Medication List Current Medications: Active Medications Acetaminophen (Tylenol -) 650 mg PO Q6H PRN PRN Reason: MILD PAIN Last Admin: 07/14/17 06:30 Dose: 650 mg Benzocaine/Menthol (Cepacol Lozenge -) 1 each MM PRN PRN PRN Reason: SORE THROAT Carvedilol (Coreg -) 3.125 mg PO BID [facility] Last Admin: 07/15/17 10:12 Dose: Not Given IV Flush (Triple Lumen Flush) 4 ml IVPUSH BID [facility] Last Admin: 07/16/17 05:40 Dose: Not Given Ampicillin Sodium 2 gm/ Sodium (Chloride) 100 mls @ 200 mls/hr IVPB Q4H [facility] Last Admin: 07/16/17 09:47 Dose: 200 mls/hr CEFTRIAXONE IN IS-OSM DEXTROSE (Ceftriaxone 2 Gm-D5w Bag) 2 gm in 50 mls @ 200 mls/hr IVPB BID [facility] Last Admin: 07/16/17 09:52 Dose: 200 mls/hr Propofol (Diprivan -) 1,000,000 mcg in 100 mls @ 2.136 mls/hr IVPB TITR JANENE; 5 MCG/KG/MIN PRN Reason: Protocol Last Admin: 07/16/17 05:39 Dose: Not Given Norepinephrine Bitartrate 8, (000 mcg/ Dextrose) 500 mls @ 18.75 mls/hr IV TITR JANENE; 5 MCG/MIN PRN Reason: Protocol Last Admin: 07/16/17 06:54 Dose: 30 mcg/min, 112.5 mls/hr Dobutamine HCl/Dextrose (Dobutamine 250 Mg/D5w -) 250,000 mcg in 250 mls @ 10.682 mls/hr IV TITR JANENE; 2.5 MCG/KG/MIN PRN Reason: Protocol Last Admin: 07/16/17 00:00 Dose: 7 mcg/kg/min, 29.91 mls/hr Fentanyl 500 mcg/ Sodium (Chloride) 100 mls @ 10 mls/hr IVPB TITR JANENE; 50 MCG/ HR PRN Reason: Protocol Last Admin: 07/15/17 17:00 Dose: 10 mls/hr Lactobacillus Acidophilus (Bacid -) 1 tab PO DAILY [facility] Last Admin: 07/16/17 09:48 Dose: 1 tab Mupirocin (Bactroban 2% Ointment -) 1 applic TP BID [facility] Last Admin: 07/16/17 09:48 Dose: 1 applic Pantoprazole Sodium (Protonix Iv) 40 mg IVPUSH DAILY [facility] Last Admin: 07/16/17 09:52 Dose: 40 mg Rosuvastatin Calcium (Crestor -) 10 mg PO HS [facility] Last Admin: 07/15/17 21:14 Dose: 10 mg Sodium Chloride ([place] Nasal [place] -) 2 spray NS BID PRN PRN Reason: NASAL CONGESTION Last Admin: 07/13/17 18:08 Dose: 2 spray Tamsulosin HCl (Flomax -) 0.4 mg PO DAILY@0830 [facility] Last Admin: 07/15/17 10:11 Dose: Not Given - Objective Vital Signs: Vital Signs Temperature 98.8 F 07/16/17 10:00 Pulse Rate 78 07/16/17 10:00 Respiratory Rate 18 07/16/17 10:00 Blood Pressure 150/69 07/16/17 10:00 O2 Sat by Pulse Oximetry (%) 100 07/16/17 09:00 Constitutional: Yes: Other (intubated/ sedated.) Eyes: Yes: Other (pupil reactive) Cardiovascular: Yes: Regular Rate and Rhythm Respiratory: Yes: Diminished Gastrointestinal: Yes: Soft Edema: LLE: 1+, RLE: 1+ Labs: CBC, BMP 07/16/17 05:45 07/16/17 05:45 INR, PTT INR 1.78 (0.82-1.09) H 07/15/17 07:15 Problem List - Problems (1) PEA (Pulseless electrical activity) Code(s): I46.9 - CARDIAC ARREST, CAUSE UNSPECIFIED (2) Bacteremia due to Enterococcus Code(s): R78.81 - BACTEREMIA; B95.2 - ENTEROCOCCUS THE CAUSE OF DISEASES CLASSIFIED ELSEWHERE (3) CKD (chronic kidney disease) Code(s): N18.9 - CHRONIC KIDNEY DISEASE, UNSPECIFIED (4) Atrial fibrillation Code(s): I48.91 - UNSPECIFIED ATRIAL FIBRILLATION (5) Azotemia Code(s): R79.89 - OTHER SPECIFIED ABNORMAL FINDINGS OF BLOOD CHEMISTRY (6) CAD (coronary artery disease) Code(s): I25.10 - ATHSCL HEART DISEASE OF [place] CORONARY ARTERY W/O ANG PCTRS Qualifiers: Coronary Disease-Associated Artery/Lesion type: coronary artery bypass graft (7) CHF (congestive heart failure) Code(s): I50.9 - HEART FAILURE, UNSPECIFIED Assessment/Plan S/p rapid response Multiple medical problems as listed Pressure support vent support. abx. Discussed with critical team. discussed with pts also in detail again today. Condition remains critical. worsening renal function. Discussed with nursing staff also. overall prognosis poor. will follow cc time - 35 min.
--- NOTE | 2017-07-16 12:20 | PN ---
Progress Note (short form) - Note Progress Note: covering dr scott Problems 1. CKD 2. cellulitis 3. sepsis 4. pleural effusions 5. CAD with hx CABG 6. anemia 7. hx of GI bleed 8. a-fib 9. hyperlipidemia 10. renal cyst 11. CHF 12. s/p cardiac arrest 13. resp failure Active Medications Acetaminophen (Tylenol -) 650 mg PO Q6H PRN PRN Reason: MILD PAIN Last Admin: 07/14/17 06:30 Dose: 650 mg Benzocaine/Menthol (Cepacol Lozenge -) 1 each MM PRN PRN PRN Reason: SORE THROAT Carvedilol (Coreg -) 3.125 mg PO BID [facility] Last Admin: 07/15/17 10:12 Dose: Not Given IV Flush (Triple Lumen Flush) 4 ml IVPUSH BID [facility] Last Admin: 07/16/17 05:40 Dose: Not Given Ampicillin Sodium 2 gm/ Sodium (Chloride) 100 mls @ 200 mls/hr IVPB Q4H [facility] Last Admin: 07/16/17 09:47 Dose: 200 mls/hr CEFTRIAXONE IN IS-OSM DEXTROSE (Ceftriaxone 2 Gm-D5w Bag) 2 gm in 50 mls @ 200 mls/hr IVPB BID [facility] Last Admin: 07/16/17 09:52 Dose: 200 mls/hr Propofol (Diprivan -) 1,000,000 mcg in 100 mls @ 2.136 mls/hr IVPB TITR JANENE; 5 MCG/KG/MIN PRN Reason: Protocol Last Admin: 07/16/17 05:39 Dose: Not Given Norepinephrine Bitartrate 8, (000 mcg/ Dextrose) 500 mls @ 18.75 mls/hr IV TITR JANENE; 5 MCG/MIN PRN Reason: Protocol Last Admin: 07/16/17 06:54 Dose: 30 mcg/min, 112.5 mls/hr Dobutamine HCl/Dextrose (Dobutamine 250 Mg/D5w -) 250,000 mcg in 250 mls @ 10.682 mls/hr IV TITR JANENE; 2.5 MCG/KG/MIN PRN Reason: Protocol Last Admin: 07/16/17 00:00 Dose: 7 mcg/kg/min, 29.91 mls/hr Fentanyl 500 mcg/ Sodium (Chloride) 100 mls @ 10 mls/hr IVPB TITR JANENE; 50 MCG/ HR PRN Reason: Protocol Last Admin: 07/15/17 17:00 Dose: 10 mls/hr Lactobacillus Acidophilus (Bacid -) 1 tab PO DAILY [facility] Last Admin: 07/16/17 09:48 Dose: 1 tab Mupirocin (Bactroban 2% Ointment -) 1 applic TP BID [facility] Last Admin: 07/16/17 09:48 Dose: 1 applic Pantoprazole Sodium (Protonix Iv) 40 mg IVPUSH DAILY [facility] Last Admin: 07/16/17 09:52 Dose: 40 mg Rosuvastatin Calcium (Crestor -) 10 mg PO HS [facility] Last Admin: 07/15/17 21:14 Dose: 10 mg Sodium Chloride ([place] -) 2 spray NS BID PRN PRN Reason: NASAL CONGESTION Last Admin: 07/13/17 18:08 Dose: 2 spray Tamsulosin HCl (Flomax -) 0.4 mg PO DAILY@0830 [facility] Last Admin: 07/15/17 10:11 Dose: Not Given Last Vital Signs Temp Pulse Resp BP Pulse Ox 98.8 F 78 18 150/69 100 07/16/17 10:00 07/16/17 10:00 07/16/17 10:00 07/16/17 10:00 07/16/17 09:00 Intake & Output 07/13/17 07/14/17 07/15/17 07/16/17 23:59 23:59 23:59 23:59 Intake Total 690 1340 4215 3740.8 Output Total 100 600 0 25 Balance 259 727 6871 3715.8 Weight 156 lb 157 lb 176 lb CBC, BMP 07/16/17 05:45 07/16/17 05:45 A/P Acute on CKD oliguric today 2/2 renal ischemia s/p Cardiopulmonary Arrest unresponsive on vent sedated on pressors Cellulitis Enterococcal Bacteremia Shock likely combined Septic/Cardiogenic Severe LV Systolic Dysfunction Atrial Fibrillation s/p Watchman Device CAD s/p CABG s/p Lactic Acidosis
[2017-07-16 15:27] VITALS: TEMP 98.6
[2017-07-16] MEDS: FENTANYL INJECTION 500 MCG in SODIUM CHLORIDE 90 ML IVPB SCH (17:37)
[2017-07-16] MEDS ORDERED: PROPOFOL 1,000,000 MCG/100 ML VIAL ONE (18:31)
--- NOTE | 2017-07-16 22:41 | CONSULT ---
Consult - text type - Consultation Consultation Note: Called to bedside by RN for pulseless electrical activity, CPR initiated @ 2110 , family at bedside. Spoke with family regarding resuscitative measures and patient's wishes and decision by family was to continue CPR and all efforts. This is patient's third code. Pt received 5 rounds of epi, 1 amp Bicarb, 1 cacl in addition to dripss that patient was already on (dopamine, dobutamine, levophed) without change in condition and no rOSC, no pacer captured detected. No pulse or heart beat auscultated. No spotnaneous breathes or brainstem reflexes. Called time of 2125. Family at bedside. Jacque Petersen, SISSY- Pulm critical care
[2017-07-16 23:39] VITALS: BP 146/102; PULSE 76
--- NOTE | 2017-07-17 11:03 | DS ---
Physical Examination Vital Signs: Vital Signs Temperature 98.6 F 07/16/17 14:00 Pulse Rate 76 07/16/17 23:37 Respiratory Rate 18 07/16/17 23:37 Blood Pressure 146/102 07/16/17 23:37 O2 Sat by Pulse Oximetry (%) 100 07/16/17 09:00 Findings/Remarks: see progress note of 07/16/17 Labs: CBC, BMP 07/16/17 05:45 07/16/17 05:45 Discharge Summary Reason For Visit: CELLULITIS/UTI Hospital Course: pt admitted due to sepsis multiple problems as listed s/p Cardiopulmonary Arrest Enterococcal Bacteremia. uti. cellulitis Shock likely combined Septic/Cardiogenic Severe LV Systolic Dysfunction Atrial Fibrillation s/p Watchman Device CAD s/p CABG Acute on CKD Lactic Acidosis Pt coded again failed attempts at resuscitation. Pt . - Instructions Referrals: Ga Hoang MD [Primary Care Provider] - Disposition: - Home Medications Comprehensive Discharge Medication List: Ambulatory Orders Cholecalciferol (Vitamin D3) [Vitamin D3] 1,000 unit PO DAILY 02/12/15 Rosuvastatin Calcium [Crestor] 10 mg PO HS 02/12/15 Aspirin [ASA -] 81 mg PO DAILY 08/26/15 Tamsulosin HCl [Flomax -] 0.4 mg PO DAILY 08/26/15 Furosemide [Lasix -] 40 mg PO DAILY 09/11/15 Carvedilol [Coreg -] 3.125 mg PO BID #60 tablet 09/24/15 Iron Ps Complex/B12/Folic Acid [Ferrex 150 Forte Capsule] 1 each PO DAILY
== END 2017-07-16 23:40 | disposition expired | DRG 871 ==
LOC: FER 18:30 → FM/S 07-07 03:06 → J4W 07-11 13:45 → JICU 07-15 04:25
PROVIDERS: ADMIT Internal Medicine; ATTEND Internal Medicine
PROC: 5A1945Z Respiratory Ventilation, 24-96 Consecutive Hours (ICD-10-PCS; principal; 2017-07-15)
PROC: 0BH17EZ Insertion of Endotracheal Airway into Trachea, Via Natural or Artificial Opening (ICD-10-PCS; 2017-07-15)
PROC: 05HM33Z Insertion of Infusion Device into Right Internal Jugular Vein, Percutaneous Approach (ICD-10-PCS; 2017-07-15)
PROC: B543ZZA Ultrasonography of Right Jugular Veins, Guidance (ICD-10-PCS; 2017-07-15)
DX: A41.81 Sepsis due to Enterococcus (principal); I50.23 Acute on chronic systolic (congestive) heart failure; J96.90 Respiratory failure, unspecified, unspecified whether with hypoxia or hypercapnia; R65.21 Severe sepsis with septic shock; N17.9 Acute kidney failure, unspecified; L03.116 Cellulitis of left lower limb; E87.2 Acidosis; I48.92 Unspecified atrial flutter; E87.1 Hypo-osmolality and hyponatremia; I47.2 Ventricular tachycardia; I13.0 Hypertensive heart and chronic kidney disease with heart failure and stage 1 through stage 4 chronic kidney disease, or unspecified chronic kidney disease; I24.8 Other forms of acute ischemic heart disease; I25.10 Atherosclerotic heart disease of native coronary artery without angina pectoris; I48.91 Unspecified atrial fibrillation; Z87.440 Personal history of urinary (tract) infections; Z87.891 Personal history of nicotine dependence; Z95.1 Presence of aortocoronary bypass graft; E78.5 Hyperlipidemia, unspecified; Z95.810 Presence of automatic (implantable) cardiac defibrillator; D69.6 Thrombocytopenia, unspecified; Z95.5 Presence of coronary angioplasty implant and graft; D64.9 Anemia, unspecified; I71.2 Thoracic aortic aneurysm, without rupture; N40.0 Benign prostatic hyperplasia without lower urinary tract symptoms; K57.90 Diverticulosis of intestine, part unspecified, without perforation or abscess without bleeding; R04.0 Epistaxis; N28.1 Cyst of kidney, acquired; R57.0 Cardiogenic shock; N18.9 Chronic kidney disease, unspecified
CPT/HCPCS: 36415; 36600; 71045-TC-FY; 71046-TC-FY; 71250-TC; 80048; 80053; 81003; 81015; 82550; 82553; 82803; 82962; 83605; 83735; 84100; 84484; 85025; 85027; 85610; 85651; 86140; 87040; 87070; 87086; 87186; 87205; 87804; 93005; 93010; 93306-TC; 93971-TC; 94002; 94640; 97116-GP; 97161-GP; 99285-25; G0480; J1250; J1644